=== PATIENT | female | born 1975 | race Two or more races ===

== ENCOUNTER 2022-01-22 14:53 | Outpatient (REF) | payer MEDICAID, OTHER, SELFPAY ==
--- NOTE | ~2022-01-22 | MM_ITS ---
EXAMINATION: MM SCREENING DIGITAL BREAST TOMOSYNTHESIS, BILATERAL CLINICAL INFORMATION: Screening. Asymptomatic. Surgical local outside mammograms unsuccessful. The lifetime risk of breast cancer based on the Tyrer-Cuzick Model is 6%. COMPARISON: None. TECHNIQUE: Digital breast tomosynthesis is performed in both the craniocaudal and mediolateral oblique views along with computer-aided detection (CAD). Synthesized 2D images are generated from the tomosynthesis. FINDINGS: The breasts are almost entirely fatty (ACR BI-RADS breast composition Category a). Right CC view has 0.5 mm nodular asymmetric density 11 cm from nipple medial to midline residing close to the skin on tomography with ill-defined margins. No MLO correlate. Finding could be related to the skin. In the absence of prior mammography, patient will be recalled for additional imaging. Left breast The remainder of the right breast and left breast shows normal stromal and fibroglandular densities. There are no abnormal calcifications. The axilla and skin contours are unremarkable. MM/MM tomosynthesis screening BI IMPRESSION: 1. Right: 5 mm asymmetric density close to skin posterior 5:00 position. 2. Left: No mammographic evidence of malignancy. ASSESSMENT: BI-RADS 0: Incomplete - Need Additional Imaging Evaluation RECOMMENDATION: 1. Assess right breast for dermal lesion and obtain repeat imaging with dermal marker if applicable. Otherwise, spot CC and rolled CC. 2. Targeted ultrasound if warranted after review of the additional views. 3. Radiology department staff will contact the patient for additional imaging. This patient's information was entered into a reminder system with a target due date for their next mammogram.
== END 2022-01-22 14:54 | disposition home or self-care (01) ==
LOC: HO.MAMMO 14:53
PROVIDERS: PCP Internal Medicine; Visit Provider Internal Medicine
DX: Z12.31 Encounter for screening mammogram for malignant neoplasm of breast (principal)
CPT/HCPCS: 77063; 77067

== ENCOUNTER 2022-02-04 14:26 | Outpatient (REF) | payer MEDICAID, OTHER, SELFPAY ==
--- NOTE | ~2022-02-04 | MM_ITS ---
EXAMINATION: MM DIAGNOSTIC DIGITAL BREAST TOMOSYNTHESIS, RIGHT CLINICAL INFORMATION: Right breast asymmetric density deep medial aspect. Question possible dermal lesion. COMPARISON: Mammography: 01/22/2022. TECHNIQUE: Digital breast tomosynthesis is performed. 2D images are generated from the tomosynthesis. The following views are obtained: Craniocaudal and mediolateral oblique projections. FINDINGS: The breasts are almost entirely fatty (ACR BI-RADS breast composition Category a). There is noted be a skin marker about the inferior medial aspect for which a skin marker was placed. Imaging demonstrated the questioned nodule to represent a skin lesion. No ultrasound was performed. Results are provided to the patient at time of visit by the technologist. MM/MM tomosynthesis added views R IMPRESSION: Mammographic abnormality corresponding to a dermal lesion. ASSESSMENT: BI-RADS 1: Negative. RECOMMENDATION: Routine annual mammography screening due in 12 months. This patient's information was entered into a reminder system with a target due date for their next mammogram.
== END 2022-02-04 14:27 | disposition home or self-care (01) ==
LOC: HO.MAMMO 14:26
PROVIDERS: Visit Provider Internal Medicine
DX: R92.2 Inconclusive mammogram (principal)
CPT/HCPCS: 77061; 77065

== ENCOUNTER → 2022-10-07 12:43 | Outpatient (REF) | payer MEDICAID, OTHER, SELFPAY ==
--- NOTE | 2022-10-07 12:48 | HM_ITS ---
Conclusion: 1. Patient was monitored for total period of 1 day and 22 hours 2. Baseline was normal sinus rhythm with average heart of 92 beats per minute 3. No significant pauses or bradycardia noted 4. Rare PACs noted 5. No patient reported symptoms MTDD
== END ==
LOC: HO.CARD 12:43
PROVIDERS: PCP Internal Medicine; Visit Provider Internal Medicine
DX: R00.2 Palpitations (principal)
CPT/HCPCS: 93226

== ENCOUNTER 2023-03-04 15:39 | Outpatient (REF) | payer MEDICAID, OTHER, SELFPAY ==
--- NOTE | ~2023-03-04 | MM_ITS ---
EXAMINATION: MM SCREENING DIGITAL BREAST TOMOSYNTHESIS, BILATERAL CLINICAL INFORMATION: Screening. Asymptomatic. COMPARISON: Mammography: February 04, 2022 and January 22, 2022 TECHNIQUE: Digital breast tomosynthesis is performed in both the craniocaudal and mediolateral oblique views along with computer-aided detection (CAD). Synthesized 2D images are generated from the tomosynthesis. FINDINGS: The breasts are almost entirely fatty (ACR BI-RADS breast composition Category a). There are no significant masses, abnormal calcifications, or other abnormalities. MM/MM tomosynthesis screening BI IMPRESSION: No significant changes from prior exam. ASSESSMENT: BI-RADS 1: Negative RECOMMENDATION: Routine annual mammography screening. This patient's information was entered into a reminder system with a target due date for their next mammogram.
== END 2023-03-04 15:40 | disposition home or self-care (01) ==
LOC: HO.MAMMO 15:39
PROVIDERS: PCP Internal Medicine; Visit Provider Internal Medicine
DX: Z12.31 Encounter for screening mammogram for malignant neoplasm of breast (principal)
CPT/HCPCS: 77063; 77067

== ENCOUNTER 2023-11-09 14:54 | Outpatient (REF) | payer MEDICAID, OTHER, SELFPAY ==
[2023-11-09 18:11] LABS: Anion Gap 15 (12-20); Blood Urea Nitrogen 8 mg/dL (9-16); Calcium 9.5 mg/dL (8.4-10.2); Carbon Dioxide 26 mmol/L (22-29); Chloride 103 mmol/L (96-108); Estimated Glomerular Filt Rate > 60; Glucose Random 79 mg/dL (60-115); Potassium 3.5 mmol/L (3.3-5.1); Sodium 140 mmol/L (135-145)
== END 2023-11-09 14:55 | disposition home or self-care (01) ==
LOC: HO.CHCLDS 14:54
PROVIDERS: Visit Provider Internal Medicine
DX: S63.502A Unspecified sprain of left wrist, initial encounter (principal)
CPT/HCPCS: 36415; 80048

== ENCOUNTER 2024-01-12 08:33 | Outpatient (REF) | payer MEDICAID, OTHER, SELFPAY ==
[2024-01-12 17:52] LABS: Alanine Aminotransferase 18 U/L (0-31); Alkaline Phosphatase 82 U/L (39-117); Anion Gap 13 (12-20); Aspartate Amino Transferase 14 U/L (5-31); Bilirubin Total 0.4 mg/dL (0.0-1.0); Blood Urea Nitrogen 13 mg/dL (9-16); Carbon Dioxide 25 mmol/L (22-29); Chloride 106 mmol/L (96-108); Cholesterol 183 mg/dL (<200); Estimated Glomerular Filt Rate > 60; Glucose Random 78 mg/dL (60-115); HDL Cholesterol 40 mg/dL (>40); LDL Cholesterol Calculated 125 mg/dL (<100); Potassium 3.9 mmol/L (3.3-5.1); Sodium 140 mmol/L (135-145); Total Protein 7.5 g/dL (6.5-8.0); Triglycerides 92 mg/dL (<150)
== END 2024-01-12 08:34 | disposition home or self-care (01) ==
LOC: HO.CHCLDS 08:33
PROVIDERS: Visit Provider Internal Medicine
DX: E78.2 Mixed hyperlipidemia (principal)
CPT/HCPCS: 36415; 80053; 80061

== ENCOUNTER 2024-01-28 14:54 | Outpatient (REF) | payer MEDICAID, OTHER, SELFPAY ==
--- NOTE | 2024-01-28 | EMG_ITS ---
Chief complaint: Hand numbness Reason for referral: Evaluate for Carpal Tunnel Syndrome Referred by: Dr. Hernandez Procedure done: Bilateral upper extremities NCS/EMG Precautions and/or limitations: None Patient is Icelandic speaking, seen with insurance consultant. The limb temperature was monitored continuously and remained between 32-36 degrees C during the performance of the NCS. Nerve Conduction Studies Anti Sensory Summary Table ?Stim Site NR Onset (ms) Norm Onset (ms) Peak (ms) Norm Peak (ms) O-P Amp (?V) Norm O-P Amp Site1 Site2 Delta-0 (ms) Dist (cm) Harley (m/s) Norm Harley (m/s) Left Median Anti Sensory (2nd Digit) Wrist ? 3.0 3.8 <3.6 33.3 >10 Wrist 2nd Digit 3.0 14.0 47 Right Median Anti Sensory (2nd Digit) Wrist ? 3.3 4.0 <3.6 15.3 >10 Wrist 2nd Digit 3.3 14.0 42 Right Radial Anti Sensory (Thumb) Forearm ? 1.4 1.9 <3.1 6.6 Forearm Thumb 1.4 0.0 Left Ulnar Anti Sensory (5th Digit) Wrist ? 2.5 3.1 <3.7 35.2 >15.0 Wrist 5th Digit 2.5 14.0 56 Right Ulnar Anti Sensory (5th Digit) Wrist ? 2.3 2.9 <3.7 16.4 >15.0 Wrist 5th Digit 2.3 14.0 61 Motor Summary Table ?Stim Site NR Onset (ms) Norm Onset (ms) O-P Amp (mV) Norm O-P Amp iAmp (mV) Amp (1st) (%) Site1 Site2 Delta-0 (ms) Dist (cm) Harley (m/s) Norm Harley (m/s) Left Median Motor (Abd Poll Brev) Wrist ? 4.4 <3.9 8.9 >4.5 10.1 100.0 Elbow Wrist 3.5 19.5 56 >45 Elbow ? 7.9 8.3 9.6 93.3 Right Median Motor (Abd Poll Brev) Wrist ? 4.6 <3.9 10.2 >4.5 11.8 100.0 Elbow Wrist 3.8 19.0 50 >45 Elbow ? 8.4 10.5 12.1 102.9 Left Ulnar Motor (Abd Dig Minimi) Wrist ? 2.7 <3.0 9.1 >5 11.4 100.0 B Elbow Wrist 3.0 17.0 57 >45 B Elbow ? 5.7 9.0 11.3 98.9 A Elbow B Elbow 1.0 10.0 100 >45 A Elbow ? 6.7 8.4 10.5 92.3 Right Ulnar Motor (Abd Dig Minimi) Wrist ? 2.5 <3.0 10.3 >5 12.7 100.0 B Elbow Wrist 3.0 18.0 60 >45 B Elbow ? 5.5 10.4 13.0 101.0 A Elbow B Elbow 1.3 10.0 77 >45 A Elbow ? 6.8 10.0 12.4 97.1 EMG ?Side Muscle Nerve Root Ins Act Fibs Psw Amp Dur Poly Recrt Int Pat Comment Right 1stDorInt Ulnar C8-T1 Nml Nml Nml Nml Nml 0 Nml Complete Right FlexCarRad Median C6-7 Nml Nml Nml Nml Nml 0 Nml Complete Right Biceps Musculocut C5-6 Nml Nml Nml Nml Nml 0 Nml Complete Right Triceps Radial C6-7-8 Nml Nml Nml Nml Nml 0 Nml Complete Right Deltoid Axillary C5-6 Nml Nml Nml Nml Nml 0 Nml Complete Left 1stDorInt Ulnar C8-T1 Nml Nml Nml Nml Nml 0 Nml Complete Left FlexCarRad Median C6-7 Nml Nml Nml Nml Nml 0 Nml Complete Left Biceps Musculocut C5-6 Nml Nml Nml Nml Nml 0 Nml Complete Left Triceps Radial C6-7-8 Nml Nml Nml Nml Nml 0 Nml Complete Left Deltoid Axillary C5-6 Nml Nml Nml Nml Nml 0 Nml Complete FINDINGS: Bilateral median motor nerves showed prolonged distal latency, normal amplitude and normal conduction velocity. Bilateral median sensory nerves showed prolonged peak latency. All other nerves tested were within normal. Concentric needle EMG was performed in selected muscles of the bilateral upper extremities. Study did not reveal signs of electric abnormalities as shown in the table below. IMPRESSION: 1. This is an abnormal study. 2. There is electrodiagnostic evidence for bilateral moderate-severe median neuropathy at the wrist, consistent with carpal tunnel syndrome. 3. There is no electrodiagnostic evidence for ulnar neuropathy, brachial plexopathy, or cervical radiculopathy. Thank you for your kind referral. Tereza Holland MD, KARLI Board Certified, [place] Board [employer] Medicine and Rehabilitation (ABPMR) Board Certified, [place] Board of Electrodiagnostic Medicine (ABEM) CODIN 95428 x 2 MTDD
== END 2024-01-28 14:55 | disposition home or self-care (01) ==
LOC: HO.NEURO 14:54
PROVIDERS: PCP Internal Medicine; Visit Provider Internal Medicine
DX: G56.01 Carpal tunnel syndrome, right upper limb (principal)
CPT/HCPCS: 95886; 95911

== ENCOUNTER → 2024-01-28 15:00 | Outpatient (BNV) | payer SELFPAY | PROVIDERS: PCP Internal Medicine; Visit Provider Physical Medicine & Rehabilitation | DX: G56.03 Carpal tunnel syndrome, bilateral upper limbs (principal); G56.13 Other lesions of median nerve, bilateral upper limbs | CPT/HCPCS: 95886; 95911 ==

== ENCOUNTER 2024-05-22 16:10 | Outpatient (REF) | payer SELFPAY ==
[2024-05-22 18:36] LABS: Anion Gap 14 (12-20); Blood Urea Nitrogen 20 mg/dL (9-16); Calcium 9.6 mg/dL (8.4-10.2); Carbon Dioxide 27 mmol/L (22-29); Chloride 106 mmol/L (96-108); Estimated Glomerular Filt Rate > 60; Glucose Random 142 mg/dL (60-115); Potassium 4.3 mmol/L (3.3-5.1); Sodium 143 mmol/L (135-145)
== END 2024-05-22 16:11 | disposition home or self-care (01) ==
LOC: HO.HHCL 16:10
PROVIDERS: Visit Provider Internal Medicine
DX: M25.511 Pain in right shoulder (principal)
CPT/HCPCS: 36415; 80048

== ENCOUNTER 2024-10-04 09:57 | Outpatient (REF) | payer SELFPAY ==
[2024-10-04 14:08] LABS: MANUAL DIFF FLAG NO
[2024-10-04 14:20] LABS: Basophils Percent Auto 0.4 % (0-2); Eosinophils Absolute Auto 0.1 X10*3/uL (0.0-0.4); Eosinophils Percent Auto 0.9 % (0-4); Hematocrit 39.9 % (37.0-47.0); Hemoglobin 12.6 g/dl (12.0-16.0); Imm Gran Abs Auto 0.02 X10*3/uL (0.00-0.03); Imm Gran Pct Auto 0.2 % (0.0-0.4); Lymphocytes Absolute Auto 2.9 X10*3/uL (1.2-4.9); Mean Corpuscular HGB Conc 31.6 g/dl (31.0-35.0); Mean Corpuscular Hemoglobin 25.9 pg (27.0-33.0); Mean Corpuscular Volume 81.9 fL (80.0-98.0); Mean Platelet Volume 11.3 fL (9.4-12.3); Monocytes Absolute Auto 0.6 X10*3/uL (0.1-1.2); Monocytes Percent Auto 5.6 % (2-11); Neutrophils Absolute Auto 6.3 x10*3/uL (2.0-8.3); Neutrophils Percent Auto 63.9 % (45-73); Platelet Count 275 X10*3/uL (160-400); Red Blood Count 4.87 X10*6/uL (4.20-5.50); Red Cell Distribution Width 15.5 % (11.0-16.0); White Blood Count 9.9 X10*3/uL (4.8-10.8)
[2024-10-04 14:28] LABS: Estimated Average Glucose 128 mg/dL; Hemoglobin A1C 144.3363 umol/L; Hemoglobin A1c % 6.1 % (<6.0); Total Hemoglobin (HGBA1C) 3351.0739 umol/L
[2024-10-04 14:47] LABS: Alanine Aminotransferase 25 U/L (0-31); Albumin Level 4.1 g/dL (3.5-5.0); Alkaline Phosphatase 90 U/L (39-117); Anion Gap 9 (12-20); Aspartate Amino Transferase 29 U/L (5-31); Bilirubin Total 0.4 mg/dL (0.0-1.0); Blood Urea Nitrogen 16 mg/dL (9-16); Calcium 9.4 mg/dL (8.4-10.2); Carbon Dioxide 30 mmol/L (22-29); Chloride 105 mmol/L (96-108); Cholesterol 141 mg/dL (<200); Estimated Glomerular Filt Rate > 60; Glucose Random 119 mg/dL (60-115); HDL Cholesterol 39 mg/dL (>40); LDL Cholesterol Calculated 83 mg/dL (<100); Potassium 3.9 mmol/L (3.3-5.1); Sodium 140 mmol/L (135-145); Total Protein 7.8 g/dL (6.5-8.0); Triglycerides 99 mg/dL (<150)
[2024-10-04 15:03] LABS: TSH reflex Free T4 1.32 uIU/mL (0.32-4.0)
== END 2024-10-04 09:58 | disposition home or self-care (01) ==
LOC: HO.CHCLDS 09:57
PROVIDERS: Visit Provider Internal Medicine
DX: E78.2 Mixed hyperlipidemia (principal); Z13.1 Encounter for screening for diabetes mellitus
CPT/HCPCS: 36415; 80053; 80061; 83036; 84443; 85025

== ENCOUNTER 2025-02-12 10:26 | Outpatient (REF) | payer OTHER, SELFPAY ==
--- NOTE | ~2025-02-12 | XR_ITS ---
CLINICAL HISTORY: right shoulder pain 4 view right shoulder Comparison: None Findings: Bones intact. No dislocations. No significant arthritic change. No erosions. No radiopaque foreign body. IMPRESSION: 1. No acute findings This document has been electronically signed by: Kerwin Conde MD on 02/17/2025 08:26:38
--- OUTSIDE RECORDS SUMMARY | 2025-02-12 11:43 | XMS_ITS | Encounter Summary ---
Author Organization [employer] Address [address] [facility] [address] [place] [address] Care Team Providers Care Plate Finisher Name Role Phone Timur Chance MD Primary Care Prov ider Reason for Visit * Reason Onset Date Comments ER Follow-up 11/09/2023 Nurse Triage 11/09/2023 Encounter Details Date Type Department Care Team ([facility] st Contact Info) Description 11/09/2023 Telephone [facility] [address] [place] [address] Timur Chance MD [address] [place] [address] ER Follow-up; Nurse Triage Social History Tobacco Use Types Packs/Day Years Used Date Smoking Tobacco: Never Passive Smoke Exposure: Never Smokeless Tobacco: Never Alcohol Use Standard Drinks/Week Comments Never 0 (1 standard drink = 0.6 oz pur e alcohol) Depression Answer Date Recorded Patient Health Questionnaire-9 Score 0 12/04/2022 Housing Stability Answer Date Recorded What is your housing situation today? I have juvenal healy 09/01/[address] you li ve. Do you have problems with any of the following? None of the above 09/01/2023 Food Insecurity Answer Date Recorded Within the past 12 months, y ou worried that your food would run out before you got money to buy more: Never True 09/01/2023 Within the past 12 months,th e food you bought just didn't last and you didn't have enough money to get more: Never True Transportation Answer Date Recorded In the past 12 months, has l ack of transportation kept you from medical appts, meetings, work or from getting things needed for daily living? No 09/01/2023 Utilities Answer Date Recorded In the past 12 months, has t he electric, gas, oil or water company threatened to shut off services in your home? No 09/01/2023 Depression Answer Date Recorded Patient Health Questionnaire-2 Score 0 12/04/2022 Comments Unknown Sex and Gender Information Value Date Recorded Sex Assigned at Female 09/14/2022 10:36 AM EDT Legal Sex Female 10:36 AM EDT Gender Identity Female 09/14/2022 10:36 AM EDT Sexual Orientation Straight 09/14/2022 10 :36 AM EDT documented as of this encounter Miscellaneous Notes * Telephone Encounter - Joanna Willis RN - 11/09/2023 10:56 AM EST Records request faxed to [facility] as requested. * Telephone Encounter - Viky Hooks RN - 11/09/2023 10:00 AM EST Called pt. Via [employer] email producer [phone] Aleksandar. Pt. States that she got injured her left hand at her job on 10/31/23 and has pain, swelling, Pt. Went to [facility] ED on 11/07/23. Pt. Had X rays done and pt. Was told that her tendon is injured in her hand. Pt. Has been using pain reliever with no relief. Will send request to have clinical coordinators call [facility] for ED notes and Xrays from 11/07/23 to befaxed to [facility] but, cannot guarantee that results will be sent with same day request. I will also send message to [facility] nurses to at least get Xray results from [facility] Protocol Used: Hand and Wrist Injury (Adult) Protocol-Based Disposition: See in Office or Video Visit Today- appt. Today at 2pm [facility]. Video visit not offered Positive Triage Questions: * Can't use injured hand normally (e.g., make a fist, open fully, hold a glass of water) * Patient wants to be seen * Moderate pain and high-risk adult (e.g., age > 60 years, osteoporosis, chronic steroid use) * Injury and pain has not improved after 3 days * All higher-acuity triage questions were negative Care Advice Discussed: * Reassurance and Education - Direct Blow (Contusion, Bruise) * Reassurance and Education - Bending or Twisting Injury (Strain, Sprain) * Use a Cold Pack for Pain, Swelling, or Bruising * Use Heat on Area After 48 Hours * Wrap With an Elastic Bandage * Elevate the Arm * Rest vs. Movement * Expected Course * Telephone Encounter - Yanet Bella - 11/09/2023 9:55 AM EST Symptoms: Fall, Hand or Wrist Injury Outcome: Schedule an urgent appointment (within 1 hour) or talk to a nurse or provider soon Reason: Getting worse Pt went to [facility] due to a fall. The caller accepted this outcome Bengali speaker * Telephone Encounter - Carlos Negrete - 11/09/2023 8:26 AM EST Patient calling to report ED visit on : 11/09 Date: 11/03 Hospital: [facility] Seen for: Hand Patient states is still in aments pain Patient advised will forward to team nurse for follow up documented in this encounter Plan of Treatment Not on file documented as of this encounter Visit Diagnoses Not on filedocumented in this encounter Additional Health Concerns Assessment Noted Time PHQ-9 Depression Total Score: 0 12/04/19 9:40 AM EST documented as of this encounter Care Teams Plate Finisher Relationship Specialty Start Date End Date Timur Chance MD [address] [place] [id number] PCP - General Internal Medicine 10/20/19 documented as of this encounter
--- OUTSIDE RECORDS SUMMARY | 2025-02-12 11:43 | XMS_ITS | Encounter Summary ---
Author Organization [employer] Address [address] [facility] [address] [place] [address] Care Team Providers Care Car Racer Name Role Phone Timur Chance MD Primary Care Prov ider Encounter Details Date Type Department Care Team ([facility] st Contact Info) Description 02/07/2025 11:30 AM EDT Telemedicine [facility] [address] [place], [place] [id number] Timur Chance MD [address] [place] [address] Primary hypertension (Primary Dx); Gastroesophageal reflux disease without esophagitis; Mixed hyperlipidemia; Chronic right shoulder pain Social History Tobacco Use Types Packs/Day Years Used Date Smoking Tobacco: Never Passive Smoke Exposure: Never Smokeless Tobacco: Never Alcohol Use Standard Drinks/Week Comments Never 0 (1 standard drink = 0.6 oz pur e alcohol) Depression Answer Date Recorded Patient Health Questionnaire-9 Score 16 09/27/2024 Patient Health Questionnaire-9 Score 16 09/27/2024 Last PHQ-9: Questionnaire Data Not on file 1 11/27/2023 Housing Stability Answer Date Recorded What is your housing situation today? I have juvenal sing 02/07/[address] you li ve. Do you have problems with any of the following? None of the above 02/07/2025 Food Insecurity Answer Date Recorded Within the past 12 months, y ou worried that your food would run out before you got money to buy more: Never True 02/07/2025 Within the past 12 months,th e food you bought just didn't last and you didn't have enough money to get more: Never True Transportation Answer Date Recorded In the past 12 months, has l ack of transportation kept you from medical appts, meetings, work or from getting things needed for daily living? No 02/07/2025 Utilities Answer Date Recorded In the past 12 months, has t he electric, gas, oil or water company threatened to shut off services in your home? No 02/07/2025 Depression Answer Date Recorded Patient Health Questionnaire-2 Score 5 09/27/2024 Internet Access Answer Date Recorded Internet Access Q1 Yes 02/07/2025 Internet Access Q2 Not on file 02/07/2025 Comments Unknown Sex and Gender Information Value Date Recorded Sex Assigned at Female 09/14/2022 10:36 AM EDT Legal Sex Female 10:36 AM EDT Gender Identity Female 09/14/2022 10:36 AM EDT Sexual Orientation Straight 09/14/2022 10 :36 AM EDT documented as of this encounter Last Filed Vital Signs Vital Sign Reading Time Taken Comments Blood Pressure 138/81 02/07/2025 11:46 AM EDT Pulse - - Temperature - - Respiratory Rate - - Oxygen Saturation - - Inhaled Oxygen Concentration - - Weight - - Height - - Body Mass Index - - documented in this encounter Progress Notes * Timur Hernandez MD - 02/07/2025 11:30 AM EDT Subjective Patient ID: Delmar Hudson is a 49 y.o. female who presents for No chief complaint on file.. Hypertension This is a chronic problem. Pertinent negatives include no chest pain, headaches, palpitations or shortness of breath. Review of Systems Respiratory: Negative for shortness of breath. Cardiovascular: Negative for chest pain and palpitations. Neurological: Negative for headaches. Objective Physical Exam Neurological: General: No focal deficit present. Mental Status: She is oriented to person, place, and time. Psychiatric: Mood and Affect: Mood normal. Behavior: Behavior normal. Assessment/Plan Problem List Items Addressed This Visit Gastroesophageal reflux disease without esophagitis Relevant Medications Omeprazole 20 MG tablet delayed-release Mixed hyperlipidemia Relevant Medications atorvastatin (Lipitor) 20 MG tablet Primary hypertension - Primary Controlled, keep low sodium diet and exercise as tolerated, follow up in 4 months Chronic right shoulder pain Will send new xray and will refer to [facility] for joint intection Relevant Orders XR Shoulder 2+ Views Right documented in this encounter Miscellaneous Notes * Assessment & Plan Note - Timur Hernandez MD - 02/07/2025 12:16 PM EDTAssociated Problem(s): Chronic right shoulder pain Will send new xray and will refer to [facility] for joint intection * Assessment & Plan Note - Timur Hernandez MD - 02/07/2025 11:49 AM EDTAssociated Problem(s): Primary hypertension Controlled, keep low sodium diet and exercise as tolerated, follow up in 4 months documented in this encounter Plan of Treatment Scheduled Orders Name Type Priority Associated Diagnoses Orde r Schedule XR Shoulder 2+ Views Right Imaging Routine Chronic right shoulder pain Expected: 02/07/2025, Expires: 02/07/2026 documented as of this encounter Visit Diagnoses Diagnosis Primary hypertension- Primary Unspecified essential hypertension Gastroesophageal reflux disease without esophagitis Esophageal reflux Mixed hyperlipidemia Chronic right shoulder pain Pain in joint, shoulder region documented in this encounter Additional Health Concerns Assessment Noted Time PHQ-9 Depression Total Score: 16 024 12:04 PM EST documented as of this encounter Care Teams Car Racer Relationship Specialty Start Date End Date Timur Chance MD [address] [place] [id number] PCP - General Internal Medicine 10/20/19 documented as of this encounter
--- OUTSIDE RECORDS SUMMARY | 2025-02-12 11:43 | XMS_ITS | Encounter Summary ---
Author Organization [employer] Address [address] [facility] [address] [place] [address] Care Team Providers Care Client Support Manager Name Role Phone Timur Chance MD Primary Care Prov ider Encounter Details Date Type Department Care Team (Latest Contact Info) Description 02/07/2025 Travel Social History Tobacco Use Types Packs/Day Years [...] housing situation today? I have juvenal healy 02/07/[address] you li [...] AM EDT documented as of this encounter Plan of Treatment Not on file documented as of this encounter Visit Diagnoses Not on filedocumented in this encounter Additional Health Concerns Assessment Noted Time PHQ-9 Depression Total Score: 16 024 12:04 PM EST documented as of this encounter Care Teams Client Support Manager Relationship Specialty Start Date End Date Timur Chance MD [address] [place] [address] PCP - General Internal Medicine 10/20/19 documented as of this encounter
--- OUTSIDE RECORDS SUMMARY | 2025-02-12 11:43 | XMS_ITS | Encounter Summary ---
Author Organization [employer] Address [address] [facility] [address] [place] [address] Care Team Providers Care Sugar Mixer Name Role Phone Timur Chance MD Primary Care Prov ider Reason for Visit * Reason Onset Date Comments Nurse Triage 10/18/2024 Encounter Details Date Type Department Care Team ([facility] st Contact Info) Description 10/18/[address] [facility] MEDICINE [address] [place] [address] Timur Chance MD [address] [place] [address] Nurse Triage Social History Tobacco Use Types [...] housing situation today? I have juvenal healy 01/10/[address] you li ve. Do you have problems with any of the following? None of the above 01/10/2024 Food Insecurity Answer Date Recorded Within the past 12 months, y ou worried that your food would run out before you got money to buy more: Never True 01/10/2024 Within the past 12 months,th e food you bought just didn't last and you didn't have enough money to get more: Never True Transportation Answer Date Recorded In the past 12 months, has l ack of transportation kept you from medical appts, meetings, work or from getting things needed for daily living? No 01/10/2024 Utilities Answer Date Recorded In the past 12 months, has t he electric, gas, oil or water company threatened to shut off services in your home? No 01/10/2024 Depression Answer Date Recorded Patient Health Questionnaire-2 Score 5 09/27/2024 Comments Unknown Sex and Gender Information Value Date Recorded Sex Assigned at Female 09/14/2022 10:36 AM EDT Legal Sex Female 10:36 AM EDT Gender Identity Female 09/14/2022 10:36 AM EDT Sexual Orientation Straight 09/14/2022 10 :36 AM EDT documented as of this encounter Miscellaneous Notes * Telephone Encounter - Joanna Willis RN - 10/18/2024 11:53 AM EST Noted, pt to f/u PRN if sooner appt is needed. Pt scheduled for 11/01/24 with PCP. * Telephone Encounter - Kyara Smith RN - 10/18/2024 9:58 AM EST Sent to team for ER status check PRN. * Telephone Encounter - Kyara Smith RN - 10/18/2024 9:55 AM EST Call returned to Delmar Hudson to triage below. Reports having right upper back and shoulder painx 1 week. Pt had a fall on . Pt did not seek ER or UC. No swelling, redness or rash. Has limited ROM due to pain. Pt using OTC ibuprofen with mild relief. Pt is having pain at collar bone. Ptadvised of disposition, agrees to seek [facility] ED for eval to rule out fracture. Protocol Used: Shoulder Injury (Adult) Protocol-Based Disposition: Go to ED/[facility] Now (or to Office with PCP Approval) Positive Triage Question: * Collarbone is painful or tender to touch * All higher-acuity triage questions were negative Care Advice Discussed: * Reassurance and Education - Direct Blow (Contusion, Bruise) * Use a Cold Pack for Pain, Swelling, or Bruising * Use Heat on Area After 48 Hours * Reasons To Call Back - Severe pain lasts over 2 hours after pain medicine and ice - You become worse * Telephone Encounter - James Sandra - 10/18/2024 9:25 AM EST Symptom: Shoulder Pain - Not From Injury Outcome: Schedule an urgent appointment (within 1 hour) or talk to a nurse or provider soon Reason: Can't use the shoulder normally Swazi Speaker (Accepted Back Closer) documented in this encounter Plan of Treatment Not on file documented as of this encounter Visit Diagnoses Not on filedocumented in this encounter Additional Health Concerns Assessment Noted Time PHQ-9 Depression Total Score: 16 024 12:04 PM EST documented as of this encounter Care Teams Sugar Mixer Relationship Specialty Start Date End Date Timur Chance MD [address] [place] [id number] PCP - General Internal Medicine 10/20/19 documented as of this encounter
--- OUTSIDE RECORDS SUMMARY | 2025-02-12 11:43 | XMS_ITS | Encounter Summary ---
Author Organization [employer] Address [address] [facility] 7[address] [place] [address] Care Team Providers Care Labeling Strategist Name Role Phone Timur Chance MD Primary Care Prov ider Reason for Visit * Reason Onset Date Comments Referral 10/16/2024 Encounter Details Date Type Department Care Team ([facility] st Contact Info) Description 10/16/2024 Telephone [facility] [address] [place] [address] Timur Chance MD [address] [place] [address] Referral Social History Tobacco Use Types Packs/Day Years [...] encounter Miscellaneous Notes * Telephone Encounter - Vivien Singh - 10/16/2024 9:48 AM EST Referral re faxed today. * Telephone Encounter - Donato Navarrete - 10/16/2024 8:44 AM EST TC from pt requesting a renewal for Refferal done for 07/26 for Physical therapy. If any question contact pt at [phone] documented in this encounter Plan of Treatment Not on file documented as of this encounter Visit Diagnoses Not on filedocumented in this encounter Additional Health Concerns Assessment Noted Time PHQ-9 Depression Total Score: 16 024 12:04 PM EST documented as of this encounter Care Teams Labeling Strategist Relationship Specialty Start Date End Date Timur Chance MD [address] [place] [phone] PCP - General Internal Medicine 10/20/19 documented as of this encounter
--- OUTSIDE RECORDS SUMMARY | 2025-02-12 11:43 | XMS_ITS | Clinical Summary ---
Author Organization [employer] Address [address] [facility] [address] [place] [address] Care Team Providers Care Biostatistician Name Role Phone Timur Chance MD Primary Care Prov ider Allergies No known active allergies Medications Diclofenac Sodium 1 % gelIndications:Ac yung pain of right knee,Sprain of left wrist, initial encounter To apply to the affected area 3 times a day 100 g 07/27/20 24 Active losartan (Cozaar) 25 MG tablet Take 1 tablet (25 mg) by mouth Once per day. 90 tablet 3 02/08/20 25 026 Active Omeprazole 20 MG tablet delayed-releaseIn dications:Gastroe sophageal reflux disease without esophagitis Take 1 tablet (20 mg) by mouth Once per day. 90 tablet 1 02/08/20 25 025 Active atorvastatin (Lipitor) 20 MG tabletIndications :Mixed hyperlipidemia Take 1 tablet (20 mg) by mouth Once per day. 90 tablet 1 02/08/20 25 025 Active Omeprazole 20 MG tablet delayed-releaseIn dications:Gastroe sophageal reflux disease without esophagitis Take 1 tablet (20 mg) by mouth Once per day. 90 tablet 1 09/27/20 24 025 Discontinued(R eorder (will not trigger notification to Pharmacy)) atorvastatin (Lipitor) 20 MG tabletIndications :Mixed hyperlipidemia Take 1 tablet (20 mg) by mouth Once per day. 90 tablet 1 09/27/20 24 025 Discontinued(R eorder (will not trigger notification to Pharmacy)) losartan (Cozaar) 25 MG tablet Take 1 tablet (25 mg) by mouth Once per day. 30 tablet 11 09/27/20 025 Discontinued(R eorder (will not trigger notification to Pharmacy)) Active Problems Problem Noted Date Diagnosed Date Pre-diabetes 10/30/2024 Assessment & Plan (10/30/2024 12:18 PM EST): A1c 6.1%, continue low carb, no sugar diet, encourage low carb/no sugar diet, Chronic right shoulder pain 10/30/2024 Assessment & Plan (02/07/2025 12:16 PM EDT): Will send new xray and will refer to [facility] for joint intection Assessment & Plan (10/30/2024 12:21 PM EST): Will refer to PT, avoid heavy lifting, Well woman exam 10/10/2024 Assessment & Plan (10/10/2024 9:19 PM EST): Pt had total hysterectomy for benign reasons, 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 Previous notes from CNM in 2019 reports seeing cervix and hence recommend to continue monitoring on examination I did not appreciate a cervix did see vaginal wall dog ears. no need to continue cervical cancer screening. Pt agreed to influenza vaccination today. Encounter for screening mamm ogram for malignant neoplasm of breast 09/27/2024 Assessment & Plan (09/27/2024 12:02 PM EST): Will send mammogram Primary hypertension 09/27/2024 Assessment & Plan (02/07/2025 11:49 AM EDT): Controlled, keep low sodium diet and exercise as tolerated, follow up in 4 months Assessment & Plan (10/30/2024 12:08 PM EST): Controlled, contineu losartan 25mg, continue low sodium diet and exercise as tolerated, keep bp log, target <140/90 Assessment & Plan (09/27/2024 12:58 PM EST): Uncontrolled, will start on losartan 25mg, keep bp log, keep low sodium diet Chronic pain of right knee 09/27/2024 Assessment & Plan (10/30/2024 12:21 PM EST): Will refer to pt, avoid prolongued walking, heavy lifting, Assessment & Plan (09/27/2024 1:00 PM EST): Improved, encouraged weight loss, call back if recurrence Class 3 severe obesity due t o excess calories with serious comorbidity and body mass index (BMI) of 45.0 to 49.9 in adult 09/27/2024 Assessment & Plan (09/27/2024 1:00 PM EST): Will refe to bariatric surgery Carpal tunnel syndrome of right wrist 01/10/2024 Assessment & Plan (01/10/2024 1:09 PM EST): Will place order for EMG, will follow results to decide next step Screening for colon cancer 03/09/2023 Assessment & Plan (09/27/2024 12:01 PM EST): Will send cologuard Assessment & Plan (03/09/2023 10:22 AM EDT): Will send cologuard, no warning signs Gastroesophageal reflux disease without esophagi tis 12/04/2022 Assessment & Plan (12/04/2022 10:13 AM EST): Will renew omeprazole, discussed lifestyle changes Mixed hyperlipidemia 12/04/2022 Assessment & Plan (10/30/2024 12:17 PM EST): Controlled, continue atorvastatin, continue low fat diet, follow up in 4-6 months Assessment & Plan (09/27/2024 12:56 PM EST): Will restart therapy, patient stopped taking it a couple of months ago Assessment & Plan (01/10/2024 1:10 PM EST): New labs will be orderedd for guidance of therapy, patient following diet inconsistently Assessment & Plan (03/09/2023 10:22 AM EDT): On atorvastatin, new labs will be ordered for guidance of therapy Assessment & Plan (12/04/2022 10:15 AM EST): Continue atorvastatin, no changes, encouraged increasing vegetable/fish and continue exercising Chronic left shoulder pain 12/04/2022 Assessment & Plan (12/04/2022 10:14 AM EST): Patient with OA changes and tendinitis, told to apply ice/rest joint, will order voltaren gel Encounters Date Type Department Care Team Description 02/07/2025 11:30 AM EDT Telemedicine [facility] [address] [place] [address] Timur Chance MD Primary hypertension (Primary Dx); Gastroesophageal reflux disease without esophagitis; Mixed hyperlipidemia; Chronic right shoulder pain 02/07/2025 Travel 02/05/2025 Travel 02/05/2025 Telephone [facility] [address] [place] [address] Timur Chance MD 01/08/2025 Travel from Last 3 Months Immunizations Name Administration Dates Next Due Influenza injectable quadriv alent IIV4 with preservative 10/20/2019 Influenza injectable quadrivalent preservative f ree 09/03/2022,11/29/2020 Influenza, seasonal, injectable, preservative fr ee 10/10/2024 Moderna Covid-19 Vaccine 12+ 06/18/2022 Tdap 10/20/2019 Social History Tobacco Use Types Packs/Day Years Used Date Smoking Tobacco: Never Passive Smoke Exposure: Never Smokeless Tobacco: Never Tobacco Cessation:Counseling Given: No Alcohol Use Standard Drinks/Week Comments Never 0 [...] Orientation Straight 09/14/2022 10 :36 AM EDT Last Filed Vital Signs Vital Sign Reading Time Taken Comments Blood Pressure 138/81 02/07/2025 11:46 AM EDT Pulse 78 10/10/2024 11:19 AM EST Temperature 36.8 ??C (98.2 ??F) 10/10/2024 11:[address] Respiratory Rate 20 10/10/2024 11:19 AM EST Oxygen Saturation 98% 10/10/2024 11:19 AM EST Inhaled Oxygen Concentration - - Weight 115 kg (254 lb 9.6 oz) 10/10/2024 11:19 A M EST Height 156 cm (5' 1.42 ) 10/10/2024 11:19 AM EST Body Mass Index 47.46 10/10/2024 11:19 AM EST Plan of Treatment Health Maintenance Due Date Last Done Comments CT Colonography 1975 Colonoscopy 1975 FIT 1975 FOBT 1975 Sigmoidoscopy 1975 Family Planning (PISQ) 02/25/1988 Hepatitis B Vaccines (1 of 3 - 19+ 3-dose series) 02/25/1992 Pneumococcal Vaccine: 50+ Years (1 of 1 - PCV) 2023 Zoster Vaccines (1 of 2) 2023 COVID-19 Vaccine (4 - season) 2024 06/18/2022, 05/14/2021, 04/16/2021 Mammogram 03/04/2025 03/04/2023, 01/14, 01/22/2022 Depression Monitoring (PHQ-9) 03/27/2025 09/27/2024, 09/27/2024 Depression Screening 09/27/2025 09/27/2024, 09/27/20 Diabetes: Hemoglobin A1C 10/04/2025 024, 03/25/2023, 09/08/2022, Additional history exists Tobacco Screening 10/10/2025 10/10/2024 Alcohol/Substance Use Screening 02/07/2026 02/07/2025 SDOH Screening 02/07/2026 02/07/2025 Colorectal Cancer Screening 10/18/2027 FIT DNA/Cologuard 10/18/2027 10/18/2024 Lipid Panel 10/04/2029 10/04/2024, 12/17, 03/25/2023, Additional history exists DTaP/Tdap/Td Vaccines (2 - Td or Tdap) 10/20/2029 10/20/2019 RSV Patients and Patients Aged 60 years or older (1 - 1-dose 75+ series) 02/25/2048 HIV Screening Completed 10/20/2019 HPV/Cotest Discontinued 12/05/2019 Hepatitis C Screening Completed 09/08/2022 Influenza Vaccine Completed 10/10/2024, , 11/29/2020, Additional history exists Cervical Cancer Screening Discontinued HIB Vaccines Aged Out No longer eligi ble based on patient's age to complete this topic HPV Vaccines Aged Out No longer eligi ble based on patient's age to complete this topic Hepatitis A Vaccines Aged Out No long er eligible based on patient's age to complete this topic IPV Vaccines Aged Out No longer eligi ble based on patient's age to complete this topic Meningococcal Vaccine Aged Out No anca perla eligible based on patient's age to complete this topic Pap Smear Discontinued RSV under 20 months Aged Out No longe r eligible based on patient's age to complete this topic Rotavirus Vaccines Aged Out No longer eligible based on patient's age to complete this topic Procedures Procedure Name Priority Date/Time Associated Diagnosis Comments LAB COLOGUARD?? COLON CANCER SCREEN Routine 10/18/2024 8:40 AM EST Screening for colon cancer HEMOGLOBIN A1C Routine 10/04/2024 9:58 AM EST Mixed hyperlipidemia LIPID PANEL, STANDARD Routine 10/04/2024 9:58 AM EST Mixed hyperlipidemia BI MAMMOGRAM SCREENING TOMOSYNTHESIS BILATERAL Routine 03/04/2023 4:00 PM EDT [facility] HISTORICAL HEPATITIS C AB W/REFL TO HCV RNA, QN, PCR Routine 09/08/2022 8:52 AM EDT [facility] HISTORICAL HPV MRNA E6/E7 Routine 12/05/2019 1:12 PM EST [facility] HISTORICAL HIV AB/AG Routine 10/20/2019 3:01 PM EST from Last 3 Months or Most Recently Relevant to Health Maintenance Results * Cologuard?? colon cancer screening (10/18/2024 8:40 AM EST) Cologuard Result Negative Negative 10/26/20 5:02 AM EST [facility] (CLIA #:[id number]) Comment: NEGATIVE TEST RESULT. A negative Cologuard result indicates a low likelihood that a colorectal cancer (CRC) or advanced adenoma (adenomatous polyps with more advanced pre-malignant features) ??is present. The chance that a person with a negative Cologuard test has a colorectal cancer is less than 1 in 1500 (negative predictive value >99.9%) or has an ??advanced adenoma is less than ??5.3% (negative predictive value 94.7%). These data are based on a prospective cross-sectional study of 10,000 individuals at average risk for colorectal cancer who were screened with both Cologuard and colonoscopy. (Juan Ochoa al, N Engl J Med 2014;370(14):1286- 1297) The normal value (reference range) for this assay is negative. COLOGUARD RE-SCREENING RECOMMENDATION: Periodic colorectal cancer screening is an important part of preventive healthcare for asymptomatic individuals at average risk for colorectal cancer. ??Following a negative Cologuard result, the [place] Cancer Society and U.S. Multi-Society Task Force screening guidelines recommend a Cologuard re-screening interval of 3 years. References: [place] [employer] Guideline for Colorectal Cancer Screening: https://www.cancer.org/cancer/hivoi-uextoh-bupxir/zsqbiwimm-ukebcnqsi-rfxlmrl/ac s-rec ommendations.html.; Aki HARGROVE, Fabio RODRIGUES, Oleg GarciaK, Colorectal Cancer Screening: Recommendations for Physicians and Patients from the U.S. Multi-Society Task Force on Colorectal Cancer Screening , Am J Gastroenterology 2017; 112:6293-7524. TEST DESCRIPTION: Composite algorithmic analysis of stool DNA-biomarkers with hemoglobin immunoassay. ?? Quantitative values of individual biomarkers are not reportable and are not associated with individual biomarker result reference ranges. Cologuard is intended for colorectal cancer screening of adults of either sex, 45 years or older, who are at average-risk for colorectal cancer (CRC). Cologuard has been approved for use by the U.S. FDA. The performance of Cologuard was established in a cross sectional study of average-risk adults aged 50-84. Cologuard performance in patients ages 45 to 49 years was estimated by sub-group analysis of near-age groups. Colonoscopies performed for a positive result may find as the most clinically significant lesion: colorectal cancer [4.0%], advanced adenoma (including sessile serrated polyps greater than or equal to 1cm diameter) [20%] or non- advanced adenoma [31%]; or no colorectal neoplasia [45%]. These estimates are derived from a prospective cross-sectional screening study of 10,000 individuals at average risk for colorectal cancer who were screened with both Cologuard and colonoscopy. (Juan Newman, N Engl J Med 2014;370(14):1069-2076.) Cologuard may produce a false negative or false positive result (no colorectal cancer or precancerous polyp present at colonoscopy follow up). A negative Cologuard test result does not guarantee the absence of CRC or advanced adenoma (pre-cancer). The current Cologuard screening interval is every 3 years. ([place] [employer] Society and U.S. Multi-Society Task Force). Cologuard performance data in a 10,000 patient pivotal study using colonoscopy as the reference method can be accessed at the following location: www.ensembli.newBrandAnalytics/results. Additional description of the Cologuard test process, warnings and precautions can be found at www.cologuard.com. Stool specimen (specimen) 10/18/2024 8:40 AM EST 10/19/2024 10:55 AM EST us Timur Hernandez MD LAB MOLECULAR DIAG NOSTICS ORDERABLES Final Result [facility] (CLIA #:[id number]) [address] [place] [address], * (ABNORMAL) Hemoglobin A1c (10/04/2024 9:58 AM EST) Hemoglobin A1c 6.1(H) <6.0 % [facility] Comment:Hemoglobin A1C Refer ence Range Adults: 4.8 - 6.0 % Non diabetic: < 6.0 % Goal: < 7.0 %Additional Action Suggested: > 8.0 %Note: Hemoglobin A1c results are invalid for patients with abnormal amounts of HbF. Blood transfusions may impact the HbA1c concentration in the patient sample. Estimated Average Glucose 128 mg/dL [facility] Comment:eAG = Estimated ave rage glucose which is %A1C expressed asaverage glucose, using the formula of the D6O-TntlpreAhaukmt Glucose study (ADAG), Diabetes Care, Vol.31,#8,Jun. 2007 Blood Venous blood specimen / Unknown 10/04/2024 9:58 AM EST 10/04/2024 2:02 PM EST us Timur Hernandez MD LAB BLOOD ORDERABL ES Final Result Performing Organization Address [facility] Co de Phone Number [facility] [address] [place] [address] [phone] * (ABNORMAL) Lipid Panel, Standard (10/04/2024 9:58 AM EST) Triglycerides 99 <150 mg/dL [facility] Comment:Slight Lipemia.Karyna able Triglyceride: less than 150 mg/dLBorderline High Triglyceride 150-199 mg/dLHigh Triglyceride: 200-499 mg/dLVery High Triglyceride: greater than or equal to 5OO mg/dL Cholesterol 141 <200 mg/dL [facility] Comment:Desirable Cholestero l: less than 200 mg/dLBorderline High Cholesterol: 200-239 mg/dLHigh Cholesterol: greater than 239 mg/dL LDL Cholesterol Calculated 83 <100 mg/dL [facility] Comment:Desirable LDL: less than 100 mg/dLNear Optimal/Above Optimal LDL: 110- 129 mg/dLBorderline High LDL: 130-159 mg/dLHigh LDL: 160-189 mg/dLVery High LDL: greater than or equal to 190 mg/dL HDL Cholesterol 39(L) >40 mg/dL [facility] Comment:Desirable HDL: great er than 40 mg/dL Note: This HDL assay may give artificially low results in patients with liver disease. Blood Venous blood specimen / Unknown 10/04/2024 9:58 AM EST 10/04/2024 2:02 PM EST Timur Hernandez MD LAB BLOOD ORDERABL ES Final Result Performing Organization Address City/[facility]/ZIP Co de Phone Number [facility] [address] [place] [address] [phone] * BI Mammogram Screening Tomosynthesis Bilateral (03/04/2023 4:00 PM EDT) Anatomical Region Laterality Modality Breast Bilateral Mammography 03/04/2023 4:00 PM EDT Narrative 03/05/2023 8:21 PM EDT ? [facility] ? [address] ?[place] [address] ? Mammography Report ? Signed ? Patient: Hudson,Elsida ?MR#: [id number] ?? [id number] ? : 1975 ?Acct:[id number] ? Age/Sex: 48 / F ?ADM Date: 03/04/23 ? Loc: HO.MAMMO ? Attending Dr: Timur Hernandez MD ? Ordering Physician: Timur Chance MD ?Res ?? ults: 1Negative ? Date of Service: 03/04/23 ?Follow Up: 1 Year From Orig ?? inal Mammogram ? Procedure(s): MM tomosynthesis screening BI ?? Accession Number(s): [id number] ? cc: Timur Chance MD ? EXAMINATION: ?? MM SCREENING DIGITAL BREAST TOMOSYNTHESIS, BILATERAL ? CLINICAL INFORMATION: ? Screening. Asymptomatic. ? COMPARISON: ?? Mammography: February 04, 2022 and January 22, 2022 ? TECHNIQUE: ?? Digital breast tomosynthesis is performed in both the craniocaudal and ?? mediolateral oblique views along with computer-aided detection (CAD). ?? Synthesized 2D images are generated from the tomosynthesis. ? FINDINGS: ?? The breasts are almost entirely fatty (ACR BI-RADS breast composition ?? Category a). ? There are no significant masses, abnormal calcifications, or other ?? abnormalities. ? MM/MM tomosynthesis screening BI ?? IMPRESSION: ?? No significant changes from prior exam. ? ASSESSMENT: ? BI-RADS 1: Negative ? RECOMMENDATION: ?? Routine annual mammography screening. ? This patient's information was entered into a reminder system with a ?? target due date for their next mammogram. ? Dictated By: ?Pino Oliveira MD ? Signed By: ?<Electronically signed by Pino Oliveira MD in OV> ?03/05/232018 ? DD/ 1600 ? TD/TT: ? Hearing Examiner: SK ? Procedure Note Donotuseinterpreter, Image - 05/13/2023 [facility] [address] [place] [address] Mammography Report Signed Patient: Delmar HudsonMR#: [id number] : 1975Acct:[id number] Age/Sex: 48 / FADM Date: 03/04/23 Loc: HO.MAMMO Attending Dr: Timur Hernandez MD Ordering Physician: Timur Chance ults: 1Negative Date of Service: 03/04/23Follow Up: 1 Year From Orig inal Mammogram Procedure(s): MM tomosynthesis screening BI Accession Number(s): [id number] cc: Timur Chance MD EXAMINATION: MM SCREENING DIGITAL BREAST TOMOSYNTHESIS, BILATERAL CLINICAL INFORMATION: Screening. Asymptomatic. COMPARISON: Mammography: February 04, 2022 and January 22, 2022 TECHNIQUE: Digital breast tomosynthesis is performed in both the craniocaudal and mediolateral oblique views along with computer-aided detection (CAD). Synthesized 2D images are generated from the tomosynthesis. FINDINGS: The breasts are almost entirely fatty (ACR BI-RADS breast composition Category a). There are no significant masses, abnormal calcifications, or other abnormalities. MM/MM tomosynthesis screening BI IMPRESSION: No significant changes from prior exam. ASSESSMENT: BI-RADS 1: Negative RECOMMENDATION: Routine annual mammography screening. This patient's information was entered into a reminder system with a target due date for their next mammogram. Dictated By: Pino Oliveira MD Signed By: <Electronically signed by Pino Oliveira MD in OV> 03/05/232018 DD/ 99 TD/TT: Hearing Examiner: FANNIE [facility] External Provider IMG BI PROCEDURES Edited Result - Final * HEPATITIS C AB W/REFL TO HCV RNA, QN, PCR (09/08/2022 8:52 AM EDT) Pathologist [facility] [place] HEPATITIS C ANTIBODY NON-REACTI VE NON-REACT [place] CONVERTED LEGACY LABS INDEX 0.09 <1.00 CONVERTED LEGACY LABS Comment: ?? HCV antibody was non-reactive. There is no laboratory ?? evidence of HCV infection. ?? In most cases, no further action is required. However, if recent HCV exposure is suspected, a test for HCV RNA (test code 20863) is suggested. ?? For additional information please refer to http://Sync.ME.Beijing NetentSec/faq/HCI56f1 (This link is being provided for informational/ educational purposes only.) ?? 09/08/2022 8:52 AM EDT Timur Hernandez MD HISTORICAL/NON ORD ERABLE LABS Final Result CONVERTED LEGACY LABS * HPV mRNA E6/E7 (12/05/2019 1:12 PM EST) HPV mRNA E6/E7 Not Detected NOT DETECTED [facility] Comment: This test was performed using the APTIMA(R) HPV Assay ([employer] This assay detects E6/E7 viral messenger RNA (mRNA) from 14 high-risk HPV types (16,18,31,33,35,39,45,51, 52,56,58,59,66,68). For additional information please refer to: http://Sync.ME.Be[employer] NetentSec/faq/MIF296e5 (This link is being provided for informational/ educational purposes only.) The analytical performance characteristics of this assay have been determined by [facility], [place]. The modifications have not been cleared or approved by the FDA. This assay has been validated pursuant to the CLIA regulations and is used for clinical purposes. Test Performed by [facility], [address] [place], [address] [place], [place] Nas Dugan M.D., Ph.D., Director of Laboratories , CLIA [id number] Please note: ??Effective 07/27/2016, HPV testing will be performed using [employer]'s APTIMA test which targets mRNA. Detecting mRNA instead of DNA, as in older methods, offers significant improvements in specificity. 12/05/2019 1:12 PM EST us Aretha Blanco CNM HISTORICAL/NON ORDERABLE LABS Final Result Performing Organization Address [facility] Phone Number [facility] [address] * HIV AB/AG (10/20/2019 3:01 PM EST) HIV AG/AB NONREACTIVE [facility] Comment: HIV-1 p24 Ag and/or HIV-1/HIV-2 Ab not detected. ?? A test result that is nonreactive does not exclude the possibility of exposure to or infection with HIV-1 and/or HIV-2. Nonreactive results in this assay for individuals with prior exposure to HIV-1 and/or HIV-2 may be due to antigen and antibody levels that are below the limit of detection of this assay. ?? The [employer] HIV Ag/Ab Combo assay result and supplemental assay results should be interpreted in conjunction with the patient's clinical presentation, history and other laboratory results. ??If the results are inconsistent with clinical evidence, additional testing is suggested to confirm the result. 10/20/2019 3:01 PM EST us Timur Hernandez MD HISTORICAL/NON ORD ERABLE LABS Final Result Performing Organization Address [facility] Phone Number [facility] [address] from Last 3 Months or Most Recently Relevant to Health Maintenance Insurance [facility] Care Teams Biostatistician Relationship Specialty Start Date End Date Timur Chance MD [address] [place] [phone] PCP - General Internal Medicine 10/20/19
--- OUTSIDE RECORDS SUMMARY | 2025-02-12 11:43 | XMS_ITS | Encounter Summary ---
Author Organization [employer] Address [address] [facility] 7t [place] [address] Care Team Providers Care Supervisor Treating And Pumping Name Role Phone Timur Chance MD Primary Care Prov ider Encounter Details Date Type Department Care Team ([facility] st Contact Info) Description 11/05/2023 Abstract [facility] [address] [place], [place] [id number] Timur Chance MD [address] [place] [address] Social History Tobacco Use Types Packs/Day Years Used Date Smoking Tobacco: Never Passive Smoke Exposure: Never Smokeless Tobacco: Never Depression Answer Date Recorded Patient Health Questionnaire-9 Score 0 12/04/2022 Housing Stability Answer Date Recorded What is your housing situation today? I have juvenaljuan pablo healy 09/01/[address] you [...] Time PHQ-9 Depression Total Score: 0 12/04/19 23 9:40 AM EST documented as of this encounter Care Teams Supervisor Treating And Pumping Relationship Specialty Start Date End Date Timur Chance MD [address] [place] [id number] PCP - General Internal Medicine 10/20/19 documented as of this encounter
--- OUTSIDE RECORDS SUMMARY | 2025-02-12 11:43 | XMS_ITS | Encounter Summary ---
Author Organization [employer] Address [address] [facility] 7t [place] [address] Care Team Providers Care Medical Reviewer Name Role Phone Timur Chance MD Primary Care Prov ider Encounter Details Date Type Department Care Team ([facility] st Contact Info) Description 11/09/2023 Telephone [facility] MED[facility] [address] [place] [address] Timur Chance MD [address] [place] [address] Social History Tobacco Use Types Packs/Day Years [...] t he electric, gas, oil or water [employer] threatened to shut off services in your [...] documented as of this encounter Care Teams Medical Reviewer Relationship Specialty Start Date End Date Timur Chance MD [address] [place] [address] PCP - General Internal Medicine 10/20/19 documented as of this encounter
--- OUTSIDE RECORDS SUMMARY | 2025-02-12 11:43 | XMS_ITS | Encounter Summary ---
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 Name Role Phone Timur Chance MD Primary Care Prov ider Reason for Visit * Reason Onset Date Comments Referral 08/02/2024 Encounter Details Date Type Department Care Team ([facility] st Contact Info) Description 08/02/2024 Telephone [facility] [address] [place] [address] Timur Chance MD [address] [place] [address] Referral Social History Tobacco Use Types Packs/Day Years Used Date Smoking Tobacco: Never Passive Smoke Exposure: Never Smokeless Tobacco: Never Alcohol Use Standard Drinks/Week Comments Never 0 (1 standard drink = 0.6 oz pur e alcohol) Depression Answer Date Recorded Patient Health Questionnaire-9 Score 0 01/10/2024 Patient Health Questionnaire-9 Score 0 01/10/2024 Last PHQ-9: Questionnaire Data Not on file 0 01/10/2024 Housing Stability Answer Date Recorded What is [...] Date Recorded Patient Health Questionnaire-2 Score 0 01/10/2024 Comments Unknown Sex and Gender Information Value Date Recorded Sex Assigned at Female 09/14/2022 10:36 AM EDT Legal Sex Female 10:36 AM EDT Gender Identity Female 09/14/2022 10:36 AM EDT Sexual Orientation Straight 09/14/2022 10 :36 AM EDT documented as of this encounter Miscellaneous Notes * Telephone Encounter - Vivien Singh - 08/21/2024 4:38 PM EDT Referral faxed to [facility]. Letter mail to patient with information. * Telephone Encounter - James Sandra - 08/02/2024 1:38 PM EDT Tc from pt stating she was advised to call with insurance information regarding PT referral. Please contact pt at [phone]. (Latvian Speaker) documented in this encounter Plan of Treatment Not on file documented as of this encounter Visit Diagnoses Not on filedocumented in this encounter Additional Health Concerns Assessment Noted Time PHQ-9 Depression Total Score: 0 01/10/20 24 11:02 AM EST documented as of this encounter Care Teams Orthodontist Small Business Owner Relationship Specialty Start Date End Date Timur Chance MD [address] [place] [id number] PCP - General Internal Medicine 10/20/19 documented as of this encounter
--- OUTSIDE RECORDS SUMMARY | 2025-02-12 11:43 | XMS_ITS | Clinical Summary ---
Author Organization [facility] Address [address] [place] [address] Care Team Providers Care Metal Storage Worker Name Role Phone Unavailable Primary Care Provider Unavailabl e Source Comments PLEASE NOTE, if this patient is a minor, it may be UNLAWFUL to discuss sensitive information that is contained in these records (such as FAMILY PLANNING, MENTAL HEALTH or SUBSTANCE ABUSE) with the minor patient's parent or other person without the patient's specific authorization.[facility] Allergies No known active allergies Medications No known medications Active Problems Problem Noted Date Diagnosed Date History of uterine fibroid Hx of hysterectomy Cardiomyopathy ([facility]) Immunizations Immunization Administration Dates Next Due Moderna COVID-19 Vaccine, re d cap blue label, 12+ Primary Series 05/14/2021,04/16/2021 Family History Medical History Relation Name Comments No Known Problems Brother 1 No Known Problems Daughter 1 No Known Problems Daughter 2 No Known Problems Daughter 3 No Known Problems Daughter 4 No Known Problems Daughter 5 No Known Problems Father Cancer Maternal Grandfather liver C A Other (See Comments) Maternal Grandmother thrombosis Other (See Comments) Mother osteopo rosis No Known Problems Sister 5 Relation Name Status Comments Brother 1 Alive Daughter 1 Alive Daughter 2 Alive Daughter 3 Alive Daughter 4 Alive Daughter 5 Alive Father Alive Maternal Grandfather Maternal Grandmother Mother Alive Paternal Grandfather Paternal Grandmother Sister 5 Alive Social History Tobacco Use Types Packs/Day Years Used Date Smoking Tobacco: Never Smokeless Tobacco: Never Alcohol Use Standard Drinks/Week Comments Yes 2 (1 standard drink = 0.6 oz pur e alcohol) somestimes Social Connections Answer Date Recorded Connectedness 0 07/31/2024 Financial Resource Strain Answer Date R ecorded Financial Resource Strain 0 2018 Stress Answer Date Recorded Stress 0 08/22/2019 Physical Activity Answer Date Recorded Physical Activity 0 08/22/2019 Food Insecurity Answer Date Recorded Food 0 08/10/2024 Transportation Needs Answer Date Record ed Transportation 0 08/22/2019 Housing Stability Answer Date Recorded Housing 0 08/22/2019 Safety and Environment Answer Date Mart rded Safety 0 08/22/2019 Utilities Answer Date Recorded Utilities 0 08/22/2019 Employment Answer Date Recorded Stress 0 07/31/2024 Comments No Sex and Gender Information Value Date Recorded Sex Assigned at Female 09/06/2019 11:02 AM PDT Legal Sex Female 9:49 AM PDT Gender Identity Female 09/06/2019 11:02 AM PDT Sexual Orientation Straight 09/06/2019 11 :02 AM PDT Occupation Industry Job Start Date Job End Date unemployed Not on file Not on file Not on file Last Filed Vital Signs Vital Sign Reading Time Taken Comments Blood Pressure 140/85 09/01/2024 8:59 AM EDT Pulse 95 09/01/2024 8:59 AM EDT Temperature 36.7 ??C (98.1 ??F) 09/06/2019 1:55 PM ED T Respiratory Rate 24 09/06/2019 1:55 PM EDT Oxygen Saturation 95% 09/06/2019 1:55 PM EDT Inhaled Oxygen Concentration - - Weight 125.2 kg (276 lb) 09/06/2019 1:55 PM EDT Height - - Body Mass Index - - Plan of Treatment Upcoming Encounters Date Type Department Care Team (Late st Contact Info) Description 02/19/2025 1:00 PM EDT Office Visit [facility] [address] [place] [phone] Paola Mcclure [address] [place] [address] Health Maintenance Due Date Last Done Comments Anxiety Screening 1973 HPV Screening 1973 Hepatitis C Screening 1973 Pap + HPV 1973 HIV Screening 02/25/1988 Imm-Hepatitis B (1 of 3 - 19 + 3-dose series) 02/25/1992 Imm-Pneumococcal (1 of 2 - PCV) 02/25/1992 Cervical Cancer Screening [address] Colonography 2018 Colonoscopy 2018 Colorectal Cancer Screening 2018 FIT/gFOBT 2018 Fecal DNA 2018 Flexible Sigmoidoscopy 2018 Imm-Zoster, Recombinant (1 of 2) 2023 [id number] ( season) 2024 021, 04/16/2021 Imm-Influenza (#1) 2024 10/20/2019 Dental Examination 07/30/2024 07/28/2023, 01/20/2023 Alcohol and Drug Screen 11/15/2024 Depression Annual Screen 11/15/2024 Breast Cancer Screening (Mammogram) 03/04/2025 03/04/2023 Dental BW 06/16/2025 06/14/2024, 07/16, 01/20/2023 Dental Perio Charting 06/16/2025 06/14/2024 , 07/28/2023, 01/20/2023 Dental Prophy 06/16/2025 06/14/2024, 07/16, 01/20/2023 Hypertension Screening (#1) 09/01/2025 Tobacco Screening 09/15/2025 09/15/2024 Diabetes Screening 05/22/2027 05/22/2024, 0 03/25/2023, 09/24/2021, Additional history exists Lipid Screening 01/12/2029 01/12/2024, 03/25/2023 Dental FMX/Pano 06/16/2029 06/14/2024, 01/20/2023 Imm-DTaP/Tdap/Td (2 - Td or Tdap) 10/20/2029 019 Cervical Ablation/Cold-Knife Conization Discontinued Cervical Cryotherapy Discontinued Colposcopy Discontinued Endometrial Biopsy Discontinued Excision/Leep Discontinued HPV Genotyping Discontinued Vaginal Pap Discontinued Vulvoscopy Discontinued Procedures Procedure Name Priority Date/Time Associated Diagnosis Comments COMP PERIODONTAL EVALUATION - NEW/EST PATIENT Routine 06/14/2024 2:20 PM EDT Encounter for dental examination Caries of enamel (incipient) PANORAMIC RADIOGRAPHIC IMAGE Routine 06/14/2024 2:20 PM EDT Encounter for dental examination Caries of enamel (incipient) BITEWINGS - FOUR RADIOGRAPHIC IMAGES Routine 06/14/2024 2:20 PM EDT Encounter for dental examination Caries of enamel (incipient) PROPHYLAXIS - ADULT Routine 06/14/2024 2 :20 PM EDT Encounter for dental examination Caries of enamel (incipient) PERIODIC ORAL EVALUATION ESTABLISHED PATIENT Routine 07/28/2023 10:20 AM EDT Encounter for dental examination from Last 3 Months or Most Recently Relevant to Health Maintenance Insurance [facility]
== END 2025-02-12 10:27 | disposition home or self-care (01) ==
LOC: HO.XRAY 10:26
PROVIDERS: PCP Internal Medicine; Visit Provider Internal Medicine
DX: M25.511 Pain in right shoulder (principal); G89.29 Other chronic pain
CPT/HCPCS: 73030

== ENCOUNTER → 2025-02-12 10:33 | Outpatient (BNV) | payer OTHER, SELFPAY | PROVIDERS: PCP Internal Medicine; Visit Provider Specialist | DX: M25.511 Pain in right shoulder (principal) | CPT/HCPCS: 73030 ==

== ENCOUNTER 2025-04-18 18:26 | Outpatient (REF) | payer OTHER, SELFPAY ==
[2025-04-18 21:33] LABS: CT PCR NOT DETECTED (Not Detect.); NG PCR NOT DETECTED (Not Detect.)
[2025-04-19 11:00] LABS: Bacterial Vaginosis PCR NEGATIVE (Negative); Candida Group PCR DETECTED (Not Detect); Candida glab krusei PCR NOT DETECTED (Not Detect); Trichomonas vaginalis PCR NOT DETECTED (Not Detect)
== END 2025-04-18 18:27 | disposition home or self-care (01) ==
LOC: HO.HHCLNP 18:26
PROVIDERS: Visit Provider Emergency Medicine
DX: R30.0 Dysuria (principal)
CPT/HCPCS: 81515; 87491; 87591

== ENCOUNTER 2025-05-25 11:16 | Outpatient (REF) | payer OTHER, SELFPAY ==
--- OUTSIDE RECORDS SUMMARY | 2025-03-19 09:00 | XMS_ITS | Continuity of Care Document ---
Author Organization [facility] Address [address] [place] [address] [address] [place] [address] Phone Care Team Providers Care Mixer Operator Tablets Name Role Phone Braulio CASTELLANOS, LAUREN, DELIA, Chaz Unavailable U navailable Procedures Procedure Date Office/Outpt E&M Established 10 Mins- CT & [place] Offic Cons New/estab Mod 40 Mi- CT & [place] Duplex Scan-extrem Veins; Comp- CT & [place] Advance Directives Directive Yes / No Effective Date File Name No Information Encounters Encounter Description Practice Location Reason(s) For Visit Diagnoses Date Provider Providers Copied on Encounter Office/Outpt E&M Established 10 Mins- [place] & [place] [facility], [address] [place] [address] Dr [address] [address], [id number], [place] tel:[phone] [facility] [place] [facility] [place] Chronic venous hypertension (idiopathic) without complications of bilateral lower extremity 5 Braulio CASTELLANOS, DELIA AGUILAR. [address] [facility], [address], [place], [place], [id number] , [place]. tel:[phone] Referring Provider: Timur Hernandez, [address] [place] [address], [address]. tel:[phone] Offic Cons New/estab Mod 40 Mi- CT & [place] [facility], [address] [place] [address] Dr [address], [id number], [place] tel:[phone] [facility] Varicose veins of bilateral lower extremities with other complicationsP ain in right legPain in left legType 2 diabetes mellitus without complicationsR estless legs syndromeEssent ial (primary) hypertensionVe nous insufficiency (chronic) (peripheral)Ly mphedema, not elsewhere classifiedHere ditary lymphedemaCram p and spasmLocalized edema Feb- 5 Braulio CASTELLANOS RVT, RPVI Robert. [address] [place] [address], [place], [place], [id number] , [place]. [phone] Referring Provider: Timur Hernandez, [address] [place] [address], [address]. tel:[phone] [facility], [address] [place] [address] [address], [place], [id number], tel:[phone] [facility] Chronic venous hypertension (idiopathic) with other complications of bilateral lower extremity Feb- 5 Braulio CASTELLANOS RVT, DELIA Ware. [facility] [address], [place], [place], [id number] , [place]. [phone] Referring Provider: Timur Hernandez, [address] [place] [address], [address]. tel:[phone] Family History Family Member Type Diagnosis Age At Onset No Information Payers Payer name Insurance type Covered democrat ID Authordorya mariannesadnhya(s) [id number] Social History Type Description Quantity Date Captured Comments Alcohol Use Details Unknown Caffeine Use Details Unknown Tobacco Use Status Current non-smoker Smoking Status Never Smoker Non-Smoking Tobacco Use Details : No Details Available : No Details Available Sex Female Vital Signs Date / Time: Height Weight BMI Pulse Rate Blood Pressure Temperature Respiratory Rate Body Surface Area Head Circumference Head Circ. Percentile Wt./Prakash. Percentile BMI percentile Pulse Ox Inhaled Ox 117.480 kg (259.00 lbs) 48.9 6 kg/m eter (2) 120/80 mm[Hg] Chief Complaint And Reason For Visit No Information Reason For Referral Reason For Referral No Information Plan Of Treatment Date Type Action Status Goal Diet education completed Goal Diet education completed Referral Ordered: Weight management: Referral to physician timeframe: 3 Months (related to Body mass index (BMI) 45.0-49.9, adult) ordered Referral Ordered: Weight management: Referral to physician timeframe: 3 Months (related to Body mass index (BMI) 45.0-49.9, adult) ordered Appointment Delmar Hudson BOOKED Appointment [facility] BOOKED Appointment [facility] BOOKED Appointment [facility] BOOKED Appointment [facility] BOOKED Appointment [facility] BOOKED Appointment [facility] BOOKED Appointment Hudson, Elsida BOOKED Appointment [facility] BOOKED Appointment [facility] BOOKED Appointment Hudson, Elsida BOOKED Appointment Delmar Hudson BOOKED History Of Present Illness Encounter Date Complaint History Of Prese nt Illness No Information Functional Status Date Functional Assessmen t No Information Instructions Date Instruction Additional Infor victor m Diet education Related to Body mass index (BMI) 45.0-49.9, adult Giving Encouragement to exercise Related to Body mass index (BMI) 45.0-49.9, adult Lifestyle education Related to B lita mass index (BMI) 45.0-49.9, adult Pre and post instruc tions reviewed and provided Related to Chronic venous hypertension (idiopathic) without complications of bilateral lower extremity Patient education booklet given Related to Chronic venous hypertension (idiopathic) without complications of bilateral lower extremity Diet education Related to Body mass index (BMI) 45.0-49.9, adult Giving Encouragement to exercise Related to Body mass index (BMI) 45.0-49.9, adult Lifestyle education Related to B lita mass index (BMI) 45.0-49.9, adult Patient education booklet given Related to Varicose veins of bilateral lower extremities with other complications Pre and post instruc tions reviewed and provided Related to Varicose veins of bilateral lower extremities with other complications Assessments Type Assessment Date No Information Patient Care Teams Name Effective Dates (start - stop) Status Members No Information
--- OUTSIDE RECORDS SUMMARY | 2025-05-25 11:50 | XMS_ITS | Clinical Summary ---
Author Organization [facility] Address [address] [place] [address] Care Team Providers Care Signal Worker Helper Name Role Phone Unavailable Primary Care Provider [...] of uterine fibroid Hx of hysterectomy Cardiomyopathy ([facility]) Immunizations Immunization Administration Dates Next Due Moderna [...] 95 09/01/2024 8:59 AM EDT Temperature 36.7 C (98.1 F) 09/06/2019 1:55 PM EDT Respiratory Rate 24 09/06/2019 1:55 PM EDT Oxygen Saturation 95% 09/06/2019 1:55 PM EDT Inhaled Oxygen Concentration - - Weight 125.2 kg (276 lb) 09/06/2019 1:55 PM EDT Height - - Body Mass Index - - Plan of Treatment Health Maintenance Due Date Last Done Comments Anxiety Screening 1973 HPV Screening 1973 Hepatitis C Screening 1973 Pap + HPV 1973 HIV Screening 02/25/1988 Imm-Hepatitis B (1 of 3 - 19 + 3-dose series) 02/25/1992 Imm-Pneumococcal 50+ (1 of 2 - PCV) 02/25/1992 Cervical Cancer Screening [address] Colonography 2018 Colonoscopy 2018 Colorectal Cancer Screening 2018 FIT/gFOBT 2018 Fecal DNA 2018 Flexible Sigmoidoscopy 2018 Imm-Zoster, Recombinant (1 of 2) 2023 [id number] ( season) 07/16/202405/14/ 021, 04/16/2021 Dental Examination 07/30/2024 07/28/2023, 01/20/2023 Alcohol and Drug Screen 11/15/2024 Depression Annual Screen 11/15/2024 Breast Cancer Screening (Mammogram) 03/04/2025 03/04/2023 Dental BW 06/16/2025 06/14/2024, 07/16, 01/20/2023 Dental Perio Charting 06/16/2025 06/14/2024 , 07/28/2023, 01/20/2023 Dental Prophy 06/16/2025 06/14/2024, 07/16, 01/20/2023 Imm-Influenza (#1) 2025 10/20/2019 Hypertension Screening (#1) 09/01/2025 Tobacco Screening 09/15/2025 [...] Most Recently Relevant to Health Maintenance Insurance [employer]
[2025-05-25 14:48] LABS: MANUAL DIFF FLAG NO
[2025-05-25 14:55] LABS: Hematocrit 37.0 % (37.0-47.0); Hemoglobin 11.9 g/dl (12.0-16.0); Imm Gran Abs Auto 0.04 X10*3/uL (0.00-0.03); Imm Gran Pct Auto 0.4 % (0.0-0.4); Lymphocytes Absolute Auto 2.8 X10*3/uL (1.2-4.9); Mean Corpuscular HGB Conc 32.2 g/dl (31.0-35.0); Mean Corpuscular Hemoglobin 26.0 pg (27.0-33.0); Mean Corpuscular Volume 80.8 fL (80.0-98.0); NRBC Abs Auto 0.000 X10*3/uL (0.0-0.012); NRBC Pct Auto 0.0 /100WBC (0.0-0.2); Platelet Count 293 X10*3/uL (160-400); Red Blood Count 4.58 X10*6/uL (4.20-5.50); White Blood Count 10.9 X10*3/uL (4.8-10.8)
[2025-05-25 15:20] LABS: Alanine Aminotransferase 37 U/L (0-31); Albumin Level 4.1 g/dL (3.5-5.0); Alkaline Phosphatase 89 U/L (39-117); Anion Gap 12 (12-20); Aspartate Amino Transferase 35 U/L (5-31); Blood Urea Nitrogen 14 mg/dL (9-16); Calcium 9.3 mg/dL (8.4-10.2); Carbon Dioxide 28 mmol/L (22-29); Chloride 104 mmol/L (96-108); Cholesterol 147 mg/dL (<200); Estimated Glomerular Filt Rate > 60; HDL Cholesterol 43 mg/dL (>40); Potassium 3.9 mmol/L (3.3-5.1); Sodium 140 mmol/L (135-145); Total Protein 7.5 g/dL (6.5-8.0); Triglycerides 96 mg/dL (<150)
[2025-05-25 16:00] LABS: Hemoglobin A1C 141.2754 umol/L; Total Hemoglobin (HGBA1C) 3152.2294 umol/L
== END 2025-05-25 11:17 | disposition home or self-care (01) ==
LOC: HO.CHCLDS 11:16
PROVIDERS: Visit Provider Internal Medicine
DX: I10 Essential (primary) hypertension (principal)
CPT/HCPCS: 36415; 80053; 80061; 83036; 85025

== ENCOUNTER → 2025-08-15 09:30 | Outpatient (BNV) | payer OTHER, SELFPAY | PROVIDERS: PCP Internal Medicine; Visit Provider Internal Medicine | DX: Z12.31 Encounter for screening mammogram for malignant neoplasm of breast (principal) | CPT/HCPCS: 77063; 77067 ==

== ENCOUNTER 2025-08-15 09:38 | Outpatient (REF) | payer OTHER, SELFPAY ==
--- OUTSIDE RECORDS SUMMARY | 2025-08-11 00:59 | XMS_ITS | Encounter Summary ---
Author Organization [facility] Address [address] [place] [address] Care Team Providers Care Legal Support Assistant Name Role Phone Timur Chance Primary Care Provide r Reason for Referral * Consultation (Routine) - Authorized Specialty Diagnoses / Procedures Referred By Contharvey t Referred To Contact Gastroenterology Diagnoses RUQ pain Monica Villavicencio NP [address] [place] [address] Phone: tel: fax: Gastroenterology [facility] [address] [address] Phone: tel: fax: Referral ID Status Reason Start Date Expiration Date Visits Requested Visits Authorized [id number] Authorized Specialty Services Required 08/11/2025 08/11/2026 1 1 Reason for Visit * Reason Comments Chest Pain Encounter Details Date Type Department Care Team (Late st Contact Info) Description 08/11/2025 12:59 AM EDT - 08/11/2025 6:50 AM EDT Emergency [facility] Emergency [address] [place] [address] RUQ pain (Primary Dx); Hepatomegaly Discharge Disposition: Home or Self Care Social History Tobacco Use Types Packs/Day Years Used Date Smoking Tobacco: Never Smokeless Tobacco: Never Tobacco Cessation:Counseling Given: Not Answered Comments Unknown Sex and Gender Information Value Date Recorded Sex Assigned at Not on file Legal Sex Female 4:56 PM EST Gender Identity Not on file Sexual Orientation Not on file documented as of this encounter Last Filed Vital Signs Vital Sign Reading Time Taken Comments Blood Pressure 146/76 08/11/2025 1:12 AM EDT Pulse 85 08/11/2025 1:12 AM EDT Temperature - - Respiratory Rate 18 08/11/2025 1:12 AM EDT Oxygen Saturation 97% 08/11/2025 1:12 AM EDT Inhaled Oxygen Concentration - - Weight 117 kg (257 lb) 08/11/2025 1:12 AM EDT Height 152.4 cm (5') 08/11/2025 1:12 AM EDT Body Mass Index 50.19 08/11/2025 1:12 AM EDT documented in this encounter Discharge Instructions * Discharge Instructions* Monica Villavicencio NP - 08/11/2025 4:47 AM EDT Avoid fried fatty foods, anything that causes a lot of gas. Or can cause you to have pain in your stomach. You need to follow-up with gastroenterology to find out why you have the liver enlargement and to make sure that this is not a problem with your gallbladder. You can take 1 Tramadol up to 3 times a day for severe pain. The para professional office should call you to schedule an appointment. If you do not hear from them in approximately 3 to 5 days you should call them. * Attachments The following attachments cannot be sent through Care Everywhere. * Abdominal Pain ([place]) documented in this encounter Medications at Time of Discharge atorvastatin (LIPITOR) 20 mg tablet Take 1 tablet (20 mg total) by mouth daily. 07/24/2021 blood sugar diagnostic (FreeStyle Lite Strips) test strip 1 Lancet by extracorporeal route 3 (three) times a day. 04/11/2021 celecoxib (CeleBREX) 200 mg capsule Take 1 capsule (200 mg total) by mouth 2 times daily. 07/31/2025 clotrimazole (LOTRIMIN) 1 % cream APPLY TO AFFECTED AREA(S) AND SURROUNDING AREA(S) TWICE DAILY IN THE MORNING AND EVENING 04/11/2021 diclofenac (VOLTAREN) 1 % topical gel To apply to the affected area 3 times a day 07/27/2024 fluconazole (DIFLUCAN) 150 mg tablet TAKE ONE TABLET ONCE, MAY REPEAT IN THREE DAYS NEEDED 04/20/2025 losartan (COZAAR) 50 mg tablet Take 1 tablet (50 mg total) by mouth daily. 05/21/2025 metFORMIN (GLUCOPHAGE) 500 mg tablet TAKE ONE TABLET BY MOUTH TWICE DAILY IN THE MORNING AND IN THE EVENING WITH MEALS. 07/24/2021 naproxen (NAPROSYN) 500 mg tablet Take 1 tablet (500 mg total) by mouth 2 (two) times a day. 05/21/2025 nitrofurantoin, macrocrystal-mo nohydrate, (MACROBID) 100 mg capsule take one capsule by mouth twice daily for five days 04/18/2025 omeprazole (PriLOSEC) [address] capsule Take 1 capsule (20 mg total) by mouth 1 (one) time each day. 05/14/2025 oxyBUTYnin XL (DITROPAN-XL) 5 mg 24 hr tablet Take 1 tablet (5 mg total) by mouth daily. 05/21/2025 phenazopyridine (PYRIDIUM) 200 mg tablet TAKE ONE TABLET BY MOUTH THREE TIMES DAILY WITH MEALS FOR TWO DAYS 04/18/2025 traMADoL (ULTRAM) 50 mg tablet Take 1 tablet (50 mg total) by mouth every 6 (six) hours if needed for severe pain for up to 3 days. Max Daily Amount: 200 mg 12 tablet 08/11/2025 documented as of this encounter Ordered Prescriptions Prescription Sig Dispense Quantity Refills Last Filled Start Date End Date traMADoL (ULTRAM) 50 mg tablet Take 1 tablet (50 mg total) by mouth every 6 (six) hours if needed for severe pain for up to 3 days. Max Daily Amount: 200 mg 12 tablet 08/11/2025 08/14/2025 documented in this encounter Discharge Disposition Disposition Code Departure Means Destination Comment s Home or Self Care documented in this encounter Progress Notes * Jaqueline Leal RN - 08/11/2025 1:05 AM EDT Presents via ems from home. Per ems pt is c/o right sided chest pain that radiates down her right arm. Pt describes the pain as sharp. Denies any cardiac hx. EMS gave pt 324mg of ASA documented in this encounter Plan of Treatment Upcoming Encounters Date Type Department Care Team (Late st Contact Info) Description 10/02/2025 3:00 PM EST Appointment [facility] Endoscopy [address] [place] [address] Shravan Andrade DO [address] [facility] [address] [place] [address] Scheduled Referrals Name Type Priority Associated Diagnoses Order Schedule Ambulatory referral to Gastroenterology Outpatient Referral Routine 1 Occurrences starting 08/11/2025 until 08/11/2026 documented as of this encounter Procedures Procedure Name Priority Date/Time Associated Diagnosis Comments ECG ANNOTATED 08/13/2025 ECG 12-LEAD STAT 08/11/2025 4:20 AM EDT TROPONIN I HIGH SENSITIVITY Timed 08/11/2025 3:53 AM EDT US ABDOMEN LIMITED STAT 08/11/2025 3: 46 AM EDT TROPONIN I HIGH SENSITIVITY Timed 08/11/2025 1:21 AM EDT CBC WITH AUTO DIFFERENTIAL STAT 08/11/2025 1:21 AM EDT CBC AND DIFFERENTIAL STAT 08/11/2025 1:21 AM EDT B-TYPE NATRIURETIC PEPTIDE STAT 08/11/2025 1:21 AM EDT MAGNESIUM STAT 08/11/2025 1:21 AM EDT LIPASE STAT 08/11/2025 1:21 AM EDT COMPREHENSIVE METABOLIC PANEL STAT 08/11/2025 1:21 AM EDT ECG 12-LEAD STAT 08/11/2025 1:03 AM EDT documented in this encounter Results * ECG-Annotated (08/13/2025) us Provider Onbase ECG ORDERABLES Final Result * ECG 12 lead (08/11/2025 4:20 AM EDT) [facility] Ventricular Rate ECG 93 BPM GEMUSE Atrial Rate 93 BPM GEMUSE P-R Interval 136 ms GEMUSE QRS Duration 84 ms GEMUSE Q-T Interval 362 ms GEMUSE QTc 450 ms GEMUSE P Wave [place] 69 degrees GEMUSE R [place] 16 degrees GEMUSE T [place] 40 degrees GEMUSE ECG Interpretation Normal sinus rhythm Normal ECG When compared with ECG of 11-AUG-2025 01:03, (unconfirmed) No significant change was found Confirmed by VENTURA SUN ([id number]) on 08/12/2025 1:16:05 PM GEMUSE 08/11/2025 4:20 AM EDT 08/12/2025 1:16 PM EDT Willie Smith MD ECG ORDERABLES Final Result GEMUSE * Troponin I high sensitivity (08/11/2025 3:53 AM EDT) [facility] High Sensitivity Troponin I 4 <=54 ng/L LAB CHEMISTRY METHOD 08/11/2025 5:01 AM EDT [facility] Blood Venous blood specimen / Unknown Venipuncture / Unknown 08/11/2025 3:53 AM EDT 08/11/2025 4:33 AM EDT Narrative [facility] - 08/11/2025 5:01 AM EDT High levels of biotin in samples may falsely decrease hsTroponin values. Use caution when interpreting hsTroponin results in patients taking biotin who exhibit renal impairment (eGFR <60) or in patients taking more than 20 mg/day of biotin. Willie Smith MD LAB BLOOD ORDERABLES Final Resu lt [facility] [address] [place] [address], * US Abdomen Limited (08/11/2025 3:46 AM EDT) Anatomical Region Laterality Modality Body Ultrasound 08/11/2025 4:26 AM EDT Impressions 08/11/2025 4:26 AM EDT 1. Hepatomegaly and hepatic steatosis. Otherwise no acute findings on right upper quadrant ultrasound. This document has been electronically signed by: Isaac Aguero MD on 08/11/2025 04:26:06 Narrative 08/11/2025 4:26 AM EDT INDICATION: pain US abdomen limited Comparison: None provided Findings: The visualized pancreas is normal. The aorta and inferior vena cava are normal caliber. Hepatomegaly and hepatic steatosis. There is no intrahepatic bile duct dilatation. The common duct is 4 mm in diameter. The gallbladder is normal. There is no sonographic Ziegler sign. The main portal vein is antegrade. The right kidney is 12.6 cm in length. No ascites. Procedure Note Isaac Aguero - 08/11/2025 INDICATION: pain US abdomen limited Comparison: None provided Findings: The visualized pancreas is normal. The aorta and inferior vena cava are normal caliber. Hepatomegaly and hepatic steatosis. There is no intrahepatic bile duct dilatation. The common duct is 4 mm in diameter. The gallbladder is normal. There is no sonographic Ziegler sign. The main portal vein is antegrade. The right kidney is 12.6 cm in length. No ascites. IMPRESSION: 1. Hepatomegaly and hepatic steatosis. Otherwise no acute findings on right upper quadrant ultrasound. This document has been electronically signed by: Isaac Aguero MD on 08/11/2025 04:26:06 us Monica Villavicencio NP IMG US PROCEDURES Final R esult * (ABNORMAL) CBC auto differential (08/11/2025 1:21 AM EDT) WBC 14.7(H) 4.8 - 10.8 K/mcL LAB HEMETOLOGY [facility] RBC 4.60 3.80 - 4.80 M/mcL LAB HEMETOLOGY METHOD 08/11/2025 2:04 AM EDT [facility] Hemoglobin 11.8 11.5 - 16.0 g/dL LAB HEMETOLOGY METHOD 08/11/2025 2:[address] [facility] Hematocrit 38.4 35.0 - 47.0 % LAB HEMETOLOGY METHOD 08/11/2025 2:[address] [facility] MCV 83.3 79.0 - 98.0 FL LAB HEMETOLOGY METHOD 08/11/2025 2:[address] [facility] MCH 25.6(L) 27.0 - 32.0 pcg LAB HEMETOLOGY METHOD 08/11/2025 2:[address] [facility] MCHC 30.7(L) 32.0 - 37.0 g/dL LAB HEMETOLOGY METHOD 08/11/2025 2:[address] [facility] RDW 14.7 11.0 - 15.0 % LAB HEMETOLOGY METHOD 08/11/2025 2:[address] [facility] Platelets 295 130 - 400 K/mcL LAB HEMETOLOGY METHOD 08/11/2025 2:[address] [facility] MPV 10.6 7.0 - 11.0 FL LAB HEMETOLOGY METHOD 08/11/2025 2:[address] [facility] NRBC 0.0 <1.0 % LAB HEMETOLOGY METHOD 08/11/2025 2:[address] [facility] NRBC Absolute 0.00 <0.10 K/mcL LAB HEMETOLOGY METHOD 08/11/2025 2:[address] [facility] Neutrophils Relative 66.0 % LAB HEMETOLOGY METHOD 08/11/2025 2:[address] [facility] Lymphocytes Relative 26.1 % LAB HEMETOLOGY METHOD 08/11/2025 2:[address] [facility] Monocytes Relative 6.0 % LAB HEMETOLOGY METHOD 08/11/2025 2:[address] [facility] Eosinophils Relative 1.0 % LAB HEMETOLOGY METHOD 08/11/2025 2:[address] [facility] Basophils Relative 0.4 % LAB HEMETOLOGY METHOD 08/11/2025 2:[address] [facility] Immature Granulocytes Relative 0.5 % LAB HEMETOLOGY METHOD 08/11/2025 2:[address] [facility] Neutrophils Absolute 9.73(H) 1.50 - 7.00 K/mcL LAB HEMETOLOGY METHOD 08/11/2025 2:[address] [facility] Lymphocytes Absolute 3.84 1.00 - 5.00 K/mcL LAB HEMETOLOGY METHOD 08/11/2025 2:[address] [facility] Monocytes Absolute 0.88 0.20 - 1.00 K/mcL LAB HEMETOLOGY METHOD 08/11/2025 2:[address] [facility] Eosinophils Absolute 0.15 0.00 - 0.50 K/mcL LAB HEMETOLOGY METHOD 08/11/2025 2:[address] [facility] Basophils Absolute 0.06 0.00 - 0.20 K/mcL LAB HEMETOLOGY METHOD 08/11/2025 2:[address] [facility] Immature Granulocytes Absolute 0.07(H) 0.00 - 0.03 K/mcL LAB HEMETOLOGY METHOD 08/11/2025 2:04 AM EDT [facility] Blood Venous blood specimen / Unknown Venipuncture / Unknown 08/11/2025 1:21 AM EDT 08/11/2025 1:58 AM EDT us Willie Smith MD LAB BLOOD ORDERABLES Final Resu lt Performing Organization Address [facility] de Phone Number [facility] [address] [place] [address], [place] [phone] * B-type natriuretic peptide (08/11/2025 1:21 AM EDT) BNP 12 <=100 pcg/mL LAB CHEMISTRY METHOD 08/11/2025 2:38 AM EDT [facility] Blood Venous blood specimen / Unknown Venipuncture / Unknown 08/11/2025 1:21 AM EDT 08/11/2025 1:58 AM EDT us Willie Smith MD LAB BLOOD ORDERABLES Final Resu lt Performing Organization Address [facility] de Phone Number [facility] [address] [place] [address], [place] [phone] * (ABNORMAL) Magnesium (08/11/2025 1:21 AM EDT) Magnesium 1.8(L) 1.9 - 2.6 mg/dL LAB CHEMISTRY METHOD 08/11/2025 2:31 AM EDT [facility] Blood Venous blood specimen / Unknown Venipuncture / Unknown 08/11/2025 1:21 AM EDT 08/11/2025 1:58 AM EDT us Willie Smith MD LAB BLOOD ORDERABLES Final Resu lt Performing Organization Address City/[facility]/ZIP Co de Phone Number [facility] [address] [place] [address], [place] [phone] * Lipase (08/11/2025 1:21 AM EDT) [facility] Lipase 43 13 - 75 unit/L LAB CHEMISTRY METHOD 08/11/2025 2:31 AM EDT [facility] Blood Venous blood specimen / Unknown Venipuncture / Unknown 08/11/2025 1:21 AM EDT 08/11/2025 1:58 AM EDT Willie Smith MD LAB BLOOD ORDERABLES Final Resu lt [facility] [address] [place] [address], [place] [phone] * (ABNORMAL) Comprehensive metabolic panel (08/11/2025 1:21 AM EDT) [facility] Sodium 142 133 - 145 mmol/L LAB CHEMISTRY METHOD 08/11/2025 2:[address] [facility] Potassium 4.0 3.5 - 5.5 mmol/L LAB CHEMISTRY METHOD 08/11/2025 2:[address] [facility] Chloride 105 96 - 110 mmol/L LAB CHEMISTRY METHOD 08/11/2025 2:[address] [facility] CO2 30 21 - 32 mmol/L LAB CHEMISTRY METHOD 08/11/2025 2:[address] [facility] Anion Gap 7 3 - 11 LAB CHEMISTRY METHOD 08/11/2025 2:[address] [facility] Glucose 126(H) 70 - 100 mg/dL LAB CHEMISTRY METHOD 08/11/2025 2:[address] [facility] BUN 13 5 - 25 mg/dL LAB CHEMISTRY METHOD 08/11/2025 2:[address] [facility] Creatinine 0.91 0.50 - 1.10 mg/dL LAB CHEMISTRY METHOD 08/11/2025 2:[address] [facility] eGFR 76 >=60 mL/min/1. 73m2 LAB CHEMISTRY METHOD 08/11/2025 2:[address] [facility] Comment:Calculation based on the Chronic Kidney Disease Epidemiology Collaboration (CKD-EPI) equation refit without adjustment for race. BUN/Creatinine Ratio 14.3 LAB CHEMISTRY METHOD 08/11/2025 2:[address] [facility] Calcium 9.2 8.5 - 10.5 mg/dL LAB CHEMISTRY METHOD 08/11/2025 2:[address] [facility] AST (SGOT) 18 10 - 42 unit/L LAB CHEMISTRY METHOD 08/11/2025 2:[address] [facility] ALT (SGPT) 37 10 - 60 unit/L LAB CHEMISTRY METHOD 08/11/2025 2:[address] [facility] Alkaline Phosphatase 113 42 - 121 unit/L LAB CHEMISTRY METHOD 08/11/2025 2:[address] [facility] Total Protein 7.5 6.0 - 8.0 g/dL LAB CHEMISTRY METHOD 08/11/2025 2:[address] [facility] Albumin 3.6 3.2 - 5.0 g/dL LAB CHEMISTRY METHOD 08/11/2025 2:[address] [facility] Total Bilirubin 0.3 0.0 - 1.4 mg/dL LAB CHEMISTRY METHOD 08/11/2025 2:[address] [facility] Blood Venous blood specimen / Unknown Venipuncture / Unknown 08/11/2025 1:21 AM EDT 08/11/2025 1:58 AM EDT us Willie Smith MD LAB BLOOD ORDERABLES Final Resu lt [facility] [address] [place] [address], [place] [phone] * Troponin I high sensitivity (08/11/2025 1:21 AM EDT) [facility] High Sensitivity Troponin I 4 <=54 ng/L LAB CHEMISTRY METHOD 08/11/2025 2:33 AM EDT [facility] Blood Venous blood specimen / Unknown Venipuncture / Unknown 08/11/2025 1:21 AM EDT 08/11/2025 1:58 AM EDT Narrative [facility] - 08/11/2025 2:33 AM EDT High levels of biotin in samples may falsely decrease hsTroponin values. Use caution when interpreting hsTroponin results in patients taking biotin who exhibit renal impairment (eGFR <60) or in patients taking more than 20 mg/day of biotin. us Willie Smith MD LAB BLOOD ORDERABLES Final Resu lt Performing Organization Address City/[facility]/ZIP Co de Phone Number [facility] [address] [place] [address], [place] [phone] * ECG 12 lead (08/11/2025 1:03 AM EDT) [facility] Ventricular Rate ECG 87 BPM GEMUSE Atrial Rate 87 BPM GEMUSE P-R Interval 144 ms GEMUSE QRS Duration 76 ms GEMUSE Q-T Interval 358 ms GEMUSE QTc 430 ms GEMUSE P Wave [place] 71 degrees GEMUSE R [place] 14 degrees GEMUSE T [place] 31 degrees GEMUSE ECG Interpretation Normal sinus rhythm Normal ECG No previous ECGs available Confirmed by VENTURA SUN ([id number]) on 08/12/2025 1:14:57 PM GEMUSE 08/11/2025 1:03 AM EDT 08/12/2025 1:14 PM EDT us Willie Smith MD ECG ORDERABLES Final Result Performing Organization Address City/[facility]/ZIP Co de Phone Number GEMUSE documented in this encounter Visit Diagnoses Diagnosis RUQ pain- Primary Abdominal pain, right upper quadrant Hepatomegaly documented in this encounter Administered Medications Inactive Administered Medications - up to 3 most recent administrations Medication Order MAR Action Action Date Dose Rate Site famotidine (PF) (PEPCID) injection 20 mg 20 mg, intravenous, Administer over 2 Minutes, Once, On 08/11/25 at 0148, For 1 dose Given 08/11/2025 2:02 AM EDT 20 mg magnesium sulfate 2 gram/50 mL (4 %) IVPB 2 g 2 g, intravenous, at 25 mL/hr, Administer over 2 Hours, Once, On 08/11/25 at 0255, For 1 dose New Bag 08/11/2025 3:56 AM EDT 2 g 25 mL/hr morphine injection 4 mg 4 mg, intravenous, Once, On 08/11/25 at 0146, For 1 dose Given 08/11/2025 2:01 AM EDT 4 mg ondansetron (PF) (ZOFRAN) injection 4 mg 4 mg, intravenous, Once, On 08/11/25 at 0146, For 1 dose Given 08/11/2025 2:02 AM EDT 4 mg sodium chloride 0.9 % bolus 1,000 mL 1,000 mL, intravenous, at 1,000 mL/hr, Administer over 1 Hours, Once, On 08/11/25 at 0146, For 1 dose New Bag 08/11/2025 2:02 AM EDT 1,000 mL 100 0 mL/hr documented in this encounter Active and Recently Administered Medications Times are shown in EDT. Scheduled Medication Order 08/09/2025 08/10/2025 08/11/2025 famotidine (PF) (PEPCID) injection 20 mg (COMPLETED) 20 mg, intravenous, Administer over 2 Minutes, Once, On 08/11/25 at 0148, For 1 dose 0202 (Given - Provid er: Jaqueline Leal RN) magnesium sulfate 2 gram/50 mL (4 %) IVPB 2 g (COMPLETED) 2 g, intravenous, at 25 mL/hr, Administer over 2 Hours, Once, On 08/11/25 at 0255, For 1 dose 0356 (New Bag - Prov ider: Ehsan Hobbs - Comment: pt at ultrasound)[id number] (Stopped - Provider: Narcisa Villalpando RN) morphine injection 4 mg (COMPLETED) 4 mg, intravenous, Once, On 08/11/25 at 0146, For 1 dose 0201 (Given - Provid er: Jaqueline Leal RN) ondansetron (PF) (ZOFRAN) injection 4 mg (COMPLETED) 4 mg, intravenous, Once, On 08/11/25 at 0146, For 1 dose 0202 (Given - Provid er: Jaqueline Leal RN) sodium chloride 0.9 % bolus 1,000 mL (COMPLETED) 1,000 mL, intravenous, at 1,000 mL/hr, Administer over 1 Hours, Once, On 08/11/25 at 0146, For 1 dose 0202 (New Bag - Prov ider: Jaqueline Leal RN)[id number] (Stopped - Provider: Ehsan Hobbs) documented in this encounter Orders IV Count Last Ordered Date First Orde red Date INSERT PERIPHERAL IV 1 08/11/2025 documented in this encounter Care Teams Legal Support Assistant Relationship Specialty Start Date End Date Timur Chance [address] [place] [id number] PCP - General Internal Medicine 08/11/25 documented as of this encounter
--- OUTSIDE RECORDS SUMMARY | 2025-08-14 15:00 | XMS_ITS | Encounter Summary ---
Author Organization [facility] Address [address] [place] [address] Care Team Providers Care Sports Teacher Name Role Phone Timur Chance Primary Care Provide r Reason for Visit * Reason Comments Abdominal Pain * Consultation (Routine) - Authorized Specialty Diagnoses / Procedures Referred By Rajani krishnan Referred To Contact Gastroenterology Diagnoses RUQ pain Monica Villavicencio NP [address] [place] [address] Phone: tel: fax: Gastroenterology - [place] [address] [address] Phone: tel: fax: Referral ID Status Reason Start Date Expiration Date Visits Requested Visits Authorized [id number] Authorized Specialty Services Required 08/11/2025 08/11/2026 1 1 Encounter Details Date Type Department Care Team (Late st Contact Info) Description 08/14/2025 3:00 PM EDT Consult Gastroenterology [facility] 175 [facility] [address] [address] Shayla Jones NP [address] [phone] Epigastric abdominal pain (Primary Dx); Gastroesophageal reflux disease, unspecified whether esophagitis present; Screening for colorectal cancer; Morbid obesity with BMI of 45.0-49.9, adult (CMS/HCC V24, CMS/HCC V28) Social History Tobacco Use Types Packs/Day Years Used Date Smoking Tobacco: Never Smokeless Tobacco: Never Comments Unknown Sex and Gender Information Value Date Recorded Sex Assigned at Not on file Legal Sex Female 4:56 PM EST Gender Identity Not on file Sexual Orientation Not on file documented as of this encounter Last Filed Vital Signs Vital Sign Reading Time Taken Comments Blood Pressure 120/80 08/14/2025 3:07 PM EDT Pulse 102 08/14/2025 3:07 PM EDT Temperature - - Respiratory Rate - - Oxygen Saturation 96% 08/14/2025 3:07 PM EDT Inhaled Oxygen Concentration - - Weight 119 kg (263 lb) 08/14/2025 3:07 PM EDT Height 154.9 cm (5' 1 ) 08/14/2025 3:07 PM EDT Body Mass Index 49.69 08/14/2025 3:07 PM EDT documented in this encounter Progress Notes * Shayla Jones NP - 08/14/2025 3:00 PM EDT CONSULT REQUEST CHIEF COMPLAINT: Abdominal Pain HPI: Delmar Hudson is a Citizen Of [place]-speaking 50 y.o. old female whose PMH includes mixed hyperlipidemia, chronic left shoulder pain, carpal tunnel syndrome of right wrist, hypertension, chronic pain of right knee, class III severe obesity, chronic right shoulder pain, urinary frequency and mixed stress and urinary incontinence was referred by Monica Villavicencio NP to the gastroenterology department today for evaluation of abdominal pain. Patient is Citizen Of [place]-speaking. 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 Patient reports she has been experiencing epigastric abdominal pain that radiates to the right upper quadrant and upper back for a year but appears to be worsening requiring her to present to the emergency room 08/11/2025. Abdominal ultrasound was completed and there was no evidence of gallstones. She describes pain as a dull gnawing ache to a sharp stabbing pain that is present with or without food but worsens with food. She rates pain as 4/10-8/10 on a pain number scale. She is taking uaglocit191 mg twice daily and Celebrex 200 mg twice daily. She is able to identify relieving factors. There is associated nausea without vomiting. She has acid reflux that is well-managed with daily use of omeprazole. She has eliminated common food triggers from her diet. She denies fever, nausea, vomiting, dysphagia, odynophagia, hematemesis, loss of appetite, unintentional weight loss, constipation, diarrhea, melena or hematochezia. She denies tobacco or marijuana use. Occasional social alcohol use. No known family history of gastrointestinal cancer. No history of colonoscopy. Per patient, historical EGD in the [place] 8 years ago. No records on file to verify. Abdominal ultrasound 08/11/2025: Hepatomegaly and hepatic steatosis. Otherwise no acute findings on right upper quadrant ultrasound. ROS: GENERAL: No malaise, significant weight loss or fever HEENT: No changes in hearing or vision, nose bleeds or swallowing problems NECK: No lumps, goiter, pain or significant neck swelling RESPIRATORY: No cough, wheezing or shortness of breath CARDIOVASCULAR: No chest pain GI: See HPI MUSCULOSKELETAL: Chronic back pain SKIN: No lesions, rash or itching PAST MEDICAL HISTORY: Problem List[1] PAST SURGICAL HISTORY: Surgical History[2] SOCIAL HISTORY: Social History[3] FAMILY HISTORY: Family History[4] MEDICATIONS: Medications Taking[5] ALLERGIES: Current Allergies[6] PHYSICAL EXAM: Visit Vitals BP 120/80 Pulse 102 Ht 1.549 m (61 ) Wt 119 kg (263 lb) SpO2 96% BMI 49.69 kg/m?? Smoking Status Never BSA 2.12 m?? APPEARANCE: Alert and in no acute distress EYES: Conjunctiva and sclera normal. MOUTH/THROAT: No erythema, exudates or lesions noted NECK: Neck supple, no adenopathy HEART: RRR with normal S1 and S2 LUNG: Clear to auscultation ABDOMEN: Epigastric tenderness, no ascites, guarding, or rebound. Exam limited due to body habitus. RECTAL: Exam deferred NEURO: Awake, alert and oriented x 3 SKIN: Skin color, texture, turgor normal. LABS: Lab Results Component Value Date ALT 37 08/11/2025 AST 18 08/11/2025 ALKPHOS 113 08/11/2025 BILITOT 0.3 08/11/2025 IMAGING: Abdominal ultrasound 08/11/2025: Hepatomegaly and hepatic steatosis. Otherwise no acute findings on right upper quadrant ultrasound. IMPRESSION: 1. Epigastric abdominal pain 2. Gastroesophageal reflux disease, unspecified whether esophagitis present 3. Screening for colorectal cancer 4. Morbid obesity with BMI of 45.0-49.9, adult (CMS/HCC V24, CMS/HCC V28) 5. Fatty liver PLAN: Delmar Hudson is a Citizen Of [place]-speaking 50 y.o. old female whose PMH includes mixed hyperlipidemia, chronic left shoulder pain, carpal tunnel syndrome of right wrist, hypertension, chronic pain of right knee, class III severe obesity, chronic right shoulder pain, urinary frequency and mixed stress and urinary incontinence who presents for evaluation of abdominal pain. 1. Epigastric abdominal pain: Diffuse epigastric tenderness on examination. No abdominal ultrasound evidence of gallstones. Thereare concerns for gastric ulcers given chronic NSAID use. She is currently taking naproxen 5 mg twice daily and Celebrex 200 mg twice daily. I counseled her on stopping NSAID use. She stated I will consider . I have recommended H. pylori testing but she cannot tolerate stopping PPI use for 2 weeks. I will schedule diagnostic EGD. 2. GERD: This is currently well-managed with omeprazole use. I recommend lifestyle modifications including weight loss, avoid alcohol, elevate head while in bed, sitting upright during and after meals, avoidance of food intake atleast less than 3 hours before bedtime and cessation of foods that potentially aggravate reflux symptoms such as coffee, chocolate,carbonated beverages, spicy foods, acidic foods and foods with high fat content. Take omeprazole asdirected. 3. Screening for colorectal cancer: No history of a colonoscopy. I reviewed colorectal cancer screening guidelines, risk and benefits. She agrees to proceed with a screening colonoscopy. Patient understands the risks of EGD/colonoscopy include infection, bleeding and/or bowel perforation with its own emergent surgery and complication. Polypectomy and/or tissue biopsy may be performedduring the procedure. 4. Morbid obesity with BMI 49+; 5. Fatty liver: Fatty liver as seen on abdominal ultrasound completed on 08/11/2025. She will greatly benefit from weight management. Hepatic function within normal limits. I recommended referral to the weight management clinic. She declines referral today. She will discuss with her PCP. Follow-up after EGD/colonoscopy for further care and management. Patient agrees with the above plan and understands the need to follow up as indicated. Please note, this note may have been created in part by using [email or web address] dictation software, and therefore, it may contain typographical and/or grammatical errors inherent in a voice recognition software program I would like to thank Monica Villavicencio NP for the opportunity to partake in the patient's care. Total time of today's encounter is 45 minutes in preparing to see the patient, documenting and charting, creating an HPI, performing a medically appropriate exam. None of which time was spent performing separately billable procedures or ancillary services. No orders of the defined types were placed in this encounter. AMB REFERRAL TO GASTROENTEROLOGY [1] Patient Active Problem List Diagnosis Cardiomyopathy ([facility] V24, CMS/[facility] V28) Carpal tunnel syndrome of right wrist Chronic pain of right knee Chronic left shoulder pain Diabetes (CMS/[facility] V24, CMS/[facility] V28) Gastroesophageal reflux disease without esophagitis Hx of hysterectomy Mixed hyperlipidemia Mixed stress and urge urinary incontinence Pre-diabetes Urinary frequency Primary hypertension [2] History reviewed. No pertinent surgical history. [3] Social History Tobacco Use Smoking status: Never Smokeless tobacco: Never [4] No family history on file. [5] Outpatient Medications Marked as Taking for the 08/14/25 encounter (Consult) with Shayla Jones NP Medication Sig Dispense Refill acetaminophen (TYLENOL) 500 mg tablet Take 1 tablet (500 mg total) by mouth every 6 hours as needed. atorvastatin (LIPITOR) 20 mg tablet Take 1 tablet (20 mg total) by mouth daily. blood sugar diagnostic (FreeStyle Lite Strips) test strip 1 Lancet by extracorporeal route 3 (three) times a day. celecoxib (CeleBREX) 200 mg capsule Take 1 capsule (200 mg total) by mouth 2 times daily. clotrimazole (LOTRIMIN) 1 % cream APPLY TO AFFECTED AREA(S) AND SURROUNDING AREA(S) TWICE DAILY IN THE MORNING AND EVENING cyclobenzaprine (FLEXERIL) 10 mg tablet TAKE ONE TABLET THREE TIMES DAILY FOR 10 DAYS diclofenac (VOLTAREN) 1 % topical gel To apply to the affected area 3 times a day fluconazole (DIFLUCAN) 150 mg tablet TAKE ONE TABLET ONCE, MAY REPEAT IN THREE DAYS NEEDED losartan (COZAAR) 50 mg tablet Take 1 tablet (50 mg total) by mouth daily. metFORMIN (GLUCOPHAGE) 500 mg tablet TAKE ONE TABLET BY MOUTH TWICE DAILY IN THE MORNING AND IN THEEVENING WITH MEALS. naproxen (NAPROSYN) 500 mg tablet Take 1 tablet (500 mg total) by mouth 2 (two) times a day. nitrofurantoin, macrocrystal-monohydrate, (MACROBID) 100 mg capsule take one capsule by mouth twicedaily for five days omeprazole (PriLOSEC) [address] capsule Take 1 capsule (20 mg total) by mouth 1 (one) time each day. oxyBUTYnin XL (DITROPAN-XL) 5 mg 24 hr tablet Take 1 tablet (5 mg total) by mouth daily. phenazopyridine (PYRIDIUM) 200 mg tablet TAKE ONE TABLET BY MOUTH THREE TIMES DAILY WITH MEALS FOR TWO DAYS traMADoL (ULTRAM) 50 mg tablet Take 1 tablet (50 mg total) by mouth every 6 (six) hours if needed for severe pain for up to 3 days. Max Daily Amount: 200 mg 12 tablet 0 [6] No Known Allergies documented in this encounter Plan of Treatment Upcoming Encounters Date Type Department Care Team (Late st Contact Info) Description 10/02/2025 3:[address] [facility] Endoscopy [address] [place] [phone] Shravan Andrade, 175 [facility] José [address] [place] [address] documented as of this encounter Visit Diagnoses Diagnosis Epigastric abdominal pain- Primary Abdominal pain, epigastric Gastroesophageal reflux disease, unspecified whether esophagitis present Screening for colorectal cancer Morbid obesity with BMI of 45.0-49.9, adult ([facility] V24, [facility] V28) documented in this encounter Historical Medications * This list may reflect changes made after this encounter. acetaminophen (TYLENOL) 500 mg tablet Take 1 tablet (500 mg total) by mouth every 6 hours as needed. atorvastatin (LIPITOR) 20 mg tablet Take 1 [...] DAILY IN THE MORNING AND EVENING 04/11/2021 cyclobenzaprine (FLEXERIL) 10 mg tablet TAKE ONE TABLET THREE TIMES DAILY FOR 10 DAYS diclofenac (VOLTAREN) 1 % topical gel To [...] DAILY WITH MEALS FOR TWO DAYS 04/18/2025 added in this encounter Orders Outpatient Referral Count Last Ordered Date Fir st Ordered Date AMB REFERRAL TO GASTROENTEROLOGY 1 08/14/20 documented in this encounter Care Teams Sports Teacher Relationship Specialty Start Date End Date Timur Chance: [phone] [address] [place] [id number] PCP - General Internal Medicine 08/11/25 documented as of this encounter
--- OUTSIDE RECORDS SUMMARY | 2025-08-15 10:33 | XMS_ITS | Encounter Summary ---
Author Organization [employer] Address 75 [facility] 7t [place] [address] Care Team Providers Care Fur Repair Inspector Name Role Phone Timur Chance MD Primary Care Prov ider Encounter Details Date Type Department Care Team (Late st Contact Info) Description 11/09/2023 Telephone [facility] MEDICINE [address] [place] [address] Timur Chance MD [address] [place] [address] Social History Tobacco Use Types Packs/Day Years [...] the past 12 months, has t he Sports[employer], gas, oil or water company threatened to [...] documented as of this encounter Care Teams Fur Repair Inspector Relationship Specialty Start Date End Date Timur Chance MD [address] [place] [address] PCP - General Internal Medicine 10/20/19 documented as of this encounter
--- OUTSIDE RECORDS SUMMARY | 2025-08-15 10:33 | XMS_ITS | Encounter Summary ---
Author Organization [employer] Address 75 [facility] 7 [place] [address] Care Team Providers Care Quality Assurance Group Leader Name Role Phone Timur Chance MD Primary Care Prov ider Reason for Visit * Reason Onset Date Comments ER Follow-up 08/13/2025 Encounter Details Date Type Department Care Team ([facility] st Contact Info) Description 08/13/2025 Telephone [facility] PEDS [address] [place], [place] [phone] Timur Chance MD [address] [place] [address] ER Follow-up Social History Tobacco Use Types Packs/Day Years Used Date Smoking Tobacco: Never Passive Smoke Exposure: Never Smokeless Tobacco: Never Alcohol Use Standard Drinks/Week Comments Never 0 (1 standard drink = 0.6 oz pur e alcohol) Depression Answer Date Recorded Patient Health Questionnaire-9 Score 2 07/02/2025 Patient Health Questionnaire-9 Score 2 07/02/2025 Last PHQ-9: Questionnaire Data Not on file 0 07/02/2025 Housing Stability Answer Date Recorded What is [...] Answer Date Recorded Patient Health Questionnaire-2 Score 2 07/02/2025 Internet Access Answer Date Recorded Internet Access [...] encounter Miscellaneous Notes * Telephone Encounter - Michelle Valentin RN - 08/15/2025 9:55 AM EDT Call could not go through x3 attempts. * Telephone Encounter - Glo Polo - 08/13/2025 9:51 AM EDT Pt walked in requesting an ER f/u was seen at [facility] for high b/p. documented in this encounter Plan of Treatment Not on file documented as of this encounter Visit Diagnoses Not on filedocumented in this encounter Additional Health Concerns Assessment Noted Time PHQ-9 Depression Total Score: 2 07/02/20 25 11:03 AM EDT documented as of this encounter Care Teams Quality Assurance Group Leader Relationship Specialty Start Date End Date Timur Chance MD [address] [place] [phone] PCP - General Internal Medicine 10/20/19 documented as of this encounter
--- OUTSIDE RECORDS SUMMARY | 2025-08-15 10:33 | XMS_ITS | Encounter Summary ---
Author Organization [employer] Address 75 [facility] 7t [place] [address] Care Team Providers Care Research Program Coordinator Name Role Phone Timur Chance MD Primary Care Prov ider Reason for Visit * Reason Onset Date Comments Referral 10/16/2024 Encounter Details Date Type Department Care Team (Late st Contact Info) Description 10/16/2024 Telephone [facility] MEDICINE [address] [place] [address] Timur Chance MD [address] [place] [phone] Referral Social History Tobacco Use Types Packs/Day [...] therapy. If any question contact pt at [phone] documented in this encounter Plan of Treatment Not on file documented as of this encounter Visit Diagnoses Not on filedocumented in this encounter Additional Health Concerns Assessment Noted Time PHQ-9 Depression Total Score: 16 024 12:04 PM EST documented as of this encounter Care Teams Research Program Coordinator Relationship Specialty Start Date End Date Timur Chance MD [address] [place] [address] PCP - General Internal Medicine 10/20/19 documented as of this encounter
--- OUTSIDE RECORDS SUMMARY | 2025-08-15 10:33 | XMS_ITS | Encounter Summary ---
Author Organization [employer] Address [address] [facility] 7[address] [place] [address] Care Team Providers Care Toll Line Repairer Name Role Phone Timur Chance MD Primary Care Prov ider Reason for Visit * Reason Onset Date Comments Referral 08/02/2024 Encounter Details Date Type Department Care Team (Late st Contact Info) Description 08/02/2024 Telephone [facility] MEDICINE [address] [place] [address] Timur Chance MD [address] [place] [phone] Referral Social History Tobacco Use Types Packs/Day [...] regarding PT referral. Please contact pt at [phone]. (Eth[place]ian Speaker) documented in this encounter Plan of Treatment Not on file documented as of this encounter Visit Diagnoses Not on filedocumented in this encounter Additional Health Concerns Assessment Noted Time PHQ-9 Depression Total Score: 0 01/10/20 24 11:02 AM EST documented as of this encounter Care Teams Toll Line Repairer Relationship Specialty Start Date End Date Timur Chance MD [address] [place] [id number] PCP - General Internal Medicine 10/20/19 documented as of this encounter
--- OUTSIDE RECORDS SUMMARY | 2025-08-15 10:33 | XMS_ITS | Encounter Summary ---
Author Organization [facility] Address [address] [place] [address] Care Team Providers Care Setter Cold Rolling Machine Name Role Phone Timur Chance Primary Care Provide r Encounter Details Date Type Department Care Team (Late Contact Info) Description 08/14/2025 Telephone Gastroenterology - [place] [address] [place] [phone] Shayla Jones NP 175 [facility] 200 [place] [address] Social History Tobacco Use Types Packs/Day Years Used Date Smoking Tobacco: Never Smokeless Tobacco: Never Comments Unknown Sex and Gender Information Value Date Recorded Sex Assigned at Not on file Legal Sex Female 4:56 PM EST Gender Identity Not on file Sexual Orientation Not on file documented as of this encounter Progress Notes * Marc Ramsey - 08/15/2025 10:22 AM EDT SCHEDULED * Shayla Jones NP - 08/14/2025 4:36 PM EDT Please schedule diagnostic EGD for epigastric abdominal pain and screening colonoscopy next available. Thank you. documented in this encounter Plan of Treatment Upcoming Encounters Date Type Department Care Team (Late Contact Info) Description 10/02/2025 3:00 PM EST Appointment [facility] Endoscopy [address] [place] [phone] Shravan Andrade DO 175 [facility] [address] [place] [address] documented as of this encounter Visit Diagnoses Not on filedocumented in this encounter Care Teams Setter Cold Rolling Machine Relationship Specialty Start Date End Date Timur Chance [address] [place] [id number] PCP - General Internal Medicine 08/11/25 documented as of this encounter
--- OUTSIDE RECORDS SUMMARY | 2025-08-15 10:33 | XMS_ITS | Clinical Summary ---
Author Organization [facility] Address [address] [place] [address] Care Team Providers Care Petrol Tanker Driver Name Role Phone Unavailable Primary Care Provider [...] of uterine fibroid Hx of hysterectomy Cardiomyopathy Immunizations Immunization Administration Dates Next Due Moderna [...] 2018 Imm-Zoster, Recombinant (1 of 2) 2023 Dental Examination 07/30/2024 07/28/2023, 01/20/2023 Alcohol and Drug Screen 11/15/2024 Depression Annual Screen 11/15/2024 Breast Cancer Screening (Mammogram) 03/04/2025 03/04/2023 Dental BW 06/16/2025 06/14/2024, 07/16, 01/20/2023 Dental Perio Charting 06/16/2025 06/14/2024 , 07/28/2023, 01/20/2023 Dental Prophy 06/16/2025 06/14/2024, 07/16, 01/20/2023 [id number] ( season) 2025 021, 04/16/2021 Imm-Influenza (#1) 2025 10/20/2019 Hypertension Screening (#1) [...]
--- OUTSIDE RECORDS SUMMARY | 2025-08-15 10:33 | XMS_ITS | Clinical Summary ---
Author Organization [employer] Address [address] [facility] [address] [place] [address] Care Team Providers Care Shift Nurse Manager Name Role Phone Timur Chance MD Primary Care Prov ider Allergies No known active allergies Medications Diclofenac Sodium 1 % gelIndications:Acu te pain of right knee,Sprain of left wrist, initial encounter To apply to the affected area 3 times a day 100 g 07/27/20 24 Active losartan (Cozaar) 50 MG tablet Take 1 tablet (50 mg) by mouth Once per day. 90 tablet 3 05/21/20 25 026 Active atorvastatin (Lipitor) 20 MG tabletIndications: Mixed hyperlipidemia Take 1 tablet (20 mg) by mouth Once per day. 90 tablet 1 05/21/20 25 026 Active oxybutynin XL (Ditropan XL) 5 MG 24 hr tablet Take 1 tablet (5 mg) by mouth Once per day. Do not crush, chew, or split. 30 tablet 2 05/21/20 25 025 Active celecoxib (CeleBREX) 200 MG capsuleIndications :Chronic pain of left ankle Take 1 capsule (200 mg) by mouth 2 times daily. 60 capsule 07/31/20 25 025 Active omeprazole (PriLOSEC) [address] capsuleIndications :Gastroesophageal reflux disease without esophagitis TAKE ONE CAPSULE EVERY DAY 90 capsule 1 08/09/20 25 Active Omeprazole 20 MG tablet delayed-releaseInd ications:Gastroeso phageal reflux disease without esophagitis Take 1 tablet (20 mg) by mouth Once per day. 90 tablet 1 02/08/20 25 025 Discontinued Active Problems Problem Noted Date Diagnosed Date Urinary frequency 05/21/2025 Assessment & Plan (05/21/2025 10:25 AM EDT): Urine test was negative, no sign of urinary infection, patient main complain is urinary incontinence Mixed stress and urge urinary incontinence 05/21 Assessment & Plan (05/21/2025 10:23 AM EDT): Recommended kegel exercises, will start on oxyutinin, follow up in 1 month Pre-diabetes 10/30/2024 Assessment & Plan (10/30/2024 12:18 PM EST): A1c 6.1%, continue low carb, no sugar diet, encourage low carb/no sugar diet, Chronic right shoulder pain 10/30/2024 Assessment & Plan (02/07/2025 12:16 PM EDT): Will send new xray and will refer to [facility] [place] intection Assessment & Plan (10/30/2024 12:21 PM EST): Will refer to PT, avoid heavy lifting, Well woman exam 10/10/2024 Assessment & Plan (10/10/2024 9:19 PM EST): Pt had total hysterectomy for benign reasons, 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 Previous notes from CN in 2019 reports seeing cervix and hence [...] mammogram Primary hypertension 09/27/2024 Assessment & Plan (05/21/2025 10:21 AM EDT): Not at target, will increase losartan to 50mg, continue low sodium diet and exercise as tolerated, follow up in 1 month Assessment & Plan (02/07/2025 11:49 AM EDT): [...] changes Mixed hyperlipidemia 12/04/2022 Assessment & Plan (05/21/2025 10:22 AM EDT): Will order new labs for guidance of therapy, continue current treatment, follow up in 3 months Assessment & Plan (10/30/2024 12:17 PM EST): [...] Encounters Date Type Department Care Team Description 08/13/2025 Telephone [facility] [address] [place] [address] Timur Chance MD ER Follow-up 08/13/2025 Orders Only [facility] [address] [place] [address] Adilson Branch MD 08/07/2025 Refill [facility] [address] [place] [address] Timur Chance MD Gastroesophageal reflux disease without esophagitis 07/31/2025 2:15 PM EDT Office Visit [facility] [address] [place] [address] Belgica Munoz MD Chronic pain of left ankle (Primary Dx); Dietary counseling; Exercise counseling; Class 3 severe obesity due to excess calories with serious comorbidity and body mass index (BMI) of 45.0 to 49.9 in adult 07/31/2025 Travel 07/30/2025 Telephone [facility] [address] [place] [phone] Timur Chance MD Nurse Triage 07/30/2025 Telephone [facility] [address] [place] [phone] Timru Chance MD 07/02/2025 11:15 AM EDT Telemedicine [facility] [address] [place] [address] Timur Chance MD Encounter for screening mammogram for malignant neoplasm of breast (Primary Dx) 07/02/2025 Travel 06/29/2025 Telephone [facility] [address] [place] [address] Timur Chance MD chart prep 05/28/2025 Results Follow-Up [facility] [address] [place] [address] Timur Chance MD POCT Urinalysis, CBC auto differential, Comprehensive Metabolic Panel, Additional followed-up results: 2 05/21/2025 9:45 AM EDT Office Visit [facility] [address] [place] [address] Timur Chance MD Urinary frequency (Primary Dx); Mixed hyperlipidemia; Primary hypertension; Mixed stress and urge urinary incontinence 05/21/2025 Travel from Last 3 Months Immunizations Immunization Administration Dates Next Due Influenza injectable quadriv alent IIV4 with preservative 10/20/2019 Influenza injectable quadrivalent preservative f ree 09/03/2022,11/29/2020 Influenza, seasonal, injectable, preservative fr ee 10/10/2024 Moderna Covid-19 Vaccine 12+ 06/18/2022 Tdap 10/20/2019 Social History Tobacco Use Types Packs/Day Years Used Date Smoking Tobacco: Never Passive Smoke Exposure: Never Smokeless Tobacco: Never Tobacco Cessation:Counseling Given: Not Answered Alcohol Use Standard Drinks/Week Comments Never 0 [...] Sign Reading Time Taken Comments Blood Pressure 130/69 07/31/2025 2:52 PM EDT Pulse 90 07/31/2025 2:52 PM EDT Temperature 36.5 C (97.7 F) 07/31/2025 2:52 PM EDT Respiratory Rate 20 07/31/2025 2:52 PM EDT Oxygen Saturation 93% 07/31/2025 2:52 PM EDT Inhaled Oxygen Concentration - - Weight 119 kg (263 lb) 07/31/2025 2:52 PM EDT Height 155.6 cm (5' 1.25 ) 07/31/2025 2:52 PM ED T Body Mass Index 49.29 07/31/2025 2:52 PM EDT Plan of Treatment Health Maintenance Due Date Last Done Comments CT Colonography 1975 Colonoscopy 1975 FIT 1975 Sigmoidoscopy 1975 Family Planning (PISQ) 02/25/1988 Hepatitis A Vaccines (1 of 2 - Risk 2-dose series) 02/25/1992 Hepatitis B Vaccines (1 of 3 - 19+ 3-dose series) 02/25/1992 Pneumococcal Vaccine: 50+ Years (1 of 1 - PCV) 2023 Zoster Vaccines (1 of 2) 2023 Mammogram 03/04/2025 03/04/2023, 01/14, 01/22/2022 COVID-19 Vaccine ( season) 2025 06/18/2022, 05/14/2021, 04/16/2021 Influenza Vaccine (#1) 2025 , 09/03/2022, 11/29/2020, Additional history exists FOBT 10/18/2025 10/18/2024 Alcohol/Substance Use Screening 02/07/2026 02/07/2025 SDOH Screening 02/07/2026 02/07/2025 Tobacco Screening 05/21/2026 05/21/2025 Diabetes: Hemoglobin A1C 05/25/2026 025, 10/04/2024, 03/25/2023, Additional history exists Depression Screening 07/02/2026 07/02/2025, 07/02/20 25 Disability Screening 07/02/2026 07/02/2025 Colorectal Cancer Screening 10/18/2027 FIT DNA/Cologuard 10/18/2027 10/18/2024 DTaP/Tdap/Td Vaccines (2 - Td or Tdap) 10/20/2029 10/20/2019 Lipid Panel 05/25/2030 05/25/2025, 09/16, 01/12/2024, Additional history exists RSV Patients and Patients Aged 60 years or older (1 - 1-dose 75+ series) 02/25/2048 HIV Screening Completed 10/20/2019 HPV/Cotest Discontinued 12/05/2019 Hepatitis C Screening Completed 09/08/2022 Cervical Cancer Screening Discontinued HIB Vaccines Aged Out No longer eligi ble based on patient's age to complete this topic HPV Vaccines Aged Out No longer eligi ble based on patient's age to complete this topic IPV Vaccines Aged Out No longer eligi ble based on patient's age to complete this topic Meningococcal B Vaccine Aged Out No l onger eligible based on patient's age to complete [...] Name Priority Date/Time Associated Diagnosis Comments ECG 12-LEAD Routine 08/11/2025 8:57 AM EDT ECG 12-LEAD Routine 08/11/2025 8:56 AM EDT HEMOGLOBIN A1C Routine 05/25/2025 11:17 AM EDT Primary hypertension LIPID PANEL, STANDARD Routine 05/25/2025 11:17 AM EDT Primary hypertension COMPREHENSIVE METABOLIC PANEL Routine 05/25/2025 11:17 AM EDT Primary hypertension CBC WITH AUTO DIFFERENTIAL Routine 05/25/2025 11:17 AM EDT Primary hypertension POCT URINALYSIS DIPSTICK Routine 05/21/2025 10:46 AM EDT Urinary frequency LAB COLOGUARD COLON CANCER SCREEN Routine 10/18/2024 8:40 AM EST Screening for colon cancer BI MAMMOGRAM SCREENING TOMOSYNTHESIS BILATERAL Routine 03/04/2023 4:00 PM EDT [facility] HISTORICAL HEPATITIS C AB W/REFL TO HCV RNA, QN, PCR Routine 09/08/2022 8:52 AM EDT [facility] HISTORICAL HPV MRNA E6/E7 Routine 12/05/2019 1:12 PM EST [facility] HISTORICAL HIV AB/AG Routine 10/20/2019 3:01 PM EST from Last 3 Months or Most Recently Relevant to Health Maintenance Results * ECG 12 lead (08/11/2025 8:57 AM EDT) Only the most recent of2 resultswithin the time period is included. us Historical Provider ECG ORDERABLES Final Res ult * (ABNORMAL) CBC auto differential (05/25/2025 11:17 AM EDT) White Blood Count 10.9(H) 4.8 - 10.8 X10*3/uL [facility] Red Blood Count 4.58 4.20 - 5.50 X10*6/uL [facility] Hemoglobin 11.9(L) 12.0 - 16.0 g/dl [facility] Hematocrit 37.0 37.0 - 47.0 % [facility] Mean Corpuscular Volume 80.8 80.0 - 98.0 fL [facility] Mean Corpuscular Hemoglobin 26.0(L) 27.0 - 33.0 pg [facility] Mean Corpuscular HGB Conc 32.2 31.0 - 35.0 g/dl [facility] Red Cell Distribution Width 16.4(H) 11.0 - 16.0 % [facility] Platelet Count 293 160 - 400 X10*3/uL [facility] Mean Platelet Volume 10.3 9.4 - 12.3 fL [facility] Neutrophils Percent Auto 67.2 45 - 73 % [facility] Imm Gran Pct Auto 0.4 0.0 - 0.4 % [facility] Lymphocytes Percent Auto 25.9 20 - 40 % [facility] Monocytes Percent Auto 5.4 2 - 11 % [facility] Eosinophils Percent Auto 0.8 0 - 4 % [facility] Basophils Percent Auto 0.3 0 - 2 % [facility] NRBC Pct Auto 0.0 0.0 - 0.2 /100WBC [facility] Neutrophils Absolute Auto 7.3 2.0 - 8.3 x10*3/uL [facility] Imm Gran Abs Auto 0.04(H) 0.00 - 0.03 X10*3/uL [facility] Lymphocytes Absolute Auto 2.8 1.2 - 4.9 X10*3/uL [facility] Monocytes Absolute Auto 0.6 0.1 - 1.2 X10*3/uL [facility] Eosinophils Absolute Auto 0.1 0.0 - 0.4 X10*3/uL [facility] Basophils Absolute Auto 0.0 0.0 - 0.2 X10*3/uL [facility] NRBC Abs Auto 0.000 0.0 - 0.012 X10*3/uL [facility] Blood Venous blood specimen / Unknown 05/25/2025 11:17 AM EDT 05/25/2025 2:41 PM EDT us Timur Hernandez MD LAB BLOOD ORDERABL ES Final Result [facility] [address] [place] [phone] * (ABNORMAL) Hemoglobin A1c (05/25/2025 11:17 AM EDT) Hemoglobin A1c 6.3(H) <6.0 % [facility] Comment:Hemoglobin A1C Refer ence Range Adults: 4.8 - 6.0 % Non diabetic: < 6.0 % Goal: < 7.0 %Additional Action Suggested: > 8.0 %Note: Hemoglobin A1c results are invalid for patients with abnormal amounts of HbF. Blood transfusions may impact the HbA1c concentration in the patient sample. Estimated Average Glucose 134 mg/dL [facility] Comment:eAG = Estimated ave rage glucose which is %A1C expressed asaverage glucose, using the formula of the G7L-NvzycalTusnvpq Glucose study (ADAG), Diabetes Care, Vol.31,#8,2007 Blood Venous blood specimen / Unknown 05/25/2025 11:17 AM EDT 05/25/2025 2:41 PM EDT Timur Hernandez MD LAB BLOOD ORDERABL ES Final Result Performing Organization Address [facility] Co de Phone Number [facility] [address] [place] [phone] * Lipid Panel, Standard (05/25/2025 11:17 AM EDT) Triglycerides 96 <150 mg/dL [facility] Comment:Desirable Triglyceri de: less than 150 mg/dLBorderline High Triglyceride 150-199 mg/dLHigh Triglyceride: 200-499 mg/dLVery High Triglyceride: greater than or equal to 5OO mg/dL Cholesterol 147 <200 mg/dL [facility] Comment:Desirable Cholestero l: less than 200 mg/dLBorderline High Cholesterol: 200-239 mg/dLHigh Cholesterol: greater than 239 mg/dL LDL Cholesterol Calculated 85 <100 mg/dL [facility] Comment:Desirable LDL: less than 100 mg/dLNear Optimal/Above Optimal LDL: 110- 129 mg/dLBorderline High LDL: 130-159 mg/dLHigh LDL: 160-189 mg/dLVery High LDL: greater than or equal to 190 mg/dL HDL Cholesterol 43 >40 mg/dL [facility] Comment:Desirable HDL: great er than 40 mg/dL Note: This HDL assay may give artificially low results in patients with liver disease. Blood Venous blood specimen / Unknown 05/25/2025 11:17 AM EDT 05/25/2025 2:41 PM EDT us Timur Hernandez MD LAB BLOOD ORDERABL ES Final Result Performing Organization Address [facility]/ZIP Co de Phone Number [facility] [address] [place] [phone] * (ABNORMAL) Comprehensive Metabolic Panel (05/25/2025 11:17 AM EDT) Sodium 140 135 - 145 mmol/L [facility] Potassium 3.9 3.3 - 5.1 mmol/L [facility] Chloride 104 96 - 108 mmol/L [facility] Carbon Dioxide 28 22 - 29 mmol/L [facility] Anion Gap 12 12 - 20 [facility] Urea Nitrogen (BUN) 14 9 - 16 mg/dL [facility] Creatinine, Serum 0.53 0.5 - 1.4 mg/dL [facility] Estimated Glomerular Filt Rate >60 [facility] Comment:Chronic Kidney Disea se: Estimated GFR < 60 mL/min/1.39p2Xwcwmg Kidney Disease: Estimated GFR < 15 mL/min/1.73m2 Glucose 111 60 - 115 mg/dL [facility] Calcium 9.3 8.4 - 10.2 mg/dL [facility] Bilirubin, Total 0.4 0.0 - 1.0 mg/dL [facility] Aspartate Amino Transferase 35(H) 5 - 31 U/L [facility] Alanine Aminotransferase 37(H) 0 - 31 U/L [facility] Total Protein 7.5 6.5 - 8.0 g/dL [facility] Albumin Level 4.1 3.5 - 5.0 g/dL [facility] Alkaline Phosphatase 89 39 - 117 U/L [facility] Blood Venous blood specimen / Unknown 05/25/2025 11:17 AM EDT 05/25/2025 2:41 PM EDT us Timur Hernandez MD LAB BLOOD ORDERABL ES Final Result [facility] [address], [place] [phone] * POCT Urinalysis (05/21/2025 10:46 AM EDT) Color, UA Yellow Clarity, UA Clear Glucose, UA Negative Bilirubin, UA Negative Ketones, UA Negative Spec Grav, UA 1.015 Blood, UA Negative Negative, None Detected pH, UA 5.5 Protein, UA Negative Urobilinogen, UA 0.2 Leukocytes, UA Negative Negative, Rare, Trace Nitrite, UA Negative Negative, None Detected Appearance, UA clear QC Media Lot # [id number] Lot# Expiration Date Urine 05/21/2025 10:4 6 AM EDT Timur Hernandez MD POINT OF CARE TEST ENTER/EDIT ORDERABLES Final Result * Cologuard?? colon cancer screening (10/18/2024 8:40 AM EST) Cologuard Result Negative Negative 10/26/20 5:02 AM EST [facility] (CLIA #:[id number]) Comment: NEGATIVE TEST RESULT. A negative Cologuard result indicates a low likelihood that a colorectal cancer (CRC) or advanced adenoma (adenomatous polyps with more advanced pre-malignant features) is present. The chance that a person with a negative Cologuard test has a colorectal cancer is less than 1 in 1500 (negative predictive value >99.9%) or has an advanced adenoma is less than 5.3% (negative predictive value 94.7%). These data are based on a prospective cross-sectional study of 10,000 individuals at average risk for colorectal cancer who were screened with both Cologuard and colonoscopy. (Juan He et al, N Engl J Med 2014;370(14):8061-0618) The normal value (reference range) for this assay is negative. COLOGUARD RE-SCREENING RECOMMENDATION: Periodic colorectal cancer screening is an important part of preventive healthcare for asymptomatic individuals at average risk for colorectal cancer. Following a negative Cologuard result, the [place] [employer] and U.S. Multi-Society Task Force screening guidelines recommend a Cologuard re-screening interval of 3 years. References: [place] [employer] Guideline for Colorectal Cancer Screening: https://www.cancer.org/cancer/cymfg-dpzjfr-btkeus/xkpusuaku-ylqbqxmwa-bxkwioc/ac s-rec ommendations.html.; Aki HARGROVE, Fabio CR, Oleg BARILLAS, Colorectal Cancer Screening: Recommendations for Physicians and Patients from the U.S. Multi-Society Task Force on Colorectal Cancer Screening , Am J Gastroenterology 2017; 112:3368-4168. TEST DESCRIPTION: Composite algorithmic analysis of stool DNA-biomarkers with hemoglobin immunoassay. Quantitative values of individual biomarkers are not [...] (Juan Ochoa al, N Engl J Med 2014;370(14):0415-3618.) Cologuard may produce a false negative or false positive result (no colorectal cancer or precancerous polyp present at colonoscopy follow up). A negative Cologuard test result does not guarantee the absence of CRC or advanced adenoma (pre-cancer). The current Cologuard screening interval is every 3 years. ([place] [employer] and U.S. Multi-Society Task Force). Cologuard performance data in a 10,000 patient pivotal study using colonoscopy as the reference method can be accessed at the following location: www.Cenify.com/results. Additional description of the Cologuard test process, warnings and precautions can be found at www.Triberd.com. Stool specimen (specimen) 10/18/2024 8:40 AM EST 10/19/2024 10:55 AM EST Timur Hernandez MD LAB MOLECULAR DIAG NOSTICS ORDERABLES Final Result [facility] (CLIA #:[id number]) [place] [place] [address], * BI Mammogram Screening Tomosynthesis Bilateral (03/04/2023 4:00 PM EDT) Anatomical Region Laterality Modality Breast Bilateral Mammography 03/04/2023 4:00 PM EDT Narrative 03/05/2023 8:21 PM EDT [facility] [address] [place] [address] Mammography Report Signed Patient: Delmar Hudson MR#: [id number] : 1975 Acct:[id number] Age/Sex: 48 / F ADM Date: 03/04/23 Loc: HO.MAMMO Attending Dr: Timur Hernandez MD Ordering Physician: Timur Chance MD Res ults: 1Negative Date of Service: 03/04/23 Follow Up: 1 Year From Orig ina Mammogram Procedure(s): MM tomosynthesis screening BI Accession Number(s): [id number] cc: Timur Chance MD EXAMINATION: MM SCREENING [...] MD in OV> 03/05/232018 DD/ 99 TD/TT: Direct Response Consultant: SK Procedure Note Donotuseinterpreter, Image - 05/13/[address] [place] [address] Mammography Report Signed Patient: Delmar HudsonMR#: [id number] : 1975Acct:[id number] Age/Sex: 48 / FADM Date: 03/04/23 Loc: HO.MAMMO Attending Dr: Timur Hernandez MD Ordering Physician: Timur Chance ults: 1Negative Date of Service: 03/04/23Follow Up: 1 Year From Orig inal Mammogram Procedure(s): MM tomosynthesis screening BI Accession Number(s): [id number] cc: Timur Chance MD EXAMINATION: MM SCREENING [...] Pino Oliveira MD in OV> 03/05/232018 DD/ 1600 TD/TT: Direct Response Consultant: [facility] External Provider IMG BI PROCEDURES Edited Result - Final * HEPATITIS C AB W/REFL TO HCV RNA, QN, PCR (09/08/2022 8:52 AM EDT) HEPATITIS C ANTIBODY NON-REACTI VE NON-REACT [place] [facility] INDEX 0.09 <1.00 [facility] Comment: HCV antibody was non-reactive. There is no laboratory evidence of HCV infection. In most cases, no further action is required. However, if recent HCV exposure is suspected, a test for HCV RNA (test code 10826) is suggested. For additional information please refer to http://education.Flixster/faq/IZB29m7 (This link is being provided for informational/ educational purposes only.) 09/08/2022 8:52 AM EDT Timur Hernandez MD HISTORICAL/NON ORD ERABLE LABS Final Result CONVERT[facility]GACY LABS * HPV mRNA E6/E7 (12/05/2019 1:12 PM EST) HPV mRNA E6/E7 Not Detected NOT DETECTED [facility] Comment: This test was performed using the APTIMA(R) HPV Assay ([employer] This assay detects E6/E7 viral messenger RNA (mRNA) from 14 high-risk HPV types (16,18,31,33,35,39,45,51, 52,56,58,59,66,68). For additional information please refer to: http://education.Flixster/faq/UOB260a1 (This link is being provided for informational/ educational purposes only.) The analytical performance characteristics of this assay have been determined by [facility] [place], [place]. The modifications have not been cleared or approved by the FDA. This assay has been validated pursuant to the CLIA regulations and is used for clinical purposes. Test Performed by [facility], [facility] [place], [address] [place] [address] Nas Dugan M.D., Ph.D., Director of Laboratories , CLIA [id number] Please note: Effective 07/27/2016, HPV testing will be performed using [employer]'s APTIMA test which targets mRNA. Detecting mRNA instead of DNA, as in older methods, offers significant improvements in specificity. 12/05/2019 1:12 PM EST us Aretha Blanco CNM HISTORICAL/NON ORDERABLE LABS Final Result Performing Organization Address [facility] Co de Phone Number [facility] [address] * HIV AB/AG (10/20/2019 3:01 PM EST) HIV AG/AB NONREACTIVE [facility] Comment: HIV-1 p24 Ag and/or HIV-1/HIV-2 Ab not detected. A test result that is nonreactive does not exclude the possibility of exposure to or infection with HIV-1 and/or HIV-2. Nonreactive results in this assay for individuals with prior exposure to HIV-1 and/or HIV-2 may be due to antigen and antibody levels that are below the limit of detection of this assay. The [facility] HIV Ag/Ab Combo assay result and supplemental assay results should be interpreted in conjunction with the patient's clinical presentation, history and other laboratory results. If the results are inconsistent with clinical evidence, additional testing is suggested to confirm the result. 10/20/2019 3:01 PM EST us Timur Hernandez MD HISTORICAL/NON ORD ERABLE LABS Final Result Performing Organization Address [facility] Phone Number [facility] [address] from Last 3 Months or Most Recently Relevant to Health Maintenance [place] [address] [employer] [employer] 3 Care Teams Shift Nurse Manager Relationship Specialty Start Date End Date Timur Chance MD [address] [place] [phone] PCP - General Internal Medicine 10/20/19
--- OUTSIDE RECORDS SUMMARY | 2025-08-15 10:33 | XMS_ITS | Encounter Summary ---
Author Organization [employer] Address 75 [facility] 7t [place] [address] Care Team Providers Care Plate Roller Name Role Phone Timur Chance MD Primary Care Prov ider Encounter Details Date Type Department Care Team (Late st Contact Info) Description 08/13/2025 Orders Only [facility] CHC MED & PEDS [address] [place] [address] ProviderAdilson MD Social History Tobacco Use Types Packs/Day Years [...] on file documented as of this encounter Procedures Procedure Name Priority Date/Time Associated Diagnosis Comments ECG 12-LEAD Routine 08/11/2025 8:57 AM EDT ECG 12-LEAD Routine 08/11/2025 8:56 AM EDT documented in this encounter Results * ECG 12 lead (08/11/2025 8:57 AM EDT) us Historical Provider ECG ORDERABLES Final Res ult * ECG 12 lead (08/11/2025 8:56 AM EDT) us Historical Provider ECG ORDERABLES Final Res ult documented in this encounter Visit Diagnoses Not on filedocumented in this encounter Additional Health Concerns Assessment Noted Time PHQ-9 Depression Total Score: 2 07/02/20 25 11:03 AM EDT documented as of this encounter Care Teams Plate Roller Relationship Specialty Start Date End Date Timur Chance MD [address] [place] [phone] PCP - General Internal Medicine 10/20/19 documented as of this encounter
--- OUTSIDE RECORDS SUMMARY | 2025-08-15 10:33 | XMS_ITS | Encounter Summary ---
Author Organization [employer] Address 75 [facility] 7 [place] [address] Care Team Providers Care Gyroscopic Instrument Tester Name Role Phone Timur Chance MD Primary Care Prov ider Reason for Visit * Reason Onset Date Comments Nurse Triage 10/18/2024 Encounter Details Date Type Department Care Team (Late st Contact Info) Description 10/18/2024 Telephone [facility] MEDICINE [address] [place] [address] Timur Chance MD [address] [place] [phone] Nurse Triage Social History Tobacco Use Types [...] bone. Ptadvised of disposition, agrees to seek [facility] ED for eval to rule out [...] soon Reason: Can't use the shoulder normally Occitan Speaker (Accepted [employer]) documented in this encounter Plan of Treatment Not on file documented as of this encounter Visit Diagnoses Not on filedocumented in this encounter Additional Health Concerns Assessment Noted Time PHQ-9 Depression Total Score: 16 024 12:04 PM EST documented as of this encounter Care Teams Gyroscopic Instrument Tester Relationship Specialty Start Date End Date Timur Chance MD [address] [place] [phone] PCP - General Internal Medicine 10/20/19 documented as of this encounter
--- OUTSIDE RECORDS SUMMARY | 2025-08-15 10:33 | XMS_ITS | Encounter Summary ---
Author Organization [employer] Address 75 [facility] 7t [place] [address] Care Team Providers Care Security Vehicle Patrol Officer Name Role Phone Timur Chance MD Primary Care Prov ider Reason for Visit * Reason Onset Date Comments ER Follow-up 11/09/2023 Nurse Triage 11/09/2023 Encounter Details Date Type Department Care Team (Late st Contact Info) Description 11/09/2023 Telephone [facility] MEDICINE [address] [place] [address] Timur Chance MD [address] [place] [phone] ER Follow-up; Nurse Triage Social History Tobacco [...] 10:56 AM EST Records request faxed to [facility] as requested. * Telephone Encounter - Viky Hooks RN - 11/09/2023 10:00 AM EST Called pt. Via [employer] press tender incendiary grenade [phone] Aleksandar. Pt. States that she got injured her left hand at her job on 10/31/23 and has pain, swelling, Pt. Went to [facility] ED on 11/07/23. Pt. Had X rays done and pt. Was told that her tendon is injured in her hand. Pt. Has been using pain reliever with no relief. Will send request to have clinical coordinators call [facility] for ED notes and Xrays from 11/07/23 to befaxed to [facility] but, cannot guarantee that results will be sent with same day request. I will also send message to [facility] nurses to at least get Xray results from [facility] Protocol Used: Hand and Wrist Injury (Adult) Protocol-Based Disposition: See in Office or Video Visit Today- appt. Today at 2pm [facility]. Video visit not offered Positive Triage Questions: [...] soon Reason: Getting worse Pt went to [facility] due to a fall. The caller accepted this outcome Albanian speaker * Telephone Encounter - Carlos Negrete - 11/09/2023 8:26 AM EST Patient calling to report ED visit on : 11/09 Date: 11/03 Hospital: [facility] Seen for: Hand Patient states is still [...] documented as of this encounter Care Teams Security Vehicle Patrol Officer Relationship Specialty Start Date End Date Timur Chance MD [address] [place] [phone] PCP - General Internal Medicine 10/20/19 documented as of this encounter
--- OUTSIDE RECORDS SUMMARY | 2025-08-15 10:33 | XMS_ITS | Encounter Summary ---
Author Organization [employer] Address 75 [facility] 7t [place] [address] Care Team Providers Care Spout Tender Name Role Phone Timur Chance MD Primary Care Prov ider Encounter Details Date Type Department Care Team ([facility] st Contact Info) Description 11/05/2023 Abstract [facility] CHC MED & PEDS [address] [place], [place] [phone] Timur Chance MD [address] [place] [address] Social History Tobacco Use Types Packs/Day Years [...] documented as of this encounter Care Teams Spout Tender Relationship Specialty Start Date End Date Timur Chance MD [address] [place] [phone] PCP - General Internal Medicine 10/20/19 documented as of this encounter
--- OUTSIDE RECORDS SUMMARY | 2025-08-15 10:33 | XMS_ITS | Encounter Summary ---
Author Organization [employer] Address 75 [facility] 7t [place] [address] Care Team Providers Care Cured Meat Packing Supervisor Name Role Phone Timur Chance MD Primary Care Prov ider Encounter Details Date Type Department Care Team (Late st Contact Info) Description 07/30/2025 Telephone [facility] MEDICINE [address] [place] [address] Timur Chance MD [address] [place] [address] Social History Tobacco Use Types Packs/Day Years [...] documented as of this encounter Care Teams Cured Meat Packing Supervisor Relationship Specialty Start Date End Date Timur Chance MD [address] [place] [phone] PCP - General Internal Medicine 10/20/19 documented as of this encounter
--- OUTSIDE RECORDS SUMMARY | 2025-08-15 10:33 | XMS_ITS | Clinical Summary ---
Author Organization [facility] Address [address] [place] [address] Phone Care Team Providers Care Floor Press Operator Name Role Phone Timur Chance Primary Care Provide r Allergies No known active allergies Medications phenazopyridin e (PYRIDIUM) 200 mg tablet TAKE ONE TABLET BY MOUTH THREE TIMES DAILY WITH MEALS FOR TWO DAYS 04/18/20 25 Active oxyBUTYnin XL (DITROPAN-XL) 5 mg 24 hr tablet Take 1 tablet (5 mg total) by mouth daily. 05/21/20 25 025 Active omeprazole (PriLOSEC) [address] capsule Take 1 capsule (20 mg total) by mouth 1 (one) time each day. 05/14/20 25 Active nitrofurantoin , macrocrystal-m onohydrate, (MACROBID) 100 mg capsule take one capsule by mouth twice daily for five days 04/18/20 25 Active naproxen (NAPROSYN) 500 mg tablet Take 1 tablet (500 mg total) by mouth 2 (two) times a day. 05/21/20 25 Active metFORMIN (GLUCOPHAGE) 500 mg tablet TAKE ONE TABLET BY MOUTH TWICE DAILY IN THE MORNING AND IN THE EVENING WITH MEALS. 07/24/20 21 Active losartan (COZAAR) 50 mg tablet Take 1 tablet (50 mg total) by mouth daily. 05/21/20 25 026 Active fluconazole (DIFLUCAN) 150 mg tablet TAKE ONE TABLET ONCE, MAY REPEAT IN THREE DAYS NEEDED 04/20/20 25 Active diclofenac (VOLTAREN) 1 % topical gel To apply to the affected area 3 times a day 07/27/20 24 Active cyclobenzaprin e (FLEXERIL) 10 mg tablet TAKE ONE TABLET THREE TIMES DAILY FOR 10 DAYS Active clotrimazole (LOTRIMIN) 1 % cream APPLY TO AFFECTED AREA(S) AND SURROUNDING AREA(S) TWICE DAILY IN THE MORNING AND EVENING 04/11/20 Active celecoxib (CeleBREX) 200 mg capsule Take 1 capsule (200 mg total) by mouth 2 times daily. 07/31/20 25 025 Active blood sugar diagnostic (FreeStyle Lite Strips) test strip 1 Lancet by extracorporeal route 3 (three) times a day. 04/11/20 21 Active atorvastatin (LIPITOR) 20 mg tablet Take 1 tablet (20 mg total) by mouth daily. 07/24/20 026 Active acetaminophen (TYLENOL) 500 mg tablet Take 1 tablet (500 mg total) by mouth every 6 hours as needed. Active traMADoL (ULTRAM) 50 mg tablet Take 1 tablet (50 mg total) by mouth every 6 (six) hours if needed for severe pain for up to 3 days. Max Daily Amount: 200 mg 12 tablet 08/11/20 025 Active Problems Problem Noted Date Diagnosed Date Mixed stress and urge urinary incontinence 05/21 Urinary frequency 05/21/2025 Pre-diabetes 10/30/2024 Chronic pain of right knee 09/27/2024 Primary hypertension 09/27/2024 Carpal tunnel syndrome of right wrist 01/10/2024 Chronic left shoulder pain 12/04/2022 Gastroesophageal reflux disease without esophagi tis 12/04/2022 Mixed hyperlipidemia 12/04/2022 Cardiomyopathy (CMS/HCC V24, CMS/HCC V28) 2020 Diabetes (CMS/HCC V24, CMS/HCC V28) 10/21/2021 Hx of hysterectomy 10/21/2021 Encounters Date Type Department Care Team Description 08/14/2025 3:00 PM EDT Consult Gastroenterology - [place] [facility] [address] [facility] [address] [place] [address] Shayla Jones NP Epigastric abdominal pain (Primary Dx); Gastroesophageal reflux disease, unspecified whether esophagitis present; Screening for colorectal cancer; Morbid obesity with BMI of 45.0-49.9, adult ([facility] V24, [facility] V28) 08/14/2025 Telephone Gastroenterology - [place] [address] [facility] [address] [place] [address] Shayla Jones NP 08/11/2025 12:59 AM EDT - 08/11/2025 6:50 AM EDT Emergency [facility] Emergency [address] [place] [address] RUQ pain (Primary Dx); Hepatomegaly Discharge Disposition: Home or Self Care from Last 3 Months Medical History Medical History Date Comments Diabetes mellitus ([facility] V24, [facility] V28) Social History Tobacco Use Types Packs/Day Years Used Date Smoking Tobacco: Never Smokeless Tobacco: Never Tobacco Cessation:Counseling Given: Not Answered Comments Unknown Sex and Gender Information Value Date Recorded Sex Assigned at Not on file Legal Sex Female 4:56 PM EST Gender Identity Not on file Sexual Orientation Not on file Obstetrics History Last Filed Vital Signs Vital Sign Reading Time Taken Comments Blood Pressure 120/80 08/14/2025 3:07 PM EDT Pulse 102 08/14/2025 3:07 PM EDT Temperature - - Respiratory Rate 18 08/11/2025 1:12 AM EDT Oxygen Saturation 96% 08/14/2025 3:07 PM EDT Inhaled Oxygen Concentration - - Weight 119 kg (263 lb) 08/14/2025 3:07 PM EDT Height 154.9 cm (5' 1 ) 08/14/2025 3:07 PM EDT Body Mass Index 49.69 08/14/2025 3:07 PM EDT Plan of Treatment Upcoming Encounters Date Type Department Care Team (Late st Contact Info) Description 10/02/2025 3:00 PM EST Appointment [facility] Endoscopy [address] [place] [address] Shravan Andrade DO [address] [facility] [address] [place] [address] Health Maintenance Due Date Last Done Comments Colorectal Cancer Screening: Colonoscopy 1973 Diabetes: Annual Foot Exam 1983 Diabetes: Annual Retina Eye Exam 1983 Hepatitis B Vaccines (1 of 3 - 19+ 3-dose series) 02/25/1992 Pneumococcal Vaccine: 50+ Years (1 of 2 - PCV) 02/25/1992 Cervical Cancer Screening: Pap Smear 1994 HIV Screening 10/14/2022 Hepatitis C Screening 10/14/2022 Social Influencers of Health Screening 10/14/2022 Zoster Vaccines (1 of 2) 2023 Depression Screening 11/15/2024 Breast Cancer Screening 03/04/2025 03/04/2023 COVID-19 Vaccine ( - season) 2025 06/18/2022, 05/14/2021, 04/16/2021 Influenza Vaccine (#1) 2025 , 09/03/2022, 11/29/2020, Additional history exists Diabetes: Annual Urine Albumin-Creatinine Ratio (uACR) 08/11/2025 Diabetes: Blood Sugar Control Test (HGBA1C) 11/25/2025 05/25/2025, 10/04/2024, 09/24/2021 Diabetes: Annual GFR (Glomerular Filtration Rate) 08/11/2026 08/11/2025, 05/25/2025, 10/04/2024 Hypertension/CHF/CAD Annual BMP Blood Test 08/11/2026 08/11/2025, 05/25/2025, 10/04/2024 DTaP,Tdap,and Td Vaccines (2 - Td or Tdap) 10/20/2029 10/20/2019 Cholesterol Screening (Lipid Panel) 05/25/2030 05/25/2025, 10/04/2024 RSV Immunization Adult Patients (1 - 1-dose 75+ series) 02/25/2048 HIB Vaccines Aged Out No longer eligi [...] on patient's age to complete this topic MMR Vaccines Aged Out No longer eligi ble based on patient's age to complete this topic Meningococcal ACWY Vaccine Aged Out N o longer eligible based on patient's age to complete this topic Meningococcal B Vaccine Aged Out No l onger eligible based on patient's age to complete this topic RSV Immunization Patients Under 20 months Aged Out No longer eligible based on patient's age to complete this topic Varicella Vaccines Aged Out No longer eligible based on patient's age to complete this topic Goals Goal Patient Goal Type Associated Problems Recent Progress Patient-Stated? Author [employer] shahzad Goal Care Plan Autogenerated Problem No Dede Rivera Procedures Procedure Name Priority Date/Time Associated Diagnosis Comments ECG ANNOTATED 08/13/2025 ECG 12-LEAD STAT 08/11/2025 4:20 AM EDT TROPONIN I HIGH SENSITIVITY Timed 08/11/2025 3:53 AM EDT US ABDOMEN LIMITED STAT 08/11/2025 3: 46 AM EDT CBC WITH AUTO DIFFERENTIAL STAT 08/11/2025 1:21 AM EDT B-TYPE NATRIURETIC PEPTIDE STAT 08/11/2025 1:21 AM EDT MAGNESIUM STAT 08/11/2025 1:21 AM EDT LIPASE STAT 08/11/2025 1:21 AM EDT COMPREHENSIVE METABOLIC PANEL STAT 08/11/2025 1:21 AM EDT CBC AND DIFFERENTIAL STAT 08/11/2025 1:21 AM EDT TROPONIN I HIGH SENSITIVITY Timed 08/11/2025 1:21 AM EDT ECG 12-LEAD STAT 08/11/2025 1:03 AM EDT from Last 3 Months Results * ECG-Annotated (08/13/2025) us Provider Onbase MD ECG ORDERABLES Final Result * ECG 12 lead (08/11/2025 4:20 AM EDT) Only the most recent of2 resultswithin the time period is included. Ventricular Rate ECG 93 BPM GEMUSE Atrial Rate 93 BPM GEMUSE P-R Interval 136 ms GEMUSE QRS Duration 84 ms GEMUSE Q-T Interval 362 ms GEMUSE QTc 450 ms GEMUSE P Wave [place] 69 degrees GEMUSE R [place] 16 degrees GEMUSE T [place] 40 degrees GEMUSE ECG Interpretation Normal sinus rhythm Normal ECG When compared with ECG of 11-AUG-2025 01:03, (unconfirmed) No significant change was found Confirmed by VENTURA SUN ([id number]) on 08/12/2025 1:16:05 PM GEMUSE 08/11/2025 4:20 AM EDT 08/12/2025 1:16 PM EDT Willie Smith MD ECG ORDERABLES Final Result Performing Organization Address [facility] de Phone Number GEMUSE * Troponin I high sensitivity (08/11/2025 3:53 AM EDT) Only the most recent of2 resultswithin the time period is included. [facility] High Sensitivity Troponin I 4 <=54 ng/L LAB CHEMISTRY METHOD 08/11/2025 5:01 AM EDT [facility] Blood Venous blood specimen / Unknown Venipuncture / Unknown 08/11/2025 3:53 AM EDT 08/11/2025 4:33 AM EDT Narrative [facility] - 08/11/2025 5:01 AM EDT High levels of biotin in samples may falsely decrease hsTroponin values. Use caution when interpreting hsTroponin results in patients taking biotin who exhibit renal impairment (eGFR <60) or in patients taking more than 20 mg/day of biotin. Willie Smith MD LAB BLOOD ORDERABLES Final Resu lt Performing Organization Address City/[facility]/ZIP Co de Phone Number [facility] [address] [place] [address], [place] [phone] * US Abdomen Limited (08/11/2025 3:46 AM [...] LAB HEMETOLOGY METHOD 08/11/2025 2:04 AM EDT [facility] RBC 4.60 3.80 - 4.80 M/[facility] LAB HEMETOLOGY METHOD 08/11/2025 2:04 AM [facility] Hemoglobin 11.8 11.5 - 16.0 g/dL LAB HEMETOLOGY METHOD 08/11/2025 2:04 AM [facility] Hematocrit 38.4 35.0 - 47.0 % LAB HEMETOLOGY METHOD 08/11/2025 2:04 AM [facility] MCV 83.3 79.0 - 98.0 FL LAB HEMETOLOGY METHOD 08/11/2025 2:04 AM [facility] MCH 25.6(L) 27.0 - 32.0 pcg LAB HEMETOLOGY METHOD 08/11/2025 2:04 AM [facility] MCHC 30.7(L) 32.0 - 37.0 g/dL LAB HEMETOLOGY METHOD 08/11/2025 2:04 AM [facility] RDW 14.7 11.0 - 15.0 % LAB HEMETOLOGY METHOD 08/11/2025 2:04 AM [facility] Platelets 295 130 - 400 K/mcL LAB HEMETOLOGY METHOD 08/11/2025 2:04 AM [facility] MPV 10.6 7.0 - 11.0 FL LAB HEMETOLOGY METHOD 08/11/2025 2:04 AM [facility] NRBC 0.0 <1.0 % LAB HEMETOLOGY METHOD 08/11/2025 2:04 AM [facility] NRBC Absolute 0.00 <0.10 K/mcL LAB HEMETOLOGY METHOD 08/11/2025 2:04 AM [facility] Neutrophils Relative 66.0 % LAB HEMETOLOGY METHOD 08/11/2025 2:04 AM [facility] Lymphocytes Relative 26.1 % LAB HEMETOLOGY METHOD 08/11/2025 2:04 AM [facility] Monocytes Relative 6.0 % LAB HEMETOLOGY METHOD 08/11/2025 2:04 AM EDT [facility] Eosinophils Relative 1.0 % LAB HEMETOLOGY METHOD 08/11/2025 2:04 AM T [facility] Basophils Relative 0.4 % LAB HEMETOLOGY METHOD 08/11/2025 2:04 AM EDT [facility] Immature Granulocytes Relative 0.5 % LAB HEMETOLOGY METHOD 08/11/2025 2:04 AM EDT [facility] Neutrophils Absolute 9.73(H) 1.50 - 7.00 K/mcL LAB HEMETOLOGY METHOD 08/11/2025 2:04 AM EDT [facility] Lymphocytes Absolute 3.84 1.00 - 5.00 K/mcL LAB HEMETOLOGY METHOD 08/11/2025 2:04 AM EDT [facility] Monocytes Absolute 0.88 0.20 - 1.00 K/mcL LAB HEMETOLOGY METHOD 08/11/2025 2:04 AM T [facility] Eosinophils Absolute 0.15 0.00 - 0.50 K/mcL LAB HEMETOLOGY METHOD 08/11/2025 2:04 AM EDT [facility] Basophils Absolute 0.06 0.00 - 0.20 K/mcL LAB HEMETOLOGY METHOD 08/11/2025 2:04 AM EDT [facility] Immature Granulocytes Absolute 0.07(H) 0.00 - 0.03 K/mcL LAB HEMETOLOGY METHOD 08/11/2025 2:04 AM [facility] Blood Venous blood specimen / Unknown Venipuncture / Unknown 08/11/2025 1:21 AM EDT 08/11/2025 1:58 AM EDT us Willie Smith MD LAB BLOOD ORDERABLES Final Resu lt [facility] [address] [place] [address], [place] [phone] * B-type natriuretic peptide (08/11/2025 1:21 AM EDT) [facility] BNP 12 <=100 pcg/mL LAB CHEMISTRY METHOD 08/11/2025 2:38 AM EDT [facility] Blood Venous blood specimen / Unknown Venipuncture / Unknown 08/11/2025 1:21 AM EDT 08/11/2025 1:58 AM EDT us Willie Smith MD LAB BLOOD ORDERABLES Final Resu lt Performing Organization Address City/[facility]/ZIP Co de Phone Number [facility] [address] [place] [address], [place] [phone] * (ABNORMAL) Magnesium (08/11/2025 1:21 AM EDT) [facility] Magnesium 1.8(L) 1.9 - 2.6 mg/dL LAB CHEMISTRY METHOD 08/11/2025 2:31 AM EDT [facility] Blood Venous blood specimen / Unknown Venipuncture / Unknown 08/11/2025 1:21 AM EDT 08/11/2025 1:58 AM EDT us Willie Smith MD LAB BLOOD ORDERABLES Final Resu lt Performing Organization Address City/[facility]/ZIP Co de Phone Number [facility] [address] [place] [address], [place] [phone] * Lipase (08/11/2025 1:21 AM EDT) [facility] Lipase 43 13 - 75 unit/L LAB CHEMISTRY METHOD 08/11/2025 2:31 AM EDT [facility] Blood Venous blood specimen / Unknown Venipuncture / Unknown 08/11/2025 1:21 AM EDT 08/11/2025 1:58 AM EDT us Willie Smith MD LAB BLOOD ORDERABLES Final Resu lt [facility] [address] [place] [address], [place] [phone] * (ABNORMAL) Comprehensive metabolic panel (08/11/2025 1:21 AM EDT) Pathologist [facility] Sodium 142 133 - 145 mmol/L LAB CHEMISTRY METHOD 08/11/2025 2:31 AM [facility] Potassium 4.0 3.5 - 5.5 mmol/L LAB CHEMISTRY METHOD 08/11/2025 2:31 AM [facility] Chloride 105 96 - 110 mmol/L LAB CHEMISTRY METHOD 08/11/2025 2:31 AM [facility] CO2 30 21 - 32 mmol/L LAB CHEMISTRY METHOD 08/11/2025 2:31 AM [facility] Anion Gap 7 3 - 11 LAB CHEMISTRY METHOD 08/11/2025 2:31 AM [facility] Glucose 126(H) 70 - 100 mg/dL LAB CHEMISTRY METHOD 08/11/2025 2:31 AM [facility] BUN 13 5 - 25 mg/dL LAB CHEMISTRY METHOD 08/11/2025 2:31 AM [facility] Creatinine 0.91 0.50 - 1.10 mg/dL LAB CHEMISTRY METHOD 08/11/2025 2:31 AM [facility] eGFR 76 >=60 mL/min/1. 73m2 LAB CHEMISTRY METHOD 08/11/2025 2:31 AM [facility] Comment:Calculation based on the Chronic Kidney Disease Epidemiology Collaboration (CKD-EPI) equation refit without adjustment for race. BUN/Creatinine Ratio 14.3 LAB CHEMISTRY METHOD 08/11/2025 2:31 AM [facility] Calcium 9.2 8.5 - 10.5 mg/dL LAB CHEMISTRY METHOD 08/11/2025 2:31 AM T [facility] AST (SGOT) 18 10 - 42 unit/L LAB CHEMISTRY METHOD 08/11/2025 2:31 AM [facility] ALT (SGPT) 37 10 - 60 unit/L LAB CHEMISTRY METHOD 08/11/2025 2:31 AM T [facility] Alkaline Phosphatase 113 42 - 121 unit/L LAB CHEMISTRY METHOD 08/11/2025 2:31 AM T [facility] Total Protein 7.5 6.0 - 8.0 g/dL LAB CHEMISTRY METHOD 08/11/2025 2:31 AM [facility] Albumin 3.6 3.2 - 5.0 g/dL LAB CHEMISTRY METHOD 08/11/2025 2:31 AM [facility] Total Bilirubin 0.3 0.0 - 1.4 mg/dL LAB CHEMISTRY METHOD 08/11/2025 2:31 AM T [facility] Blood Venous blood specimen / Unknown Venipuncture / Unknown 08/11/2025 1:21 AM EDT 08/11/2025 1:58 AM EDT Willie Smith MD LAB BLOOD ORDERABLES Final Resu lt [facility] [address] [place] [address], from Last 3 Months Additional Health Concerns Active Problems Noted Date Diagnosed Date Autogenerated Problem 08/15/2025 Insurance [facility] Care Teams Floor Press Operator Relationship Specialty Start Date End Date Timur Chance [address] [place] [id number] PCP - General Internal Medicine 08/11/25
== END 2025-08-15 09:39 | disposition home or self-care (01) ==
LOC: HO.MAMMO 09:38
PROVIDERS: PCP Internal Medicine; Visit Provider Internal Medicine
DX: Z12.31 Encounter for screening mammogram for malignant neoplasm of breast (principal)
CPT/HCPCS: 77063; 77067

== ENCOUNTER 2025-08-29 09:57 | Outpatient (AMB) | payer OTHER, SELFPAY ==
[2025-08-29 10:11] VITALS: BMI 48.6
--- NOTE | 2025-08-29 10:11 | A.OFFVIS_ITS ---
Vital Signs 08/29/25 10:11 Height 5 ft 1 in Weight 257 lb BMI 48.6 Intake Visit Reasons: chronic pain of left ankle Intake Note: Delmar is a 50 year old female who presents to the office today as a new patient referred by her PCP at [facility] for chronic pain of her left ankle. Pt states she injured her foot years ago but states the pain has gotten worse. Pt states she is on her feet all day at work. Pt has tried OTC medications with no relief. pain is located on the back of her ankle and runs down to her heel Chief Passenger Ship Steward/Stewardess Required: Yes Chief Passenger Ship Steward/Stewardess Services: Chief Passenger Ship Steward/Stewardess Present Chief Passenger Ship Steward/Stewardess Name: [id number] Allergies No Known Allergies Allergy (Verified 08/29/25 10:18) Medication List - Last Reconciled 08/29/25 by Rylie Bustos DPM atorvastatin 20 mg PO DAILY losartan 50 mg PO DAILY meloxicam 15 mg PO DAILY phenazopyridine 200 mg PO TID HPI Comments Details: The patient is a 50-year-old female with a PMH as seen below presenting with left ankle pain and numbness. The issue began approximately three months ago with an injury to the back of the leg resulting in severe pain, intermittent numbness and tingling. The patient reports pain upon palpation of the tendon and heel, and difficulty walking due to the pain. The patient states she works 12-13 hour days exacerbating the pain. She states she has difficulty ambulating. Patient states she has tried Tylenol and Ibuprofen with no relief. Patient states the pain is severe and keeps her up at night. She characterizes the pain as severe with throbbing noted. She denies any recent imaging of the left ankle or foot. She denies any other pedal concerns. [facility] Medical History (Updated 08/29/25 @ 11:07 by Rylie Butsos DPM) Rupture of left Achilles tendon Chelsea's deformity of left heel Left ankle injury Other enthesopathy of left foot and ankle Left ankle pain Review of Systems Const Details: - Musculoskeletal: Reports left heel and ankle pain for the past 3 months. Physical Exam Vital Signs: BMI result Body Mass Index 48.6 Extrem Other: LLE Focused Physical Exam: Derm: No ecchymosis or discoloration noted. Mild edema noted to the area of the ankle. Skin supple and turgor WNL. No clinical signs of infection noted. Vasc: DP/PT pulses palpable. CFT < 3 secs. Temp gradient warm to warm. Pedal hair present. Telangectasias noted. Neuro: Protective sensations grossly intact. MSK: Severe pain on palpation to the posterior aspect of the heel with a palpable bone spur noted. Pain on palpation along the course of the Achilles tendon with a palpable dell noted. Pain on palpation in area of the Gastrocsoleus muscle/calf. Positive Coulter test. Ankle ROM diminished due to guarding from pain. Patient unable to do heel rise test. Antalgic gait unassisted noted. Office Procedures [facility] Podiatry Dressing Details of Procedure: Applied cast padding, an DANIEL bandage, and a CAMboot with heel lifts to the LLE. 32407 - Short leg splint Procedure code (CPT) selection complete Results Reviewed Results Reviewed: Ordered Left ankle and tibfib xrays weightbearing and Left ankle MRI to be performed prior to next visit. Assessment & Plan Assessment & Plan (1) Other enthesopathy of left foot and ankle: Code(s): M77.52 - Other enthesopathy of left foot and ankle Category: Medical (2) Left ankle pain: Code(s): M25.572 - Pain in left ankle and joints of left foot Category: Medical Qualifiers: Chronicity: chronic Qualified Code(s): M25.572 - Pain in left ankle and joints of left foot; G89.29 - Other chronic pain (3) Left ankle injury: Code(s): S99.912A - Unspecified injury of left ankle, initial encounter Category: Medical Qualifiers: Encounter type: initial encounter Qualified Code(s): S99.912A - Unspecified injury of left ankle, initial encounter (4) Rupture of left Achilles tendon: Code(s): S86.012A - Strain of left Achilles tendon, initial encounter Category: Medical Qualifiers: Encounter type: initial encounter Qualified Code(s): S86.012A - Strain of left Achilles tendon, initial encounter (5) Chelsea's deformity of left heel: Code(s): 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 I discussed with the patient the likelihood of an Achilles tendon rupture and Haglunds deformity and the need for imaging studies to confirm the diagnosis. We talked about the potential need for surgery if the rupture is confirmed, and I explained the procedure to repair the tendon and remove the spur on the back of the heel. I advised the patient to use a walker or knee scooter and avoid putting weight on the left lower extremity, and I prescribed Meloxicam for pain relief. - Ordered left ankle, tib/fib x-rays and left ankle MRI to be obtained prior to next visit. - Prescribed Meloxicam for pain management. - Patient is to be NWB to the LLE with the use of an assistive device. Patient may balance on toes if needed. No full weighbearing. - Applied heel lifts to the CAMboot and applied cast padding and an DANIEL to the LLE. - Provided patient with a walker. - Provided patient with a prescription for a knee scooter. - Patient may remove the boot when resting, but is to keep the dressing clean, dry, and intact. RTC in 1 week for re-evaluation. 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, left ankle, S86.012A - Strain of left Achilles tendon, initial encounter, S99.912A - Unspecified injury of left ankle, initial encounter MR ankle LT wo/w con Today M25.572 - Pain in left ankle and joints of left foot, M77.52 - Other enthesopathy of left foot and ankle, 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, left ankle, S86.012A - Strain of left Achilles tendon, initial encounter, S99.912A - Unspecified injury of left ankle, initial encounter Medications: New [knee scoorter] As directed 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, left ankle, S86.012A - Strain of left Achilles tendon, initial encounter, S99.912A - Unspecified injury of left ankle, initial encounter meloxicam 15 mg PO DAILY 30 tabs 0RF Left Achilles tendon rupture M25.572 - Pain in left ankle and joints of left foot, M77.52 - Other enthesopathy of left foot and ankle, 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, left ankle, S86.012A - Strain of left Achilles tendon, initial encounter, S99.912A - Unspecified injury of left ankle, initial encounter Coding Level of Care Code New Pt Level 4 (71362) Diagnoses Other enthesopathy of left foot and ankle M77.52 Chronic pain of left ankle M25.572; G89.29 Chronicity: chronic Injury of left ankle, initial encounter S99.912A Encounter type: initial encounter Rupture of left Achilles tendon, initial encounter S86.012A Encounter type: initial encounter Chelsea's deformity of left heel M92.62 CPT Codes Podiatry Dressing - CPT: 02680 - Short leg splint ([id number]) Time Spent (min) 60
--- OUTSIDE RECORDS SUMMARY | 2025-08-29 11:44 | XMS_ITS | Encounter Summary ---
Author Organization [employer] Address [address] [place] [address] Care Team Providers Care Platinum Smith Name Role Phone Timur Chance MD Primary Care Prov ider Reason for Visit * Reason Onset Date Comments Referral 08/02/2024 Encounter Details Date Type Department Care Team (Late st Contact Info) Description 08/02/2024 Telephone [facility] [address] [place] [address] Timur Chance MD [address] [place] [id number] Referral Social History Tobacco Use Types Packs/Day [...] regarding PT referral. Please contact pt at [phone]. (Japanese Speaker) documented in this encounter Plan of Treatment Not on file documented as of this encounter Visit Diagnoses Not on filedocumented in this encounter Additional Health Concerns Assessment Noted Time PHQ-9 Depression Total Score: 0 01/10/20 24 11:02 AM EST documented as of this encounter Care Teams Platinum Smith Relationship Specialty Start Date End Date Timur Chance MD [address] [place] [id number] PCP - General Internal Medicine 10/20/19 documented as of this encounter
--- OUTSIDE RECORDS SUMMARY | 2025-08-29 11:44 | XMS_ITS | Clinical Summary ---
Author Organization [employer] Address [address] [facility] 7[address] [place] [address] Care Team Providers Care Oracle Programmer Analyst Name Role Phone Timur Chance MD Primary [...] 90 tablet 1 05/21/20 25 026 Active celecoxib (CeleBREX) 200 MG capsuleIndications :Chronic [...] 90 tablet 1 02/08/20 25 025 Discontinued oxybutynin XL (Ditropan XL) 5 MG 24 hr tablet Take 1 tablet (5 mg) by mouth Once per day. Do not crush, chew, or split. 30 tablet 2 05/21/20 25 025 Active Problems Problem Noted Date Diagnosed Date Chronic foot pain, left 08/27/2025 Assessment & Plan (08/27/2025 1:53 PM EDT): Told to rest, apply ice, use confortable shoes, avoid prolongued standing, call back if not improving Urinary frequency 05/21/2025 Assessment & Plan (05/21/2025 [...] send new xray and will refer to [facility] for joint intection Assessment & Plan (10/30/2024 [...] mammogram Primary hypertension 09/27/2024 Assessment & Plan (08/27/2025 1:41 PM EDT): On losartan, keep low sodium diet and exercise as tolerated, keep blood pressure log, target <140/90, follow up in 3 months Assessment & Plan (05/21/2025 10:21 AM EDT): [...] changes Mixed hyperlipidemia 12/04/2022 Assessment & Plan (08/27/2025 1:42 PM EDT): On statin therapy, keep low cholesterol diet, target LDL < 100 Assessment & Plan (05/21/2025 10:22 AM EDT): [...] Type Department Care Team Description 08/13/2025 Telephone [facility] [address] [place] [address] Timur Chance MD ER Follow-up 08/13/2025 Orders Only [facility] [address] [place] [address] Adilson Branch MD 08/07/2025 Refill [facility] [address] [place] [address] Timur Chance MD Gastroesophageal reflux disease without esophagitis 07/31/2025 2:15 PM EDT Office Visit [facility] [address] [place] [address] Belgica Munoz MD Chronic pain of left ankle (Primary Dx); Dietary counseling; Exercise counseling; Class 3 severe obesity due to excess calories with serious comorbidity and body mass index (BMI) of 45.0 to 49.9 in adult 07/31/2025 Travel 07/30/[address] [phone] Timur Chance MD Nurse Triage 07/30/[address] [address] Timur Chance MD 07/02/2025 11:15 AM EDT Telemedicine [facility] [address] [place] [address] Timur Chance MD Encounter for screening mammogram for malignant neoplasm of breast (Primary Dx); Cardiomyopathy, unspecified type (CMS/HCC); Type 2 diabetes mellitus without complication in remission; Primary hypertension; Mixed hyperlipidemia; Chronic foot pain, left 07/02/2025 Travel 06/29/2025 Telephone [facility] [address] [place] [address] Timur Chance MD chart prep from Last 3 Months Immunizations Immunization Administration [...] 1973 Colonoscopy 1973 FIT 1973 Sigmoidoscopy 1973 Diabetes: Foot Exam 1983 Eye Exam 1983 Family Planning (PISQ) 02/25/1988 Hepatitis A Vaccines (1 of 2 - Risk 2-dose series) 02/25/1992 Hepatitis B Vaccines (1 of 3 - 19+ 3-dose series) 02/25/1992 Pneumococcal Vaccine: 50+ Years (1 of 2 - PCV) 02/25/1992 Zoster Vaccines (1 of 2) 2023 Diabetes: Urine Protein Screening 09/08/2023 09/08/2022, 12/20/2020 COVID-19 Vaccine ( season) 2025 06/18/2022, 05/14/2021, 04/16/2021 Influenza Vaccine (#1) 2025 , 09/03/2022, 11/29/2020, Additional history exists FOBT 10/18/2025 10/18/2024 Diabetes: Hemoglobin A1C 11/25/2025 025, 10/04/2024, 03/25/2023, Additional history exists Alcohol/Substance Use Screening 02/07/2026 02/07/2025 SDOH Screening 02/07/2026 02/07/2025 Tobacco Screening 05/21/2026 05/21/2025 Lipid Panel 05/25/2026 05/25/2025, 09/16, 01/12/2024, Additional history exists Depression Screening 07/02/2026 07/02/2025, 07/02/20 25 Disability Screening 07/02/2026 07/02/2025 Mammogram 08/15/2027 08/15/2025, 04/2 , 02/04/2022, Additional history exists Colorectal Cancer Screening 10/18/2027 FIT DNA/Cologuard 10/18/2027 [...] Procedure Name Priority Date/Time Associated Diagnosis Comments BI MAMMOGRAM SCREENING TOMOSYNTHESIS BILATERAL Routine 08/15/2025 9:59 AM EDT Encounter for screening mammogram for malignant neoplasm of breast ECG 12-LEAD Routine 08/11/2025 8:57 AM EDT ECG 12-LEAD Routine 08/11/2025 8:56 AM EDT HEMOGLOBIN A1C Routine 05/25/2025 11:17 AM EDT Primary hypertension LIPID PANEL, STANDARD Routine 05/25/2025 11:17 AM EDT Primary hypertension LAB COLOGUARD COLON CANCER SCREEN Routine 10/18/2024 8:40 AM EST Screening for colon cancer ZZZ HISTORICAL HEPATITIS C AB W/REFL TO HCV RNA, QN, PCR Routine 09/08/2022 8:52 AM EDT ALBUMIN, RANDOM URINE W/CREATININE Routine 09/08/2022 8:52 AM EDT INOCENCIA HISTORICAL HPV MRNA E6/E7 Routine 12/05/2019 1:12 PM EST INOCENCIA HISTORICAL HIV AB/AG Routine 10/20/2019 3:01 PM EST from Last 3 Months or Most Recently Relevant to Health Maintenance Results * BI Mammogram Screening Tomosynthesis Bilateral (08/15/2025 9:59 AM EDT) Anatomical Region Laterality Modality Breast Bilateral Mammography 08/15/2025 9:59 AM EDT Narrative 08/21/2025 3:02 PM EDT [facility] [address] [place] [address] Mammography Report Signed Patient: Delmar Hudson MR#: [id number] : 1975 Acct:[id number] Age/Sex: 50 / F ADM Date: 08/15/25 Loc: HO.MAMMO Attending Dr: Timur Hernandez MD Ordering Physician: Timur Chance MD Res ults: 1Negative Date of Service: 08/15/25 Follow Up: 1 Year From Orig ina Mammogram Procedure(s): MM tomosynthesis screening BI Accession Number(s): [id number] cc: Timur Chance MD Reason For Exam: screening breast cancer EXAMINATION: MM SCREENING DIGITAL BREAST TOMOSYNTHESIS, BILATERAL CLINICAL INFORMATION: Screening. Asymptomatic. COMPARISON: Mammography: Comparison is made with available priors TECHNIQUE: Digital breast mammography with tomosynthesis is performed in both the craniocaudal and mediolateral oblique views along with computer-aided detection (CAD). FINDINGS: There are scattered areas of fibroglandular density. There are no significant masses, abnormal calcifications, or other abnormalities. MM/MM tomosynthesis screening BI IMPRESSION: No mammographic evidence of malignancy. ASSESSMENT: BI-RADS Category 1: Negative RECOMMENDATION: Routine annual mammography screening. 1 year F/U This examination should not preclude the clinical evaluation of a suspicious palpable abnormality. This patient's information was entered into a reminder system with a target due date for their next mammogram. Electronically signed by: Iliana Issa DO 08/21/2025 02:59 PM EDT RP Dictated By: Iliana Issa DO Signed By: <Electronically signed by Iliana Issa DO in OV> 08/21/25 1459 DD/ 0959 TD/TT: 08/15/25 1002 Bull Riveter: Procedure Note Donotuseinterpreter, Image - 08/21/2025 [facility] [address] [place], [place] [address] Mammography Report Signed Patient: Delmar HudsonMR#: [id number] : 1975Acct:[id number] Age/Sex: 50 / FADM Date: 08/15/25 Loc: HO.MAMMO Attending Dr: Timur Hernandez MD Ordering Physician: Timur Chance ults: 1Negative Date of Service: 08/15/25Follow Up: 1 Year From Orig inal Mammogram Procedure(s): MM tomosynthesis screening BI Accession Number(s): [id number] cc: Timur Chance MD Reason For Exam: screening breast cancer EXAMINATION: MM SCREENING DIGITAL BREAST TOMOSYNTHESIS, BILATERAL CLINICAL INFORMATION: Screening. Asymptomatic. COMPARISON: Mammography: Comparison is made with available priors TECHNIQUE: Digital breast mammography with tomosynthesis is performed in both the craniocaudal and mediolateral oblique views along with computer-aided detection (CAD). FINDINGS: There are scattered areas of fibroglandular density. There are no significant masses, abnormal calcifications, or other abnormalities. MM/MM tomosynthesis screening BI IMPRESSION: No mammographic evidence of malignancy. ASSESSMENT: BI-RADS Category 1: Negative RECOMMENDATION: Routine annual mammography screening. 1 year F/U This examination should not preclude the clinical evaluation of a suspicious palpable abnormality. This patient's information was entered into a reminder system with a target due date for their next mammogram. Electronically signed by: Iliana Issa DO 08/21/2025 02:59 PM EDT RP Dictated By: Iliana Issa DO Signed By: <Electronically signed by Iliana Issa DO in OV> 08/21/25 1459 DD/ 0959 TD/TT: 08/15/25 1002 Bull Riveter: us Timur Hernandez MD IMG BI PROCEDURES Final Result * ECG 12 lead (08/11/2025 8:57 AM EDT) Only the most recent of2 resultswithin the time period is included. Historical Provider ECG ORDERABLES Final Res ult * (ABNORMAL) Hemoglobin A1c (05/25/2025 11:17 AM EDT) Hemoglobin A1c 6.3(H) <6.0 % [facility] Comment:Hemoglobin A1C Refer ence Range Adults: 4.8 - 6.0 % Non diabetic: < 6.0 % Goal: < 7.0 %Additional Action Suggested: > 8.0 %Note: Hemoglobin A1c results are invalid for patients with abnormal amounts of HbF. Blood transfusions may impact the HbA1c concentration in the patient sample. Estimated Average Glucose 134 mg/dL [facility] Comment:eAG = Estimated ave rage glucose which is %A1C expressed asaverage glucose, using the formula of the V7U-QiaqjxrFeipmlx Glucose study (ADAG), Diabetes Care, Vol.31,#8,Jun. 2007 Blood Venous blood specimen / Unknown 05/25/2025 11:17 AM EDT 05/25/2025 2:41 PM EDT Timur Hernandez MD LAB BLOOD ORDERABL ES Final Result [facility] [address] [place] [phone] * Lipid Panel, Standard (05/25/2025 11:17 AM EDT) Triglycerides 96 <150 mg/dL [facility] Comment:Desirable Triglyceri de: less than 150 mg/dLBorderline High Triglyceride 150-199 mg/dLHigh Triglyceride: 200-499 mg/dLVery High Triglyceride: greater than or equal to 5OO mg/dL Cholesterol 147 <200 mg/dL [facility] Comment:Desirable Cholestero l: less than 200 mg/dLBorderline High Cholesterol: 200-239 mg/dLHigh Cholesterol: greater than 239 mg/dL LDL Cholesterol Calculated 85 <100 mg/dL [facility] Comment:Desirable LDL: less than 100 mg/dLNear Optimal/Above Optimal LDL: 110- 129 mg/dLBorderline High LDL: 130-159 mg/dLHigh LDL: 160-189 mg/dLVery High LDL: greater than or equal to 190 mg/dL HDL Cholesterol 43 >40 mg/dL [facility] Comment:Desirable HDL: great er than 40 mg/dL Note: This HDL assay may give artificially low results in patients with liver disease. Blood Venous blood specimen / Unknown 05/25/2025 11:17 AM EDT 05/25/2025 2:41 PM EDT Timur Hernandez MD LAB BLOOD ORDERABL ES Final Result [facility] [address] [place] [phone] * Cologuard?? colon cancer screening (10/18/2024 8:40 AM EST) Cologuard Result Negative Negative 10/26/20 5:02 AM EST [facility] (CLIA #:[id number]) Comment: NEGATIVE TEST RESULT. A negative Cologuard [...] (Juan Ochoa al, N Engl J Med 2014;370(14):3461-6905) The normal value (reference range) for this assay is negative. COLOGUARD RE-SCREENING RECOMMENDATION: Periodic colorectal cancer screening is an important part of preventive healthcare for asymptomatic individuals at average risk for colorectal cancer. Following a negative Cologuard result, the [place] Cancer Society and U.S. Multi-Society Task Force screening guidelines recommend a Cologuard re-screening interval of 3 years. References: [place] Cancer Society Guideline for Colorectal Cancer Screening: https://www.cancer.org/cancer/psisx-saiklg-nvirau/zcnsggeyx-tcysbcira-fyqwblw/ac s-rec ommendations.html.; Aki DK, Fabio RODRIGUES, Oleg GarciaK, Colorectal Cancer Screening: Recommendations for Physicians and Patients from the U.S. Multi-Society Task Force on Colorectal Cancer Screening , Am J Gastroenterology 2017; 112:4923-9612. TEST DESCRIPTION: Composite algorithmic analysis of stool [...] colonoscopy. (Juan Newman, N Engl J Med 2014;370(14):6443-1663.) Cologuard may produce a false negative or [...] can be accessed at the following location: www.[employer].BaseKit/results. Additional description of the Cologuard test process, warnings and precautions can be found at www.cologuard.com. Stool specimen (specimen) 10/18/2024 8:40 AM EST 10/19/2024 10:55 AM EST Timur Hernandez MD LAB MOLECULAR DIAG NOSTICS ORDERABLES Final Result Performing Organization Address [facility] de Phone Number [facility] (CLIA #:[id number]) [place] [address], * HEPATITIS C AB W/REFL TO HCV [...] a test for HCV RNA (test code 80395) is suggested. For additional information please refer to http://education.[employer].BaseKit/faq/BQQ34d9 (This link is being provided for informational/ educational purposes only.) 09/08/2022 8:52 AM EDT Timur Hernandez MD HISTORICAL/NON ORD ERABLE LABS Final Result Performing Organization Address [facility] de Phone Number [facility] * ALBUMIN, RANDOM URINE W/CREATININE (09/08/2022 8:52 AM EDT) Microalbumin Urine <0.2 See Note: mg/dL [facility] Comment: Reference Range: Reference Range Not established Microalb/Creat Ratio NOTE <30 mcg/mg creat [facility] Comment: NOTE: The urine albumin value is less than 0.2 mg/dL therefore we are unable to calculate excretion and/or creatinine ratio. The ADA defines abnormalities in albumin excretion as follows: Albuminuria Category Result (mcg/mg creatinine) Normal to Mildly increased <30 Moderately increased 30-299 Severely increased > OR = 300 The ADA recommends that at least two of three specimens collected within a 3-6 month period be abnormal before considering a patient to be within a diagnostic category. Creatinine, Urine 31 20 - 275 mg/dL [facility] 09/08/2022 8:52 AM EDT Timur Hernandez MD LAB URINE ORDERABL ES Final Result [facility] * HPV mRNA E6/E7 (12/05/2019 1:12 PM EST) HPV mRNA E6/E7 Not Detected NOT DETECTED [facility] Comment: This test was performed using the APTIMA(R) HPV Assay ([employer] This assay detects E6/E7 viral messenger RNA (mRNA) from 14 high-risk HPV types (16,18,31,33,35,39,45,51, 52,56,58,59,66,68). For additional information please refer to: http://education.[employer].BaseKit/faq/QJW029u3 (This link is being provided for informational/ educational purposes only.) The analytical performance characteristics of this assay have been determined by [employer] [place], [place]. The modifications have not been cleared or approved by the FDA. This assay has been validated pursuant to the CLIA regulations and is used for clinical purposes. Test Performed by [facility], [facility], [address] [place] [address] Nas Dugan M.D., Ph.D., Director of Laboratories , [facility] [id number] Please note: Effective 07/27/2016, HPV testing will be performed using [employer]'s APTIMA test which targets mRNA. Detecting mRNA instead of DNA, as in older methods, offers significant improvements in specificity. 12/05/2019 1:12 PM EST us Aretha Blanco CNM HISTORICAL/NON ORDERABLE LABS Final Result Performing Organization Address [facility] Co de Phone Number [facility] [address] * HIV AB/AG (10/20/2019 3:01 PM [...] of detection of this assay. The [employer] HIV Ag/Ab Combo assay result and supplemental assay results should be interpreted in conjunction with the patient's clinical presentation, history and other laboratory results. If the results are inconsistent with clinical evidence, additional testing is suggested to confirm the result. 10/20/2019 3:01 PM EST us Timur Hernandez MD HISTORICAL/NON ORD ERABLE LABS Final Result Performing Organization Address [facility] Co de Phone Number [facility] [address] from Last 3 Months or Most Recently Relevant to Health Maintenance Insurance 3 * Guarantor: Delmar Hudson Account Type Relation to Patient Date of Phone Billing Address Personal/Family Self [address] [place] [phone] Care Teams Oracle Programmer Analyst Relationship Specialty Start Date End Date Timur Chance MD [address] [place] [phone] PCP - General Internal Medicine 10/20/19
--- OUTSIDE RECORDS SUMMARY | 2025-08-29 11:44 | XMS_ITS | Encounter Summary ---
Author Organization [employer] Address [address] [facility] [address] [place] [address] Care Team Providers Care Electrical Engineering Manager Name Role Phone Timur Chance MD Primary Care Prov ider Encounter Details Date Type Department Care Team (Late st Contact Info) Description 08/13/2025 Orders Only [facility] [address] [place] [address] ProviderAdilson MD Social History Tobacco Use Types [...] documented as of this encounter Care Teams Electrical Engineering Manager Relationship Specialty Start Date End Date Timur Chance MD [address] [place] [phone] PCP - General Internal Medicine 10/20/19 documented as of this encounter
--- OUTSIDE RECORDS SUMMARY | 2025-08-29 11:44 | XMS_ITS | Clinical Summary ---
Author Organization [facility] Address [address] [place] [address] Phone Care Team Providers Care Emt Intermediate Name Role Phone Timur Chance Primary Care Provide r Allergies No known active allergies Medications phenazopyridin e (PYRIDIUM) 200 mg tablet TAKE ONE TABLET BY MOUTH THREE TIMES DAILY WITH MEALS FOR TWO DAYS 04/18/20 25 Active omeprazole (PriLOSEC) [address] capsule [...] Daily Amount: 200 mg 12 tablet 08/11/20 25 025 oxyBUTYnin XL (DITROPAN-XL) 5 mg 24 hr tablet Take 1 tablet (5 mg total) by mouth daily. 05/21/20 025 Active Problems Problem Noted Date Diagnosed [...] 08/14/2025 3:00 PM EDT Consult Gastroenterology - [place] 175 [facility] [address] [facility] [address] [place] [address] Shayla Jones NP Epigastric abdominal pain (Primary Dx); Gastroesophageal reflux disease, unspecified whether esophagitis present; Screening for colorectal cancer; Morbid obesity with BMI of 45.0-49.9, adult ([facility]/HCC V24, [facility]/HCC V28) 08/14/2025 Telephone Gastroenterology - [place] [address] [place] [address] [facility] [address] [place] [address] Shayla Jones NP 08/11/2025 12:59 AM EDT - 08/11/2025 6:50 AM EDT Emergency [facility] Emergency [address] [place] [address] RUQ pain (Primary Dx); Hepatomegaly Discharge Disposition: Home or Self Care from Last 3 Months Medical History Medical History Date Comments Diabetes mellitus ([facility] V24, [facility] V28) Social History Tobacco Use Types Packs/Day [...] Info) Description 10/02/2025 3:00 PM EST Appointment [facility] Endoscopy [address] [place] [address] Shravan Andrade DO [address] [facility] [address] [place] [address] Health Maintenance Due Date Last Done Comments Colorectal Cancer Screening: Colonoscopy 1973 Diabetes: Annual Foot Exam 1983 Diabetes: Annual Retina Eye Exam 1983 Hepatitis B Vaccines (1 of 3 - 19+ 3-dose series) 02/25/1992 Pneumococcal Vaccine: 50+ Years (1 of 2 - PCV) 02/25/1992 Cervical Cancer Screening: Pap Smear 1994 HIV Screening 10/14/2022 Hepatitis C Screening 10/14/2022 Social Influencers of Health Screening 10/14/2022 RSV Immunization Adult Patients (1 - Risk 50-74 years 1-dose series) 2023 Zoster Vaccines (1 of 2) 2023 Depression Screening 11/15/2024 Breast Cancer Screening 03/04/2025 03/04/2023 COVID-19 Vaccine ( season) 2025 06/18/2022, 05/14/2021, [...] Cholesterol Screening (Lipid Panel) 05/25/2030 05/25/2025, 10/04/2024 HIB Vaccines Aged Out No longer eligi [...] GEMUSE QTc 450 ms GEMUSE P Wave Bolt 69 degrees GEMUSE R Bolt 16 degrees GEMUSE T Bolt 40 degrees GEMUSE ECG Interpretation Normal sinus rhythm Normal ECG When compared with ECG of 11-AUG-2025 01:03, (unconfirmed) No significant change was found Confirmed by VENTURA SUN ([id number]) on 08/12/2025 1:16:05 PM GEMUSE 08/11/2025 4:20 AM EDT 08/12/2025 1:16 PM EDT Willie Smith MD ECG ORDERABLES Final Result Performing Organization Address [facility] de Phone Number GEMUSE * Troponin I high sensitivity (08/11/2025 3:53 AM EDT) Only the most recent of2 resultswithin the time period is included. [facility] High Sensitivity Troponin I 4 <=54 ng/L [...] Final Resu lt Performing Organization Address [facility]/ZIP Co de Phone Number [facility] [address] [place] [address], [place] [phone] * US Abdomen Limited (08/11/2025 3:46 AM [...] MD on 08/11/2025 04:26:06 us Monica Villavicencio MECHANICAL FITTER IMG US PROCEDURES Final R esult * (ABNORMAL) CBC auto differential (08/11/2025 1:21 AM EDT) WBC 14.7(H) 4.8 - 10.8 K/mcL LAB HEMETOLOGY METHOD 08/11/2025 2:04 AM EDT [facility] RBC 4.60 3.80 - 4.80 M/mcL LAB HEMETOLOGY METHOD 08/11/2025 2:[address] [facility] Hemoglobin 11.8 11.5 - 16.0 g/dL LAB HEMETOLOGY METHOD 08/11/2025 2:[address] [facility] Hematocrit 38.4 35.0 - 47.0 % LAB HEMETOLOGY METHOD 08/11/2025 2:[address] [facility] MCV 83.3 79.0 - 98.0 FL LAB HEMETOLOGY METHOD 08/11/2025 2:[address] [facility] MCH 25.6(L) 27.0 - 32.0 pcg LAB HEMETOLOGY METHOD 08/11/2025 2:[address] [facility] MCHC 30.7(L) 32.0 - 37.0 g/dL LAB HEMETOLOGY METHOD 08/11/2025 2:[address] [facility] RDW 14.7 11.0 - 15.0 % LAB HEMETOLOGY METHOD 08/11/2025 2:[address] [facility] Platelets 295 130 - 400 K/mcL LAB HEMETOLOGY METHOD 08/11/2025 2:[address] [facility] MPV 10.6 7.0 - 11.0 FL LAB HEMETOLOGY METHOD 08/11/2025 2:[address] [facility] NRBC 0.0 <1.0 % LAB HEMETOLOGY METHOD 08/11/2025 2:[address] [facility] NRBC Absolute 0.00 <0.10 K/mcL LAB HEMETOLOGY METHOD 08/11/2025 2:[address] [facility] Neutrophils Relative 66.0 % LAB HEMETOLOGY METHOD 08/11/2025 2:[address] [facility] Lymphocytes Relative 26.1 % LAB HEMETOLOGY METHOD 08/11/2025 2:[address] [facility] Monocytes Relative 6.0 % LAB HEMETOLOGY METHOD 08/11/2025 2:04 AM EDT [facility] Eosinophils Relative 1.0 % LAB HEMETOLOGY METHOD 08/11/2025 2:04 AM EDT [facility] Basophils Relative 0.4 % LAB HEMETOLOGY METHOD 08/11/2025 2:04 AM EDT [facility] Immature Granulocytes Relative 0.5 % LAB HEMETOLOGY METHOD 08/11/2025 2:04 AM EDT [facility] Neutrophils Absolute 9.73(H) 1.50 - 7.00 K/mcL LAB HEMETOLOGY METHOD 08/11/2025 2:04 AM EDT [facility] Lymphocytes Absolute 3.84 1.00 - 5.00 K/mcL LAB HEMETOLOGY METHOD 08/11/2025 2:04 AM EDT [facility] Monocytes Absolute 0.88 0.20 - 1.00 K/mcL LAB HEMETOLOGY METHOD 08/11/2025 2:04 AM EDT [facility] Eosinophils Absolute 0.15 0.00 - 0.50 K/mcL LAB HEMETOLOGY METHOD 08/11/2025 2:04 AM EDT [facility] Basophils Absolute 0.06 0.00 - 0.20 K/mcL LAB HEMETOLOGY METHOD 08/11/2025 2:04 AM EDT [facility] Immature Granulocytes Absolute 0.07(H) 0.00 - 0.03 K/mcL LAB HEMETOLOGY METHOD 08/11/2025 2:04 AM EDT [facility] Blood Venous blood specimen / Unknown Venipuncture / Unknown 08/11/2025 1:21 AM EDT 08/11/2025 1:58 AM EDT us Willie Smith MD LAB BLOOD ORDERABLES Final Resu lt [facility] [address] [place] [address], [place] [phone] * B-type natriuretic peptide (08/11/2025 1:21 AM EDT) [facility] BNP 12 <=100 pcg/mL LAB CHEMISTRY METHOD 08/11/2025 2:38 AM EDT [facility] Blood Venous blood specimen / Unknown Venipuncture / Unknown 08/11/2025 1:21 AM EDT 08/11/2025 1:58 AM EDT us Willie Smith MD LAB BLOOD ORDERABLES Final Resu lt Performing Organization Address [facility] Co de Phone Number [facility] [address] [place] [address], [place] [phone] * (ABNORMAL) Magnesium (08/11/2025 1:21 AM EDT) [facility] Magnesium 1.8(L) 1.9 - 2.6 mg/dL LAB CHEMISTRY METHOD 08/11/2025 2:31 AM EDT [facility] Blood Venous blood specimen / Unknown Venipuncture / Unknown 08/11/2025 1:21 AM EDT 08/11/2025 1:58 AM EDT us Willie Smith MD LAB BLOOD ORDERABLES Final Resu lt Performing Organization Address City/[facility]/ZIP Co de Phone Number [facility] [address] [place] [address], [place] [phone] * Lipase (08/11/2025 1:21 AM EDT) [facility] Lipase 43 13 - 75 unit/L LAB CHEMISTRY METHOD 08/11/2025 2:31 AM EDT [facility] Blood Venous blood specimen / Unknown Venipuncture / Unknown 08/11/2025 1:21 AM EDT 08/11/2025 1:58 AM EDT us Willie Smith MD LAB BLOOD ORDERABLES Final Resu lt [facility] [address] [place] [address], [place] [phone] * (ABNORMAL) Comprehensive metabolic panel (08/11/2025 1:21 AM EDT) Pathologist [facility] Sodium 142 133 - 145 mmol/L LAB CHEMISTRY METHOD 08/11/2025 2:[address] [facility] Potassium 4.0 3.5 - 5.5 mmol/L LAB CHEMISTRY METHOD 08/11/2025 2:[address] [facility] Chloride 105 96 - 110 mmol/L LAB CHEMISTRY METHOD 08/11/2025 2:[address] [facility] CO2 30 21 - 32 mmol/L LAB CHEMISTRY METHOD 08/11/2025 2:[address] [facility] Anion Gap 7 3 - 11 LAB CHEMISTRY METHOD 08/11/2025 2:[address] [facility] Glucose 126(H) 70 - 100 mg/dL LAB CHEMISTRY METHOD 08/11/2025 2:[address] [facility] BUN 13 5 - 25 mg/dL LAB CHEMISTRY METHOD 08/11/2025 2:[address] [facility] Creatinine 0.91 0.50 - 1.10 mg/dL LAB CHEMISTRY METHOD 08/11/2025 2:[address] [facility] eGFR 76 >=60 mL/min/1. 73m2 LAB CHEMISTRY METHOD 08/11/2025 2:[address] [facility] Comment:Calculation based on the Chronic Kidney Disease Epidemiology Collaboration (CKD-EPI) equation refit without adjustment for race. BUN/Creatinine Ratio 14.3 LAB CHEMISTRY METHOD 08/11/2025 2:[address] [facility] Calcium 9.2 8.5 - 10.5 mg/dL LAB CHEMISTRY METHOD 08/11/2025 2:31 AM EDT [facility] AST (SGOT) 18 10 - 42 unit/L LAB CHEMISTRY METHOD 08/11/2025 2:[address] [facility] ALT (SGPT) 37 10 - 60 unit/L LAB CHEMISTRY METHOD 08/11/2025 2:31 AM T [facility] Alkaline Phosphatase 113 42 - 121 unit/L LAB CHEMISTRY METHOD 08/11/2025 2:31 AM T [facility] Total Protein 7.5 6.0 - 8.0 g/dL LAB CHEMISTRY METHOD 08/11/2025 2:[address] [facility] Albumin 3.6 3.2 - 5.0 g/dL LAB CHEMISTRY METHOD 08/11/2025 2:[address] [facility] Total Bilirubin 0.3 0.0 - 1.4 mg/dL LAB CHEMISTRY METHOD 08/11/2025 2:31 AM T [facility] Blood Venous blood specimen / Unknown Venipuncture / Unknown 08/11/2025 1:21 AM EDT 08/11/2025 1:58 AM EDT us Willie Smith MD LAB BLOOD ORDERABLES Final Resu lt [facility] [address] [place] [address], from Last 3 Months Additional Health Concerns Active Problems Noted Date Diagnosed Date Autogenerated Problem 08/15/2025 Insurance [facility] [address] Care Teams Emt Intermediate Relationship Specialty Start Date End Date Timur Chance [address] [place] [id number] PCP - General Internal Medicine 08/11/25
--- OUTSIDE RECORDS SUMMARY | 2025-08-29 11:44 | XMS_ITS | Encounter Summary ---
Author Organization [facility] Address [address] [place] [address] Care Team Providers Care Ornamental Metal Erector Name Role Phone Timur Chance MD Primary Care Prov ider Reason for Visit * Reason Onset Date Comments Colonoscopy 12/26/2021 Encounter Details Date Type Department Care Team (Late st Contact Info) Description 12/26/2021 Telephone [facility] Central Scheduling Department [address] [place] [address] Telephone Intake, Staff Colonoscopy Social History Tobacco Use Types Packs/Day Years Used Date Smoking Tobacco: Never Smokeless Tobacco: Never Comments Unknown Sex and Gender Information Value Date Recorded Sex Assigned at Not on file Legal Sex Female 9:37 AM EDT Gender Identity Not on file Sexual Orientation Not on file Occupation Industry Job Start Date Job End Date works in a [employer] Not on file Not on file Not on f ile documented as of this encounter Miscellaneous Notes * Telephone Encounter - Clover Ar - 12/26/2021 11:25 AM EST Shira from [facility] scheduling pt for colonoscopy Per DT, transferred to endoscopy clinic ext [phone] opt 2 documented in this encounter Plan of Treatment Not on file documented as of this encounter Visit Diagnoses Not on filedocumented in this encounter Care Teams Ornamental Metal Erector Relationship Specialty Start Date End Date Timur Chance MD [address] [place] [address] PCP - General 07/16/21 documented as of this encounter
--- OUTSIDE RECORDS SUMMARY | 2025-08-29 11:44 | XMS_ITS | Encounter Summary ---
Author Organization [employer] Address [address] [facility] 7t [place] [address] Care Team Providers Care Formstone Fitter Name Role Phone Timur Chance MD Primary Care Prov ider Encounter Details Date Type Department Care Team (Late st Contact Info) Description 07/30/2025 Telephone [facility] MEDICINE [address] [place] [address] Timur Chance MD [address] [place] [address] Social History Tobacco Use Types Packs/Day Years [...] documented as of this encounter Care Teams Formstone Fitter Relationship Specialty Start Date End Date Timur Chance MD [address] [place] [id number] PCP - General Internal Medicine 10/20/19 documented as of this encounter
--- OUTSIDE RECORDS SUMMARY | 2025-08-29 11:44 | XMS_ITS | Encounter Summary ---
Author Organization [employer] Address [address] [facility] 7t [place] [address] Care Team Providers Care Supervisor Wheel Shop Name Role Phone Timur Chance MD Primary Care Prov ider Encounter Details Date Type Department Care Team (Late st Contact Info) Description 11/09/2023 Telephone [facility] MEDICINE [address] [place] [address] Timur Chance MD [address] [place] [address] Social History Tobacco Use Types Packs/Day Years [...] the past 12 months, has t he [employer] MD, gas, oil or water company threatened to [...] as of this encounter Care Teams Supervisor Wheel Shop Relationship Specialty Start Date End Date Timur Chance MD [address] [place] [address] PCP - General Internal Medicine 10/20/19 documented as of this encounter
--- OUTSIDE RECORDS SUMMARY | 2025-08-29 11:44 | XMS_ITS | Encounter Summary ---
Author Organization [employer] Address [address] [facility] 7 [place] [address] Care Team Providers Care Mobile Sales Assistant Name Role Phone Timur Chance MD Primary Care Prov ider Reason for Visit * Reason Onset Date Comments Nurse Triage 10/18/2024 Encounter Details Date Type Department Care Team (Late st Contact Info) Description 10/18/2024 Telephone [facility] MEDICINE [address] [place] [address] Timur Chance MD [address] [place] [address] Nurse Triage Social History Tobacco Use Types [...] bone. Ptadvised of disposition, agrees to seek [facility] ED for eval to rule out fracture. [...] soon Reason: Can't use the shoulder normally Sudanese Speaker (Accepted Apron Trimmer) documented in this encounter Plan of Treatment Not on file documented as of this encounter Visit Diagnoses Not on filedocumented in this encounter Additional Health Concerns Assessment Noted Time PHQ-9 Depression Total Score: 16 024 12:04 PM EST documented as of this encounter Care Teams Mobile Sales Assistant Relationship Specialty Start Date End Date Timur Chance MD [address] [place] [address] PCP - General Internal Medicine 10/20/19 documented as of this encounter
--- OUTSIDE RECORDS SUMMARY | 2025-08-29 11:44 | XMS_ITS | Encounter Summary ---
Author Organization [employer] Address [address] [facility] 7t [place] [address] Care Team Providers Care Cashier Host/Hostess Name Role Phone Tmiur Chance MD Primary Care Prov ider Reason for Visit * Reason Onset Date Comments ER Follow-up 11/09/2023 Nurse Triage 11/09/2023 Encounter Details Date Type Department Care Team (Late st Contact Info) Description 11/09/2023 Telephone [facility] MEDICINE [address] [place] [address] Timur Chance MD [address] [place] [id number] ER Follow-up; Nurse Triage Social History Tobacco [...] 10:56 AM EST Records request faxed to [facility] as requested. * Telephone Encounter - Viky Hooks RN - 11/09/2023 10:00 AM EST Called pt. Via [employer] specifications writer [phone] Aleksandar. Pt. States that she got injured her left hand at her job on 10/31/23 and has pain, swelling, Pt. Went to [facility] ED on 11/07/23. Pt. Had X rays done and pt. Was told that her tendon is injured in her hand. Pt. Has been using pain reliever with no relief. Will send request to have clinical coordinators call [facility] for ED notes and Xrays from 11/07/23 to befaxed to [facility] but, cannot guarantee that results will be sent with same day request. I will also send message to [facility] nurses to at least get Xray results from [facility] Protocol Used: Hand and Wrist Injury (Adult) Protocol-Based Disposition: See in Office or Video Visit Today- appt. Today at 2pm [facility] EMERGENCY DEPARTMENT. Video visit not offered Positive Triage Questions: [...] soon Reason: Getting worse Pt went to [facility] due to a fall. The caller accepted this outcome Malagasy speaker * Telephone Encounter - Carlos Negrete - 11/09/2023 8:26 AM EST Patient calling to report ED visit on : 11/09 Date: 11/03 Hospital: [facility] Seen for: Hand Patient states is [...] documented as of this encounter Care Teams Cashier Host/Hostess Relationship Specialty Start Date End Date Timur Chance MD [address] [place] [id number] PCP - General Internal Medicine 10/20/19 documented as of this encounter
--- OUTSIDE RECORDS SUMMARY | 2025-08-29 11:44 | XMS_ITS | Encounter Summary ---
Author Organization [employer] Address [address] [facility] 7t [place] [address] Care Team Providers Care Exchange Operator Name Role Phone Timur Chance MD Primary Care Prov ider Encounter Details Date Type Department Care Team ([facility] st Contact Info) Description 11/05/2023 Abstract [facility] MED & PEDS [address] [place], [place] [phone] Timur Chance MD [address] [place] [address] Social History Tobacco Use Types Packs/Day Years [...] documented as of this encounter Care Teams Exchange Operator Relationship Specialty Start Date End Date Timur Chance MD [address] [place] [phone] PCP - General Internal Medicine 10/20/19 documented as of this encounter
--- OUTSIDE RECORDS SUMMARY | 2025-08-29 11:44 | XMS_ITS | Clinical Summary ---
Author Organization [facility] Address [address] [place] [address] Care Team Providers Care Yeast Culture Developer Name Role Phone Timur Chance MD Primary Care Prov ider Allergies No known active allergies Medications atorvastatin (LIPITOR) 20 mg tablet Take 20 mg by mouth once a day. 1 Active Freestyle Lite test strips TEST BLOOD SUGAR THREE TIMES DAILY 1 Active clotrimazole (LOTRIMIN) 1% cream APPLY TO AFFECTED AREA(S) AND SURROUNDING AREA(S) TWICE DAILY IN THE MORNING AND EVENING 1 Active cyclobenzaprine (FLEXERIL) 5 mg tablet TAKE ONE TABLET THREE TIMES DAILY NEEDED FOR MUSCLE SPASMS 1 Active metFORMIN (GLUCOPHAGE) 500 mg tablet TAKE ONE TABLET BY MOUTH TWICE DAILY IN THE MORNING AND IN THE EVENING WITH MEALS. 1 Active acetaminophen (TYLENOL) 500 mg tablet Take 500 mg by mouth every 6 hours as needed for pain. Active Active Problems Problem Noted Date Diagnosed Date Cardiomyopathy 10/21/2021 Hx of hysterectomy 10/21/2021 Diabetes 10/21/2021 Social History Tobacco Use Types Packs/Day Years Used Date Smoking Tobacco: Never Smokeless Tobacco: Never Comments Unknown Sex and Gender Information Value Date Recorded Sex Assigned at Not on file Legal Sex Female 9:37 AM EDT Gender Identity Not on file Sexual Orientation Not on file Occupation Industry Job Start Date Job End Date works in a [employer] Not on file Not on file Not on f ile Plan of Treatment Health Maintenance Due Date Last Done Comments Basic Metabolic Panel 1973 Cervical Cancer Screening 1973 Cologuard 1973 Colon Cancer Screening 1973 Colonoscopy 1973 FOBT / Fit Test 1973 HIV Screening 1973 HPV and Pap Smear 1973 Hepatitis C Screening 1973 Pap Smear 1973 Sigmoidoscopy 1973 Ophthalmology Exam 1983 Urine Microalbumin 1983 Hepatitis B Vaccines (1 of 3 - 19+ 3-dose series) 02/25/1992 Pneumococcal Vaccine: 50+ Ye ars (1 of 2 - PCV) 02/25/1992 Mammogram 2013 Hemoglobin A1C 03/24/2022 09/24/2021 Zoster Vaccines (1 of 2) 2023 Alcohol/Substance Use Screening 11/15/2024 Depression Screening and Follow-Up 11/15/2024 Social Drivers of Health Annual Screening 11/15/2024 COVID-19 Vaccine (3 - season) 2025, 04/16/2021 Influenza Vaccine (#1) 2025 10/20/2019 DTaP,Tdap,and Td Vaccines (2 - Td or Tdap) 10/20/2029 10/20/2019 RSV Vaccine (60+ years old a nd patients) (1 - 1-dose 75+ series) 02/25/2048 Procedures * Due to [place] [employer] law, this organization might not be sharing negative HIV tests. Procedure Name Priority Date/Time Associated Diagnosis Comments HEMOGLOBIN A1C Routine 09/24/2021 1:47 PM EST Pre-diabetes from Last 3 Months or Most Recently Relevant to Health Maintenance Results * Due to [place] [employer] law, this organization might not be sharing negative HIV tests. * Hemoglobin A1c (09/24/2021 1:47 PM EST) Hemoglobin A1C 5.6 <5.7 % of total Hgb 09/25/2021 8:15 AM EST [employer] Comment: For the purpose of screening for the presence of diabetes: <5.7% Consistent with the absence of diabetes 5.7-6.4% Consistent with increased risk for diabetes (prediabetes) > or =6.5% Consistent with diabetes This assay result is consistent with a decreased risk of diabetes. Currently, no consensus exists regarding use of hemoglobin A1c for diagnosis of diabetes in children. According to Canadian Diabetes Association (ADA) guidelines, hemoglobin A1c <7.0% represents optimal control in non- diabetic patients. Different metrics may apply to specific patient populations. Standards of Medical Care in Diabetes(ADA). eAG (MG/DL) 114 (calc) 09/25/2021 8:15 AM EST [employer] eAG (MMOL/L) 6.3 (calc) 09/25/2021 8:15 AM EST [employer] Blood Structure of peripheral vein / Unknown Venipuncture / Unknown 09/24/2021 1:47 PM EST 09/24/2021 2:07 PM EST Narrative [employer] [facility] - 09/25/2021 8:15 AM EST [facility] Received Date: Sathish Lopez MD LAB BLOOD ORDERABLES Final Res ult [facility] [address] [facility] 3rd [address], [place] [address], [employer] [facility] [address] [facility] 3rd Floor, [place] [address], from Last 3 Months or Most Recently Relevant to Health Maintenance Insurance [facility] CARE Care Teams Yeast Culture Developer Relationship Specialty Start Date End Date Timur Chance MD [address] [place] [id number] PCP - General 07/16/21
--- OUTSIDE RECORDS SUMMARY | 2025-08-29 11:44 | XMS_ITS | Clinical Summary ---
Author Organization [facility] Address [address] [place] [address] Care Team Providers Care Disability Insurance Claim Examiner Name Role Phone Unavailable Primary Care Provider [...] 01/20/2023 Dental Prophy 06/16/2025 06/14/2024, 07/16, 01/20/2023 [id number] ( season) 2025 021, 04/16/2021 Imm-Influenza (#1) [...]
--- OUTSIDE RECORDS SUMMARY | 2025-08-29 11:44 | XMS_ITS | Encounter Summary ---
Author Organization [employer] Address [address] [facility] 7t [place] [address] Care Team Providers Care Technical Program Manager Name Role Phone Timur Chance MD Primary Care Prov ider Reason for Visit * Reason Onset Date Comments Referral 10/16/2024 Encounter Details Date Type Department Care Team (Late st Contact Info) Description 10/16/2024 Telephone [facility] MEDICINE [address] [place] [address] Timur Chance MD [address] [place] [address] Referral Social History Tobacco Use Types Packs/Day [...] therapy. If any question contact pt at [phone] documented in this encounter Plan of Treatment Not on file documented as of this encounter Visit Diagnoses Not on filedocumented in this encounter Additional Health Concerns Assessment Noted Time PHQ-9 Depression Total Score: 16 024 12:04 PM EST documented as of this encounter Care Teams Technical Program Manager Relationship Specialty Start Date End Date Timur Chance MD [address] [place] [address] PCP - General Internal Medicine 10/20/19 documented as of this encounter
== END 2025-08-29 11:13 | disposition home or self-care (01) ==
LOC: HO.HPODS 09:58
PROVIDERS: PCP Internal Medicine; Visit Provider Student in an Organized Health Care Education/Training Program
DX: M77.52 Other enthesopathy of left foot and ankle (principal); M25.572 Pain in left ankle and joints of left foot; G89.29 Other chronic pain; S99.912A Unspecified injury of left ankle, initial encounter; S86.012A Strain of left Achilles tendon, initial encounter; M92.62 Juvenile osteochondrosis of tarsus, left ankle
CPT/HCPCS: 29515; 99204

== ENCOUNTER → 2025-08-29 09:57 | Outpatient (BNVA) | payer OTHER, SELFPAY | PROVIDERS: PCP Internal Medicine; Visit Provider Student in an Organized Health Care Education/Training Program | DX: M77.52 Other enthesopathy of left foot and ankle (principal); M25.572 Pain in left ankle and joints of left foot; G89.29 Other chronic pain; S99.912A Unspecified injury of left ankle, initial encounter; S86.012A Strain of left Achilles tendon, initial encounter; M92.62 Juvenile osteochondrosis of tarsus, left ankle; X58.XXXA Exposure to other specified factors, initial encounter; Y93.9 Activity, unspecified; Y92.9 Unspecified place or not applicable; Y99.9 Unspecified external cause status | CPT/HCPCS: 29515; 99202 ==

== ENCOUNTER 2025-08-30 10:19 | Outpatient (REF) | payer OTHER, SELFPAY ==
--- NOTE | ~2025-08-30 | XR_ITS ---
EXAMINATION: XR ANKLE, LEFT X-ray tibia fibula, left CLINICAL INFORMATION: S99.912A - Unspecified injury of left ankle, initial encounter COMPARISON: None available. TECHNIQUE: AP, lateral, and mortise views of the left ankle. Tibia and fibula 2 views. FINDINGS: Tibia and fibula: No visible acute fracture, malalignment or suspicious bony lesion. Apparent medial and lateral compartment arthritis of the knee. Superior patellar insertional enthesopathy. No significant knee joint effusion is identified. Soft tissue swelling. No abnormal soft tissue calcification. Ankle: No visible acute fracture, dislocation or suspicious bony lesion. Mild tibiotalar arthritis. Ankle mortise appears maintained. No talar dome OCD. Dorsal degenerative spurring in the midfoot. Prominent posterior calcaneal insertional enthesopathy. Plantar calcaneal spur. No suspicious soft tissue calcifications. Soft tissue swelling. XR/XR ankle LT min 3V IMPRESSION: Tibia and fibula: No acute osseous findings Ankle: No radiographic evidence of acute osseous findings. Arthritis as above. Electronically signed by: Merlin Zeng MD 08/30/2025 11:01 AM EDT
--- NOTE | ~2025-08-30 | XR_ITS ---
EXAMINATION: XR ANKLE, LEFT X-ray tibia fibula, left CLINICAL INFORMATION: S99.912A - Unspecified injury of left ankle, initial encounter COMPARISON: None available. TECHNIQUE: AP, lateral, and mortise views of the left ankle. Tibia and fibula 2 views. FINDINGS: Tibia and fibula: No visible acute fracture, malalignment or suspicious bony lesion. Apparent medial and lateral compartment arthritis of the knee. Superior patellar insertional enthesopathy. No significant knee joint effusion is identified. Soft tissue swelling. No abnormal soft tissue calcification. Ankle: No visible acute fracture, dislocation or suspicious bony lesion. Mild tibiotalar arthritis. Ankle mortise appears maintained. No talar dome OCD. Dorsal degenerative spurring in the midfoot. Prominent posterior calcaneal insertional enthesopathy. Plantar calcaneal spur. No suspicious soft tissue calcifications. Soft tissue swelling. XR/XR tibia fibula LT 2V IMPRESSION: Tibia and fibula: No acute osseous findings Ankle: No radiographic evidence of acute osseous findings. Arthritis as above. Electronically signed by: Merlin Zeng MD 08/30/2025 11:01 AM EDT
== END 2025-08-30 10:20 | disposition home or self-care (01) ==
LOC: HO.XRAY 10:19
PROVIDERS: PCP Internal Medicine; Visit Provider Student in an Organized Health Care Education/Training Program
DX: M25.572 Pain in left ankle and joints of left foot (principal); M77.52 Other enthesopathy of left foot and ankle; S99.912A Unspecified injury of left ankle, initial encounter; M92.62 Juvenile osteochondrosis of tarsus, left ankle; S86.012A Strain of left Achilles tendon, initial encounter
CPT/HCPCS: 73590; 73610

== ENCOUNTER → 2025-08-30 10:25 | Outpatient (BNV) | payer OTHER, SELFPAY | PROVIDERS: PCP Internal Medicine; Visit Provider Radiology Diagnostic Ultrasound | DX: M19.072 Primary osteoarthritis, left ankle and foot (principal); M79.662 Pain in left lower leg | CPT/HCPCS: 73590; 73610 ==

== ENCOUNTER 2025-09-03 15:15 | Outpatient (REF) | payer OTHER, SELFPAY ==
--- NOTE | ~2025-09-03 | MR_ITS ---
EXAMINATION: MR ANKLE WITHOUT CONTRAST, LEFT CLINICAL INFORMATION: Juvenile osteochondrosis. Patient reports 3 years of symptoms, pain. COMPARISON: X-ray 09/03/2025 TECHNIQUE: MRI of the ankle was performed using routine sequences on a high-field scanner. Large uqzaa-qa-hjaw study, using the Achilles protocol. TECHNIQUE: MRI of the ankle without contrast is performed in a 1.5 Renay high-field scanner. FINDINGS: BONE/JOINTS: There is edema in the superior aspect of the posterior calcaneus, could reflect reactive edema or osseous contusion/stress injury. Osseous prominence of the posterior superior calcaneus, suggestive of Chlesea's deformity. No fracture plane is identified. No acute fractures otherwise seen. No talar dome OCD. Degenerative-appearing T2 signal in the navicular. No aggressive marrow replacing lesion.. MUSCLES/TENDONS: Medial flexor, peroneal, extensor tendons are intact. LIGAMENTS: Mild heterogeneous signal in the ATFL may reflect a chronic sprain. Posterior talofibular, tibiofibular, calcaneofibular ligaments are intact. Intact deltoid ligament. ACHILLES TENDON: Heterogeneous increased T2 signal in the Achilles tendon, with the tendon thickening measuring up to approximately 1.1 cm. Findings are consistent with mild-moderate tendinosis. Irregularity of the deep surface of the tendon at the level of the superior calcaneus, suggestive of deep surface fraying/low-grade tear in this region. Longitudinal oriented linear T2 signal distal tendon, could reflects striations oriented longitudinally oriented intrasubstance tearing. No transverse tendon tear or retraction is seen. Mild Achilles peritendinitis. There is small calcaneal bursitis, with soft tissue edema in this region.. Moderate posterior calcaneal insertional enthesopathy. PLANTAR FASCIA: Intact SINUS TARSI: Normal signal. TARSAL TUNNEL : No mass lesion SUBCUTANEOUS SOFT TISSUES: Subcutaneous edema present. MR/MR ankle LT wo con IMPRESSION: * Mild-moderate Achilles tendinosis. Associated peritendinitis. Deep surface fraying/low-grade partial tear of the tendon the level of the superior calcaneus. Possible longitudinally oriented linear intrasubstance partial tearing versus striations in the tendon. No transverse tendon tear or retraction. Retrocalcaneal bursitis. 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 Edema in the posterior calcaneus, could reflect reactive edema, contusion/stress injury. * Mild chronic ATFL sprain * Additional findings and details as above. Electronically signed by: Merlin Zeng MD 09/04/2025 09:36 AM EDT
--- OUTSIDE RECORDS SUMMARY | 2025-09-03 19:29 | XMS_ITS | Encounter Summary ---
Author Organization [employer] Address [address] [facility] 7t [place] [address] Care Team Providers Care Rn Labor And Delivery Name Role Phone Timur Chance MD Primary Care Prov ider Encounter Details Date Type Department Care Team (Late st Contact Info) Description 07/30/2025 Telephone [facility] MEDICINE [address] [place] [address] Timur Chance MD [address] [place] [address] Social History Tobacco Use Types Packs/Day Years [...] documented as of this encounter Care Teams Rn Labor And Delivery Relationship Specialty Start Date End Date Timur Chance MD [address] [place] [address] PCP - General Internal Medicine 10/20/19 documented as of this encounter
--- OUTSIDE RECORDS SUMMARY | 2025-09-03 19:29 | XMS_ITS | Encounter Summary ---
Author Organization [employer] Address [address] [facility] 7t [place] [address] Care Team Providers Care Transmission Mechanic Name Role Phone Timur Chance MD Primary Care Prov ider Reason for Visit * Reason Onset Date Comments Referral 08/02/2024 Encounter Details Date Type Department Care Team (Late st Contact Info) Description 08/02/2024 Telephone [facility] MEDICINE [address] [place] [address] Timur Chance MD [address] [place] [address] Referral Social History Tobacco Use Types Packs/Day [...] regarding PT referral. Please contact pt at [phone]. (Thai Speaker) documented in this encounter Plan of Treatment Not on file documented as of this encounter Visit Diagnoses Not on filedocumented in this encounter Additional Health Concerns Assessment Noted Time PHQ-9 Depression Total Score: 0 01/10/20 24 11:02 AM EST documented as of this encounter Care Teams Transmission Mechanic Relationship Specialty Start Date End Date Timur Chance MD [address] [place] [address] PCP - General Internal Medicine 10/20/19 documented as of this encounter
--- OUTSIDE RECORDS SUMMARY | 2025-09-03 19:29 | XMS_ITS | Encounter Summary ---
Author Organization [employer] Address [address] [facility] 7 [place] [address] Care Team Providers Care Keyseating Machine Set Up Operator Name Role Phone Timur Chance MD Primary Care Prov ider Reason for Visit * Reason Onset Date Comments Nurse Triage 10/18/2024 Encounter Details Date Type Department Care Team (Late st Contact Info) Description 10/18/2024 Telephone [facility] MEDICINE [address] [place] [address] Timur Chance MD [address] [place] [address] Nurse Triage Social History Tobacco Use Types [...] bone. Ptadvised of disposition, agrees to seek [facility] ED for eval to rule out [...] soon Reason: Can't use the shoulder normally Belarusian Speaker (Accepted Corporate Travel Agent) documented in this encounter Plan of Treatment Not on file documented as of this encounter Visit Diagnoses Not on filedocumented in this encounter Additional Health Concerns Assessment Noted Time PHQ-9 Depression Total Score: 16 024 12:04 PM EST documented as of this encounter Care Teams Keyseating Machine Set Up Operator Relationship Specialty Start Date End Date Timur Chance MD [address] [place] [address] PCP - General Internal Medicine 10/20/19 documented as of this encounter
--- OUTSIDE RECORDS SUMMARY | 2025-09-03 19:29 | XMS_ITS | Encounter Summary ---
Author Organization [facility] [employer] Address [address] [facility] 7t [place] [address] Care Team Providers Care Foundation Maker Name Role Phone Timur Chance MD Primary Care Prov ider Reason for Visit * Reason Onset Date Comments Referral 10/16/2024 Encounter Details Date Type Department Care Team (Late st Contact Info) Description 10/16/2024 Telephone [facility] MEDICINE [address] [place] [address] Timur Chance MD [address] [place] [address] Referral Social History Tobacco Use Types Packs/Day [...] therapy. If any question contact pt at [phone] documented in this encounter Plan of Treatment Not on file documented as of this encounter Visit Diagnoses Not on filedocumented in this encounter Additional Health Concerns Assessment Noted Time PHQ-9 Depression Total Score: 16 024 12:04 PM EST documented as of this encounter Care Teams Foundation Maker Relationship Specialty Start Date End Date Timur Chance MD [address] [place] [address] PCP - General Internal Medicine 10/20/19 documented as of this encounter
--- OUTSIDE RECORDS SUMMARY | 2025-09-03 19:29 | XMS_ITS | Encounter Summary ---
Author Organization [employer] Address [address] [facility] 7t [place] [address] Care Team Providers Care Physicist Astrophysics Name Role Phone Timur Chance MD Primary Care Prov ider Encounter Details Date Type Department Care Team ([facility] st Contact Info) Description 11/05/2023 Abstract [facility] MED [facility] PEDS [address] [place], [place] [phone] Timur Chance MD [address] [place] [address] Social History Tobacco Use Types Packs/Day Years [...] documented as of this encounter Care Teams Physicist Astrophysics Relationship Specialty Start Date End Date Timur Chance MD [address] [place] [address] PCP - General Internal Medicine 10/20/19 documented as of this encounter
--- OUTSIDE RECORDS SUMMARY | 2025-09-03 19:29 | XMS_ITS | Encounter Summary ---
Author Organization [employer] Address [address] [facility] 7t [place] [address] Care Team Providers Care Import Export Clerk Name Role Phone Timur Chance MD Primary Care Prov ider Encounter Details Date Type Department Care Team (Late st Contact Info) Description 11/09/2023 Telephone [facility] MEDICINE [address] [place] [address] Timur Chance MD [address] [place] [address] Social History Tobacco Use Types Packs/Day Years [...] the past 12 months, has t he [employer], gas, oil or water company threatened to [...] documented as of this encounter Care Teams Import Export Clerk Relationship Specialty Start Date End Date Timur Chance MD [address] [place] [address] PCP - General Internal Medicine 10/20/19 documented as of this encounter
--- OUTSIDE RECORDS SUMMARY | 2025-09-03 19:29 | XMS_ITS | Encounter Summary ---
Author Organization [employer] Address [address] [facility] 7t [place] [address] Care Team Providers Care Tree Climber Name Role Phone Timur Chance MD Primary Care Prov ider Reason for Visit * Reason Onset Date Comments ER Follow-up 11/09/2023 Nurse Triage 11/09/2023 Encounter Details Date Type Department Care Team (Late st Contact Info) Description 11/09/2023 Telephone [facility] MEDICINE [address] [place] [address] Timur Chance MD [address] [place] [address] ER Follow-up; Nurse Triage Social History Tobacco [...] 10:56 AM EST Records request faxed to [facility] as requested. * Telephone Encounter - Viky Hooks RN - 11/09/2023 10:00 AM EST Called pt. Via [employer] deaf interpreter [phone] Aleksandar. Pt. States that she got injured her left hand at her job on 10/31/23 and has pain, swelling, Pt. Went to [facility] ED on 11/07/23. Pt. Had X rays done and pt. Was told that her tendon is injured in her hand. Pt. Has been using pain reliever with no relief. Will send request to have clinical coordinators call [facility] for ED notes and Xrays from 11/07/23 to befaxed to [facility] but, cannot guarantee that results will be sent with same day request. I will also send message to [facility] nurses to at least get Xray results from [facility] Protocol Used: Hand and Wrist Injury (Adult) Protocol-Based Disposition: See in Office or Video Visit Today- appt. Today at 2pm [facility]. Video visit not offered Positive Triage Questions: [...] soon Reason: Getting worse Pt went to [facility] due to a fall. The caller accepted this outcome Belgian speaker * Telephone Encounter - Carlos Negrete - 11/09/2023 8:26 AM EST Patient calling to report ED visit on : 11/09 Date: 11/03 Hospital: [facility] Seen for: Hand Patient states is [...] documented as of this encounter Care Teams Tree Climber Relationship Specialty Start Date End Date Timur Chance MD [address] [place] [address] PCP - General Internal Medicine 10/20/19 documented as of this encounter
--- OUTSIDE RECORDS SUMMARY | 2025-09-03 19:29 | XMS_ITS | Encounter Summary ---
Author Organization [employer] Address [address] [facility] [address] [place] [address] Care Team Providers Care Cone Machine Feeder Name Role Phone Timur Chance MD Primary Care Prov ider Encounter Details Date Type Department Care Team (Late st Contact Info) Description 08/13/2025 Orders Only [facility] MED & PEDS [address] [place] [address] ProviderAdilson MD Social History Tobacco Use Types [...] Procedure Name Priority Date/Time Associated Diagnosis Comments XR ANKLE 3+ VIEWS LEFT Routine 08/30/2025 10:41 AM EDT XR TIBIA FIBULA 2 VIEWS LEFT Routine 08/30/2025 10:31 AM EDT ECG 12-LEAD Routine 08/11/2025 8:57 AM EDT ECG 12-LEAD Routine 08/11/2025 8:56 AM EDT documented in this encounter Results * XR Ankle 3+ Views Left (08/30/2025 10:41 AM EDT) Anatomical Region Laterality Modality Lower Extremities, Ankle Left Radiogr aphic Imaging 08/30/2025 10:4 1 AM EDT Narrative 08/30/2025 11:04 AM EDT [place] [address] XRay Report Signed Patient: Delmar Hudson MR#: [id number] : 1975 Acct:[id number] Age/Sex: 50 / F ADM Date: 08/30/25 Loc: [facility] Attending Dr: Rylie Bustos DPM Ordering Physician: Rylie Bustos DPM Date of Service: 08/30/25 Procedure(s): XR ankle LT min 3V Accession Number(s): [id number] cc: Timur Chance MD; Rylie Bustos DPM Reason for Exam: M25.572 - Pain in left ankle and joints of left foot EXAMINATION: XR ANKLE, LEFT X-ray tibia fibula, left CLINICAL INFORMATION: S99.912A - Unspecified injury of left ankle, initial encounter COMPARISON: None available. TECHNIQUE: AP, lateral, and mortise views of the left ankle. Tibia and fibula 2 views. FINDINGS: Tibia and fibula: No visible acute fracture, malalignment or suspicious bony lesion. Apparent medial and lateral compartment arthritis of the knee. Superior patellar insertional enthesopathy. No significant knee joint effusion is identified. Soft tissue swelling. No abnormal soft tissue calcification. Ankle: No visible acute fracture, dislocation or suspicious bony lesion. Mild tibiotalar arthritis. Ankle mortise appears maintained. No talar dome OCD. Dorsal degenerative spurring in the midfoot. Prominent posterior calcaneal insertional enthesopathy. Plantar calcaneal spur. No suspicious soft tissue calcifications. Soft tissue swelling. XR/XR ankle LT min 3V IMPRESSION: Tibia and fibula: No acute osseous findings Ankle: No radiographic evidence of acute osseous findings. Arthritis as above. Electronically signed by: Merlin Zeng MD 08/30/2025 11:01 AM EDT Dictated By: Merlin Zeng MD Signed By: <Electronically signed by Merlin Zeng MD in OV> 08/30/25 1101 DD/ 1041 TD/TT: 08/30/25 1045 Underground Roof Bolter: TAVARES Procedure Note Donotuseinterpreter, Image - 08/30/2025 [place] [address] XRay Report Signed Patient: Delmar HudsonMR#: [id number] : 1975Acct:[id number] Age/Sex: 50 / FADM Date: 08/30/25 Loc: [facility] Attending Dr: Rylie Bustos DPM Ordering Physician: Rylie Bustos DPM Date of Service: 08/30/25 Procedure(s): XR ankle LT min 3V Accession Number(s): [id number] cc: Timur Chance MD; Rylie Bustos DPM Reason for Exam: M25.572 - Pain in left ankle and joints of left foot EXAMINATION: XR ANKLE, LEFT X-ray tibia fibula, left CLINICAL INFORMATION: S99.912A - Unspecified injury of left ankle, initial encounter COMPARISON: None available. TECHNIQUE: AP, lateral, and mortise views of the left ankle. Tibia and fibula 2 views. FINDINGS: Tibia and fibula: No visible acute fracture, malalignment or suspicious bony lesion. Apparent medial and lateral compartment arthritis of the knee. Superior patellar insertional enthesopathy. No significant knee joint effusion is identified. Soft tissue swelling. No abnormal soft tissue calcification. Ankle: No visible acute fracture, dislocation or suspicious bony lesion. Mild tibiotalar arthritis. Ankle mortise appears maintained. No talar dome OCD. Dorsal degenerative spurring in the midfoot. Prominent posterior calcaneal insertional enthesopathy. Plantar calcaneal spur. No suspicious soft tissue calcifications. Soft tissue swelling. XR/XR ankle LT min 3V IMPRESSION: Tibia and fibula: No acute osseous findings Ankle: No radiographic evidence of acute osseous findings. Arthritis as above. Electronically signed by: Merlin Zeng MD 08/30/2025 11:01 AM EDT Dictated By: Merlin Zeng MD Signed By: <Electronically signed by Merlin Zeng MD in OV> 08/30/25 1101 DD/ 1041 TD/TT: 08/30/25 1045 Underground Roof Bolter: TAVARES [facility] External Provider IMG XR PROCEDURES Edited Result - Final * XR Tibia Fibula 2 Views Left (08/30/2025 10:31 AM EDT) Anatomical Region Laterality Modality Lower Extremities, Lower Leg Left Rad iographic Imaging 08/30/2025 10:3 1 AM EDT Narrative 08/30/2025 11:04 AM EDT [address] [address] XRay Report Signed Patient: Delmar Hudson MR#: [id number] : 1975 Acct:[id number] Age/Sex: 50 / F ADM Date: 08/30/25 Loc: [facility] Attending Dr: Rylie Bustos DPM Ordering Physician: Rylie Bustos DPM Date of Service: 08/30/25 Procedure(s): XR tibia fibula LT 2V Accession Number(s): [id number] cc: Timur Chance MD; Rylie Bustos DPM Reason for Exam: S99.912A - Unspecified injury of left ankle, initial encounter EXAMINATION: XR ANKLE, LEFT X-ray tibia fibula, left CLINICAL INFORMATION: S99.912A - Unspecified injury of left ankle, initial encounter COMPARISON: None available. TECHNIQUE: AP, lateral, and mortise views of the left ankle. Tibia and fibula 2 views. FINDINGS: Tibia and fibula: No visible acute fracture, malalignment or suspicious bony lesion. Apparent medial and lateral compartment arthritis of the knee. Superior patellar insertional enthesopathy. No significant knee joint effusion is identified. Soft tissue swelling. No abnormal soft tissue calcification. Ankle: No visible acute fracture, dislocation or suspicious bony lesion. Mild tibiotalar arthritis. Ankle mortise appears maintained. No talar dome OCD. Dorsal degenerative spurring in the midfoot. Prominent posterior calcaneal insertional enthesopathy. Plantar calcaneal spur. No suspicious soft tissue calcifications. Soft tissue swelling. XR/XR tibia fibula LT 2V IMPRESSION: Tibia and fibula: No acute osseous findings Ankle: No radiographic evidence of acute osseous findings. Arthritis as above. Electronically signed by: Merlin Zeng MD 08/30/2025 11:01 AM EDT Dictated By: Merlin Zeng MD Signed By: <Electronically signed by Merlin Zeng MD in OV> 08/30/25 1101 DD/ 1031 TD/TT: 08/30/25 1045 Underground Roof Bolter: TAVARES Procedure Note Donotuseinterpreter, Image - 08/30/[address] [address] XRay Report Signed Patient: Delmar HudsonMR#: [id number] : 1975Acct:[id number] Age/Sex: 50 / FADM Date: 08/30/25 Loc: HO.XRAY Attending Dr: Rylie Bustos DPM Ordering Physician: Rylie Bustos DPM Date of Service: 08/30/25 Procedure(s): XR tibia fibula LT 2V Accession Number(s): [id number] cc: Timur Chance MD; Rylie Bustos DPM Reason for Exam: S99.912A - Unspecified injury of left ankle, initialencounter EXAMINATION: XR ANKLE, LEFT X-ray tibia fibula, left CLINICAL INFORMATION: S99.912A - Unspecified injury of left ankle, initial encounter COMPARISON: None available. TECHNIQUE: AP, lateral, and mortise views of the left ankle. Tibia and fibula 2 views. FINDINGS: Tibia and fibula: No visible acute fracture, malalignment or suspicious bony lesion. Apparent medial and lateral compartment arthritis of the knee. Superior patellar insertional enthesopathy. No significant knee joint effusion is identified. Soft tissue swelling. No abnormal soft tissue calcification. Ankle: No visible acute fracture, dislocation or suspicious bony lesion. Mild tibiotalar arthritis. Ankle mortise appears maintained. No talar dome OCD. Dorsal degenerative spurring in the midfoot. Prominent posterior calcaneal insertional enthesopathy. Plantar calcaneal spur. No suspicious soft tissue calcifications. Soft tissue swelling. XR/XR tibia fibula LT 2V IMPRESSION: Tibia and fibula: No acute osseous findings Ankle: No radiographic evidence of acute osseous findings. Arthritis as above. Electronically signed by: Merlin Zeng MD 08/30/2025 11:01 AM EDT Dictated By: Merlin Zeng MD Signed By: <Electronically signed by Merlin Zeng MD in OV> 08/30/25 1101 DD/ 1031 TD/TT: 08/30/25 1045 Underground Roof Bolter: TAVARES [facility] External Provider IMG XR PROCEDURES Edited Result - Final * ECG 12 lead (08/11/2025 8:57 AM EDT) Historical Provider ECG ORDERABLES Final Res ult * ECG 12 lead (08/11/2025 8:56 AM EDT) Historical Provider ECG ORDERABLES Final Res ult documented in this encounter Visit Diagnoses Not on filedocumented in this encounter Additional Health Concerns Assessment Noted Time PHQ-9 Depression Total Score: 2 07/02/20 25 11:03 AM EDT documented as of this encounter Care Teams Cone Machine Feeder Relationship Specialty Start Date End Date Timur Chance MD [address] [place] [address] PCP - General Internal Medicine 10/20/19 documented as of this encounter
--- OUTSIDE RECORDS SUMMARY | 2025-09-03 19:29 | XMS_ITS | Clinical Summary ---
Author Organization [employer] Address [address] [facility] [address] [place] [address] Care Team Providers Care Gericare Aide Name Role Phone Timur Chance MD Primary [...] 90 tablet 1 05/21/20 25 026 Active omeprazole (PriLOSEC) [address] capsuleIndications [...] split. 30 tablet 2 05/21/20 25 025 celecoxib (CeleBREX) 200 MG capsuleIndications :Chronic pain of left ankle Take 1 capsule (200 mg) by mouth 2 times daily. 60 capsule 07/31/20 25 025 Active Problems Problem Noted Date [...] send new xray and will refer to [facility] for [place] intection Assessment & Plan (10/30/2024 [...] Plan (03/09/2023 10:22 AM EDT): Will send ruddyuard, no warning signs Gastroesophageal reflux disease without [...] Type Department Care Team Description 08/13/2025 Telephone [facility] [address] [place] [address] Timur Chance MD ER Follow-up 08/13/2025 Orders Only [facility] [address] [place] [address] Adilson Branch MD 08/07/2025 Refill [facility] [address] [place] [address] Timur Chance MD Gastroesophageal reflux disease without esophagitis 07/31/2025 2:15 PM EDT Office Visit [facility] [address] [place] [address] Belgica Munoz MD Chronic pain of left ankle (Primary Dx); Dietary counseling; Exercise counseling; Class 3 severe obesity due to excess calories with serious comorbidity and body mass index (BMI) of 45.0 to 49.9 in adult 07/31/2025 Travel 07/30/[address] [address] Timur Chance MD Nurse Triage 07/30/[address] [address] Timur Chance MD 07/02/2025 11:15 AM EDT Telemedicine [facility] [address] [place] [address] Timur Chance MD Encounter for screening mammogram for malignant neoplasm of breast (Primary Dx); Cardiomyopathy, unspecified type (CMS/HCC); Type 2 diabetes mellitus without complication in remission; Primary hypertension; Mixed hyperlipidemia; Chronic foot pain, left 07/02/2025 Travel 06/29/2025 Telephone [facility] [address] [place] [address] Timur Chance MD chart prep from Last [...] situation today? I have juvenaljuan pablo healy 02/07/[address] you [...] VIEWS LEFT Routine 08/30/2025 10:31 AM EDT BI MAMMOGRAM SCREENING TOMOSYNTHESIS BILATERAL Routine 08/15/2025 [...] 8:40 AM EST Screening for colon cancer Z HISTORICAL HEPATITIS C AB W/REFL TO HCV RNA, QN, PCR Routine 09/08/2022 8:52 AM EDT ALBUMIN, RANDOM URINE W/CREATININE Routine 09/08/2022 8:52 AM EDT [facility] HISTORICAL HPV MRNA E6/E7 Routine 12/05/2019 1:12 PM EST [facility] HISTORICAL HIV AB/AG Routine 10/20/2019 3:01 PM EST from Last 3 Months or Most Recently Relevant to Health Maintenance Results * XR Ankle 3+ Views Left (08/30/2025 10:41 AM EDT) Anatomical Region Laterality Modality Lower Extremities, Ankle Left Radiogr aphic Imaging 08/30/2025 10:4 1 AM EDT Narrative 08/30/2025 11:04 AM EDT [place] [address] XRay Report Signed Patient: Delmar Hudson MR#: [id number] 253 : 1975 Acct:[id number] Age/Sex: 50 / F ADM Date: 08/30/25 Loc: [facility] Attending Dr: Rylie Bustos DPM Ordering Physician: Rylie Bustos DPM Date of Service: 08/30/25 Procedure(s): XR ankle LT min 3V Accession Number(s): [id number] cc: Timur Chance MD; Rylie Bustos DPM Reason for Exam: M25.572 - Pain in left ankle and joints of left foot EXAMINATION: XR ANKLE, LEFT X-ray tibia fibula, left CLINICAL INFORMATION: S99.913L - Unspecified injury of left ankle, initial [...] 08/30/25 1101 DD/ 1041 TD/TT: 08/30/25 1045 Cattle Dipper: Procedure Note Donotuseinterpreter, Image - 08/30/[address] [address] XRay Report Signed Patient: Delmar HudsonMR#: [id number] 253 : 1975Acct:[id number] Age/Sex: 50 / FADM Date: 08/30/25 Loc: [facility] Attending Dr: Rylie Bustos DPM Ordering Physician: Rylie Bustos DPM Date of Service: 08/30/25 Procedure(s): XR ankle LT min 3V Accession Number(s): [id number] cc: Timur Chance MD; Rylie Bustos DPM [...] 08/30/25 1101 DD/ 1041 TD/TT: 08/30/25 1045 Cattle Dipper: TAVARES [facility] External Provider IMG XR PROCEDURES Edited Result - Final * XR Tibia Fibula 2 Views Left (08/30/2025 10:31 AM EDT) Anatomical Region Laterality Modality Lower Extremities, Lower Leg Left Rad iographic Imaging 08/30/2025 10:3 1 AM EDT Narrative 08/30/2025 11:04 AM EDT [address] [address] XRay Report Signed Patient: Delmar Hudson MR#: [id number] 253 : 1975 Acct:[id number] Age/Sex: 50 / F ADM Date: 08/30/25 Loc: [facility] Attending Dr: Rylie Bustos DPM Ordering Physician: Rylie Bustos DPM Date of Service: 08/30/25 Procedure(s): XR tibia fibula LT 2V Accession Number(s): [id number] cc: Timur Chance MD; Rylie Bustos M Reason for Exam: S99.912A - Unspecified injury [...] 08/30/25 1101 DD/ 1031 TD/TT: 08/30/25 1045 Cattle Dipper: TAVARES Procedure Note Donotuseinterpreter, Image - 08/30/[address] [address] XRay Report Signed Patient: Delmar HudsonMR#: [id number] : 1975Acct:[id number] Age/Sex: 50 / FADM Date: 08/30/25 Loc: HO.XRAY Attending Dr: Rylie Bustos DPM Ordering Physician: Rylie Bustos DPM Date of Service: 08/30/25 Procedure(s): XR tibia fibula LT 2V Accession Number(s): [id number] cc: Timur Chance MD; Rylie Bustos DPM [...] 08/30/25 1101 DD/ 1031 TD/TT: 08/30/25 1045 Cattle Dipper: TAVARES [facility] External Provider IMG XR PROCEDURES Edited Result - Final * BI Mammogram Screening Tomosynthesis Bilateral (08/15/2025 9:59 AM EDT) Anatomical Region Laterality Modality Breast Bilateral Mammography 08/15/2025 9:59 AM EDT Narrative 08/21/2025 3:02 PM EDT [address] [place], [place] [address] Mammography Report Signed Patient: Delmar Hudson MR#: [id number] 253 : 1975 Acct:[id number] Age/Sex: 50 / F ADM Date: 08/15/25 Loc: HO.MAMMO Attending Dr: Timur Hernandez MD Ordering Physician: Timur Chance MD Res ults: 1Negative Date of Service: 08/15/25 Follow Up: 1 Year From Orig inal Mammogram Procedure(s): MM tomosynthesis screening BI Accession Number(s): [id number] cc: Timur Chance MD Reason For Exam: [...] Iliana Issa DO 08/21/2025 02:59 PM EDT Dictated By: Iliana Issa DO Signed By: <Electronically signed by Iliana Issa DO in OV> 08/21/25 1459 DD/ 0959 TD/TT: 08/15/25 1002 Cattle Dipper: Procedure Note Donotuseinterpreter, Image - 08/21/[address] [place] [address] Mammography Report Signed Patient: Delmar HudsonMR#: [id number] 253 : 1975Acct:[id number] Age/Sex: 50 / FADM Date: 08/15/25 Loc: HO.MAMMO Attending Dr: Timur Hernandez MD Ordering Physician: Timur Chance ults: 1Negative Date of Service: 08/15/25Follow Up: 1 Year From Orig ina Mammogram Procedure(s): MM tomosynthesis screening BI Accession Number(s): [id number] cc: Timur Chance MD Reason For Exam: [...] Iliana Issa DO 08/21/2025 02:59 PM EDT Dictated By: Iliana Issa DO Signed By: <Electronically signed by Iliana Issa DO in OV> 08/21/25 1459 DD/ 0959 TD/TT: 08/15/25 1002 Cattle Dipper: us Timur Hernandez MD IMG BI PROCEDURES Final Result * ECG 12 lead (08/11/2025 8:57 AM EDT) Only the most recent of2 resultswithin the time period is included. Historical Provider ECG ORDERABLES Final Res ult * (ABNORMAL) Hemoglobin A1c (05/25/2025 11:17 AM EDT) Hemoglobin A1c 6.3(H) <6.0 % [facility] Comment:Hemoglobin A1C Refer ence Range Adults: 4.8 - 6.0 % Non diabetic: < 6.0 % Goal: < 7.0 %Additional Action Suggested: > 8.0 %Note: Hemoglobin A1c results are invalid for patients with abnormal amounts of HbF. Blood transfusions may impact the HbA1c concentration in the patient sample. Estimated Average Glucose 134 mg/dL [facility] Comment:eAG = Estimated ave rage glucose which is %A1C expressed asaverage glucose, using the formula of the P2A-TwumaxoUounmdn Glucose study (ADAG), Diabetes Care, Vol.31,#8,Jun. 2007 Blood Venous blood specimen / Unknown 05/25/2025 11:17 AM EDT 05/25/2025 2:41 PM EDT Timur Hernandez MD LAB BLOOD ORDERABL ES Final Result [facility] [address] [place] [phone] * Lipid Panel, Standard (05/25/2025 11:17 AM EDT) Triglycerides 96 <150 mg/dL [facility] Comment:Desirable Triglyceri de: less than 150 mg/dLBorderline High Triglyceride 150-199 mg/dLHigh Triglyceride: 200-499 mg/dLVery High Triglyceride: greater than or equal to 5OO mg/dL Cholesterol 147 <200 mg/dL [facility] Comment:Desirable Cholestero l: less than 200 mg/dLBorderline High Cholesterol: 200-239 mg/dLHigh Cholesterol: greater than 239 mg/dL LDL Cholesterol Calculated 85 <100 mg/dL [facility] Comment:Desirable LDL: less than 100 mg/dLNear Optimal/Above Optimal LDL: 110- 129 mg/dLBorderline High LDL: 130-159 mg/dLHigh LDL: 160-189 mg/dLVery High LDL: greater than or equal to 190 mg/dL HDL Cholesterol 43 >40 mg/dL [facility] Comment:Desirable HDL: great er than 40 mg/dL Note: This HDL assay may give artificially low results in patients with liver disease. Blood Venous blood specimen / Unknown 05/25/2025 11:17 AM EDT 05/25/2025 2:41 PM EDT Timur Hernandez MD LAB BLOOD ORDERABL ES Final Result [facility] [address] [place] [address] [phone] * Cologuard?? colon cancer screening (10/18/2024 8:40 AM EST) Cologuard Result Negative Negative 10/26/20 5:02 AM EST [facility] (CLIA #:[id number]) Comment: NEGATIVE TEST RESULT. A negative Cologuard [...] (Juan Ochoa al, N Engl J Med 2014;370(14):6738-4060) The normal value (reference range) for this assay is negative. COLOGUARD RE-SCREENING RECOMMENDATION: Periodic colorectal cancer screening is an important part of preventive healthcare for asymptomatic individuals at average risk for colorectal cancer. Following a negative Cologuard result, the [place] Cancer Society and U.S. Multi-Society Task Force screening guidelines recommend a Cologuard re-screening interval of 3 years. References: [place] [employer] Guideline for Colorectal Cancer Screening: https://www.cancer.org/cancer/zldif-nuctyl-imnoet/cmtecatpk-rxjuyckbo-qbyuhke/ac s-rec ommendations.html.; Aki DK, Fabio CR, Oleg GarciaK, Colorectal Cancer Screening: Recommendations for Physicians and Patients from the U.S. Multi-Society Task Force on Colorectal Cancer Screening , Am J Gastroenterology 2017; 112:7309-0043. TEST DESCRIPTION: Composite algorithmic analysis of stool [...] (Juan Ochoa al, N Engl J Med 2014;370(14):5421-1234.) Cologuard may produce a false negative or false positive result (no colorectal cancer or precancerous polyp present at colonoscopy follow up). A negative Cologuard test result does not guarantee the absence of CRC or advanced adenoma (pre-cancer). The current Cologuard screening interval is every 3 years. ([place] Cancer Society and U.S. Multi-Society Task Force). Cologuard performance data in a 10,000 patient pivotal study using colonoscopy as the reference method can be accessed at the following location: www.[employer].com.Secure64/results. Additional description of the Cologuard test process, warnings and precautions can be found at www.[employer].com. Stool specimen (specimen) 10/18/2024 8:40 AM EST 10/19/2024 10:55 AM EST Timur Hernandez MD LAB MOLECULAR DIAG NOSTICS ORDERABLES Final Result [facility] (CLIA #:[id number]) [address] [place] [address], * HEPATITIS C AB W/REFL TO HCV [...] a test for HCV RNA (test code 36090) is suggested. For additional information please refer to http://education.[employer]/faq/KRB18n2 (This link is being provided for informational/ educational purposes only.) 09/08/2022 8:52 AM EDT Timur Hernandez MD HISTORICAL/NON ORD ERABLE LABS Final Result Performing Organization Address City/[facility] Co de Phone Number [facility] * [...] Urine 31 20 - 275 mg/dL [facility] 09/08/2022 8:5 2 AM EDT us Timur Hernandez MD LAB URINE ORDERABL ES Final Result [facility] * HPV mRNA E6/E7 (12/05/2019 1:12 PM EST) HPV mRNA E6/E7 Not Detected NOT DETECTED [facility] Comment: This test was performed using the APTIMA(R) HPV Assay ([employer] This assay detects E6/E7 viral messenger RNA (mRNA) from 14 high-risk HPV types (16,18,31,33,35,39,45,51, 52,56,58,59,66,68). For additional information please refer to: http://education.[employer]/faq/TPU892m2 (This link is being provided for informational/ educational purposes only.) The analytical performance characteristics of this assay have been determined by [employer] [place], [place]. The modifications have not been cleared or approved by the FDA. This assay has been validated pursuant to the CLIA regulations and is used for clinical purposes. Test Performed by [facility], [email or web address], [address] [place] [address] Nas Dugan M.D., Ph.D., Director of Laboratories , CLIA [id number] Please note: Effective 07/27/2016, HPV testing will be performed using [employer]'s APTIMA test which targets mRNA. Detecting mRNA instead of DNA, as in older methods, offers significant improvements in specificity. 12/05/2019 1:12 PM EST us Aretha MORINM HISTORICAL/NON ORDERABLE LABS Final Result Performing Organization Address City/[facility]/ZIP Co de Phone Number [facility] [address] * HIV AB/AG (10/20/2019 3:01 PM [...] of detection of this assay. The [employer] HIV Ag/Ab Combo assay result and supplemental assay results should be interpreted in conjunction with the patient's clinical presentation, history and other laboratory results. If the results are inconsistent with clinical evidence, additional testing is suggested to confirm the result. 10/20/2019 3:01 PM EST us Timur Hernandez MD HISTORICAL/NON ORD ERABLE LABS Final Result [facility] [address] from Last 3 Months or Most Recently Relevant to Health Maintenance [place] [address] [place] [address] 3 Care Teams Gericare Aide Relationship Specialty Start Date End Date Timur Chance MD [address] [place] [phone] PCP - General Internal Medicine 10/20/19
== END 2025-09-03 15:16 | disposition home or self-care (01) ==
LOC: HO.MRI 15:15
PROVIDERS: PCP Internal Medicine; Visit Provider Physician Assistant
DX: M92.62 Juvenile osteochondrosis of tarsus, left ankle (principal); S86.012A Strain of left Achilles tendon, initial encounter; S99.912A Unspecified injury of left ankle, initial encounter
CPT/HCPCS: 73721

== ENCOUNTER 2025-09-07 10:09 | Outpatient (AMB) | payer OTHER, SELFPAY ==
--- NOTE | 2025-09-07 10:32 | MHC.OFFVIS ---
Vital Signs 09/07/25 10:50 Height 5 ft 1 in Weight 257 lb BMI 48.6 Intake Visit Reasons: Possible left achilles tendon rupture Intake Note: Delmar is a 50 year old female who presents today for a follow up on her chelsea deformity of left heel. During her last visit she was provided with a walking boot and a walker and X-ray and MRI were ordered and results are in chart. Patient reports she has not seen much improvement since the last time she was seen however she notices a slight improvement with her pain. X-ray IMPRESSION: Tibia and fibula: No acute osseous findings Ankle: No radiographic evidence of acute osseous findings. Arthritis as above. Inspector Machine Cut Glass Required: Yes Inspector Machine Cut Glass Services: Inspector Machine Cut Glass Present Inspector Machine Cut Glass Name: [id number] Allergies No Known Allergies Allergy (Verified 09/07/25 10:50) Medication List - Last Reconciled 09/10/25 by Rylie Bustos DPM atorvastatin 20 mg PO DAILY [knee scoorter As directed] losartan 50 mg PO DAILY meloxicam 15 mg PO DAILY phenazopyridine 200 mg PO TID HPI Comments Details: The patient is a 50-year-old female presenting for follow-up of a Chelsea's deformity and partial Achilles tendon rupture ankle to the left lower extremity. The patient has been experiencing left ankle pain, which was evaluated through x-rays and MRI. She states she continues to have pain to the left lower extremity worsened with activity and ambulation. Patient states she has been taking the meloxicam with mild relief. Patient has not been nonweightbearing to the left lower extremity, but has been weight-bearing as tolerated to the left lower extremity with the use of a walker. Patient states she still experiences pain to the posterior aspect of the heel radiating into the Achilles tendon. Patient still continues to work 12-13 hour days exacerbating the pain. She denies any new injuries. She denies any other pedal concerns. [facility] Medical History (Updated 08/29/25 @ 11:07 by Rylie Bustos DPM) Rupture of left Achilles tendon Chelsea's deformity of left heel Left ankle injury Other enthesopathy of left foot and ankle Left ankle pain Review of Systems Const Details: - Musculoskeletal: Reports left heel and ankle pain for the past 3 months. Physical Exam Vital Signs: BMI result Body Mass Index 48.6 Extrem Other: LLE Focused Physical Exam: Derm: No ecchymosis or discoloration noted. Mild edema noted to the area of the ankle. Skin supple and turgor WNL. No clinical signs of infection noted. No maceration noted. Vasc: DP/PT pulses palpable. CFT < 3 secs. Temp gradient warm to warm. Pedal hair present. Telangectasias noted. Neuro: Protective sensations grossly intact. MSK: Continued severe pain on palpation to the posterior aspect of the heel with a palpable bone spur noted. Pain on palpation along the course of the Achilles tendon with a palpable dell noted. Pain on palpation in area of the Gastrocsoleus muscle/calf. Positive Coulter test. Ankle ROM diminished due to guarding from pain. Patient unable to do heel rise test. Antalgic gait with the use of a walker noted. Office Procedures AMB Podiatry Dressing Details of Procedure: Applied a stockinette, cast padding and an Jose Alberto bandage to the left lower extremity with the use of a camboot. 44645 - Short leg splint Procedure code (CPT) selection complete Results Reviewed Results Reviewed: Podiatry read of left ankle MRI (09/03/2025): Partial rupture of Achilles tendon noted with Chelsea's deformity noted. ATFL sprain noted. OCD lesion noted of talus. Left ankle MRI (09/03/2025): FINDINGS: BONE/JOINTS: There is edema in the superior aspect of the posterior calcaneus, could reflect reactive edema or osseous contusion/stress injury. Osseous prominence of the posterior superior calcaneus, suggestive of Chelsea's deformity. No fracture plane is identified. No acute fractures otherwise seen. No talar dome OCD. Degenerative-appearing T2 signal in the navicular. No aggressive marrow replacing lesion.. MUSCLES/TENDONS: Medial flexor, peroneal, extensor tendons are intact. LIGAMENTS: Mild heterogeneous signal in the ATFL may reflect a chronic sprain. Posterior talofibular, tibiofibular, calcaneofibular ligaments are intact. Intact deltoid ligament. ACHILLES TENDON: Heterogeneous increased T2 signal in the Achilles tendon, with the tendon thickening measuring up to approximately 1.1 cm. Findings are consistent with mild-moderate tendinosis. Irregularity of the deep surface of the tendon at the level of the superior calcaneus, suggestive of deep surface fraying/low-grade tear in this region. Longitudinal oriented linear T2 signal distal tendon, could reflects striations oriented longitudinally oriented intrasubstance tearing. No transverse tendon tear or retraction is seen. Mild Achilles peritendinitis. There is small calcaneal bursitis, with soft tissue edema in this region.. Moderate posterior calcaneal insertional enthesopathy. PLANTAR FASCIA: Intact SINUS TARSI: Normal signal. TARSAL TUNNEL : No mass lesion SUBCUTANEOUS SOFT TISSUES: Subcutaneous edema present. IMPRESSION: * Mild-moderate Achilles tendinosis. Associated peritendinitis. Deep surface fraying/low-grade partial tear of the tendon the level of the superior calcaneus. Possible longitudinally oriented linear intrasubstance partial tearing versus striations in the tendon. No transverse tendon tear or retraction. Retrocalcaneal bursitis. 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 Edema in the posterior calcaneus, could reflect reactive edema, contusion/stress injury. * Mild chronic ATFL sprain * Additional findings and details as above. Podiatry Read of Left ankle xray (08/30/25): Joint space narrowing noted to the ankle joint with mild osteophytic changes noted. Osteophytic changes noted to the dorsal midfoot. Bone spur noted to the posterior aspect of the calcaneus and mildly to the plantar aspect of the calcaneus. Left ankle xray (08/30/25): FINDINGS: Ankle: No visible acute fracture, dislocation or suspicious bony lesion. Mild tibiotalar arthritis. Ankle mortise appears maintained. No talar dome OCD. Dorsal degenerative spurring in the midfoot. Prominent posterior calcaneal insertional enthesopathy. Plantar calcaneal spur. No suspicious soft tissue calcifications. Soft tissue swelling. IMPRESSION: Tibia and fibula: No acute osseous findings Podiatry read of left tib-fib x-ray (08/30/2025): No acute fractures or dislocations noted. Osteophytic changes noted to the knee. Left tib-fib x-ray (08/30/2025): FINDINGS: Tibia and fibula: No visible acute fracture, malalignment or suspicious bony lesion. Apparent medial and lateral compartment arthritis of the knee. Superior patellar insertional enthesopathy. No significant knee joint effusion is identified. Soft tissue swelling. No abnormal soft tissue calcification. IMPRESSION: Tibia and fibula: No acute osseous findings Ordered Left ankle and tibfib xrays weightbearing and Left ankle MRI to be performed prior to next visit. Assessment & Plan Assessment & Plan (1) Other enthesopathy of left foot and ankle: Code(s): M77.52 - Other enthesopathy of left foot and ankle Category: Medical (2) Left ankle pain: Code(s): M25.572 - Pain in left ankle and joints of left foot Category: Medical Qualifiers: Chronicity: chronic Qualified Code(s): M25.572 - Pain in left ankle and joints of left foot; G89.29 - Other chronic pain (3) Left ankle injury: Code(s): S99.912A - Unspecified injury of left ankle, initial encounter Category: Medical Qualifiers: Encounter type: initial encounter Qualified Code(s): S99.912A - Unspecified injury of left ankle, initial encounter (4) Rupture of left Achilles tendon: Code(s): S86.012A - Strain of left Achilles tendon, initial encounter Category: Medical Qualifiers: Encounter type: initial encounter Qualified Code(s): S86.012A - Strain of left Achilles tendon, initial encounter (5) Chelsea's deformity of left heel: Code(s): 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 I discussed with the patient the presence of a Chelsea's deformity to the left heel causing a partial tear in the Achilles tendon, leading to persistent pain. Surgical removal of the Chelsea's deformity and repair of the tendon was recommended to prevent further damage. I explained the surgical procedure, including lifting the Achilles tendon, shaving the bone spur, and reattaching the tendon. The patient was informed about the recovery process, including non-weight bearing for two to three weeks with gradual return to weight-bearing as tolerated and the need for physical therapy. We discussed the importance of arranging disability leave and the potential timeline for returning to work. - Recommend surgical intervention at this time including resection of left Chelsea's deformity and secondary repair of Achilles tendon. - Post-surgery, the patient should avoid weight-bearing activities for two to three weeks and will require physical therapy. - The patient is advised to arrange for disability leave from work during the recovery period, which may last up to three months. - Schedule a pre-operative appointment with the primary care physician for medical clearance. - Continue Meloxicam for pain management. - Patient is to be NWB to the LLE with the use of the walker. Patient may balance on toes if needed. No full weighbearing. - Continue with heel lifts in the CAMboot and applied cast padding and an JOSE ALBERTO to the LLE. - Patient may remove the boot when resting, but is to keep the dressing clean, dry, and intact. RTC on 09/21/25 for pre-operative appointment. 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, left ankle, S86.012A - Strain of left Achilles tendon, initial encounter, S99.912A - Unspecified injury of left ankle, initial encounter Coding Level of Care Code New Pt Level 4 (23989) Diagnoses Other enthesopathy of left foot and ankle M77.52 Chronic pain of left ankle M25.572; G89.29 Chronicity: chronic Injury of left ankle, initial encounter S99.912A Encounter type: initial encounter Rupture of left Achilles tendon, initial encounter S86.012A Encounter type: initial encounter Chelsea's deformity of left heel M92.62 CPT Codes Podiatry Dressing - CPT: 22266 - Short leg splint ([id number]) Time Spent (min) 65
[2025-09-07 10:50] VITALS: BMI 48.6
--- OUTSIDE RECORDS SUMMARY | 2025-09-07 11:30 | XMS_ITS | Clinical Summary ---
Author Organization [facility] Address [address] [place] [address] Care Team Providers Care Boilerhouse Mechanic Name Role Phone Unavailable Primary Care Provider [...] Done Comments Anxiety Screening 1973 HPV Screening (self-collect) 1973 HPV Screening 1973 Hepatitis C Screening [...] 01/20/2023 Dental Prophy 06/16/2025 06/14/2024, 07/16, 01/20/2023 Dit-SYGTD-25 ( season) 2025 021, 04/16/2021 Imm-Influenza (#1) 2025 10/20/2019 Hypertension Screening (#1) 09/01/2025 Tobacco Screening 09/15/2025 09/15/2024 Diabetes Screening 05/22/2027 05/22/2024, 0 03/25/2023, 09/24/2021, Additional history exists Lipid Screening 01/12/2029 01/12/2024, 03/25/2023 Dental FMX/Pano 06/16/2029 06/14/2024, 01/20/2023 Imm-DTaP/Tdap/Td (2 - Td or Tdap) 10/20/2029 019 Cervical Ablation/Cold-Knife Conization Discontinued Cervical Cryotherapy Discontinued Colposcopy Discontinued Excision/Leep Discontinued HPV Genotyping Discontinued Vaginal [...]
--- OUTSIDE RECORDS SUMMARY | 2025-09-07 11:30 | XMS_ITS | Encounter Summary ---
Author Organization [employer] Address [address] [facility] 7 [place] [address] Care Team Providers Care Facialist Name Role Phone Timur Chance MD Primary Care Prov ider Reason for Visit * Reason Onset Date Comments Nurse Triage 10/18/2024 Encounter Details Date Type Department Care Team (Late st Contact Info) Description 10/18/2024 Telephone [facility] MEDICINE [address] [place] [address] Timur Chance MD [address] [place] [phone] Nurse Triage Social History Tobacco Use Types [...] bone. Ptadvised of disposition, agrees to seek [facility] ED for eval to rule out [...] soon Reason: Can't use the shoulder normally Scottish Speaker (Accepted Chief Risk Officer) documented in this encounter Plan of Treatment Not on file documented as of this encounter Visit Diagnoses Not on filedocumented in this encounter Additional Health Concerns Assessment Noted Time PHQ-9 Depression Total Score: 16 024 12:04 PM EST documented as of this encounter Care Teams Facialist Relationship Specialty Start Date End Date Timur Chance MD [address] [place] [address] PCP - General Internal Medicine 10/20/19 documented as of this encounter
--- OUTSIDE RECORDS SUMMARY | 2025-09-07 11:30 | XMS_ITS | Encounter Summary ---
Author Organization [employer] Address [address] [facility] [address] [place] [address] Care Team Providers Care Filter Cleaner Name Role Phone Timur Chance MD Primary Care Prov ider Reason for Visit * Reason Onset Date Comments Referral 10/16/2024 Encounter Details Date Type Department Care Team (Late st Contact Info) Description 10/16/2024 Telephone [facility] MEDICINE [address] [place] [address] Timur Chance MD [address] [place] [address] Referral Social History Tobacco Use Types Packs/Day [...] therapy. If any question contact pt at [phone] documented in this encounter Plan of Treatment Not on file documented as of this encounter Visit Diagnoses Not on filedocumented in this encounter Additional Health Concerns Assessment Noted Time PHQ-9 Depression Total Score: 16 024 12:04 PM EST documented as of this encounter Care Teams Filter Cleaner Relationship Specialty Start Date End Date Timur Chance MD [address] [place] [address] PCP - General Internal Medicine 10/20/19 documented as of this encounter
--- OUTSIDE RECORDS SUMMARY | 2025-09-07 11:30 | XMS_ITS | Clinical Summary ---
Author Organization [facility] Address [address] [place] [address] Care Team Providers Care Instrument Lens Generator Name Role Phone Timur Chance MD Primary [...] Date Job End Date works in a [employer] Not on file Not on file Not [...] 75+ series) 02/25/2048 Procedures * Due to [place] [employer] law, this organization might not be sharing negative HIV tests. Procedure Name Priority Date/Time Associated Diagnosis Comments HEMOGLOBIN A1C Routine 09/24/2021 1:47 PM EST Pre-diabetes from Last 3 Months or Most Recently Relevant to Health Maintenance Results * Due to [place] [employer] law, this organization might not be sharing negative HIV tests. * Hemoglobin A1c (09/24/2021 1:47 PM EST) Hemoglobin A1C 5.6 <5.7 % of total Hgb 09/25/2021 8:15 AM EST [employer] Comment: For the purpose of screening for the presence of diabetes: <5.7% Consistent with the absence of diabetes 5.7-6.4% Consistent with increased risk for diabetes (prediabetes) > or =6.5% Consistent with diabetes This assay result is consistent with a decreased risk of diabetes. Currently, no consensus exists regarding use of hemoglobin A1c for diagnosis of diabetes in children. According to [place] Diabetes Association (ADA) guidelines, hemoglobin A1c <7.0% represents optimal control in non- diabetic patients. Different metrics may apply to specific patient populations. Standards of Medical Care in Diabetes(ADA). eAG (MG/DL) 114 (calc) 09/25/2021 8:15 AM EST [employer] eAG (MMOL/L) 6.3 (calc) 09/25/2021 8:15 AM EST [employer] Blood Structure of peripheral vein / Unknown Venipuncture / Unknown 09/24/2021 1:47 PM EST 09/24/2021 2:07 PM EST Narrative [facility] 09/25/2021 8:15 AM EST [facility] Received Date: Sathish Lopez MD LAB BLOOD ORDERABLES Final Res ult [facility] [address] [facility] 3[address], [place] [address], [employer] [facility] [address] [facility] 3rd Floor, [place] [address], from Last 3 Months or Most Recently Relevant to Health Maintenance Insurance [facility] HS/FREE CARE Care Teams Instrument Lens Generator Relationship Specialty Start Date End Date Timur Chance MD [address] [place] [id number] PCP - General 07/16/21
--- OUTSIDE RECORDS SUMMARY | 2025-09-07 11:30 | XMS_ITS | Encounter Summary ---
Author Organization [facility] Address [address] [place] [address] Care Team Providers Care Chief I Dispatcher Name Role Phone Timur Chance MD Primary Care Prov ider Reason for Visit * Reason Onset Date Comments Colonoscopy 12/26/2021 Encounter Details Date Type Department Care Team (Late st Contact Info) Description 12/26/2021 Telephone [facility] Central Scheduling Department [address] [place] [phone] Telephone Intake, Staff Colonoscopy Social History Tobacco Use Types Packs/Day Years Used Date Smoking Tobacco: Never Smokeless Tobacco: Never Comments Unknown Sex and Gender Information Value Date Recorded Sex Assigned at Not on file Legal Sex Female 9:37 AM EDT Gender Identity Not on file Sexual Orientation Not on file Occupation Industry Job Start Date Job End Date works in a [employer] Not on file Not on file Not on f ile documented as of this encounter Miscellaneous Notes * Telephone Encounter - [place] - 12/26/2021 11:25 AM EST Shira from [facility] scheduling pt for colonoscopy Per DT, transferred to endoscopy clinic ext [phone] opt 2 documented in this encounter Plan of Treatment Not on file documented as of this encounter Visit Diagnoses Not on filedocumented in this encounter Care Teams Chief I Dispatcher Relationship Specialty Start Date End Date Timur Chance MD [address] [place] [address] PCP - General 07/16/21 documented as of this encounter
--- OUTSIDE RECORDS SUMMARY | 2025-09-07 11:30 | XMS_ITS | Encounter Summary ---
Author Organization [employer] Address [address] [facility] 7t [place] [address] Care Team Providers Care Filbert Grower Name Role Phone Timur Chance MD Primary Care Prov ider Encounter Details Date Type Department Care Team (Late st Contact Info) Description 07/30/2025 Telephone [facility] MEDICINE [address] [place] [address] Timur Chance MD [address] [place] [address] Social History Tobacco Use Types Packs/Day Years [...] documented as of this encounter Care Teams Filbert Grower Relationship Specialty Start Date End Date Timur Chance MD [address] [place] [id number] PCP - General Internal Medicine 10/20/19 documented as of this encounter
--- OUTSIDE RECORDS SUMMARY | 2025-09-07 11:31 | XMS_ITS | Encounter Summary ---
Author Organization [employer] Address [address] [facility] 7t [place] [address] Care Team Providers Care Bloom Conveyor Operator Name Role Phone Timur Chance MD Primary Care Prov ider Encounter Details Date Type Department Care Team (Late st Contact Info) Description 11/09/2023 Telephone [facility] MEDICINE [address] [place] [address] Timur Chance MD [address] [place] [address] Social History Tobacco Use Types Packs/Day Years [...] the past 12 months, has t he [employer], gas, oil or water company threatened to [...] documented as of this encounter Care Teams Bloom Conveyor Operator Relationship Specialty Start Date End Date Timur Chance MD [address] [place] [address] PCP - General Internal Medicine 10/20/19 documented as of this encounter
--- OUTSIDE RECORDS SUMMARY | 2025-09-07 11:31 | XMS_ITS | Encounter Summary ---
Author Organization [employer] Address [address] [facility] [address] [place] [address] Care Team Providers Care Machine Maintenance Name Role Phone Timur Chance MD Primary Care Prov ider Reason for Visit * Reason Onset Date Comments ER Follow-up 11/09/2023 Nurse Triage 11/09/2023 Encounter Details Date Type Department Care Team (Late st Contact Info) Description 11/09/2023 Telephone [facility] MEDICINE [address] [place] [address] Timur Chance MD [address] [place] [phone] ER Follow-up; Nurse Triage Social History Tobacco [...] 10:56 AM EST Records request faxed to [facility] as requested. * Telephone Encounter - Viky Hooks RN - 11/09/2023 10:00 AM EST Called pt. Via [employer] planer chain offbearer [phone] Aleksandar. Pt. States that she got injured her left hand at her job on 10/31/23 and has pain, swelling, Pt. Went to [facility] ED on 11/07/23. Pt. Had X rays done and pt. Was told that her tendon is injured in her hand. Pt. Has been using pain reliever with no relief. Will send request to have clinical coordinators call [facility] for ED notes and Xrays from 11/07/23 to befaxed to [facility] but, cannot guarantee that results will be sent with same day request. I will also send message to [facility] nurses to at least get Xray results from [facility] Protocol Used: Hand and Wrist Injury (Adult) [...] soon Reason: Getting worse Pt went to [facility] due to a fall. The caller accepted this outcome Montenegrin speaker * Telephone Encounter - Carlos Negrete - 11/09/2023 8:26 AM EST Patient calling to report ED visit on : 11/09 Date: 11/03 Hospital: [facility] Seen for: Hand Patient states is still [...] documented as of this encounter Care Teams Machine Maintenance Relationship Specialty Start Date End Date Timur Chance MD [address] [place] [id number] PCP - General Internal Medicine 10/20/19 documented as of this encounter
--- OUTSIDE RECORDS SUMMARY | 2025-09-07 11:31 | XMS_ITS | Encounter Summary ---
Author Organization [employer] Address [address] [facility] 7[address] [place] [address] Care Team Providers Care Oyster Culturist Name Role Phone Timur Chance MD Primary Care Prov ider Encounter Details Date Type Department Care Team (Late st Contact Info) Description 08/13/2025 Orders Only [facility] CHC MED & PEDS [address] [place] [address] ProviderAdilson MD Social History Tobacco Use Types [...] Procedure Name Priority Date/Time Associated Diagnosis Comments MR ANKLE WO CONTRAST LEFT Routine 09/03/2025 3:15 PM EDT XR ANKLE 3+ VIEWS LEFT Routine 08/30/2025 10:41 AM EDT XR TIBIA FIBULA 2 VIEWS LEFT Routine 08/30/2025 10:31 AM EDT ECG 12-LEAD Routine 08/11/2025 8:57 AM EDT ECG 12-LEAD Routine 08/11/2025 8:56 AM EDT documented in this encounter Results * MR Ankle w/o Contrast Left (09/03/2025 3:15 PM EDT) Anatomical Region Laterality Modality Lower Extremities, Ankle Left Magneti c Resonance 09/03/2025 3:15 PM EDT Narrative 09/04/2025 9:39 AM EDT [place] [address] Magnetic Resonance Report Signed Patient: Delmar Hudson MR#: [id number] 253 : 1975 Acct:[id number] Age/Sex: 50 / F ADM Date: 09/03/25 Loc: HO.MRI Attending Dr: Kelly Dalton PA-C Ordering Physician: Kelly Dalton PA-C Date of Service: 09/03/25 Procedure(s): MR ankle LT wo con Accession Number(s): [id number] cc: Timur Chance MD; Kelly Dalton PA-C Reason for Exam: 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 Patient reports 3 years of symptoms, pain. COMPARISON: X-ray 09/03/2025 TECHNIQUE: MRI of the ankle was performed using routine sequences on a high-field scanner. Large [id number]-[id number] study, using the Achilles protocol. TECHNIQUE: MRI of the ankle without contrast is performed in a 1.5 Renay high-field scanner. FINDINGS: BONE/JOINTS: There is edema in the superior aspect of the posterior calcaneus, could reflect reactive edema or osseous contusion/stress injury. Osseous prominence of the posterior superior calcaneus, suggestive of Chelsea's deformity. No fracture plane is identified. No acute fractures otherwise seen. No talar dome OCD. Degenerative-appearing T2 signal in the navicular. No aggressive marrow replacing lesion.. MUSCLES/TENDONS: Medial flexor, peroneal, extensor tendons are intact. LIGAMENTS: Mild heterogeneous signal in the ATFL may reflect a chronic sprain. Posterior talofibular, tibiofibular, calcaneofibular ligaments are intact. Intact deltoid ligament. ACHILLES TENDON: Heterogeneous increased T2 signal in the Achilles tendon, with the tendon thickening measuring up to approximately 1.1 cm. Findings are consistent with mild-moderate tendinosis. Irregularity of the deep surface of the tendon at the level of the superior calcaneus, suggestive of deep surface fraying/low-grade tear in this region. Longitudinal oriented linear T2 signal distal tendon, could reflects striations oriented longitudinally oriented intrasubstance tearing. No transverse tendon tear or retraction is seen. Mild Achilles peritendinitis. There is small calcaneal bursitis, with soft tissue edema in this region.. Moderate posterior calcaneal insertional enthesopathy. PLANTAR FASCIA: Intact SINUS TARSI: Normal signal. TARSAL TUNNEL : No mass lesion SUBCUTANEOUS SOFT TISSUES: Subcutaneous edema present. MR/MR ankle LT wo con IMPRESSION: * Mild-moderate Achilles tendinosis. Associated peritendinitis. Deep surface fraying/low-grade partial tear of the tendon the level of the superior calcaneus. Possible longitudinally oriented linear intrasubstance partial tearing versus striations in the tendon. No transverse tendon tear or retraction. Retrocalcaneal bursitis. 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 Edema in the posterior calcaneus, could reflect reactive edema, contusion/stress injury. * Mild chronic ATFL sprain * Additional findings and details as above. Electronically signed by: Merlin Zeng MD 09/04/2025 09:36 AM EDT Dictated By: Merlin Zeng MD Signed By: <Electronically signed by Merlin Zeng MD in [place]> 09/04/25 0936 DD/ 1515 TD/TT: 09/03/25 1545 Insurance Sales Professional: TAVARES Procedure Note Donotuseinterpreter, Image - 09/04/2025 [place] [address] Magnetic Resonance Report Signed Patient: Delmar Hudson#: [id number] 253 : 1975Acct:[id number] Age/Sex: 50 / FADM Date: 09/03/25 Loc: HO.MRI Attending Dr: Kelly Dalton PA-C Ordering Physician: Kelly Dalton PA-C Date of Service: 09/03/25 Procedure(s): MR ankle LT wo con Accession Number(s): [id number] cc: Timur Chance MD; Kelly Dalton PA-C Reason for Exam: 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 Patient reports 3 years of symptoms, pain. COMPARISON: X-ray 09/03/2025 TECHNIQUE: MRI of the ankle was performed using routine sequences on a high-field scanner. Large qvqsz-lk-qoiy study, using the Achilles protocol. TECHNIQUE: MRI of the ankle without contrast is performed in a 1.5 Renay high-field scanner. FINDINGS: BONE/JOINTS: There is edema in the superior aspect of the posterior calcaneus, could reflect reactive edema or osseous contusion/stress injury. Osseous prominence of the posterior superior calcaneus, suggestive of Chelsea's deformity. No fracture plane is identified. No acute fractures otherwise seen. No talar dome OCD. Degenerative-appearing T2 signal in the navicular. No aggressive marrow replacing lesion.. MUSCLES/TENDONS: Medial flexor, peroneal, extensor tendons are intact. LIGAMENTS: Mild heterogeneous signal in the ATFL may reflect a chronic sprain. Posterior talofibular, tibiofibular, calcaneofibular ligaments are intact. Intact deltoid ligament. ACHILLES TENDON: Heterogeneous increased T2 signal in the Achilles tendon, with the tendon thickening measuring up to approximately 1.1 cm. Findings are consistent with mild-moderate tendinosis. Irregularity of the deep surface of the tendon at the level of the superior calcaneus, suggestive of deep surface fraying/low-grade tear in this region. Longitudinal oriented linear T2 signal distal tendon, could reflects striations oriented longitudinally oriented intrasubstance tearing. No transverse tendon tear or retraction is seen. Mild Achilles peritendinitis. There is small calcaneal bursitis, with soft tissue edema in this region.. Moderate posterior calcaneal insertional enthesopathy. PLANTAR FASCIA: Intact SINUS TARSI: Normal signal. TARSAL TUNNEL : No mass lesion SUBCUTANEOUS SOFT TISSUES: Subcutaneous edema present. MR/MR ankle LT wo con IMPRESSION: * Mild-moderate Achilles tendinosis. Associated peritendinitis. Deep surface fraying/low-grade partial tear of the tendon the level of the superior calcaneus. Possible longitudinally oriented linear intrasubstance partial tearing versus striations in the tendon. No transverse tendon tear or retraction. Retrocalcaneal bursitis. 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 Edema in the posterior calcaneus, could reflect reactive edema, contusion/stress injury. * Mild chronic ATFL sprain * Additional findings and details as above. Electronically signed by: Merlin Zeng MD 09/04/2025 09:36 AM EDT Dictated By: Merlin Zeng MD Signed By: <Electronically signed by Merlin Zeng MD in [place]> 09/04/25 0936 DD/ 1515 TD/TT: 09/03/25 1545 Insurance Sales Professional: TAVARES [facility] External Provider IMG MRI PROCEDURES Edited Result - Final * XR Ankle 3+ Views Left (08/30/2025 10:41 AM EDT) Anatomical Region Laterality Modality Lower Extremities, Ankle Left Radiogr aphic Imaging 08/30/2025 10:4 1 AM EDT Narrative 08/30/2025 11:04 AM EDT [address] [address] XRay Report Signed Patient: Delmar Hudson MR#: [id number] 253 : 1975 Acct:[id number] Age/Sex: 50 / F ADM Date: 08/30/25 Loc: PAOLA Attending Dr: Rylie Bustos DPM Ordering Physician: Rylie Bustos DPM Date of Service: 08/30/25 Procedure(s): XR ankle LT min 3V Accession Number(s): [id number] cc: Timur Chance MD; Rylie Bustos DPM [...] Zeng MD Signed By: <Electronically signed by Meriln Zeng MD in [place]> 08/30/25 1101 DD/ 1041 TD/TT: 08/30/25 1045 Insurance Sales Professional: TAVARES Procedure Note Donotuseinterpreter, Image - 08/30/2025 [place] [address] XRay Report Signed Patient: Delmar HudsonMR#: [id number] 253 : 1975Acct:[id number] Age/Sex: 50 / FADM Date: 08/30/25 Loc: PA[facility] Attending Dr: Rylie Bustos DPM Ordering Physician: Rylie Bustos DPM Date of Service: 08/30/25 Procedure(s): XR ankle LT min 3V Accession Number(s): [id number] cc: Timur Chance MD; Rylie Bustos DPM Reason for Exam: M25.572 - Pain in left ankle and joints of left foot EXAMINATION: XR ANKLE, LEFT X-ray tibia fibula, left CLINICAL INFORMATION: S90.997V - Unspecified injury of left ankle, initial [...] 08/30/25 1101 DD/ 1041 TD/TT: 08/30/25 1045 Insurance Sales Professional: TAVARES [facility] External Provider IMG XR PROCEDURES Edited Result - Final * XR Tibia Fibula 2 Views Left (08/30/2025 10:31 AM EDT) Anatomical Region Laterality Modality Lower Extremities, Lower Leg Left Rad iographic Imaging 08/30/2025 10:3 1 AM EDT Narrative 08/30/2025 11:04 AM EDT [place] [address] XRay Report Signed Patient: Delmar Hudson MR#: [id number] 253 : 1975 Acct:[id number] Age/Sex: 50 / F ADM Date: 08/30/25 Loc: HO.SRINIAY Attending Dr: Rylie Bustos DPM Ordering Physician: Rylie Bustos DPM Date of Service: 08/30/25 Procedure(s): XR tibia fibula LT 2V Accession Number(s): [id number] cc: Timur Chance MD; Rylie Bustos DPM [...] 08/30/25 1101 DD/ 1031 TD/TT: 08/30/25 1045 Insurance Sales Professional: TAVARES Procedure Note Donotuseinterpreter, Image - 08/30/2025 [place] [address] XRay Report Signed Patient: Delmar HudsonMR#: [id number] 253 : 1975Acct:[id number] Age/Sex: 50 / FADM Date: 08/30/25 Loc: PAOLA Attending Dr: Rylie Bustos DPM Ordering Physician: Rylie Bustos DPM Date of Service: 08/30/25 Procedure(s): XR tibia fibula LT 2V Accession Number(s): [id number] cc: Timur Chance MD; Rylie Bustos DPM [...] Merlin Zeng MD 08/30/2025 11:01 AM EDT RP Dictated By: Merlin Zeng MD Signed By: <Electronically signed by Merlin Zeng MD in [place]> 08/30/25 1101 DD/ 1031 TD/TT: 08/30/25 1045 Insurance Sales Professional: TAVARES [facility] External Provider IMG XR PROCEDURES Edited [...] Time PHQ-9 Depression Total Score: 2 07/02/20 11:03 AM EDT documented as of this encounter Care Teams Oyster Culturist Relationship Specialty Start Date End Date Timur Chance MD [address] [place] [phone] PCP - General Internal Medicine 10/20/19 documented as of this encounter
--- OUTSIDE RECORDS SUMMARY | 2025-09-07 11:31 | XMS_ITS | Encounter Summary ---
Author Organization [employer] Address [address] [facility] 7t [place] [address] Care Team Providers Care Parking Control Officer Name Role Phone Timur Chance MD Primary Care Prov ider Reason for Visit * Reason Onset Date Comments Referral 08/02/2024 Encounter Details Date Type Department Care Team (Late st Contact Info) Description 08/02/2024 Telephone [facility] MEDICINE [address] [place] [address] Timur Chance MD [address] [place] [phone] Referral Social History Tobacco Use Types Packs/Day [...] regarding PT referral. Please contact pt at [phone]. (Serbian Speaker) documented in this encounter Plan of Treatment Not on file documented as of this encounter Visit Diagnoses Not on filedocumented in this encounter Additional Health Concerns Assessment Noted Time PHQ-9 Depression Total Score: 0 01/10/20 24 11:02 AM EST documented as of this encounter Care Teams Parking Control Officer Relationship Specialty Start Date End Date Timur Chance MD [address] [place] [phone] PCP - General Internal Medicine 10/20/19 documented as of this encounter
--- OUTSIDE RECORDS SUMMARY | 2025-09-07 11:31 | XMS_ITS | Encounter Summary ---
Author Organization [employer] Address [address] [facility] 7t [place] [address] Care Team Providers Care Analysis Mgr Name Role Phone Timur Chance MD Primary Care Prov ider Encounter Details Date Type Department Care Team ([facility] st Contact Info) Description 11/05/2023 Abstract [facility] CHC MED & PEDS [address] [place], [place] [phone] Timur Chance MD [address] [place] [address] Social History Tobacco Use Types Packs/Day Years [...] documented as of this encounter Care Teams Analysis Mgr Relationship Specialty Start Date End Date Timur Chance MD [address] [place] [address] PCP - General Internal Medicine 10/20/19 documented as of this encounter
--- OUTSIDE RECORDS SUMMARY | 2025-09-07 11:33 | XMS_ITS | Clinical Summary ---
Author Organization [facility] Address [address] [place] [address] Phone Care Team Providers Care Auto Wheel Alignment Specialist Name Role Phone Timur Chance Primary Care [...] IN THE MORNING AND EVENING 04/11/20 Active blood sugar diagnostic (FreeStyle Lite Strips) test strip 1 Lancet by extracorporeal route 3 (three) times a day. 04/11/20 21 Active atorvastatin (LIPITOR) 20 mg tablet Take 1 tablet (20 mg total) by mouth daily. 07/24/20 21 026 Active acetaminophen (TYLENOL) 500 mg tablet [...] mg total) by mouth daily. 05/21/20 025 celecoxib (CeleBREX) 200 mg capsule Take 1 capsule (200 mg total) by mouth 2 times daily. 07/31/20 025 Active Problems Problem Noted Date Diagnosed [...] 08/14/2025 3:00 PM EDT Consult Gastroenterology - [place] [address] [facility] [address] [facility] [address] [place] [address] Shayla Jones NP Epigastric abdominal pain (Primary Dx); Gastroesophageal reflux disease, unspecified whether esophagitis present; Screening for colorectal cancer; Morbid obesity with BMI of 45.0-49.9, adult ([facility]/HCC V24, [facility] V28) 08/14/2025 Telephone Gastroenterology - [place] [address] [address] [facility] [address] [place] [address] Shayla Jones NP 08/11/2025 12:59 AM EDT - 08/11/2025 6:50 AM EDT Emergency [facility] Emergency [address] [place] [address] RUQ pain (Primary Dx); Hepatomegaly Discharge Disposition: Home or Self Care from Last 3 Months Medical History Medical History Date Comments Diabetes mellitus ([facility] V24, [facility] V28) Social History Tobacco Use Types Packs/Day [...] Info) Description 10/02/2025 3:00 PM EST Appointment [facility] Endoscopy [address] [place] [address] Shravan Andrade DO [address] [facility] [address] [place] [address] Health Maintenance Due Date Last Done Comments [...] GEMUSE QTc 450 ms GEMUSE P Wave [place] 69 degrees GEMUSE R [place] 16 degrees GEMUSE T [place] 40 degrees GEMUSE ECG Interpretation Normal sinus rhythm Normal ECG When compared with ECG of 11-AUG-2025 01:03, (unconfirmed) No significant change was found Confirmed by VENTURA SUN ([id number]) on 08/12/2025 1:16:05 PM GEMUSE 08/11/2025 4:20 AM EDT 08/12/2025 1:16 PM EDT Willie Smith MD ECG ORDERABLES Final Result Performing Organization Address [facility] [[email or web address]] de Phone Number GEMUSE * Troponin I high sensitivity (08/11/2025 3:53 AM EDT) Only the most recent of2 resultswithin the time period is included. [facility] High Sensitivity Troponin I 4 <=54 ng/L LAB CHEMISTRY METHOD 08/11/2025 5:01 AM EDT [facility] Blood Venous blood specimen / Unknown Venipuncture / Unknown 08/11/2025 3:53 AM EDT 08/11/2025 4:33 AM EDT Narrative [facility] - 08/11/2025 5:01 AM EDT High levels of biotin in samples may falsely decrease hsTroponin values. Use caution when interpreting hsTroponin results in patients taking biotin who exhibit renal impairment (eGFR <60) or in patients taking more than 20 mg/day of biotin. us Willie Smith MD LAB BLOOD ORDERABLES Final Resu lt Performing Organization Address [facility]/ZIP Co de Phone Number [facility] [address] [place] [address], [place] [phone] * US Abdomen Limited (08/11/2025 3:46 AM [...] MD on 08/11/2025 04:26:06 us Monica Villavicencio CHILDREN COUNSELOR IMG US PROCEDURES Final R esult * (ABNORMAL) CBC auto differential (08/11/2025 1:21 AM EDT) WBC 14.7(H) 4.8 - 10.8 K/mcL LAB HEMETOLOGY METHOD 08/11/2025 2:04 AM EDT [facility] RBC 4.60 3.80 - 4.80 M/mcL LAB HEMETOLOGY METHOD 08/11/2025 2:04 AM [facility] Hemoglobin 11.8 11.5 - 16.0 g/dL LAB HEMETOLOGY METHOD 08/11/2025 2:04 AM [facility] Hematocrit 38.4 35.0 - 47.0 % LAB HEMETOLOGY METHOD 08/11/2025 2:04 AM [facility] MCV 83.3 79.0 - 98.0 FL LAB HEMETOLOGY METHOD 08/11/2025 2:04 AM [facility] MCH 25.6(L) 27.0 - 32.0 pcg LAB HEMETOLOGY METHOD 08/11/2025 2:04 AM [facility] MCHC 30.7(L) 32.0 - 37.0 g/dL LAB HEMETOLOGY METHOD 08/11/2025 2:04 AM [facility] RDW 14.7 11.0 - 15.0 % LAB HEMETOLOGY METHOD 08/11/2025 2:04 AM [facility] Platelets 295 130 - 400 K/mcL LAB HEMETOLOGY METHOD 08/11/2025 2:04 AM [facility] MPV 10.6 7.0 - 11.0 FL LAB HEMETOLOGY METHOD 08/11/2025 2:04 AM [facility] NRBC 0.0 <1.0 % LAB HEMETOLOGY METHOD 08/11/2025 2:04 AM [facility] NRBC Absolute 0.00 <0.10 K/mcL LAB HEMETOLOGY METHOD 08/11/2025 2:04 AM [facility] Neutrophils Relative 66.0 % LAB HEMETOLOGY METHOD 08/11/2025 2:04 AM [facility] Lymphocytes Relative 26.1 % LAB HEMETOLOGY METHOD 08/11/2025 2:[facility] Monocytes Relative 6.0 % LAB HEMETOLOGY METHOD 08/11/2025 2:04 AM [facility] Eosinophils Relative 1.0 % LAB HEMETOLOGY METHOD 08/11/2025 2:04 AM [facility] Basophils Relative 0.4 % LAB HEMETOLOGY METHOD 08/11/2025 2:04 AM [facility] Immature Granulocytes Relative 0.5 % LAB HEMETOLOGY METHOD 08/11/2025 2:04 AM [facility] Neutrophils Absolute 9.73(H) 1.50 - 7.00 K/mcL LAB HEMETOLOGY METHOD 08/11/2025 2:04 AM [facility] Lymphocytes Absolute 3.84 1.00 - 5.00 K/mcL LAB HEMETOLOGY METHOD 08/11/2025 2:04 AM [facility] Monocytes Absolute 0.88 0.20 - 1.00 K/mcL LAB HEMETOLOGY METHOD 08/11/2025 2:04 AM [facility] Eosinophils Absolute 0.15 0.00 - 0.50 K/mcL LAB HEMETOLOGY METHOD 08/11/2025 2:04 AM [facility] Basophils Absolute 0.06 0.00 - 0.20 K/mcL LAB HEMETOLOGY METHOD 08/11/2025 2:04 AM [facility] Immature Granulocytes Absolute 0.07(H) 0.00 - 0.03 K/mcL LAB HEMETOLOGY METHOD 08/11/2025 2:04 AM [facility] Blood Venous blood specimen / Unknown Venipuncture / Unknown 08/11/2025 1:21 AM EDT 08/11/2025 1:58 AM EDT us Willie Smith MD LAB BLOOD ORDERABLES Final Resu lt [facility] [address] [place] [address], [place] [phone] * B-type natriuretic peptide (08/11/2025 1:21 AM EDT) Pathologist [facility] BNP 12 <=100 pcg/mL LAB CHEMISTRY METHOD 08/11/2025 2:38 AM EDT [facility] Blood Venous blood specimen / Unknown Venipuncture / Unknown 08/11/2025 1:21 AM EDT 08/11/2025 1:58 AM EDT us Willie Smith MD LAB BLOOD ORDERABLES Final Resu lt Performing Organization Address [facility] Co de Phone Number [facility] [address] [place] [address], [place] [phone] * (ABNORMAL) Magnesium (08/11/2025 1:21 AM EDT) [facility] Magnesium 1.8(L) 1.9 - 2.6 mg/dL LAB CHEMISTRY METHOD 08/11/2025 2:31 AM EDT [facility] Blood Venous blood specimen / Unknown Venipuncture / Unknown 08/11/2025 1:21 AM EDT 08/11/2025 1:58 AM EDT us Willie Smith MD LAB BLOOD ORDERABLES Final Resu lt Performing Organization Address City/[facility]/ZIP Co de Phone Number [facility] [address] [place] [address], [place] [phone] * Lipase (08/11/2025 1:21 AM EDT) [facility] Lipase 43 13 - 75 unit/L LAB CHEMISTRY METHOD 08/11/2025 2:31 AM EDT [facility] Blood Venous blood specimen / Unknown Venipuncture / Unknown 08/11/2025 1:21 AM EDT 08/11/2025 1:58 AM EDT us Willie Smith MD LAB BLOOD ORDERABLES Final Resu lt [facility] [address] [place] [address], [place] [phone] * (ABNORMAL) Comprehensive metabolic panel (08/11/2025 1:21 AM EDT) Sodium 142 133 - 145 mmol/L LAB CHEMISTRY METHOD 08/11/2025 2:31 AM [facility] Potassium 4.0 3.5 - 5.5 mmol/L LAB CHEMISTRY METHOD 08/11/2025 2:31 AM [facility] Chloride 105 96 - 110 mmol/L LAB CHEMISTRY METHOD 08/11/2025 2:31 AM [facility] CO2 30 21 - 32 mmol/L LAB CHEMISTRY METHOD 08/11/2025 2:31 AM [facility] Anion Gap 7 3 - 11 LAB CHEMISTRY METHOD 08/11/2025 2:31 AM [facility] Glucose 126(H) 70 - 100 mg/dL LAB CHEMISTRY METHOD 08/11/2025 2:31 AM [facility] BUN 13 5 - 25 mg/dL LAB CHEMISTRY METHOD 08/11/2025 2:31 AM [facility] Creatinine 0.91 0.50 - 1.10 mg/dL LAB CHEMISTRY METHOD 08/11/2025 2:31 AM [facility] eGFR 76 >=60 mL/min/1. 73m2 LAB CHEMISTRY METHOD 08/11/2025 2:31 AM [facility] Comment:Calculation based on the Chronic Kidney Disease Epidemiology Collaboration (CKD-EPI) equation refit without adjustment for race. BUN/Creatinine Ratio 14.3 LAB CHEMISTRY METHOD 08/11/2025 2:31 AM [facility] Calcium 9.2 8.5 - 10.5 mg/dL LAB CHEMISTRY METHOD 08/11/2025 2:31 AM T [facility] AST (SGOT) 18 10 - 42 unit/L LAB CHEMISTRY METHOD 08/11/2025 2:31 AM [facility] ALT (SGPT) 37 10 - 60 unit/L LAB CHEMISTRY METHOD 08/11/2025 2:31 AM T [facility] Alkaline Phosphatase 113 42 - 121 unit/L LAB CHEMISTRY METHOD 08/11/2025 2:31 AM T [facility] Total Protein 7.5 6.0 - 8.0 g/dL LAB CHEMISTRY METHOD 08/11/2025 2:31 AM [facility] Albumin 3.6 3.2 - 5.0 g/dL LAB CHEMISTRY METHOD 08/11/2025 2:31 AM [facility] Total Bilirubin 0.3 0.0 - 1.4 mg/dL LAB CHEMISTRY METHOD 08/11/2025 2:31 AM T [facility] Blood Venous blood specimen / Unknown Venipuncture / Unknown 08/11/2025 1:21 AM EDT 08/11/2025 1:58 AM EDT us Willie Smith MD LAB BLOOD ORDERABLES Final Resu lt [facility] [address] [place] [address], from Last 3 Months Additional Health Concerns Active Problems Noted Date Diagnosed Date Autogenerated Problem 08/15/2025 Insurance [facility] [address] Care Teams Auto Wheel Alignment Specialist Relationship Specialty Start Date End Date Timur Chance [address] [place] [address] PCP - General Internal Medicine 08/11/25
== END 2025-09-07 11:48 | disposition home or self-care (01) ==
LOC: HO.HPODS 10:10
PROVIDERS: PCP Internal Medicine; Visit Provider Student in an Organized Health Care Education/Training Program
DX: M77.52 Other enthesopathy of left foot and ankle (principal); M25.572 Pain in left ankle and joints of left foot; G89.29 Other chronic pain; S99.912A Unspecified injury of left ankle, initial encounter; S86.012A Strain of left Achilles tendon, initial encounter; M92.62 Juvenile osteochondrosis of tarsus, left ankle
CPT/HCPCS: 29515; 99214

== ENCOUNTER → 2025-09-07 10:09 | Outpatient (BNVA) | payer OTHER, SELFPAY | PROVIDERS: PCP Internal Medicine; Visit Provider Student in an Organized Health Care Education/Training Program | DX: S86.012A Strain of left Achilles tendon, initial encounter (principal); M77.52 Other enthesopathy of left foot and ankle; M25.572 Pain in left ankle and joints of left foot; G89.29 Other chronic pain; M92.62 Juvenile osteochondrosis of tarsus, left ankle | CPT/HCPCS: 29515; 99212 ==

== ENCOUNTER 2025-09-24 14:04 | Outpatient (AMB) | payer OTHER, SELFPAY ==
--- OUTSIDE RECORDS SUMMARY | 2025-09-12 05:30 | XMS_ITS | Continuity of Care Document ---
Author Organization [facility] Address [address] [place] [address] Phone Care Team Providers Care Facilities Engineering Manager Name Role Phone Braulio CASTELLANOS, RVPatience, DELIA, Chaz Unavailable U navailable Allergies, Adverse Reactions, Alerts Substance Reaction Status Criticality No Known Allergies Active No Inform ation Procedures Procedure Date Office/Outpt E&M Established 15 Mins- CT & [place] Duplex Scan-extrem Veins; Comp- CT & [place] Duplex Scan-extrem Veins; Uni/ CT & [place] O ct Duplex Scan-extrem Veins; Uni/ CT & [place] S Inj Scleros Solut; Mx Veins 1- CT & [place] S Ultrason Guidan Needle Bx-rad- CT & [place] S Endovenous Laser, 1st Vein- CT & [place] PT Did Not Receive Services Duplex Scan-extrem Veins; Uni/ CT & [place] S ep Duplex Scan-extrem Veins; Uni/ CT & [place] S ep Inj Scleros Solut; Mx Veins 1- CT & [place] S Ultrason Guidan Needle Bx-rad- CT & [place] S Endovenous Laser, 1st Vein- CT & [place] Endovenous laser vein addon- CT & [place] Jul Ultrason Guidan Needle Bx-rad- CT & [place] S ep-03-2025 Inj Sclerosing Solution; Sngl- CT & [place] S Offic/outpt E&m Estab 5 Min Trial- Telem edicine CT & [place] Office/Outpt E&M Established 10 Mins- CT & [place] Offic Cons New/estab Mod 40 Mi- CT & [place] Duplex Scan-extrem Veins; Comp- CT & [place] Advance Directives Directive Yes / No Effective Date File Name No Information Encounters Encounter Description Practice Location Reason(s) For Visit Diagnoses Date Provider Providers Copied on Encounter Office/Outpt E&M Established 15 Mins- CT & [place] [facility], [address] [place] [address] Dr Cotton [address] [place], [id number], tel:[phone] [facility] Type 2 diabetes mellitus without complications Obesity, class 3Obesity, Class 3Essential (primary) hypertensionV enous insufficiency (chronic) (peripheral)L ymphedema, not elsewhere classifiedHer editary lymphedemaChr onic venous hypertension (idiopathic) with other complications of bilateral lower extremityPain in left lower leg Oct-2 5 Braulio CASTELLANOS RVT, RPVI Robert. [address] [place] [address], [place], [place], [id number] , [place]. tel:[phone] Referring Provider: Timur Hernandez[address], [address]. tel:[phone] [facility], [address] [place] [address] Dr Cotton [address] ta [place], [id number], [place] tel:[phone] [facility] Chronic venous hypertension (idiopathic) with other complications of bilateral lower extremity Oct-2 5 Braulio CASTELLANOS RVT, RPVI Robert. [address] [place] [address], [place], [place], [id number] , [place]. tel:[phone] Referring Provider: Timur Hernandez[address], [address]. tel:[phone] [facility] MD [facility], [address] [place] [address] Dr Cotton [address]SuLatonya ta [place], [id number], [place] tel:[phone] [facility] - [place] Encounter for follow-up examination after completed treatment for conditions other than malignant neoplasmChron ic venous hypertension (idiopathic) with other complications of left lower extremity Oct-0 5 Braulio CASTELLANOS RVT, RPVI Robert. [address] [place] [address], [place], [place], [id number] , [place]. tel: [phone] Referring Provider: Timur Hernandez, [address] [place] [address], [address]. tel:[phone] [facility], [address] [place] [address] Dr Cotton [address] [place], [id number], [place] tel:[phone] [facility] [place] Encounter for follow-up examination after completed treatment for conditions other than malignant neVaricose veins of left lower extremity with pain Sep-2 5 Braulio CASTELLANOS RVT, RPVI Robert. [address] [place] [address], [place], [place], [id number] , [place]. tel: [phone] Referring Provider: Timur Hernandez, [address] [place] [address], [address]. tel:[phone] [facility], [address] [place] [address] Dr Cotton [address]SuLatonya ta MD, [id number], [place] tel:[phone] [facility] - [place] Varicose veins of left lower extremity with other complications Sep-2 5 Braulio CASTELLANOS RVT, RPVI Robert. [address] [place] [address], [place], [place], [id number] , [place]. tel: [phone] Referring Provider: Timur Hernandez, [address] [place] [address], [address]. tel:[phone] [facility], [address] [place] [address] Dr Cotton [address]SuLatonya ta MD, [id number], [place] tel:[phone] [facility] Varicose veins of left lower extremity with other complications Sep- 5 Braulio CASTELLANOS RVT, RPVI Robert. [address] [place] [address], [place], [place], [id number] , [place]. tel: [phone] Referring Provider: Timur Hernandez, [address] [place] [address], [address]. tel:[phone] [facility], [address] [place] [address] Dr Cotton [address] [address], [id number], tel:[phone] CV[place] - [place] No Information Sep-1 5 Braulio CASTELLANOS RVT, RPVI Robert. [address] [place] [address], [place], [place], [id number] , [place]. tel: [phone] Referring Provider: Timur Hernandez, [address] [place] [address], [address]. tel:[phone] [facility], [address] [place] [address] Dr Cotton [address] [address], [id number], [place] tel:[phone] [place] Encounter for follow-up examination after completed treatment for conditions other than malignant neoplasmPain in right lower leg Sep- 5 Braulio CASTELLANOS RVT, RPVI Robert. [address] [place] [address], [facility], [place], [id number] , [place]. tel: [phone] Referring Provider: Timur Hernandez, [address] [place] [address], [address]. tel:[phone] [facility], [address] [place] [address] [facility] [address] [address]a [place], [id number], [place] tel:[phone] [facility] Encounter for follow-up examination after completed treatment for conditions other than malignant neoplasmChron ic venous hypertension (idiopathic) with other complications of right lower extremity Sep-1 5 Braulio CASTELLANOS RVT, RPVI Robert. [address] [place] [address], [place], [place], [id number] , [place]. tel: [phone] Referring Provider: Timur Hernandez, [address] [place] [address], [address]. tel:[phone] [facility] MD [facility], [address] [place] [address] Dr Cotton 1000SuLatonya ta [place], [id number], [place] tel:[phone] CV[place] Varicose veins of right lower extremity with other complications Sep-1 5 Braulio CASTELLANOS RVT, RPVI Robert. [address] [place] [address], [place], [place], [id number] , [place]. tel:[phone] Referring Provider: Timur Hernandez[address], [address]. tel:[phone] [facility] MD [facility], [address] [place] [address] Dr Cotton 1000SuLatonya ta [place], [id number], [place] [phone] CV[place] - [place] Varicose veins of right lower extremity with other complications Sep-0 5 Braulio CASTELLANOS RVT, DELIA Ware. [address] [place] [address], [id number] , [place]. tel:[phone] Referring Provider: Timur Hernandez[address], [address]. tel:[phone] [facility], [address] [place] [address] Dr Cotton 1000SuLatonya ta [place], [id number], [place] tel:[phone] [place] - [place] No Information 5 Braulio CASTELLANOS RVT, RPVI Robert. [address] [place] [address], [place], [place], [id number] , [place]. tel:[phone] Offic/outpt E&m Estab 5 Min Trial- Telemedicine CT & [place] [facility] MD [facility], [address] [place] [address] Dr Cotton 1000SuLatonya ta [place], [id number], [place] tel:[phone] [place] - [place] Localized edemaCramp and spasmRestless legs syndromeVenou s insufficiency (chronic) (peripheral)T ype 2 diabetes mellitus without complications Essential (primary) hypertensionL ymphedema, not elsewhere classifiedHer editary lymphedema Jun-0 5 Braulio CASTELLANOS RVT, RPVI Robert. [address] [place] [address], [place], [place], [id number] , [place]. [phone] Referring Provider: Timur Hernandez, [address] [place] [address], [address]. tel:[phone] Office/Outpt E&M Established 10 Mins- CT & [place] [facility], [address] [place] [address] Dr Cotton [address] [address]a [place], [id number], [place] tel:[phone] CV - [facility] Chronic venous hypertension (idiopathic) without complications of bilateral lower extremity Braulio CASTELLANOS RVT, DELIA Ware. [address] [place] [address], [place], [place], [id number] , [place]. [phone] Referring Provider: Timur Hernandez, [address] [place] [address], [address]. tel:[phone] Offic Cons New/estab Mod 40 Mi- CT & [place] [facility], [address] [place] [address] Dr Cotton [address]a [place], [id number], [place] tel:[phone] CVR - [facility] Varicose veins of bilateral lower extremities with other complications Pain in right legPain in left legType 2 diabetes mellitus without complications Restless legs syndromeEssen tial (primary) hypertensionV enous insufficiency (chronic) (peripheral)L ymphedema, not elsewhere classifiedHer editary lymphedemaCra mp and spasmLocalize d edema Feb- 5 Braulio CASTELLANOS RVT, DELIA Ware. [address] [place] [address], [place], [place], [id number] , [place]. [phone] Referring Provider: Timur Hernandez, [address] [place] [address], [address]. tel:[phone] [facility], [address] [place] [address] Dr Cotton [address]a [place], [id number], [place] tel:[phone] CVR [facility] Chronic venous hypertension (idiopathic) with other complications of bilateral lower extremity Apr-3 202 5 Braulio CASTELLANOS, RVT, DELIA Ware. [address] [facility], [address], [place], [place], [id number] , [place]. tel:[phone] Referring Provider: Timur Hernandez, [address] , [place], [address]. tel:[phone] Family History Family Member Type Diagnosis Age At Onset No Information Payers Payer name Insurance type Covered libertarian ID Dolores sun[facility] [id number] Social History Type Description Quantity Date Captured [...] Diet education completed Goal Diet education completed Goal Diet education [...] adult) ordered Appointment Delmar Hudson BOOKED Appointment Delmar Hudson BOOKED History Of Present Illness Encounter Date Complaint History Of Prese nt Illness No Information Functional Status Date Functional Assessmen t No Information Instructions Date Instruction Additional Infor mation Lifestyle education Related to B lita mass index (BMI) 45.0-49.9, adult Giving Encouragement to exercise Related to Body mass index (BMI) 45.0-49.9, adult Diet education Related to Body mass index (BMI) 45.0-49.9, adult Patient education booklet given Related to Chronic venous hypertension (idiopathic) with other complications of bilateral lower extremity Compression stocking usage as conservative measure Related to Chronic venous hypertension (idiopathic) with other complications of bilateral lower extremity Pre and post instruc tions reviewed and provided Related to Localized edema Patient education booklet given Related to Localized edema Lifestyle education Related to B lita mass index (BMI) 45.0-49.9, adult Pre and post instruc tions reviewed and provided Related to Chronic venous hypertension (idiopathic) without complications of bilateral lower extremity Patient education booklet given Related to Chronic venous hypertension (idiopathic) without complications of bilateral lower extremity Giving Encouragement to exercise Related to Body mass index (BMI) 45.0-49.9, adult Diet education Related to Body mass index [...] of bilateral lower extremities with other complications Diet education Related to Body mass index (BMI) 45.0-49.9, adult Assessments Type Assessment Date No Information Patient Care Teams Name Effective Dates (start - stop) Status Members No Information
--- OUTSIDE RECORDS SUMMARY | 2025-09-21 09:15 | XMS_ITS | Encounter Summary ---
Author Organization [employer] Address [address] [place] [address] Care Team Providers Care Location Worker Name Role Phone Timur Chance MD Primary Care Prov ider Encounter Details Date Type Department Care Team ([facility] st Contact Info) Description 09/21/2025 9:15 AM EST Office Visit [facility] [address] [place], [place] [id number] Ines Ramirez MD [address] [place] [address] Primary hypertension (Primary Dx); Gastroesophageal reflux disease without esophagitis; Hx of hysterectomy; Encounter for immunization; Preop examination Social History Tobacco Use Types Packs/Day Years [...] Sign Reading Time Taken Comments Blood Pressure 128/82 09/21/2025 9:37 AM EST Pulse 84 09/21/2025 9:37 AM EST Temperature 36.8 C (98.2 F) 09/21/2025 9:37 AM EST Respiratory Rate 20 09/21/2025 9:37 AM EST Oxygen Saturation - - Inhaled Oxygen Concentration - - Weight 119 kg (263 lb) 09/21/2025 9:37 AM EST Height - - Body Mass Index 49.29 07/31/2025 2:52 PM EDT documented in this encounter Plan of Treatment Upcoming Encounters Date Type Department Care Team (Late st Contact Info) Description 11/26/2025 10:30 AM EST Office Visit [facility] [address] [place] [address] BassTimur Rosenberg MD [address] [place] [address] documented as of this encounter Procedures Procedure Name Priority Date/Time Associated Diagnosis Comments ECG 12-LEAD Routine 09/21/2025 12:47 PM EST Preop examination documented in this encounter Results * ECG 12 lead (09/21/2025 12:47 PM EST) Narrative Ines Ramirez MD - 09/21/2025 12:47 PM EST HR 72 bpm, sinus rhythm, QT 394 ms us Ines Ramirez MD ECG ORDERABLES Final Result documented in this encounter Visit Diagnoses Diagnosis Primary hypertension- Primary Unspecified essential hypertension Gastroesophageal reflux disease without esophagitis Esophageal reflux Hx of hysterectomy Encounter for immunization Preop examination Unspecified pre-operative examination documented in this encounter Additional Health Concerns Assessment Noted Time PHQ-9 Depression Total Score: 2 07/02/20 25 11:03 AM EDT documented as of this encounter Care Teams Location Worker Relationship Specialty Start Date End Date Timur Chance MD [address] [place] [address] PCP - General Internal Medicine 10/20/19 documented as of this encounter
--- NOTE | 2025-09-24 14:09 | A.OFFVIS_ITS ---
Vital Signs 09/24/25 14:10 Height 5 ft 1 in Weight 257 lb BMI 48.6 Intake Visit Reasons: Pre Op Intake Note: Delmar is a 50 year old female who presents today for a Pre-op evaluation. Patient reports she is having some pain with no further concerns. 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 Patient is here today for her pre-operative appointment. The Chelsea's deformity involves a bony enlargement on the back of the heel, which has been causing discomfort and is visible on the x-ray. The partial rupture of the Achilles tendon is associated with the deformity, likely due to mechanical stress from the bony prominence. The patient is scheduled for surgery on 09/28/25 for excision of the Chelsea's deformity, debridement of the Achilles tendon, and secondary repair of the Achilles Tendon with PRP. [facility] Medical History (Updated 09/10/25 @ 19:44 by Rylie Bustos DPM) Preoperative examination Rupture of left Achilles tendon Chelsea's deformity of left heel Left ankle injury Other enthesopathy of left foot and ankle Left ankle pain Review of Systems Const Details: - Musculoskeletal: Reports left heel and ankle pain. All systems reviewed & are unremarkable except as noted in HPI and below Physical Exam Vital Signs: BMI result Body Mass Index 48.6 Extrem Other: LLE Focused Physical Exam: Derm: No ecchymosis or discoloration noted. Mild edema noted to the area of the ankle. Skin supple and turgor WNL. No clinical signs of infection noted. No maceration noted. Vasc: DP/PT pulses palpable. CFT < 3 secs. Temp gradient warm to warm. Pedal hair present. Telangectasias noted. Neuro: Protective sensations grossly intact. MSK: Continued severe pain on palpation to the posterior aspect of the heel with a palpable bone spur noted. Pain on palpation along the course of the Achilles tendon with a palpable dell noted. Pain on palpation in area of the Gastrocsoleus muscle/calf. Positive Coulter test. Ankle ROM diminished due to guarding from pain. Patient unable to do heel rise test. Antalgic gait with the use of a knee scooter and CAMboot noted. Results Reviewed Results Reviewed: Podiatry read of left ankle MRI (09/03/2025): Partial rupture of Achilles tendon noted with Chelsea's deformity noted. ATFL sprain noted. OCD lesion noted of talus. Left ankle MRI (09/03/2025): FINDINGS: BONE/JOINTS: There is edema in the superior aspect of the posterior calcaneus, could reflect reactive edema or osseous contusion/stress injury. Osseous prominence of the posterior superior calcaneus, suggestive of Chelsea's deformity. No fracture plane is identified. No acute fractures otherwise seen. No talar dome OCD. Degenerative-appearing T2 signal in the navicular. No aggressive marrow replacing lesion.. MUSCLES/TENDONS: Medial flexor, peroneal, extensor tendons are intact. LIGAMENTS: Mild heterogeneous signal in the ATFL may reflect a chronic sprain. Posterior talofibular, tibiofibular, calcaneofibular ligaments are intact. Intact deltoid ligament. ACHILLES TENDON: Heterogeneous increased T2 signal in the Achilles tendon, with the tendon thickening measuring up to approximately 1.1 cm. Findings are consistent with mild-moderate tendinosis. Irregularity of the deep surface of the tendon at the level of the superior calcaneus, suggestive of deep surface fraying/low-grade tear in this region. Longitudinal oriented linear T2 signal distal tendon, could reflects striations oriented longitudinally oriented intrasubstance tearing. No transverse tendon tear or retraction is seen. Mild Achilles peritendinitis. There is small calcaneal bursitis, with soft tissue edema in this region.. Moderate posterior calcaneal insertional enthesopathy. PLANTAR FASCIA: Intact SINUS TARSI: Normal signal. TARSAL TUNNEL : No mass lesion SUBCUTANEOUS SOFT TISSUES: Subcutaneous edema present. IMPRESSION: * Mild-moderate Achilles tendinosis. Associated peritendinitis. Deep surface fraying/low-grade partial tear of the tendon the level of the superior calcaneus. Possible longitudinally oriented linear intrasubstance partial tearing versus striations in the tendon. No transverse tendon tear or retraction. Retrocalcaneal bursitis. 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 Edema in the posterior calcaneus, could reflect reactive edema, contusion/stress injury. * Mild chronic ATFL sprain * Additional findings and details as above. Podiatry Read of Left ankle xray (08/30/25): Joint space narrowing noted to the ankle joint with mild osteophytic changes noted. Osteophytic changes noted to the dorsal midfoot. Bone spur noted to the posterior aspect of the calcaneus and mildly to the plantar aspect of the calcaneus. Left ankle xray (08/30/25): FINDINGS: Ankle: No visible acute fracture, dislocation or suspicious bony lesion. Mild tibiotalar arthritis. Ankle mortise appears maintained. No talar dome OCD. Dorsal degenerative spurring in the midfoot. Prominent posterior calcaneal insertional enthesopathy. Plantar calcaneal spur. No suspicious soft tissue calcifications. Soft tissue swelling. IMPRESSION: Tibia and fibula: No acute osseous findings Podiatry read of left tib-fib x-ray (08/30/2025): No acute fractures or dislocations noted. Osteophytic changes noted to the knee. Left tib-fib x-ray (08/30/2025): FINDINGS: Tibia and fibula: No visible acute fracture, malalignment or suspicious bony lesion. Apparent medial and lateral compartment arthritis of the knee. Superior patellar insertional enthesopathy. No significant knee joint effusion is identified. Soft tissue swelling. No abnormal soft tissue calcification. IMPRESSION: Tibia and fibula: No acute osseous findings Ordered Left ankle and tibfib xrays weightbearing and Left ankle MRI to be performed prior to next visit. Assessment & Plan Assessment & Plan (1) Other enthesopathy of left foot and ankle: Code(s): M77.52 - Other enthesopathy of left foot and ankle Category: Medical (2) Left ankle pain: Code(s): M25.572 - Pain in left ankle and joints of left foot Category: Medical Qualifiers: Chronicity: chronic Qualified Code(s): M25.572 - Pain in left ankle and joints of left foot; G89.29 - Other chronic pain (3) Left ankle injury: Code(s): S99.912A - Unspecified injury of left ankle, initial encounter Category: Medical Qualifiers: Encounter type: initial encounter Qualified Code(s): S99.912A - Unspecified injury of left ankle, initial encounter (4) Rupture of left Achilles tendon: Code(s): S86.012A - Strain of left Achilles tendon, initial encounter Category: Medical Qualifiers: Encounter type: initial encounter Qualified Code(s): S86.012A - Strain of left Achilles tendon, initial encounter (5) Chelsea's deformity of left heel: Code(s): 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 Planned Procedures 1. Excision of Chelsea?s deformity (calcaneal ostectomy) 2. Debridement of diseased Achilles tendon tissue 3. Secondary repair/reinforcement of Achilles tendon 4. Application of autologous Platelet-Rich Plasma (PRP) to repair site Indications for Surgery The patient presents with chronic insertional Achilles tendinopathy, partial Achilles tendon rupture, and posterior heel pain secondary to Chelsea?s deformity. Symptoms have been persistent and have failed extensive conservative management, including immobilization, physical therapy, CAMboot, NSAIDs, and footwear modification. Persistent pain, swelling, and tendon thickening limit ambulation and daily activities. Imaging demonstrates degenerative changes and partial tearing at the Achilles insertion consistent with the clinical picture. Rationale for PRP Adjunct PRP will be prepared intraoperatively from the patient?s autologous blood sample and applied to the Achilles tendon repair site to promote biologic healing, reduce inflammation, and minimize postoperative complications. This use is clinically indicated as PRP has demonstrated benefits in improving tendon healing and reducing recovery time in reconstructive procedures. Risks and Benefits Discussed Risks include: infection, nerve injury, delayed healing, re-rupture, scar formation, chronic pain, and anesthetic complications. Benefits: pain relief, deformity correction, and tenriism of tendon integrity. Patient voiced understanding of all risks and benefits and consents to proceed with surgery and use of PRP adjunct. Preoperative Instructions ? NPO after midnight ? Hold anticoagulants and NSAIDs 7 days prior ? Arrange for postoperative transportation Postoperative Plan ? Non-weightbearing with posterior splint or CAM boot ? Ice and elevation ? Pain management per protocol ? Follow-up in 1 week for dressing change and surgical site assessment ? Leave dressing clean, dry, and intact. Provided patient with an updated Rx for knee scooter, needed through 01/13/26. Refilled Meloxicam to be taken after surgery. RTC 1 week after surgery. 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
[2025-09-24 14:10] VITALS: BMI 48.6
--- OUTSIDE RECORDS SUMMARY | 2025-09-24 16:26 | XMS_ITS | Encounter Summary ---
Author Organization [employer] Address [address] [facility] 7 [place] [address] Care Team Providers Care Automatic Fancy Machine Operator Name Role Phone Timur Chance MD Primary Care Prov ider Reason for Visit * Reason Onset Date Comments pre op appt 09/10/2025 Encounter Details Date Type Department Care Team ([facility] st Contact Info) Description 09/10/2025 Telephone [facility] MEDICINE [address] [place] [address] Timur Chance MD [address] [place] [id number] pre op appt Social History Tobacco Use [...] encounter Miscellaneous Notes * Telephone Encounter - Marcell Noel - 09/11/2025 10:14 AM EDT Facility agreed to pre-op for 09/18. unable to reach pt left message with sister. documented in this encounter Plan of Treatment Upcoming Encounters Date Type Department Care Team (Late st Contact Info) Description 11/26/2025 10:30 AM EST Office Visit [facility] CHC MED & PEDS [address] [place] [address] Timur Chance MD [address] [place] [address] documented as of this encounter Visit Diagnoses Not on filedocumented in this encounter Additional Health Concerns Assessment Noted Time PHQ-9 Depression Total Score: 2 07/02/20 25 11:03 AM EDT documented as of this encounter Care Teams Automatic Fancy Machine Operator Relationship Specialty Start Date End Date Timur Chance MD [address] [place] [address] PCP - General Internal Medicine 10/20/19 documented as of this encounter
--- OUTSIDE RECORDS SUMMARY | 2025-09-24 16:26 | XMS_ITS | Encounter Summary ---
Author Organization [employer] Address [address] [facility] 7t [place] [address] Care Team Providers Care Medicare Biller Name Role Phone Timur Chance MD Primary Care Prov ider Reason for Visit * Reason Onset Date Comments Nurse Triage 10/18/2024 Encounter Details Date Type Department Care Team (Late st Contact Info) Description 10/18/2024 Telephone [facility] MEDICINE [address] [place] [address] Timur Chance MD [address] [place] [phone] Nurse Triage Social History Tobacco Use Types [...] bone. Ptadvised of disposition, agrees to seek [facility] ED for eval to rule [...] soon Reason: Can't use the shoulder normally Greek Speaker (Accepted Fur Storage Clerk) documented in this encounter Plan of Treatment Upcoming Encounters Date Type Department Care Team (Late st Contact Info) Description 11/26/2025 10:30 AM EST Office Visit [facility] MED & PEDS [address] [place] [address] Timur Chance MD [address] [place] [address] documented as of this encounter Visit Diagnoses Not on filedocumented in this encounter Additional Health Concerns Assessment Noted Time PHQ-9 Depression Total Score: 16 024 12:04 PM EST documented as of this encounter Care Teams Medicare Biller Relationship Specialty Start Date End Date Timur Chance MD [address] [place] [address] PCP - General Internal Medicine 10/20/19 documented as of this encounter
--- OUTSIDE RECORDS SUMMARY | 2025-09-24 16:26 | XMS_ITS | Encounter Summary ---
Author Organization [employer] Address [address] [facility] 7t [place] [address] Care Team Providers Care Proced Tech Name Role Phone Timur Chance MD Primary Care Prov ider Encounter Details Date Type Department Care Team (Latest Contact Info) Description 09/21/2025 Travel Social History Tobacco Use Types Packs/Day [...] as of this encounter Plan of Treatment Upcoming Encounters Date Type Department Care Team (Late st Contact Info) Description 11/26/2025 10:30 AM EST Office Visit [facility] MED & PEDS [address] [place] [address] Timur Chance MD [address] [place] [address] documented as of this encounter Visit Diagnoses Not on filedocumented in this encounter Additional Health Concerns Assessment Noted Time PHQ-9 Depression Total Score: 2 07/02/20 25 11:03 AM EDT documented as of this encounter Care Teams Proced Tech Relationship Specialty Start Date End Date Timur Chance MD [address] [place] [address] PCP - General Internal Medicine 10/20/19 documented as of this encounter
--- OUTSIDE RECORDS SUMMARY | 2025-09-24 16:26 | XMS_ITS | Encounter Summary ---
Author Organization [employer] Address [address] [facility] 7t [place] [address] Care Team Providers Care Slasher Hand Name Role Phone Timur Chance MD Primary Care Prov ider Encounter Details Date Type Department Care Team (Late st Contact Info) Description 11/09/2023 Telephone [facility] MEDICINE [address] [place] [address] Timur Chance MD [address] [place] [address] Social History Tobacco Use Types Packs/Day Years [...] the past 12 months, has t he [employer], gas, oil or water [employer] threatened to shut off services in your [...] Description 11/26/2025 10:30 AM EST Office Visit [facility] MED & PEDS [address] [place] [address] Timur Chance MD [address] [place] [address] documented as of this encounter Visit Diagnoses Not on filedocumented in this encounter Additional Health Concerns Assessment Noted Time PHQ-9 Depression Total Score: 0 12/04/19 23 9:40 AM EST documented as of this encounter Care Teams Slasher Hand Relationship Specialty Start Date End Date Timur Chance MD [address] [place] [address] PCP - General Internal Medicine 10/20/19 documented as of this encounter
--- OUTSIDE RECORDS SUMMARY | 2025-09-24 16:26 | XMS_ITS | Clinical Summary ---
Author Organization [facility] Address [address] [place] [address] Care Team Providers Care Furniture Reproducer Name Role Phone Timur Chance MD Primary [...] Date Job End Date works in a [employer] Not on file Not on file Not [...] 75+ series) 02/25/2048 Procedures * Due to [place] [employer] law, this organization might not be sharing negative HIV tests. Procedure Name Priority Date/Time Associated Diagnosis Comments HEMOGLOBIN A1C Routine 09/24/2021 1:47 PM EST Pre-diabetes from Last 3 Months or Most Recently Relevant to Health Maintenance Results * Due to [place] [employer] law, this organization might not be sharing negative HIV tests. * Hemoglobin A1c (09/24/2021 1:47 PM EST) Hemoglobin A1C 5.6 <5.7 % of total Hgb 09/25/2021 8:15 AM EST DataEmail Group Comment: For the purpose of screening for the presence of diabetes: <5.7% Consistent with the absence of diabetes 5.7-6.4% Consistent with increased risk for diabetes (prediabetes) > or =6.5% Consistent with diabetes This assay result is consistent with a decreased risk of diabetes. Currently, no consensus exists regarding use of hemoglobin A1c for diagnosis of diabetes in children. According to [place] Diabetes Association (ADA) guidelines, hemoglobin A1c <7.0% represents optimal control in non- diabetic patients. Different metrics may apply to specific patient populations. Standards of Medical Care in Diabetes(ADA). eAG (MG/DL) 114 (calc) 09/25/2021 8:15 AM EST [employer] Group eAG (MMOL/L) 6.3 (calc) 09/25/2021 8:15 AM EST [employer] Group Blood Structure of peripheral vein / Unknown Venipuncture / Unknown 09/24/2021 1:47 PM EST 09/24/2021 2:07 PM EST Narrative [employer] [facility] - 09/25/2021 8:15 AM EST [facility] Received Date: Sathish Lopez MD LAB BLOOD ORDERABLES Final Res ult [facility] [address] [facility] 3rd [address], [place] [address], [employer] [facility] [address] [facility] 3rd [address], [place] [address], from Last 3 Months or Most Recently Relevant to Health Maintenance Insurance [facility] HS/FREE CARE Care Teams Furniture Reproducer Relationship Specialty Start Date End Date Timur Chance MD [address] [place] [address] PCP - General 07/16/21
--- OUTSIDE RECORDS SUMMARY | 2025-09-24 16:26 | XMS_ITS | Encounter Summary ---
Author Organization [employer] Address [address] [facility] 7t [place] [address] Care Team Providers Care Chemical Sprayer Name Role Phone Timur Chance MD Primary Care Prov ider Reason for Visit * Reason Onset Date Comments ER Follow-up 11/09/2023 Nurse Triage 11/09/2023 Encounter Details Date Type Department Care Team (Late st Contact Info) Description 11/09/2023 Telephone [facility] MEDICINE [address] [place] [address] Timur Chance MD [address] [place] [phone] ER Follow-up; Nurse Triage Social History Tobacco [...] 10:56 AM EST Records request faxed to [facility] as requested. * Telephone Encounter - Viky Hooks RN - 11/09/2023 10:00 AM EST Called pt. Via [employer] form tamper operator [phone] Aleksandar. Pt. States that she got injured her left hand at her job on 10/31/23 and has pain, swelling, Pt. Went to [facility] ED on 11/07/23. Pt. Had X rays done and pt. Was told that her tendon is injured in her hand. Pt. Has been using pain reliever with no relief. Will send request to have clinical coordinators call [facility] for ED notes and Xrays from 11/07/23 to befaxed to [facility] but, cannot guarantee that results will be sent with same day request. I will also send message to [facility] nurses to at least get Xray results from [facility] Protocol Used: Hand and Wrist Injury (Adult) Protocol-Based Disposition: See in Office or Video Visit Today- appt. Today at 2pm [facility]. Video visit not offered Positive Triage Questions: [...] soon Reason: Getting worse Pt went to [facility] due to a fall. The caller accepted this outcome Omani speaker * Telephone Encounter - Carlos Negrete - 11/09/2023 8:26 AM EST Patient calling to report ED visit on : 11/09 Date: 11/03 Hospital: [facility] Seen for: Hand Patient states is still in aments pain Patient advised will forward to team nurse for follow up documented in this encounter Plan of Treatment Upcoming Encounters Date Type Department Care Team (Late st Contact Info) Description 11/26/2025 10:30 AM EST Office Visit [facility] CHC MED & PEDS [address] [place] [address] Timur Chance MD [address] [place] [address] documented as of this encounter Visit Diagnoses Not on filedocumented in this encounter Additional Health Concerns Assessment Noted Time PHQ-9 Depression Total Score: 0 12/04/19 23 9:40 AM EST documented as of this encounter Care Teams Chemical Sprayer Relationship Specialty Start Date End Date Timur Chance MD [address] [place] [address] PCP - General Internal Medicine 10/20/19 documented as of this encounter
--- OUTSIDE RECORDS SUMMARY | 2025-09-24 16:26 | XMS_ITS | Encounter Summary ---
Author Organization [employer] Address [address] [facility] 7t [place] [address] Care Team Providers Care Special Collections Librarian Name Role Phone Timur Chance MD Primary Care Prov ider Encounter Details Date Type Department Care Team ([facility] st Contact Info) Description 11/05/2023 Abstract [facility] CHC MED & PEDS [address] [place], [place] [phone] Timur Chance MD [address] [place] [address] Social History Tobacco Use Types Packs/Day Years Used Date Smoking Tobacco: Never Passive Smoke Exposure: Never Smokeless Tobacco: Never Depression Answer Date Recorded Patient Health Questionnaire-9 Score 0 12/04/2022 Housing Stability Answer Date Recorded What is your housing situation today? I have juvenaljuan pablo heayl 09/01/[address] you li [...] Description 11/26/2025 10:30 AM EST Office Visit [facility] MED & PEDS [address] [place] [address] Timur Chance MD [address] [place] [address] documented as of this encounter Visit Diagnoses Not on filedocumented in this encounter Additional Health Concerns Assessment Noted Time PHQ-9 Depression Total Score: 0 12/04/19 23 9:40 AM EST documented as of this encounter Care Teams Special Collections Librarian Relationship Specialty Start Date End Date Timur Chance MD [address] [place] [address] PCP - General Internal Medicine 10/20/19 documented as of this encounter
--- OUTSIDE RECORDS SUMMARY | 2025-09-24 16:26 | XMS_ITS | Encounter Summary ---
Author Organization [facility] Address [address] [place] [address] Care Team Providers Care Database Marketing Specialist Name Role Phone Timur Chance MD Primary Care Prov ider Reason for Visit * Reason Onset Date Comments Colonoscopy 12/26/2021 Encounter Details Date Type Department Care Team (Late st Contact Info) Description 12/26/2021 Telephone [facility] Central Scheduling Department [address] [place] [address] Telephone Intake, Staff Colonoscopy Social History Tobacco Use Types Packs/Day Years Used Date Smoking Tobacco: Never Smokeless Tobacco: Never Comments Unknown Sex and Gender Information Value Date Recorded Sex Assigned at Not on file Legal Sex Female 9:37 AM EDT Gender Identity Not on file Sexual Orientation Not on file Occupation Industry Job Start Date Job End Date works in a [employer] Not on file Not on file Not on f ile documented as of this encounter Miscellaneous Notes * Telephone Encounter - [place] - 12/26/2021 11:25 AM EST Shira from [facility] scheduling pt for colonoscopy Per DT, transferred [place] end[place] [phone] opt 2 documented in this encounter Plan of Treatment Not on file documented as of this encounter Visit Diagnoses Not on filedocumented in this encounter Care Teams Database Marketing Specialist Relationship Specialty Start Date End Date Timur Chance MD [address] [place] [address] PCP - General 07/16/21 documented as of this encounter
--- OUTSIDE RECORDS SUMMARY | 2025-09-24 16:26 | XMS_ITS | Encounter Summary ---
Author Organization [employer] Address [address] [facility] 7t [place] [address] Care Team Providers Care Cheese Cooker Name Role Phone Timur Chance MD Primary Care Prov ider Encounter Details Date Type Department Care Team (Late st Contact Info) Description 08/13/2025 Orders Only [facility] [address] [place] [address] ProviderAdilson MD Social History Tobacco Use Types [...] Description 11/26/2025 10:30 AM EST Office Visit [facility] [address] [place], [place] [phone] BassTimur Rosenberg MD [address], [place] [phone] documented as of this encounter Procedures Procedure [...] PM EDT Narrative 09/04/2025 9:39 AM EDT [address] [address] Magnetic Resonance Report Signed Patient: Delmar Hudson MR#: [id number] 253 : 1975 Acct:[id number] Age/Sex: 50 / F ADM Date: 09/03/25 Loc: HO.MRI Attending Dr: Kelly Dalton PA-C Ordering Physician: Kelly Dalton PA-C Date of Service: 09/03/25 Procedure(s): MR ankle LT wo con Accession Number(s): [id number] cc: Timur Chance MD; Kelly Dalton PA-C Reason for Exam: 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 Patient reports 3 years of symptoms, pain. COMPARISON: X-ray 09/03/2025 TECHNIQUE: MRI of the ankle was performed using routine sequences on a high-field scanner. Large [id number]-[id number] study, using the Achilles protocol. TECHNIQUE: MRI [...] Merlin Zeng MD 09/04/2025 09:36 AM EDT RP Dictated By: Merlin Zeng MD Signed By: <Electronically signed by Merlin Zeng MD in OV> 09/04/25 0936 DD/ 1515 TD/TT: 09/03/25 1545 Print Finishing Worker: TAVARES Procedure Note Donotuseinterpreter, Image - 09/04/2025 [place] [address] Magnetic Resonance Report Signed Patient: Delmar HudsonMR#: [id number] 253 : 1975Acct:[id number] Age/Sex: 50 / FADM Date: 09/03/25 Loc: HO.MRI Attending Dr: Kelly Dalton PA-C Ordering Physician: Kelly Dalton PA-C Date of Service: 09/03/25 Procedure(s): MR ankle LT wo con Accession Number(s): [id number] cc: Timur Chance MD; Kelly Dalton PA-C Reason for Exam: 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 Patient reports 3 years of symptoms, pain. COMPARISON: X-ray 09/03/2025 TECHNIQUE: MRI of the ankle was performed using routine sequences on a high-field scanner. Large xrwar-wc-jilb study, using the Achilles protocol. TECHNIQUE: MRI [...] Merlin Zeng MD 09/04/2025 09:36 AM EDT RP Dictated By: Merlin Zeng MD Signed By: <Electronically signed by Merlin Zeng MD in OV> 09/04/25 0936 DD/ 1515 TD/TT: 09/03/25 1545 Print Finishing Worker: TAVARES [facility] External Provider IMG MRI PROCEDURES Edited Result - Final * XR Ankle 3+ Views Left (08/30/2025 10:41 AM EDT) Anatomical Region Laterality Modality Lower Extremities, Ankle Left Radiogr aphic Imaging 08/30/2025 10:4 1 AM EDT Narrative 08/30/2025 11:04 AM EDT [place] [address] XRay Report Signed Patient: Delmar Hudson MR#: [id number] 253 : 1975 Acct:[id number] Age/Sex: 50 / F ADM Date: 08/30/25 Loc: [facility] Attending Dr: Rylie Bustos DPM Ordering Physician: Rylie Bustos DPM Date of Service: 08/30/25 Procedure(s): XR ankle LT min 3V Accession Number(s): [id number] cc: Timur Chance MD; Rylie Bustos DPM Reason for Exam: M25.572 - Pain in left ankle and joints of left foot EXAMINATION: XR ANKLE, LEFT X-ray tibia fibula, left CLINICAL INFORMATION: S99.331Q - Unspecified injury of left ankle, initial [...] 08/30/25 1101 DD/ 1041 TD/TT: 08/30/25 1045 Print Finishing Worker: TAVARES Procedure Note Donotuseinterpreter, Image - 08/30/2025 [place] [address] XRay Report Signed Patient: Delmar HudsonMR#: [id number] : 1975Acct:[id number] Age/Sex: 50 / FADM Date: 08/30/25 Loc: [facility] Attending Dr: Rylie Bustos DPM Ordering Physician: Rylie Bustos DPM Date of Service: 08/30/25 Procedure(s): XR ankle LT min 3V Accession Number(s): [id number] cc: Timur Chance MD; Rylie Bustos DPM Reason for Exam: M25.572 - Pain in left ankle and joints of left foot EXAMINATION: XR ANKLE, LEFT X-ray tibia fibula, left CLINICAL INFORMATION: S99.972A - Unspecified injury of left ankle, initial [...] 08/30/25 1101 DD/ 1041 TD/TT: 08/30/25 1045 Print Finishing Worker: TAVARES [facility] External Provider IMG XR PROCEDURES Edited Result - Final * XR Tibia Fibula 2 Views Left (08/30/2025 10:31 AM EDT) Anatomical Region Laterality Modality Lower Extremities, Lower Leg Left Rad iographic Imaging 08/30/2025 10:3 1 AM EDT Narrative 08/30/2025 11:04 AM EDT [place] [address] XRay Report Signed Patient: Delmar Hudson MR#: [id number] 253 : 1975 Acct:[id number] Age/Sex: 50 / F ADM Date: 08/30/25 Loc: [facility] Attending Dr: Rylie Bustos DPM Ordering Physician: Rylie Bustos DPM Date of Service: 08/30/25 Procedure(s): XR tibia fibula LT 2V Accession Number(s): [id number] cc: Timur Chance MD; Rylie Bustos DPM [...] 08/30/25 1101 DD/ 1031 TD/TT: 08/30/25 1045 Print Finishing Worker: TAVARES Procedure Note Donotuseinterpreter, Image - 08/30/[address] [address] XRay Report Signed Patient: Delmar HudsonMR#: [id number] 253 : 1975Acct:[id number] Age/Sex: 50 / FADM Date: 08/30/25 Loc: [facility] Attending Dr: Rylie Bustos DPM Ordering Physician: Rylie Bustos DPM Date of Service: 08/30/25 Procedure(s): XR tibia fibula LT 2V Accession Number(s): [id number] cc: Timur Chance MD; Rylie Bustos DPM [...] 08/30/25 1101 DD/ 1031 TD/TT: 08/30/25 1045 Print Finishing Worker: TAVARES [facility] External Provider IMG XR PROCEDURES Edited [...] documented as of this encounter Care Teams Cheese Cooker Relationship Specialty Start Date End Date Timur Chance MD [address] [place] [address] PCP - General Internal Medicine 10/20/19 documented as of this encounter
--- OUTSIDE RECORDS SUMMARY | 2025-09-24 16:26 | XMS_ITS | Encounter Summary ---
Author Organization [employer] Address [address] [facility] 7[address] [place] [address] Care Team Providers Care Double Corner Cutter Name Role Phone Tmiur Chance MD Primary Care Prov ider Encounter Details Date Type Department Care Team (Late st Contact Info) Description 07/30/2025 Telephone [facility] MEDICINE [address] [place] [address] Timur Chance MD [address] [place] [address] Social History Tobacco Use Types Packs/Day Years [...] Upcoming Encounters Date Type Department Care Team ([facility] st Contact Info) Description 11/26/2025 10:30 AM EST Office Visit [facility] MED & PEDS [address] [place] [address] Timur Chance MD [address] [place] [address] documented as of this encounter Visit Diagnoses Not on filedocumented in this encounter Additional Health Concerns Assessment Noted Time PHQ-9 Depression Total Score: 2 07/02/20 25 11:03 AM EDT documented as of this encounter Care Teams Double Corner Cutter Relationship Specialty Start Date End Date Timur Chance MD [address] [place] [address] PCP - General Internal Medicine 10/20/19 documented as of this encounter
--- OUTSIDE RECORDS SUMMARY | 2025-09-24 16:26 | XMS_ITS | Clinical Summary ---
Author Organization [facility] Address [address] [place] [address] Phone Care Team Providers Care Real Estate Attorney Name Role Phone Timur Chance Primary Care [...] mouth every 6 hours as needed. Active bisacodyL (DULCOLAX) 5 mg EC tablet Take 2 tablets by mouth right before beginning bowel prep. See instructions provided by the office 2 tablet 09/18/20 25 Active polyethylene glycol (Golytely) 236-22.74-6.74 -5.86 gram solution Take 4L by mouth once for one dose. May substitue any PEG. Starting at 2PM the day before your procedure drink 1 8oz glasses at your own pace until you complete half of the gallon. Finish 2nd half of the gallon at 8PM. 4000 mL 09/18/20 25 Active celecoxib (CeleBREX) 200 mg capsule Take 1 capsule (200 mg total) by mouth 2 times daily. 07/31/20 25 025 Active Problems Problem Noted [...] 08/14/2025 3:00 PM EDT Consult Gastroenterology - [place] [address] [facility] [address] [place] [address] Shayla Jones NP Epigastric abdominal pain (Primary Dx); Gastroesophageal reflux disease, unspecified whether esophagitis present; Screening for colorectal cancer; Morbid obesity with BMI of 45.0-49.9, adult ([facility] V24, [facility] V28) 08/14/2025 Telephone Gastroenterology - [place] [address] [facility] [address] [place] [address] Shayla Jones NP 08/11/2025 12:59 AM EDT - 08/11/2025 6:50 AM EDT Emergency [facility] Emergency [address] [place] [address] RUQ pain (Primary Dx); Hepatomegaly Discharge Disposition: Home or Self Care from Last 3 Months Medical History Medical History Date Comments Diabetes mellitus ([facility] V24, [facility] V28) Social History Tobacco Use Types Packs/Day [...] Info) Description 10/02/2025 3:00 PM EST Appointment [facility] Endoscopy [address] [place] [address] Shravan Andrade DO [address] [facility] [facility] [address] [place] [address] Health Maintenance Due Date Last Done Comments [...] of2 resultswithin the time period is included. Pathologist [facility] Ventricular Rate ECG 93 BPM GEMUSE Atrial Rate 93 BPM GEMUSE P-R Interval 136 ms GEMUSE QRS Duration 84 ms GEMUSE Q-T Interval 362 ms GEMUSE QTc 450 ms GEMUSE P Wave Porter 69 degrees GEMUSE R Porter 16 degrees GEMUSE T Porter 40 degrees GEMUSE ECG Interpretation Normal sinus rhythm Normal ECG When compared with ECG of 11-AUG-2025 01:03, (unconfirmed) No significant change was found Confirmed by VENTURA SUN ([id number]) on 08/12/2025 1:16:05 PM GEMUSE 08/11/2025 4:20 AM EDT 08/12/2025 1:16 PM EDT Willie Smith MD ECG ORDERABLES Final Result Performing Organization Address [facility] de Phone Number GEMUSE * Troponin I high sensitivity (08/11/2025 3:53 AM EDT) Only the most recent of2 resultswithin the time period is included. [facility] High Sensitivity Troponin I 4 <=54 ng/L LAB CHEMISTRY METHOD 08/11/2025 5:[address] [facility] Blood Venous blood specimen / Unknown Venipuncture / Unknown 08/11/2025 3:53 AM EDT 08/11/2025 4:[address] [facility] - 08/11/2025 5:01 AM EDT High levels of biotin in samples may falsely decrease hsTroponin values. Use caution when interpreting hsTroponin results in patients taking biotin who exhibit renal impairment (eGFR <60) or in patients taking more than 20 mg/day of biotin. Willie Smith MD LAB BLOOD ORDERABLES Final Resu lt Performing Organization Address [facility] de Phone Number [facility] [address] [place] [address], [place] [phone] * US Abdomen Limited (08/11/2025 3:46 AM [...] MD on 08/11/2025 04:26:06 us Monica Villavicencio MIXING TUMBLER OPERATOR IMG US PROCEDURES Final R esult * (ABNORMAL) CBC auto differential (08/11/2025 1:21 AM EDT) WBC 14.7(H) 4.8 - 10.8 K/mcL LAB HEMETOLOGY METHOD 08/11/2025 2:04 AM EDT [facility] RBC 4.60 3.80 - 4.80 M/mcL LAB HEMETOLOGY METHOD 08/11/2025 2:04 AM [facility] Hemoglobin 11.8 11.5 - 16.0 g/dL LAB HEMETOLOGY METHOD 08/11/2025 2:04 AM [facility] Hematocrit 38.4 35.0 - 47.0 % LAB HEMETOLOGY METHOD 08/11/2025 2:04 AM [facility] MCV 83.3 79.0 - 98.0 FL LAB HEMETOLOGY METHOD 08/11/2025 2:04 AM [facility] MCH 25.6(L) 27.0 - 32.0 pcg LAB HEMETOLOGY METHOD 08/11/2025 2:04 AM [facility] MCHC 30.7(L) 32.0 - 37.0 g/dL LAB HEMETOLOGY METHOD 08/11/2025 2:04 AM [facility] RDW 14.7 11.0 - 15.0 % LAB HEMETOLOGY METHOD 08/11/2025 2:04 AM [facility] Platelets 295 130 - 400 K/mcL LAB HEMETOLOGY METHOD 08/11/2025 2:04 AM [facility] MPV 10.6 7.0 - 11.0 FL LAB HEMETOLOGY METHOD 08/11/2025 2:04 AM [facility] NRBC 0.0 <1.0 % LAB HEMETOLOGY METHOD 08/11/2025 2:04 AM [facility] NRBC Absolute 0.00 <0.10 K/mcL LAB HEMETOLOGY METHOD 08/11/2025 2:04 AM [facility] Neutrophils Relative 66.0 % LAB HEMETOLOGY METHOD 08/11/2025 2:04 AM [facility] Lymphocytes Relative 26.1 % LAB HEMETOLOGY METHOD 08/11/2025 2:04 AM [facility] Monocytes Relative 6.0 % LAB HEMETOLOGY METHOD 08/11/2025 2:04 AM [facility] Eosinophils Relative 1.0 % LAB HEMETOLOGY METHOD 08/11/2025 2:04 AM [facility] Basophils Relative 0.4 % LAB HEMETOLOGY METHOD 08/11/2025 2:04 AM [facility] Immature Granulocytes Relative 0.5 % LAB HEMETOLOGY METHOD 08/11/2025 2:04 AM [facility] Neutrophils Absolute 9.73(H) 1.50 - 7.00 K/mcL LAB HEMETOLOGY METHOD 08/11/2025 2:04 AM [facility] Lymphocytes Absolute 3.84 1.00 - 5.00 K/mcL LAB HEMETOLOGY METHOD 08/11/2025 2:04 AM [facility] Monocytes Absolute 0.88 0.20 - 1.00 K/mcL LAB HEMETOLOGY METHOD 08/11/2025 2:04 AM [facility] Eosinophils Absolute 0.15 0.00 - 0.50 K/mcL LAB HEMETOLOGY METHOD 08/11/2025 2:04 AM [facility] Basophils Absolute 0.06 0.00 - 0.20 K/mcL LAB HEMETOLOGY METHOD 08/11/2025 2:04 AM [facility] Immature Granulocytes Absolute 0.07(H) 0.00 - 0.03 K/mcL LAB HEMETOLOGY METHOD 08/11/2025 2:04 AM [facility] Blood Venous blood specimen / Unknown Venipuncture / Unknown 08/11/2025 1:21 AM EDT 08/11/2025 1:58 AM EDT Willie Smith MD LAB BLOOD ORDERABLES Final Resu lt Performing Organization Address City/[facility]/ZIP Co de Phone Number [facility] [address] [place] [address], [place] [phone] * B-type natriuretic peptide (08/11/2025 1:21 AM EDT) BNP 12 <=100 pcg/mL LAB CHEMISTRY METHOD 08/11/2025 2:[address] [facility] Blood Venous blood specimen / Unknown Venipuncture / Unknown 08/11/2025 1:21 AM EDT 08/11/2025 1:58 AM EDT Willie Smith MD LAB BLOOD ORDERABLES Final Resu lt Performing Organization Address [facility]/ZIP Co de Phone Number [facility] [address] [place] [address], [place] [phone] * (ABNORMAL) Magnesium (08/11/2025 1:21 AM EDT) Magnesium 1.8(L) 1.9 - 2.6 mg/dL LAB CHEMISTRY METHOD 08/11/2025 2:[address] [facility] Blood Venous blood specimen / Unknown Venipuncture / Unknown 08/11/2025 1:21 AM EDT 08/11/2025 1:58 AM EDT Willie Smith MD LAB BLOOD ORDERABLES Final Resu lt Performing Organization Address City/[facility]/ZIP Co de Phone Number [facility] [address] [place] [address], [place] [phone] * Lipase (08/11/2025 1:21 AM EDT) Lipase 43 13 - 75 unit/L LAB CHEMISTRY METHOD 08/11/2025 2:[address] [facility] Blood Venous blood specimen / Unknown Venipuncture / Unknown 08/11/2025 1:21 AM EDT 08/11/2025 1:58 AM EDT us Willie Smith MD LAB BLOOD ORDERABLES Final Resu lt [facility] [address] [place] [address], * (ABNORMAL) Comprehensive metabolic panel (08/11/2025 1:21 AM EDT) Sodium 142 133 - 145 mmol/L LAB CHEMISTRY METHOD 08/11/2025 2:31 AM [facility] Potassium 4.0 3.5 - 5.5 mmol/L LAB CHEMISTRY METHOD 08/11/2025 2:31 AM [facility] Chloride 105 96 - 110 mmol/L LAB CHEMISTRY METHOD 08/11/2025 2:31 AM [facility] CO2 30 21 - 32 mmol/L LAB CHEMISTRY METHOD 08/11/2025 2:31 AM [facility] Anion Gap 7 3 - 11 LAB CHEMISTRY METHOD 08/11/2025 2:31 AM [facility] Glucose 126(H) 70 - 100 mg/dL LAB CHEMISTRY METHOD 08/11/2025 2:31 AM [facility] BUN 13 5 - 25 mg/dL LAB CHEMISTRY METHOD 08/11/2025 2:31 AM [facility] Creatinine 0.91 0.50 - 1.10 mg/dL LAB CHEMISTRY METHOD 08/11/2025 2:31 AM [facility] eGFR 76 >=60 mL/min/1. 73m2 LAB CHEMISTRY METHOD 08/11/2025 2:31 AM [facility] Comment:Calculation based on the Chronic Kidney Disease Epidemiology Collaboration (CKD-EPI) equation refit without adjustment for race. BUN/Creatinine Ratio 14.3 LAB CHEMISTRY METHOD 08/11/2025 2:31 AM [facility] Calcium 9.2 8.5 - 10.5 mg/dL LAB CHEMISTRY METHOD 08/11/2025 2:31 AM [facility] AST (SGOT) 18 10 - 42 unit/L LAB CHEMISTRY METHOD 08/11/2025 2:31 AM [facility] ALT (SGPT) 37 10 - 60 unit/L LAB CHEMISTRY METHOD 08/11/2025 2:31 AM [facility] Alkaline Phosphatase 113 42 - 121 unit/L LAB CHEMISTRY METHOD 08/11/2025 2:31 AM [facility] Total Protein 7.5 6.0 - 8.0 g/dL LAB CHEMISTRY METHOD 08/11/2025 2:31 AM [facility] Albumin 3.6 3.2 - 5.0 g/dL LAB CHEMISTRY METHOD 08/11/2025 2:31 AM [facility] Total Bilirubin 0.3 0.0 - 1.4 mg/dL LAB CHEMISTRY METHOD 08/11/2025 2:31 AM [facility] Blood Venous blood specimen / Unknown Venipuncture / Unknown 08/11/2025 1:21 AM EDT 08/11/2025 1:58 AM EDT us Willie Smith MD LAB BLOOD ORDERABLES Final Resu lt [facility] [address] [place] [address], [place] [phone] from Last 3 Months Additional Health Concerns Active Problems Noted Date Diagnosed Date Autogenerated Problem 08/15/2025 Insurance [facility] Care Teams Real Estate Attorney Relationship Specialty Start Date End Date Timur Chance [address] [place] [address] PCP - General Internal Medicine 08/11/25
--- OUTSIDE RECORDS SUMMARY | 2025-09-24 16:26 | XMS_ITS | Encounter Summary ---
Author Organization [employer] Address [address] [facility] 7t [place] [address] Care Team Providers Care Pearl Stringer Name Role Phone Timur Chance MD Primary Care Prov ider Reason for Visit * Reason Onset Date Comments Referral 08/02/2024 Encounter Details Date Type Department Care Team (Late st Contact Info) Description 08/02/2024 Telephone [facility] MEDICINE [address] [place] [address] Timur Chance MD [address] [place] [phone] Referral Social History Tobacco Use Types Packs/Day [...] regarding PT referral. Please contact pt at [phone]. (Ghanaian Speaker) documented in this encounter Plan of Treatment Upcoming Encounters Date Type Department Care Team ([facility] st Contact Info) Description 11/26/2025 10:30 AM EST Office Visit [facility] MED & PEDS [address] [place] [address] Timur Chance MD [address] [place] [address] documented as of this encounter Visit Diagnoses Not on filedocumented in this encounter Additional Health Concerns Assessment Noted Time PHQ-9 Depression Total Score: 0 01/10/20 24 11:02 AM EST documented as of this encounter Care Teams Pearl Stringer Relationship Specialty Start Date End Date Timur Chance MD [address] [place] [address] PCP - General Internal Medicine 10/20/19 documented as of this encounter
--- OUTSIDE RECORDS SUMMARY | 2025-09-24 16:26 | XMS_ITS | Clinical Summary ---
Author Organization [employer] Address [address] [facility] [address] [place] [address] Care Team Providers Care Technical Architect Name Role Phone Timur Chance MD Primary Care Prov ider Allergies No known active allergies Medications Diclofenac Sodium 1 % gelIndications:Ac uyng pain of right knee,Sprain of left wrist, initial encounter To apply to the affected area 3 times a day 100 g 07/27/20 24 Active losartan (Cozaar) 50 MG tablet Take 1 tablet (50 mg) by mouth Once per day. 90 tablet 3 05/21/20 25 026 Active atorvastatin (Lipitor) 20 MG tabletIndications :Mixed hyperlipidemia Take 1 tablet (20 mg) by mouth Once per day. 90 tablet 1 05/21/20 25 026 Active omeprazole (PriLOSEC) [address] capsuleIndication s:Gastroesophagea l reflux disease without esophagitis TAKE ONE CAPSULE EVERY DAY 90 capsule 1 08/09/20 25 Active acetaminophen (Tylenol) 500 MG tablet Take 500 mg by mouth every 6 (six) hours if needed. Active clotrimazole (Lotrimin) 1 % cream APPLY TO AFFECTED AREA(S) AND SURROUNDING AREA(S) TWICE DAILY IN THE MORNING AND EVENING 04/11/20 21 Active cyclobenzaprine (Flexeril) 10 MG tablet TAKE ONE TABLET THREE TIMES DAILY FOR 10 DAYS Active FREESTYLE LITE test strip 1 Lancet by Apheresis route 3 times daily. 04/11/20 21 Active naproxen (Naprosyn) 500 MG tablet Take 500 mg by mouth 2 times daily. 05/21/20 25 Active nitrofurantoin, macrocrystal-mono hydrate, (Macrobid) 100 MG capsule take one capsule by mouth twice daily for five days 04/18/20 25 Active phenazopyridine (Pyridium) 200 MG tablet TAKE ONE TABLET BY MOUTH THREE TIMES DAILY WITH MEALS FOR TWO DAYS 04/18/20 25 Active bisacodyl (Dulcolax) 5 MG EC tablet Take 2 tablets by mouth right before beginning bowel prep. See instructions provided by the office 09/18/20 25 Active polyethylene glycol (GoLYTELY) 236 g solution Take 4L by mouth once for one dose. May substitue any PEG. Starting at 2PM the day before your procedure drink 1 8oz glasses at your own pace until you complete half of the gallon. Finish 2nd half of the gallon at 8PM. 09/18/20 25 Active traMADol (Ultram) 50 MG tablet TAKE ONE TABLET EVERY 6 HOURS NEEDED FOR SEVERE PAIN FOR UP TO THREE DAYS. NO MORE THAN FOUR TABLETS DAILY 08/13/20 25 Active celecoxib (CeleBREX) 200 MG capsuleIndication s:Chronic pain of left ankle Take 1 capsule (200 mg) by mouth 2 times daily. 60 capsule 07/31/20 25 025 metFORMIN (Glucophage) 500 MG tablet TAKE ONE TABLET BY MOUTH TWICE DAILY IN THE MORNING AND IN THE EVENING WITH MEALS. 07/24/20 21 025 Discontinu ed(Therapy completed) Active Problems Problem Noted Date Diagnosed Date History of uterine fibroid 09/17/2025 Chronic foot pain, left 08/27/2025 Assessment & [...] send new xray and will refer to [facility] for joint intection Assessment & [...] Plan (03/09/2023 10:22 AM EDT): Will send ruddyuasina, no warning signs Gastroesophageal reflux disease without [...] apply ice/rest joint, will order voltaren gel Cardiomyopathy 10/21/2021 Diabetes 10/21/2021 Hx of hysterectomy 10/21/2021 Encounters Date Type Department Care Team Description 09/21/2025 9:15 AM EST Office Visit [facility] PEDS [address] [place] [address] Ines Ramirez MD Primary hypertension (Primary Dx); Gastroesophageal reflux disease without esophagitis; Hx of hysterectomy; Encounter for immunization; Preop examination 09/21/2025 Travel 09/17/2025 Telephone [facility] [address] [place] [address] Timur Chance MD chart prep 09/10/2025 Telephone [facility] MEDICINE [address] [place] [address] Timur Chance MD pre op appt 08/13/2025 Telephone [facility] [address] [place] [address] Timur Chance MD ER Follow-up 08/13/2025 Orders Only [facility] MED & PEDS [address] [place] [address] Adilson Branch MD 08/07/2025 Refill [facility] MED & PEDS [address] [place] [address] Timur Chance MD Gastroesophageal reflux disease without esophagitis 07/31/2025 2:15 PM EDT Office Visit [facility] MED & PEDS [address] [place] [address] Belgica Munoz MD Chronic pain of left ankle (Primary Dx); Dietary counseling; Exercise counseling; Class 3 severe obesity due to excess calories with serious comorbidity and body mass index (BMI) of 45.0 to 49.9 in adult 07/31/2025 Travel 07/30/[address] [address] Timur Chance MD Nurse Triage 07/30/[address] [address] Timur Chance MD 07/02/2025 11:15 AM EDT Telemedicine 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 MED & PEDS [address] [place] [address] Timur Chance MD chart prep from Last 3 Months Immunizations Immunization Administration Dates Next Due Influenza injectable quadriv alent IIV4 with preservative 10/20/2019 Influenza injectable quadrivalent preservative f ree 09/03/2022,11/29/2020 Influenza, seasonal, injectable, preservative fr ee 09/21/2025,10/10/2024 Moderna Covid-19 Vaccine 12+ 06/18/2022 Tdap 10/20/2019 [...] 20 09/21/2025 9:37 AM EST Oxygen Saturation 93% 07/31/2025 2:52 PM EDT Inhaled Oxygen Concentration - - Weight 119 kg (263 lb) 09/21/2025 9:37 AM EST Height 155.6 cm (5' 1.25 ) 07/31/2025 2:52 PM ED T Body Mass Index 49.29 07/31/2025 2:52 PM EDT Plan of Treatment Upcoming Encounters Date Type Department Care Team (Late st Contact Info) Description 11/26/2025 10:30 AM EST Office Visit [facility] MED & PEDS [address] [place] [address] Timur Chance MD [address] [place] [address] Health Maintenance Due Date Last Done Comments [...] Vaccine ( season) 2025 06/18/2022, 05/14/2021, 04/16/2021 FOBT 10/18/2025 10/18/2024 Diabetes: Hemoglobin A1C 11/25/2025 025, 10/04/2024, 03/25/2023, Additional history exists Alcohol/Substance Use Screening 02/07/2026 02/07/2025 SDOH Screening 02/07/2026 02/07/2025 Lipid Panel 05/25/2026 05/25/2025, 09/16, 01/12/2024, Additional history exists Depression Screening 07/02/2026 07/02/2025, 07/02/20 Disability Screening 07/02/2026 07/02/2025 Tobacco Screening 09/21/2026 09/21/2025 Mammogram 08/15/2027 08/15/2025, 04/, 02/04/2022, Additional history exists Colorectal Cancer Screening 10/18/2027 FIT DNA/Cologuard 10/18/2027 10/18/2024 DTaP/Tdap/Td Vaccines (2 - Td or Tdap) 10/20/2029 10/20/2019 RSV Patients and Patients Aged 60 years or older (1 - 1-dose 75+ series) 02/25/2048 HIV Screening Completed 10/20/2019 HPV/Cotest Discontinued 12/05/2019 Hepatitis C Screening Completed 09/08/2022 Influenza Vaccine Completed 09/21/2025, , 09/03/2022, Additional history exists Cervical Cancer Screening Discontinued [...] Routine 09/21/2025 12:47 PM EST Preop examination MR ANKLE WO CONTRAST LEFT Routine 09/03/2025 [...] Health Maintenance Results * ECG 12 lead (09/21/2025 12:47 PM EST) Only the most recent of3 resultswithin the time period is included. Narrative Ines Ramirez MD - 09/21/2025 12:47 PM EST HR 72 bpm, sinus rhythm, QT 394 ms us Ines Ramirez MD ECG ORDERABLES Final Result * MR Ankle w/o Contrast Left (09/03/2025 3:15 PM EDT) Anatomical Region Laterality Modality Lower Extremities, Ankle Left Magneti c Resonance 09/03/2025 3:15 PM EDT Narrative 09/04/2025 9:39 AM EDT [address] [address] Magnetic Resonance Report Signed Patient: Delmar Hudson MR#: [id number] 253 : 1975 Acct:[id number] Age/Sex: 50 / F ADM Date: 09/03/25 Loc: HO.MRI Attending Dr: Kelly Dalton PA-C Ordering Physician: Kelly Dalton PA-C Date of Service: 09/03/25 Procedure(s): MR ankle LT wo con Accession Number(s): [id number] cc: Timur Chance MD; Kelly Dalton PA-C Reason for Exam: 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 Patient reports 3 years of symptoms, pain. COMPARISON: X-ray 09/03/2025 TECHNIQUE: MRI of the ankle was performed using routine sequences on a high-field scanner. Large pedxw-ic-buqp study, using the Achilles protocol. 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 Patient reports 3 years of symptoms, pain. COMPARISON: X-ray 09/03/2025 TECHNIQUE: MRI of the ankle was performed using routine sequences on a high-field scanner. Large mlgdl-ue-xjol study, using the Achilles protocol. TECHNIQUE: MRI [...] 09/04/25 0936 DD/ 1515 TD/TT: 09/03/25 1545 Head Sawyer Automatic: TAVARES [facility] External Provider IMG MRI PROCEDURES Edited Result - Final * XR Ankle 3+ Views Left (08/30/2025 10:41 AM EDT) Anatomical Region Laterality Modality Lower Extremities, Ankle Left Radiogr aphic Imaging 08/30/2025 10:4 1 AM EDT Narrative 08/30/2025 11:04 AM EDT [place] [address] XRay Report Signed Patient: Delmar Hudson MR#: [id number] 253 : 1975 Acct:[id number] Age/Sex: 50 / F ADM Date: 08/30/25 Loc: PAOLA Attending Dr: Rylie Bustos DPM Ordering Physician: Rylie Bustos DPM Date of Service: 08/30/25 Procedure(s): XR ankle LT min 3V Accession Number(s): [id number] cc: Timur Chance MD; Rylie Bustos DPM Reason for Exam: M25.572 - Pain in left ankle and joints of left foot EXAMINATION: XR ANKLE, LEFT X-ray tibia fibula, left CLINICAL INFORMATION: S99.913J - Unspecified injury of left ankle, initial [...] 08/30/25 1101 DD/ 1041 TD/TT: 08/30/25 1045 Head Sawyer Automatic: TAVARES Procedure Note Donotuseinterpreter, Image - 08/30/2025 [place] [address] XRay Report Signed Patient: Delmar HudsonMR#: [id number] 253 : 1975Acct:[id number] Age/Sex: 50 / FADM Date: 08/30/25 Loc: PAOLA Attending Dr: Rylie Bustos DPM Ordering Physician: Rylie Bustos DPM Date of Service: 08/30/25 Procedure(s): XR ankle LT min 3V Accession Number(s): [id number] cc: Timur Chance MD; Rylie Bustos DPM [...] 08/30/25 1101 DD/ 1041 TD/TT: 08/30/25 1045 Head Sawyer Automatic: TAVARES [facility] External Provider IMG XR PROCEDURES Edited Result - Final * XR Tibia Fibula 2 Views Left (08/30/2025 10:31 AM EDT) Anatomical Region Laterality Modality Lower Extremities, Lower Leg Left Rad iographic Imaging 08/30/2025 10:3 1 AM EDT Narrative 08/30/2025 11:04 AM EDT [address] [address] XRay Report Signed Patient: Delmar Hudson MR#: [id number] 253 : 1975 Acct:[id number] Age/Sex: 50 / F ADM Date: 08/30/25 Loc: PAOLA Attending Dr: Rylie Bustos DPM Ordering Physician: Rylie Bustos DPM Date of Service: 08/30/25 Procedure(s): XR tibia fibula LT 2V Accession Number(s): [id number] cc: Timur Chance MD; Rylie Bustos DPM [...] 08/30/25 1101 DD/ 1031 TD/TT: 08/30/25 1045 Head Sawyer Automatic: TAVARES Procedure Note Donotuseinterpreter, Image - 08/30/[address] [address] XRay Report Signed Patient: Delmar HudsonMR#: [id number] 253 : 1975Acct:[id number] Age/Sex: 50 / FADM Date: 08/30/25 Loc: PA[facility] Attending Dr: Rylie Bustos DPM Ordering Physician: Rylie Bustos DPM Date of Service: 08/30/25 Procedure(s): XR tibia fibula LT 2V Accession Number(s): [id number] cc: Timur Chance MD; Rylie Bustos DPM [...] 08/30/25 1101 DD/ 1031 TD/TT: 08/30/25 1045 Head Sawyer Automatic: TAVARES [facility] External Provider IMG XR PROCEDURES Edited Result - Final * BI Mammogram Screening Tomosynthesis Bilateral (08/15/2025 9:59 AM EDT) Anatomical Region Laterality Modality Breast Bilateral Mammography 08/15/2025 9:59 AM EDT Narrative 08/21/2025 3:02 PM EDT [address] [place] [address] Mammography Report Signed Patient: Delmar Hudson MR#: [id number] 253 : 1975 Acct:[id number] Age/Sex: 50 / F ADM Date: 08/15/25 Loc: HO.MAMMO Attending Dr: Timur Hernandez MD Ordering Physician: Timur Chance MD Res ults: 1Negative Date of Service: 08/15/25 Follow Up: 1 Year From Orig inal Mammogram Procedure(s): MM tomosynthesis screening BI Accession Number(s): [id number] cc: Timur Chance MD Reason For Exam: [...] 08/21/25 1459 DD/ 0959 TD/TT: 08/15/25 1002 Head Sawyer Automatic: Procedure Note Donotuseinterpreter, Image - 08/21/[address] [place] [address] Mammography Report Signed Patient: Delmar HudsonMR#: [id number] 253 : 1975Acct:[id number] Age/Sex: 50 / FADM Date: 08/15/25 Loc: HO.MAMMO Attending Dr: Timur Hernandez MD Ordering Physician: Timur Chance ults: 1Negative Date of Service: 08/15/25Follow Up: 1 Year From Orig ina Mammogram Procedure(s): MM tomosynthesis screening BI Accession Number(s): [id number] cc: Timur Chance MD Reason For Exam: [...] 08/21/25 1459 DD/ 0959 TD/TT: 08/15/25 1002 Head Sawyer Automatic: us Timur Hernandez MD IMG BI PROCEDURES Final Result * (ABNORMAL) Hemoglobin A1c (05/25/2025 11:17 AM EDT) Hemoglobin A1c 6.3(H) <6.0 % [facility] Comment:Hemoglobin A1C Refer ence Range Adults: 4.8 - 6.0 % Non diabetic: < 6.0 % Goal: < 7.0 %Additional Action Suggested: > 8.0 %Note: Hemoglobin A1c results are invalid for patients with abnormal amounts of HbF. Blood transfusions may impact the HbA1c concentration in the patient sample. Estimated Average Glucose 134 mg/dL [facility] Comment:eAG = Estimated ave rage glucose which is %A1C expressed asaverage glucose, using the formula of the U2U-NozazejNgnzuuw Glucose study (ADAG), Diabetes Care, Vol.31,#8,Jun. 2007 Blood Venous blood specimen / Unknown 05/25/2025 11:17 AM EDT 05/25/2025 2:41 PM EDT Timur Hernandez MD LAB BLOOD ORDERABL ES Final Result [facility] [address] [place] [address] [phone] * Lipid Panel, Standard (05/25/2025 11:17 AM EDT) Triglycerides 96 <150 mg/dL [facility] Comment:Desirable Triglyceri de: less than 150 mg/dLBorderline High Triglyceride 150-199 mg/dLHigh Triglyceride: 200-499 mg/dLVery High Triglyceride: greater than or equal to 5OO mg/dL Cholesterol 147 <200 mg/dL [facility] Comment:Desirable Cholestero l: less than 200 mg/dLBorderline High Cholesterol: 200-239 mg/dLHigh Cholesterol: greater than 239 mg/dL LDL Cholesterol Calculated 85 <100 mg/dL [facility] Comment:Desirable LDL: less than 100 mg/dLNear Optimal/Above Optimal LDL: 110- 129 mg/dLBorderline High LDL: 130-159 mg/dLHigh LDL: 160-189 mg/dLVery High LDL: greater than or equal to 190 mg/dL HDL Cholesterol 43 >40 mg/dL [facility] Comment:Desirable HDL: great er than 40 mg/dL Note: This HDL assay may give artificially low results in patients with liver disease. Blood Venous blood specimen / Unknown 05/25/2025 11:17 AM EDT 05/25/2025 2:41 PM EDT Timur Hernandez MD LAB BLOOD ORDERABL ES Final Result [facility] [address] [place] [address] [phone] * Cologuard?? colon cancer screening (10/18/2024 8:40 AM EST) Cologuard Result Negative Negative 10/26/20 5:02 AM EST [employer] [facility] (CLIA #:[id number]) Comment: NEGATIVE TEST RESULT. A negative Cologuard [...] He et al, N Engl J Med 2014;370(14):0968-9937) The normal value (reference range) for this assay is negative. COLOGUARD RE-SCREENING RECOMMENDATION: Periodic colorectal cancer screening is an important part of preventive healthcare for asymptomatic individuals at average risk for colorectal cancer. Following a negative Cologuard result, the [employer] Society and U.S. Multi-Society Task Force screening guidelines recommend a Cologuard re-screening interval of 3 years. References: [place] [employer] Society Guideline for Colorectal Cancer Screening: https://www.cancer.org/cancer/hxmls-dmcsch-ibftue/ghumzydsv-lkldfubvv-sjdnxws/ac s-rec ommendations.html.; Aki HARGROVE, Fabio RODRIGUES, Oleg BARILLAS, Colorectal Cancer Screening: Recommendations for Physicians and Patients from the U.S. Multi-Society Task Force on Colorectal Cancer Screening , Am J Gastroenterology 2017; 112:7972-1612. TEST DESCRIPTION: Composite algorithmic analysis of stool [...] (Juan Ochoa al, N Engl J Med 2014;370(14):5109-1721.) Cologuard may produce a false negative or false positive result (no colorectal cancer or precancerous polyp present at colonoscopy follow up). A negative Cologuard test result does not guarantee the absence of CRC or advanced adenoma (pre-cancer). The current Cologuard screening interval is every 3 years. ([employer] Society and U.S. Multi-Society Task Force). Cologuard performance data in a 10,000 patient pivotal study using colonoscopy as the reference method can be accessed at the following location: www.JeNaCell/results. Additional description of the Cologuard test process, warnings and precautions can be found at www.GlobalLogicrd.com. Stool specimen (specimen) 10/18/2024 8:40 AM EST 10/19/2024 10:55 AM EST Timru Hernandez MD LAB MOLECULAR DIAG NOSTICS ORDERABLES Final Result [employer] [facility] (CLIA #:[id number]) [address] [place] [address], * HEPATITIS C AB W/REFL TO HCV [...] a test for HCV RNA (test code 32423) is suggested. For additional information please refer to http://education.Aptera/faq/PSZ84l5 (This link is being provided for informational/ educational purposes only.) 09/08/2022 8:52 AM EDT Timur Hernandez MD HISTORICAL/NON ORD ERABLE LABS Final Result [facility] * ALBUMIN, RANDOM URINE [...] HPV mRNA E6/E7 (12/05/2019 1:12 PM EST) Pathologist [facility] HPV mRNA E6/E7 Not Detected NOT DETECTED [facility] Comment: This test was performed using the APTIMA(R) HPV Assay ([employer] This assay detects E6/E7 viral messenger RNA (mRNA) from 14 high-risk HPV types (16,18,31,33,35,39,45,51, 52,56,58,59,66,68). For additional information please refer to: http://education.Aptera/faq/CFE251e3 (This link is being provided for informational/ educational purposes only.) The analytical performance characteristics of this assay have been determined by [facility] [place], [place]. The modifications have not been cleared or approved by the FDA. This assay has been validated pursuant to the CLIA regulations and is used for clinical purposes. Test Performed by [facility], [facility], [address] [place] [address] Nas Dugan M.D., Ph.D., Director of Laboratories , CLIA [id number] Please note: Effective 07/27/2016, HPV testing will be performed using [employer]'s APTIMA test which targets mRNA. Detecting mRNA instead of DNA, as in older methods, offers significant improvements in specificity. 12/05/2019 1:12 PM EST us Aretha Blanco CNM HISTORICAL/NON ORDERABLE LABS Final Result [facility] [address] * HIV AB/AG (10/20/2019 3:01 PM EST) Pathologist [facility] HIV AG/AB NONREACTIVE NR FOUNDATI ON LAB [...] of detection of this assay. The [employer] HIV Ag/Ab Combo assay result and supplemental assay results should be interpreted in conjunction with the patient's clinical presentation, history and other laboratory results. If the results are inconsistent with clinical evidence, additional testing is suggested to confirm the result. 10/20/2019 3:01 PM EST us Timur Hernandez MD HISTORICAL/NON ORD ERABLE LABS Final Result [facility] [address] from Last 3 Months or Most Recently Relevant to Health Maintenance Insurance [facility] 3 Care Teams Technical Architect Relationship Specialty Start Date End Date BassTimur Rosenberg MD [address] [place] [phone] PCP - General Internal Medicine 10/20/19
--- OUTSIDE RECORDS SUMMARY | 2025-09-24 16:26 | XMS_ITS | Encounter Summary ---
Author Organization [employer] Address [address] [facility] 7[address] [place] [address] Care Team Providers Care Director Of Casework Services Name Role Phone Timur Chance MD Primary Care Prov ider Reason for Visit * Reason Onset Date Comments Referral 10/16/2024 Encounter Details Date Type Department Care Team (Late st Contact Info) Description 10/16/2024 Telephone [facility] MEDICINE [address] [place] [address] Timur Chance MD [address] [place] [phone] Referral Social History Tobacco Use Types Packs/Day [...] therapy. If any question contact pt at [phone] documented in this encounter Plan of Treatment Upcoming Encounters Date Type Department Care Team ([facility] st Contact Info) Description 11/26/2025 10:30 AM EST Office Visit [facility] MED & PEDS [address] [place] [address] Timur Chance MD [address] [place] [address] documented as of this encounter Visit Diagnoses Not on filedocumented in this encounter Additional Health Concerns Assessment Noted Time PHQ-9 Depression Total Score: 16 024 12:04 PM EST documented as of this encounter Care Teams Director Of Casework Services Relationship Specialty Start Date End Date Timur Chance MD [address] [place] [address] PCP - General Internal Medicine 10/20/19 documented as of this encounter
== END 2025-09-24 16:04 | disposition home or self-care (01) ==
LOC: HO.HPODS 14:04
PROVIDERS: PCP Internal Medicine; Visit Provider Student in an Organized Health Care Education/Training Program
DX: M77.52 Other enthesopathy of left foot and ankle (principal); M25.572 Pain in left ankle and joints of left foot; G89.29 Other chronic pain; S99.912A Unspecified injury of left ankle, initial encounter; S86.012A Strain of left Achilles tendon, initial encounter; M92.62 Juvenile osteochondrosis of tarsus, left ankle
CPT/HCPCS: 99214

== ENCOUNTER → 2025-09-24 14:04 | Outpatient (BNVA) | payer OTHER, SELFPAY | PROVIDERS: PCP Internal Medicine; Visit Provider Student in an Organized Health Care Education/Training Program | DX: Z01.818 Encounter for other preprocedural examination (principal); S86.012A Strain of left Achilles tendon, initial encounter; S99.912A Unspecified injury of left ankle, initial encounter; M77.52 Other enthesopathy of left foot and ankle; M25.572 Pain in left ankle and joints of left foot; G89.29 Other chronic pain; M92.62 Juvenile osteochondrosis of tarsus, left ankle | CPT/HCPCS: 99212 ==

== ENCOUNTER 2025-09-28 07:01 | Day surgery (SDC) | payer OTHER, SELFPAY ==
--- OUTSIDE RECORDS SUMMARY | 2025-09-11 07:42 | XMS_ITS | Encounter Summary ---
Author Organization [employer] Address [address] [facility] 7 [place] [address] Care Team Providers Care Dry Can Tender Name Role Phone Timur Chance MD Primary Care Prov ider Reason for Visit * Reason Onset Date Comments Nurse Triage 10/18/2024 Encounter Details Date Type Department Care Team (Late st Contact Info) Description 10/18/2024 Telephone [facility] MEDICINE [address] [place] [address] Timur Chance MD [address] [place] [phone] Nurse Triage Social History Tobacco Use Types [...] bone. Ptadvised of disposition, agrees to seek [facility] ED for eval to rule [...] soon Reason: Can't use the shoulder normally Syrian Speaker (Accepted Merchandise Marker) documented in this encounter Plan of Treatment Not on file documented as of this encounter Visit Diagnoses Not on filedocumented in this encounter Additional Health Concerns Assessment Noted Time PHQ-9 Depression Total Score: 16 024 12:04 PM EST documented as of this encounter Care Teams Dry Can Tender Relationship Specialty Start Date End Date Timur Chance MD [address] [place] [phone] PCP - General Internal Medicine 10/20/19 documented as of this encounter
--- OUTSIDE RECORDS SUMMARY | 2025-09-11 07:42 | XMS_ITS | Clinical Summary ---
Author Organization [facility] Address [address] [place] [address] Care Team Providers Care Yarder Engineer Name Role Phone Timur Chance MD Primary [...] Date Job End Date works in a [employer] Not on file Not on file Not [...] 75+ series) 02/25/2048 Procedures * Due to [place] [employer] law, this organization might not be sharing negative HIV tests. Procedure Name Priority Date/Time Associated Diagnosis Comments HEMOGLOBIN A1C Routine 09/24/2021 1:47 PM EST Pre-diabetes from Last 3 Months or Most Recently Relevant to Health Maintenance Results * Due to [place] [employer] law, this organization might not be sharing negative HIV tests. * Hemoglobin A1c (09/24/2021 1:47 PM EST) Hemoglobin A1C 5.6 <5.7 % of total Hgb 09/25/2021 8:15 AM EST [facility] Comment: For the purpose of screening for the presence of diabetes: <5.7% Consistent with the absence of diabetes 5.7-6.4% Consistent with increased risk for diabetes (prediabetes) > or =6.5% Consistent with diabetes This assay result is consistent with a decreased risk of diabetes. Currently, no consensus exists regarding use of hemoglobin A1c for diagnosis of diabetes in children. According to [place] Diabetes [employer] (ADA) guidelines, hemoglobin A1c <7.0% represents optimal control in non- diabetic patients. Different metrics may apply to specific patient populations. Standards of Medical Care in Diabetes(ADA). eAG (MG/DL) 114 (calc) 09/25/2021 8:15 AM EST [facility] eAG (MMOL/L) 6.3 (calc) 09/25/2021 8:15 AM EST [facility] Blood Structure of peripheral vein / Unknown Venipuncture / Unknown 09/24/2021 1:47 PM EST 09/24/2021 2:07 PM EST Narrative [facility] - 09/25/2021 8:15 AM EST [facility] Received Date: Sathish Lopez MD LAB BLOOD ORDERABLES Final Res ult [facility] [address] [facility] 3rd Floor, [place] [address], [facility] [address] [facility] [address] Floor, [place] [address], from Last 3 Months or Most Recently Relevant to Health Maintenance Insurance [facility] HS/FREE CARE Care Teams Yarder Engineer Relationship Specialty Start Date End Date Timur Chance MD [address] [place] [phone] PCP - General 07/16/21
--- OUTSIDE RECORDS SUMMARY | 2025-09-11 07:42 | XMS_ITS | Encounter Summary ---
Author Organization [facility] Address [address] [place] [address] Care Team Providers Care Asphalt Screed Operator Name Role Phone Timur Chance MD Primary Care Prov ider Reason for Visit * Reason Onset Date Comments Colonoscopy 12/26/2021 Encounter Details Date Type Department Care Team (Late st Contact Info) Description 12/26/2021 Telephone [facility] Central Scheduling Department [address] [place] [phone] Telephone Intake, Staff Colonoscopy Social History Tobacco Use Types Packs/Day Years Used Date Smoking Tobacco: Never Smokeless Tobacco: Never Comments Unknown Sex and Gender Information Value Date Recorded Sex Assigned at Not on file Legal Sex Female 9:37 AM EDT Gender Identity Not on file Sexual Orientation Not on file Occupation Industry Job Start Date Job End Date works in a [employer] Not on file Not on file Not on f ile documented as of this encounter Miscellaneous Notes * Telephone Encounter - Clover Ar - 12/26/2021 11:25 AM EST Shira from [facility] scheduling pt for colonoscopy Per DT, transferred to endoscopy clinic ext [phone] opt 2 documented in this encounter Plan of Treatment Not on file documented as of this encounter Visit Diagnoses Not on filedocumented in this encounter Care Teams Asphalt Screed Operator Relationship Specialty Start Date End Date Timur Chance MD [address] [place] [address] PCP - General 07/16/21 documented as of this encounter
--- OUTSIDE RECORDS SUMMARY | 2025-09-11 07:42 | XMS_ITS | Encounter Summary ---
Author Organization [employer] Address [address] [facility] 7t [place] [address] Care Team Providers Care Spring Layer Name Role Phone Timur Chance MD Primary Care Prov ider Reason for Visit * Reason Onset Date Comments Referral 10/16/2024 Encounter Details Date Type Department Care Team (Late st Contact Info) Description 10/16/2024 Telephone [facility] MEDICINE [address] [place] [address] Timur Chance MD [address] [place] [phone] Referral Social History Tobacco Use Types Packs/Day [...] therapy. If any question contact pt at [phone] documented in this encounter Plan of Treatment Not on file documented as of this encounter Visit Diagnoses Not on filedocumented in this encounter Additional Health Concerns Assessment Noted Time PHQ-9 Depression Total Score: 16 024 12:04 PM EST documented as of this encounter Care Teams Spring Layer Relationship Specialty Start Date End Date Timur Chance MD [address] [place] [address] PCP - General Internal Medicine 10/20/19 documented as of this encounter
--- OUTSIDE RECORDS SUMMARY | 2025-09-11 07:43 | XMS_ITS | Encounter Summary ---
Author Organization [employer] Address [address] [facility] 7t [place] [address] Care Team Providers Care Pvc Monitor Name Role Phone Timur Chance MD Primary Care Prov ider Encounter Details Date Type Department Care Team ([facility] st Contact Info) Description 11/05/2023 Abstract [facility] MED & PEDS [address] [place], [place] [phone] Timur Chance MD [address] [place] [address] Social History Tobacco Use Types Packs/Day Years [...] documented as of this encounter Care Teams Pvc Monitor Relationship Specialty Start Date End Date Timur Chance MD [address] [place] [phone] PCP - General Internal Medicine 10/20/19 documented as of this encounter
--- OUTSIDE RECORDS SUMMARY | 2025-09-11 07:43 | XMS_ITS | Encounter Summary ---
Author Organization [employer] Address [address] [facility] 7t [place] [address] Care Team Providers Care Streetcar Starter Name Role Phone Timur Chance MD Primary Care Prov ider Reason for Visit * Reason Onset Date Comments ER Follow-up 11/09/2023 Nurse Triage 11/09/2023 Encounter Details Date Type Department Care Team (Late st Contact Info) Description 11/09/2023 Telephone [facility] MEDICINE [address] [place] [address] iTmur Chance MD [address] [place] [address] ER Follow-up; Nurse Triage Social History Tobacco [...] 10:56 AM EST Records request faxed to [facility] as requested. * Telephone Encounter - Viky Hooks RN - 11/09/2023 10:00 AM EST Called pt. Via [employer] Int historical interpreter [phone] Aleksandar. Pt. States that she got injured her left hand at her job on 10/31/23 and has pain, swelling, Pt. Went to [facility] ED on 11/07/23. Pt. Had X rays done and pt. Was told that her tendon is injured in her hand. Pt. Has been using pain reliever with no relief. Will send request to have clinical coordinators call [facility] for ED notes and Xrays from 11/07/23 to befaxed to [facility] but, cannot guarantee that results will be sent with same day request. I will also send message to [facility] nurses to at least get Xray results from [facility] Protocol Used: Hand and Wrist [...] soon Reason: Getting worse Pt went to [facility] due to a fall. The caller accepted this outcome Kazakh speaker * Telephone Encounter - Carlos Negrete - 11/09/2023 8:26 AM EST Patient calling to report ED visit on : 11/09 Date: 11/03 Hospital: [facility] Seen for: Hand Patient states is still [...] documented as of this encounter Care Teams Streetcar Starter Relationship Specialty Start Date End Date Timur Chance MD [address] [place] [address] PCP - General Internal Medicine 10/20/19 documented as of this encounter
--- OUTSIDE RECORDS SUMMARY | 2025-09-11 07:43 | XMS_ITS | Encounter Summary ---
Author Organization [employer] Address [address] [facility] 7t [place] [address] Care Team Providers Care Hub Bander Name Role Phone Timur Chance MD Primary Care Prov ider Encounter Details Date Type Department Care Team (Late st Contact Info) Description 11/09/2023 Telephone [facility] MEDICINE [address] [place] [address] Timur Chance MD [address] [place] [address] Social History Tobacco Use Types Packs/Day Years [...] the past 12 months, has t he [employer], gas, oil or water company threatened to [...] documented as of this encounter Care Teams Hub Bander Relationship Specialty Start Date End Date Timur Chance MD [address] [place] [address] PCP - General Internal Medicine 10/20/19 documented as of this encounter
--- OUTSIDE RECORDS SUMMARY | 2025-09-11 07:43 | XMS_ITS | Clinical Summary ---
Author Organization [facility] Address [address] [place] [address] Care Team Providers Care Supervisor Instrument Repair Name Role Phone Unavailable Primary Care Provider [...] 01/20/2023 Dental Prophy 06/16/2025 06/14/2024, 07/16, 01/20/2023 [id number] ( season) 2025 021, 04/16/2021 Imm-Influenza (#1) [...]
--- OUTSIDE RECORDS SUMMARY | 2025-09-11 07:43 | XMS_ITS | Clinical Summary ---
Author Organization [facility] Address [address] [place] [address] Phone Care Team Providers Care Senior Web Engineer Name Role Phone Timur Chance Primary Care [...] 08/14/2025 3:00 PM EDT Consult Gastroenterology - [place] [address] [facility] [address] [facility] [address] [place] [address] Shayla Jones NP Epigastric abdominal pain (Primary Dx); Gastroesophageal reflux disease, unspecified whether esophagitis present; Screening for colorectal cancer; Morbid obesity with BMI of 45.0-49.9, adult ([facility]/HCC V24, [facility]/HCC V28) 08/14/2025 Telephone Gastroenterology - [place] [address] [facility] [address] [place] [address] Shayla Jones NP 08/11/2025 12:59 AM EDT - 08/11/2025 6:50 AM EDT Emergency [facility] Emergency [address] [place] [address] RUQ pain (Primary Dx); Hepatomegaly Discharge Disposition: Home or Self Care from Last 3 Months Medical History Medical History Date Comments Diabetes mellitus ([facility] V24, [facility] V28) Social History Tobacco Use Types [...] Info) Description 10/02/2025 3:00 PM EST Appointment [facility] Endoscopy [address] [place] [address] Shravan Andrade DO [address] [place] [phone] Health Maintenance Due Date Last Done Comments [...] GEMUSE QTc 450 ms GEMUSE P Wave Powell 69 degrees GEMUSE R Powell 16 degrees GEMUSE T Powell 40 degrees GEMUSE ECG Interpretation Normal sinus rhythm Normal ECG When compared with ECG of 11-AUG-2025 01:03, (unconfirmed) No significant change was found Confirmed by VENTURA SUN ([id number]) on 08/12/2025 1:16:05 PM GEMUSE 08/11/2025 4:20 AM EDT 08/12/2025 1:16 PM EDT Willie Smith MD ECG ORDERABLES Final Result Performing Organization Address [facility] de Phone Number GEMUSE * Troponin I high sensitivity (08/11/2025 3:53 AM EDT) Only the most recent of2 resultswithin the time period is included. [facility] High Sensitivity Troponin I 4 <=54 [...] ORDERABLES Final Resu lt Performing Organization Address [facility]/ZIP Co de Phone Number [facility] [address] [place] [address], [place] [phone] * US Abdomen Limited (08/11/2025 3:46 AM [...] MD on 08/11/2025 04:26:06 us Monica Villavicencio RETAIL OFFICE MANAGER IMG US PROCEDURES Final R esult * [...] % LAB HEMETOLOGY METHOD [facility]2025 [facility] Monocytes Relative 6.0 % [...] lt [facility] [address] [place] [address], [place] [phone] * B-type natriuretic peptide (08/11/2025 1:21 AM EDT) Pathologist [facility] BNP 12 <=100 pcg/mL LAB CHEMISTRY METHOD 08/11/2025 2:38 AM EDT [facility] Blood Venous blood specimen / Unknown Venipuncture / Unknown 08/11/2025 1:21 AM EDT 08/11/2025 1:58 AM EDT us Willie Smith MD LAB BLOOD ORDERABLES Final Resu lt Performing Organization Address [facility] Co de Phone Number [facility] [address] [place] [address], [place] [phone] * (ABNORMAL) Magnesium (08/11/2025 1:21 AM EDT) [facility] Magnesium 1.8(L) 1.9 - 2.6 mg/dL LAB CHEMISTRY METHOD 08/11/2025 2:31 AM EDT [facility] Blood Venous blood specimen / Unknown Venipuncture / Unknown 08/11/2025 1:21 AM EDT 08/11/2025 1:58 AM EDT us Willie Smith MD LAB BLOOD ORDERABLES Final Resu lt Performing Organization Address [facility]/ZIP Co de Phone Number [facility] [address] [place] [address], [place] [phone] * Lipase (08/11/2025 1:21 AM EDT) [facility] Lipase 43 13 - 75 unit/L LAB CHEMISTRY METHOD 08/11/2025 2:31 AM EDT [facility] Blood Venous blood specimen / Unknown Venipuncture / Unknown 08/11/2025 1:21 AM EDT 08/11/2025 1:58 AM EDT us Willie Smith MD LAB BLOOD ORDERABLES Final Resu lt [facility] [address] [place] [address], [place] [phone] * (ABNORMAL) Comprehensive metabolic panel (08/11/2025 1:21 [...] lt [facility] [address] [place] [address], from Last 3 Months Additional Health Concerns Active Problems Noted Date Diagnosed Date Autogenerated Problem 08/15/2025 Insurance [employer] Care Teams Senior Web Engineer Relationship Specialty Start Date End Date Timur Chance [address] [place] [address] PCP - General Internal Medicine 08/11/25
--- OUTSIDE RECORDS SUMMARY | 2025-09-11 07:43 | XMS_ITS | Clinical Summary ---
Author Organization [employer] Address [address] [facility] 7t [place] [address] Care Team Providers Care Hyperbaric Technician Name Role Phone Timur Chance MD Primary Care Prov ider Allergies No known active allergies Medications Diclofenac Sodium 1 % gelIndications:Acu te pain of right knee,Sprain of left wrist, initial encounter To apply to the affected area 3 times a day 100 g 4 Active losartan (Cozaar) 50 MG tablet Take 1 tablet (50 mg) by mouth Once per day. 90 tablet 3 5 05/21/20 26 Active atorvastatin (Lipitor) 20 MG tabletIndications: Mixed hyperlipidemia Take 1 tablet (20 mg) by mouth Once per day. 90 tablet 1 5 11/17/19 26 Active omeprazole (PriLOSEC) [address] capsuleIndications :Gastroesophageal reflux disease without esophagitis TAKE ONE CAPSULE EVERY DAY 90 capsule 1 5 Active oxybutynin XL (Ditropan XL) 5 MG 24 hr tablet Take 1 tablet (5 mg) by mouth Once per day. Do not crush, chew, or split. 30 tablet 2 5 08/19/20 25 celecoxib (CeleBREX) 200 MG capsuleIndications :Chronic pain of left ankle Take 1 capsule (200 mg) by mouth 2 times daily. 60 capsule 5 08/30/20 25 Active Problems Problem Noted Date Diagnosed Date [...] send new xray and will refer to [facility] for joint intection Assessment & Plan (10/30/2024 [...] Encounters Date Type Department Care Team Description 09/10/2025 Telephone [facility] MEDICINE [address] [place] [address] Timur Chance MD pre op appt 08/13/2025 Telephone [facility] MED & PEDS [address] [place] [address] Timur Chance MD ER Follow-up 08/13/2025 Orders Only [facility] MED & PEDS [address] [place] [address] Adilson Branch MD 08/07/2025 Refill [facility] MED & PEDS [address] [place] [address] Timur Chance MD Gastroesophageal reflux disease without esophagitis 07/31/2025 2:15 PM EDT Office Visit [facility] MED & PEDS [address] [place] [address] Belgica Munoz MD Chronic pain of left ankle (Primary Dx); Dietary counseling; Exercise counseling; Class 3 severe obesity due to excess calories with serious comorbidity and body mass index (BMI) of 45.0 to 49.9 in adult 07/31/2025 Travel 07/30/[address] [address] Timur Chance MD Nurse Triage 07/30/2025 Telephone [facility] MEDICINE [address] [place] [phone] Timur Chance MD 07/02/2025 11:15 AM EDT Telemedicine [facility] MED & PEDS [address] [place] [address] Timur Chance MD Encounter for screening mammogram for malignant neoplasm of breast (Primary Dx); Cardiomyopathy, unspecified type (CMS/HCC); Type 2 diabetes mellitus without complication in remission; Primary hypertension; Mixed hyperlipidemia; Chronic foot pain, left 07/02/2025 Travel 06/29/2025 Telephone [facility] MED & PEDS [address] [place] [address] Timur Chance MD chart prep from Last [...] URINE W/CREATININE Routine 09/08/2022 8:52 AM EDT [facility] HISTORICAL HPV MRNA E6/E7 Routine 12/05/2019 1:12 PM EST [facility] HISTORICAL HIV AB/AG Routine 10/20/2019 3:01 PM EST from Last 3 Months or Most Recently Relevant to Health Maintenance Results * MR Ankle w/o Contrast Left (09/03/2025 3:15 PM EDT) Anatomical Region Laterality Modality Lower Extremities, Ankle Left Magneti c Resonance 09/03/2025 3:15 PM EDT Narrative 09/04/2025 9:39 AM EDT [place] [address] Magnetic Resonance Report Signed Patient: Delmar Hudson MR#: [id number] 253 : 1975 Acct:[id number] Age/Sex: 50 / F ADM Date: 09/03/25 Loc: HO.MRI Attending Dr: Kelly Dalton PA-C Ordering Physician: Kelly [place] PA-C Date of Service: 09/03/25 Procedure(s): MR ankle LT wo con Accession Number(s): [id number] cc: Timur Chance MD; Kelly Dalton PA-C Reason for Exam: 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 Patient reports 3 years of symptoms, pain. COMPARISON: X-ray 09/03/2025 TECHNIQUE: MRI of the ankle was performed using routine sequences on a high-field scanner. Large zugmc-qq-gezd study, using the Achilles protocol. 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 Patient reports 3 years of symptoms, pain. COMPARISON: X-ray 09/03/2025 TECHNIQUE: MRI of the ankle was performed using routine sequences on a high-field scanner. Large anqak-dj-nfit study, using the Achilles protocol. TECHNIQUE: MRI [...] 09/04/25 0936 DD/ 1515 TD/TT: 09/03/25 1545 Customer Marketing Assistant: TAVARES [facility] External Provider IMG MRI PROCEDURES Edited Result - Final * XR Ankle 3+ Views Left (08/30/2025 10:41 AM EDT) Anatomical Region Laterality Modality Lower Extremities, Ankle Left Radiogr aphic Imaging 08/30/2025 10:4 1 AM EDT Narrative 08/30/2025 11:04 AM EDT [address] [address] XRay Report Signed Patient: Delmar Hudson MR#: [id number] 253 : 1975 Acct:[id number] Age/Sex: 50 / F ADM Date: 08/30/25 Loc: PAOLA Attending Dr: Rylie Bustos DPM Ordering Physician: Rylie Bustos DPM Date of Service: 08/30/25 Procedure(s): XR ankle LT min 3V Accession Number(s): [id number] cc: Timur Chance MD; Rylie Bustos DPM [...] 08/30/25 1101 DD/ 1041 TD/TT: 08/30/25 1045 Customer Marketing Assistant: TAVARES Procedure Note Donotuseinterpreter, Image - 08/30/[address] [address] XRay Report Signed Patient: Delmar HudsonMR#: [id number] 253 : 1975Acct:[id number] Age/Sex: 50 / FADM Date: 08/30/25 Loc: HO.XRAY Attending Dr: Rylie Bustso DPM Ordering Physician: Rylie Bustos DPM Date of Service: 08/30/25 Procedure(s): XR ankle LT min 3V Accession Number(s): [id number] cc: Timur Chance MD; Rylie Bustos DPM [...] 08/30/25 1101 DD/ 1041 TD/TT: 08/30/25 1045 Customer Marketing Assistant: TAVARES [facility] External Provider IMG XR PROCEDURES Edited Result - Final * XR Tibia Fibula 2 Views Left (08/30/2025 10:31 AM EDT) Anatomical Region Laterality Modality Lower Extremities, Lower Leg Left Rad iographic Imaging 08/30/2025 10:3 1 AM EDT Narrative 08/30/2025 11:04 AM EDT [address] [address] XRay Report Signed Patient: Delmar Hudson MR#: [id number] 253 : 1975 Acct:[id number] Age/Sex: 50 / F ADM Date: 08/30/25 Loc: PAOLA Attending Dr: Rylie Bustos DPM Ordering Physician: Rylie Bustos DPM Date of Service: 08/30/25 Procedure(s): XR tibia fibula LT 2V Accession Number(s): [id number] cc: Timur Chance MD; Rylie Bustos DPM [...] 08/30/25 1101 DD/ 1031 TD/TT: 08/30/25 1045 Customer Marketing Assistant: TAVARES Procedure Note Donotuseinterpreter, Image - 08/30/2025 [place] [address] XRay Report Signed Patient: Delmar HudsonMR#: [id number] 253 : 1975Acct:[id number] Age/Sex: 50 / FADM Date: 08/30/25 Loc: PAOLA Attending Dr: Rylie Bustos DPM Ordering Physician: Rylie Bustos DPM Date of Service: 08/30/25 Procedure(s): XR tibia fibula LT 2V Accession Number(s): [id number] cc: Timur Chance MD; Rylie Bustos DPM [...] 08/30/25 1101 DD/ 1031 TD/TT: 08/30/25 1045 Customer Marketing Assistant: TAVARES [facility] External Provider IMG XR PROCEDURES Edited Result - Final * BI Mammogram Screening Tomosynthesis Bilateral (08/15/2025 9:59 AM EDT) Anatomical Region Laterality Modality Breast Bilateral Mammography 08/15/2025 9:59 AM EDT Narrative 08/21/2025 3:02 PM EDT [facility]'[address] [place] [address] Mammography Report Signed Patient: Delmar Hudson MR#: [id number] 253 : 1975 Acct:[id number] Age/Sex: 50 / F ADM Date: 08/15/25 Loc: HO.MAMMO Attending Dr: Timur Hernandez MD Ordering Physician: Timur Chance MD Res ults: 1Negative Date of Service: 08/15/25 Follow Up: 1 Year From Orig inal Mammogram Procedure(s): MM tomosynthesis screening BI Accession Number(s): [id number] cc: Timur Chance MD Reason For Exam: [...] 08/21/25 1459 DD/ 0959 TD/TT: 08/15/25 1002 Customer Marketing Assistant: Procedure Note Donotuseinterpreter, Image - 08/21/2025 [facility] [address] [place] [address] Mammography Report Signed Patient: Delmar HudsonMR#: [id number] 253 : 1975Acct:[id number] Age/Sex: 50 / FADM Date: 08/15/25 Loc: ANKURO Attending Dr: Timur Hernandez MD Ordering Physician: Timur Chance ults: 1Negative Date of Service: 08/15/25Follow Up: 1 Year From Orig inal Mammogram Procedure(s): MM tomosynthesis screening BI Accession Number(s): [id number] cc: Timur Chance MD Reason For Exam: [...] 08/21/25 1459 DD/ 0959 TD/TT: 08/15/25 1002 Customer Marketing Assistant: Timur Hernandez MD IMG BI PROCEDURES Final Result * ECG 12 lead (08/11/2025 8:57 AM EDT) Only the most recent of2 resultswithin the time period is included. Historical Provider ECG ORDERABLES Final Res ult * (ABNORMAL) Hemoglobin A1c (05/25/2025 11:17 AM EDT) Hemoglobin A1c 6.3(H) <6.0 % [facility] Comment:Hemoglobin A1C Refer ence Range Adults: 4.8 - 6.0 % Non diabetic: < 6.0 % Goal: < 7.0 %Additional Action Suggested: > 8.0 %Note: Hemoglobin A1c results are invalid for patients with abnormal amounts of HbF. Blood transfusions may impact the HbA1c concentration in the patient sample. Estimated Average Glucose 134 mg/dL [facility] Comment:eAG = Estimated ave rage glucose which is %A1C expressed asaverage glucose, using the formula of the J4W-BvewsecSqjjjug Glucose study (ADAG), Diabetes Care, Vol.31,#8,Jun. 2007 Blood Venous blood specimen / Unknown 05/25/2025 11:17 AM EDT 05/25/2025 2:41 PM EDT us Timur Hernandez MD LAB BLOOD ORDERABL ES Final Result Performing Organization Address [facility] Co de Phone Number [facility] [address] [place] [phone] * Lipid Panel, Standard (05/25/2025 11:17 AM EDT) Triglycerides 96 <150 mg/dL [facility] Comment:Desirable Triglyceri de: less than 150 mg/dLBorderline High Triglyceride 150-199 mg/dLHigh Triglyceride: 200-499 mg/dLVery High Triglyceride: greater than or equal to 5OO mg/dL Cholesterol 147 <200 mg/dL [facility] Comment:Desirable Cholestero l: less than 200 mg/dLBorderline High Cholesterol: 200-239 mg/dLHigh Cholesterol: greater than 239 mg/dL LDL Cholesterol Calculated 85 <100 mg/dL [facility] Comment:Desirable LDL: less than 100 mg/dLNear Optimal/Above Optimal LDL: 110- 129 mg/dLBorderline High LDL: 130-159 mg/dLHigh LDL: 160-189 mg/dLVery High LDL: greater than or equal to 190 mg/dL HDL Cholesterol 43 >40 mg/dL [facility] Comment:Desirable HDL: great er than 40 mg/dL Note: This HDL assay may give artificially low results in patients with liver disease. Blood Venous blood specimen / Unknown 05/25/2025 11:17 AM EDT 05/25/2025 2:41 PM EDT us Timur Hernandez MD LAB BLOOD ORDERABL ES Final Result Performing Organization Address City/[facility]/ZIP Co de Phone Number [facility] [address] [place] [phone] * Cologuard?? colon cancer screening (10/18/2024 8:40 AM EST) Cologuard Result Negative Negative 10/26/20 5:02 AM EST [facility] (CLIA #:[id number]) Comment: NEGATIVE TEST RESULT. A negative Cologuard [...] He et al, N Engl J Med 2014;370(14):9544-2845) The normal value (reference range) for this assay is negative. COLOGUARD RE-SCREENING RECOMMENDATION: Periodic colorectal cancer screening is an important part of preventive healthcare for asymptomatic individuals at average risk for colorectal cancer. Following a negative Cologuard result, the [place] Cancer Society and U.S. Multi-Society Task Force screening guidelines recommend a Cologuard re-screening interval of 3 years. References: [place] Cancer Society Guideline for Colorectal Cancer Screening: https://www.cancer.org/cancer/uqgcw-itfgmv-eiaegw/qvsxyagqa-pvuwnzesd-vhsvtbk/ac s-rec ommendations.html.; Aki HARGROVE, Fabio RODRIGUES, Oleg GarciaK, Colorectal Cancer Screening: Recommendations for Physicians and Patients from the U.S. Multi-Society Task Force on Colorectal Cancer Screening , Am J Gastroenterology 2017; 112:7517-5136. TEST DESCRIPTION: Composite algorithmic analysis of stool [...] He et al, N Engl J Med 2014;370(14):5128-3496.) Cologuard may produce a false negative or false positive result (no colorectal cancer or precancerous polyp present at colonoscopy follow up). A negative Cologuard test result does not guarantee the absence of CRC or advanced adenoma (pre-cancer). The current Cologuard screening interval is every 3 years. ([place] Cancer Society and U.S. Multi-Society Task Force). Cologuard performance data in a 10,000 patient pivotal study using colonoscopy as the reference method can be accessed at the following location: www.[employer]/results. Additional description of the Cologuard test process, warnings and precautions can be found at www.[employer].larala.com. Stool specimen (specimen) 10/18/2024 8:40 AM EST 10/19/2024 10:55 AM EST Timur Hernandez MD LAB MOLECULAR DIAG NOSTICS ORDERABLES Final Result [facility] (CLIA #:[id number]) [address] [place] [address] [address], * HEPATITIS C AB W/REFL TO HCV [...] a test for HCV RNA (test code 72327) is suggested. For additional information please refer to http://[employer]/faq/YCT07f6 (This link is being provided for informational/ educational purposes only.) 09/08/2022 8:52 AM EDT Timur Hernandez MD HISTORICAL/NON ORD ERABLE LABS Final Result Performing Organization Address [facility] de Phone Number CONVERTED LEGACY LABS * [...] - 275 mg/dL [facility] 09/08/2022 8:52 AM EDT Timur Hernandez MD LAB URINE ORDERABL ES Final Result Performing Organization Address [facility] de Phone Number CONVERTED LEGACY LABS * HPV mRNA E6/E7 (12/05/2019 1:12 PM EST) HPV mRNA E6/E7 Not Detected NOT DETECTED [facility] [employer] [facility] Comment: This test was performed using the APTIMA(R) HPV Assay ([employer] This assay detects E6/E7 viral messenger RNA (mRNA) from 14 high-risk HPV types (16,18,31,33,35,39,45,51, 52,56,58,59,66,68). For additional information please refer to: http://education.[employer]/faq/HTK299u0 (This link is being provided for informational/ educational purposes only.) The analytical performance characteristics of this assay have been determined by [employer] [place], [place]. The modifications have not been cleared or approved by the FDA. This assay has been validated pursuant to the CLIA regulations and is used for clinical purposes. Test Performed by [facility], [employer] [place], [address] [place], [place] Nas Dugan M.D., Ph.D., Director of Laboratories , CLIA [id number] Please note: Effective 07/27/2016, HPV testing will be performed using [employer]'s APTIMA test which targets mRNA. Detecting mRNA instead of DNA, as in older methods, offers significant improvements in specificity. 12/05/2019 1:12 PM EST Aretha Blanco CNM HISTORICAL/NON ORDERABLE LABS Final Result Performing Organization Address [facility]/ZIP Co de Phone Number [facility] [address] * HIV AB/AG (10/20/2019 3:01 PM [...] of detection of this assay. The [employer] HIV Ag/Ab Combo assay result and supplemental assay results should be interpreted in conjunction with the patient's clinical presentation, history and other laboratory results. If the results are inconsistent with clinical evidence, additional testing is suggested to confirm the result. 10/20/2019 3:01 PM EST Timur Hernandez MD HISTORICAL/NON ORD ERABLE LABS Final Result [facility] [address] from Last 3 Months or Most Recently Relevant to Health Maintenance [place] [address] [place] [address] 3 Care Teams Hyperbaric Technician Relationship Specialty Start Date End Date Timur Chance MD [address] [place] [phone] PCP - General Internal Medicine 10/20/19
--- OUTSIDE RECORDS SUMMARY | 2025-09-11 07:43 | XMS_ITS | Encounter Summary ---
Author Organization [employer] Address [address] [facility] 7t [place] [address] Care Team Providers Care Training Associate Name Role Phone Timur Chance MD Primary Care Prov ider Encounter Details Date Type Department Care Team (Late st Contact Info) Description 07/30/2025 Telephone [facility] MEDICINE [address] [place] [address] Timur Chance MD [address] [place] [address] Social History Tobacco Use Types Packs/Day Years [...] documented as of this encounter Care Teams Training Associate Relationship Specialty Start Date End Date Timur Chance MD [address] [place] [phone] PCP - General Internal Medicine 10/20/19 documented as of this encounter
--- OUTSIDE RECORDS SUMMARY | 2025-09-11 07:43 | XMS_ITS | Encounter Summary ---
Author Organization [employer] Address 75 [facility] 7 [place] [address] Care Team Providers Care Metal Filer Name Role Phone Timur Chance MD Primary Care Prov ider Reason for Visit * Reason Onset Date Comments pre op appt 09/10/2025 Encounter Details Date Type Department Care Team ([facility] st Contact Info) Description 09/10/2025 Telephone [facility] MEDICINE [address] [place] [address] Timur Chance MD [address] [place] [phone] pre op appt Social History Tobacco Use Types Packs/Day Years [...] documented as of this encounter Care Teams Metal Filer Relationship Specialty Start Date End Date Timur Chance MD [address] [place] [phone] PCP - General Internal Medicine 10/20/19 documented as of this encounter
--- OUTSIDE RECORDS SUMMARY | 2025-09-11 07:43 | XMS_ITS | Encounter Summary ---
Author Organization [employer] Address [address] [facility] 7t [place] [address] Care Team Providers Care Pediatric Clinical Nurse Specialist Name Role Phone Timur Chance MD Primary Care Prov ider Reason for Visit * Reason Onset Date Comments Referral 08/02/2024 Encounter Details Date Type Department Care Team (Late st Contact Info) Description 08/02/2024 Telephone [facility] MEDICINE [address] [place] [address] Timur Chance MD [address] [place] [phone] Referral Social History Tobacco Use Types Packs/Day [...] regarding PT referral. Please contact pt at [phone]. (Yakut Speaker) documented in this encounter Plan of Treatment Not on file documented as of this encounter Visit Diagnoses Not on filedocumented in this encounter Additional Health Concerns Assessment Noted Time PHQ-9 Depression Total Score: 0 01/10/20 24 11:02 AM EST documented as of this encounter Care Teams Pediatric Clinical Nurse Specialist Relationship Specialty Start Date End Date Timur Chance MD [address] [place] [phone] PCP - General Internal Medicine 10/20/19 documented as of this encounter
--- OUTSIDE RECORDS SUMMARY | 2025-09-11 07:43 | XMS_ITS | Encounter Summary ---
Author Organization [employer] Address [address] [facility] 7[address] [place] [address] Care Team Providers Care Museum Security Chief Name Role Phone Timur Chance MD Primary Care Prov ider Encounter Details Date Type Department Care Team (Late st Contact Info) Description 08/13/2025 Orders Only [facility] [address] [place] [address] ProviderAidlson MD Social History Tobacco Use Types Packs/Day [...] PM EDT Narrative 09/04/2025 9:39 AM EDT [place] [address] Magnetic Resonance Report Signed Patient: Delmar Hudson MR#: [id number] 253 : 1975 Acct:[id number] Age/Sex: 50 / F ADM Date: 09/03/25 Loc: HO.MRI Attending Dr: Kelly Dalton PA-C Ordering Physician: Kelly Dalton PA-C Date of Service: 09/03/25 Procedure(s): MR ankle LT wo con Accession Number(s): [id number] cc: Timur Chance MD; Kelly Dalton PA-C Reason for Exam: 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 Patient reports 3 years of symptoms, pain. COMPARISON: X-ray 09/03/2025 TECHNIQUE: MRI of the ankle was performed using routine sequences on a high-field scanner. Large kryyl-md-zciv study, using the Achilles protocol. 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 Patient reports 3 years of symptoms, pain. COMPARISON: X-ray 09/03/2025 TECHNIQUE: MRI of the ankle was performed using routine sequences on a high-field scanner. Large bifgc-vm-xlxo study, using the Achilles protocol. TECHNIQUE: MRI [...] 09/04/25 0936 DD/ 1515 TD/TT: 09/03/25 1545 Diesel Trailer Mechanic: TAVARES us [facility] External Provider IMG MRI PROCEDURES Edited Result - Final * XR Ankle 3+ Views Left (08/30/2025 10:41 AM EDT) Anatomical Region Laterality Modality Lower Extremities, Ankle Left Radiogr aphic Imaging 08/30/2025 10:4 1 AM EDT Narrative 08/30/2025 11:04 AM EDT [address] [address] XRay Report Signed Patient: Delmar Hudson MR#: [id number] 253 : 1975 Acct:[id number] Age/Sex: 50 / F ADM Date: 08/30/25 Loc: PAOLA Attending Dr: Rylie Bustos DPM Ordering Physician: Rylie Bustos DPM Date of Service: 08/30/25 Procedure(s): XR ankle LT min 3V Accession Number(s): [id number] cc: Timur Chance MD; Rylie Bustos DPM [...] 08/30/25 1101 DD/ 1041 TD/TT: 08/30/25 1045 Diesel Trailer Mechanic: TAVARES Procedure Note Donotuseinterpreter, Image - 08/30/2025 [place] [address] XRay Report Signed Patient: Delmar HudsonMR#: [id number] : 1975Acct:[id number] Age/Sex: 50 / FADM Date: 08/30/25 Loc: PAOLA Attending Dr: Rylie Bustos DPM Ordering Physician: Rylie Bustos DPM Date of Service: 08/30/25 Procedure(s): XR ankle LT min 3V Accession Number(s): [id number] cc: Timur Chance MD; Rylie Bustos DPM Reason for Exam: M25.572 - Pain in left ankle and joints of left foot EXAMINATION: XR ANKLE, LEFT X-ray tibia fibula, left CLINICAL INFORMATION: S9.839Q - Unspecified injury of left ankle, initial [...] 08/30/25 1101 DD/ 1041 TD/TT: 08/30/25 1045 Diesel Trailer Mechanic: TAVARES [facility] External Provider IMG XR PROCEDURES Edited Result - Final * XR Tibia Fibula 2 Views Left (08/30/2025 10:31 AM EDT) Anatomical Region Laterality Modality Lower Extremities, Lower Leg Left Rad iographic Imaging 08/30/2025 10:3 1 AM EDT Narrative 08/30/2025 11:04 AM EDT [place] [address] XRay Report Signed Patient: Delmar Hudson MR#: [id number] 253 : 1975 Acct:[id number] Age/Sex: 50 / F ADM Date: 08/30/25 Loc: HO.SRINIAY Attending Dr: Rylie Bustos DPM Ordering Physician: Rylie Bustos DPM Date of Service: 08/30/25 Procedure(s): XR tibia fibula LT 2V Accession Number(s): [id number] cc: Timur Chance MD; Rylie Bustos DPM [...] 08/30/25 1101 DD/ 1031 TD/TT: 08/30/25 1045 Diesel Trailer Mechanic: TAVARES Procedure Note Donotuseinterpreter, Image - 08/30/2025 [place] [address] XRay Report Signed Patient: Delmar HudsonMR#: [id number] 253 : 1975Acct:[id number] Age/Sex: 50 / FADM Date: 08/30/25 Loc: PAOLA Attending Dr: Rylie Bustos DPM Ordering Physician: Rylie Bustos DPM Date of Service: 08/30/25 Procedure(s): XR tibia fibula LT 2V Accession Number(s): [id number] cc: Timur Chance MD; Rylie Bustos DPM [...] 08/30/25 1101 DD/ 1031 TD/TT: 08/30/25 1045 Diesel Trailer Mechanic: TAVARES [facility] External Provider IMG XR PROCEDURES Edited [...] documented as of this encounter Care Teams Museum Security Chief Relationship Specialty Start Date End Date Timur Chance MD [address] [place] [id number] PCP - General Internal Medicine 10/20/19 documented as of this encounter
[2025-09-24 08:26] VITALS: BMI 48.6
--- NOTE | 2025-09-25 12:13 | P.CONAN_ITS ---
Documented by User: Sarah Bear NP 09/26/25 10:56 HPI - Anesthesia Eval Consult details Narrative: 50 yr old female for left Excision Bone Spur (Chelsea's defprmity), Achilles Tendon Morbid obesity: BMI 49 Seen at [facility] ED for right upper quadrant pain 08/11/25, had low magnesium (1.8), troponin, EKG were unremarkable; abd US showed hepatomegaly, hepatic steatosis, otherwise normal. Saw PCP 09/21/25 for preop clearance; PCP aware of [facility] ED visit. Cleared pt for foot surgery, stating recent labs & EKG were normal. [facility] Active Problems Active Problems: All Active Problems Preoperative examination (Acute) Rupture of left Achilles tendon (Acute) Chelsea's deformity of left heel (Acute) Left ankle injury (Acute) Other enthesopathy of left foot and ankle (Acute) Left ankle pain (Acute) Past Medical History Medical History (Updated 09/26/25 @ 10:17 by Karol Parry RN) Venous insufficiency (chronic) (peripheral) Lymphedema Obesity, Class III, BMI 40-49.9 (morbid obesity) Type 2 diabetes mellitus GERD (gastroesophageal reflux disease) HTN (hypertension) Preoperative examination Rupture of left Achilles tendon Chelsea's deformity of left heel Left ankle injury Other enthesopathy of left foot and ankle Left ankle pain Surgical History Surgical History (Updated 09/26/25 @ 09:56 by Karol Parry, KIT) Hx of hysterectomy (1999) Social History Social History Patient Tobacco Use Status: Never used Tobacco Use of substances other than those prescribed or required for medical reasons: No Are you DNR?: No Advance Directives: No Advance Directives Information Provided: Yes Patient : No : No Meds Allergies Allergy/AdvReac Type Severity Reaction Status Date / Time No Known Allergies Allergy Verified 09/07/25 10:50 Home Medications ?Medication ?Instructions ?Recorded ?Confirmed ?Last Taken ?Type atorvastatin 20 mg tablet 20 mg PO DAILY 08/29/2509/15 Unknown History losartan 50 mg tablet 50 mg PO DAILY 08/29/2509/15 Unknown History phenazopyridine 200 mg tablet 200 mg PO TID 08/29/25 1 11/26/24 Unknown History acetaminophen 500 mg tablet 500 mg PO Q6H PRN Pain 11/0809/26/25 Unknown History omeprazole 20 mg capsule,delayed 20 mg PO DAILY 09/26/25 Unknown History release Exam Pertinent Lab Results Pertinent Lab Results: Laboratory Tests 05/25/25 11:17 WBC 10.9 H RBC 4.58 Hgb 11.9 L Hct 37.0 Plt Count 293 Sodium 140 Potassium 3.9 BUN 14 Creatinine 0.53 Labs at [facility] 08/11/25 Sodium 142 Potassium 4.0 Glucose 126 BUN 13 Creat 0.91 WBC 14.7 RBC 4.60 Hgb 11.8 Hct 28.4 Platelets 295 Narrative Narrative: EKG 08/11/25 NSR, rate 87 Documented by User: Timur Fatima MD 09/28/25 16:00 [facility] Past Medical History Medical History (Updated 09/26/25 @ 10:17 by Karol Parry RN) Venous insufficiency (chronic) (peripheral) Lymphedema Obesity, Class III, BMI 40-49.9 (morbid obesity) Type 2 diabetes mellitus GERD (gastroesophageal reflux disease) HTN (hypertension) Preoperative examination Rupture of left Achilles tendon Chelsea's deformity of left heel Left ankle injury Other enthesopathy of left foot and ankle Left ankle pain Family History Family history of problems with anesthesia: No Surgical History Surgical History (Updated 09/26/25 @ 09:56 by Karol Parry, KIT) Hx of hysterectomy (1999) History of Problems with Anesthesia: No Social History Social History Patient Tobacco Use Status: Never used Tobacco Use of substances other than those prescribed or required for medical reasons: No Are you DNR?: No Advance Directives: No Advance Directives Information Provided: Yes Patient : No : No Meds Allergies Allergy/AdvReac Type Severity Reaction Status Date / Time No Known Allergies Allergy Verified 09/07/25 10:50 Home Medications ?Medication ?Instructions ?Recorded ?Confirmed ?Last Taken ?Type atorvastatin 20 mg tablet 20 mg PO DAILY 08/29/2509/15 Unknown History losartan 50 mg tablet 50 mg PO DAILY 08/29/2509/15 Unknown History phenazopyridine 200 mg tablet 200 mg PO TID 08/29/25 1 11/26/24 Unknown History acetaminophen 500 mg tablet 500 mg PO Q6H PRN Pain 11/0809/26/25 Unknown History omeprazole 20 mg capsule,delayed 20 mg PO DAILY 09/26/25 Unknown History release Exam Exam Date and Time: 09/28/2025 Airway Mallampati Class: III TM Dist: >3cm Neck ROM: Full Heart: rrr Lungs: tab vesicular Assessment and Plan Assessment Anesthesia Assessment: Anesthesia Plan Discussed and Chart Reviewed Final Anesthetic Review Family History of Problems with Anesthesia: No History of Problems with Anesthesia: No NPO: Yes ASA Class: III Final Preanesthetic Review: No Changes in Pt Med Stat, Meds/Allgs Chart Reviewed, Consent Obtained/Reviewed and Anes Risks/Benef Reviewed Patient Risk: Low Procedure Risk: Low Anesthetic Plan Anesthetic Plan: GA and Regional Block Disposition: Standard PACU
[2025-09-26 10:08] VITALS: BMI 49.6
[2025-09-28] VITALS (14 sets, daily range): BP systolic 115–142; BP diastolic 67–87; PULSE 75–86; RESP 14–32; TEMP 36.1–36.6; O2SAT 94–99
--- NOTE | ~2025-09-28 | XR_ITS ---
EXAMINATION: XR ANKLE, LEFT CLINICAL INFORMATION: S/P left Chelsea's resection COMPARISON: 08/30/2025 TECHNIQUE: AP, lateral, and mortise views of the left ankle. FINDINGS: Ankle mortise is congruent. There is no widening of the syndesmosis. Talar dome is intact. Ossification in the distal Achilles tendon at the calcaneal attachment has been resected. XR/XR ankle LT min 3V IMPRESSION: Resection of distal Achilles enthesophyte. Electronically signed by: Von Lee MD 09/28/2025 05:24 PM EST
--- NOTE | ~2025-09-28 | FL_ITS ---
EXAMINATION: Fluoroscopy ankle CLINICAL INFORMATION: Achilles tendon repair COMPARISON: MRI 09/03/2025 TECHNIQUE: Fluoroscopy the operating room. Dose: 8.8 my Time: 5.1 minutes Images: 4 FINDINGS: Fluoroscopy provided in the operating room. There are postsurgical changes seen along the posterior superior calcaneus. FL/FL guidance in OR IMPRESSION: Fluoroscopy provided in the operating room. See surgical report for details. Electronically signed by: Merlin Zeng MD 09/28/2025 04:34 PM YADY
[2025-09-28] MEDS: Lactated Ringers 1,000 ML 100 ML IVCONT (08:32)
--- NOTE | 2025-09-28 10:23 | PC.NURSE ---
PATIENT CONTINUES TO SLEEP. AWAITING FOR PROCEDURE.
--- NOTE | 2025-09-28 11:28 | PC.NURSE ---
PATIENT ASSISTED TO BATHROOM VIA WHEELCHAIR. [employer] CALLED AND AWARE FO THE DELAY DUE TO A RPIOR SURGERY LIV LONGER THAN EXPECTED. NO COMPLAINTS. ELEVATED LEFT FOOT.
--- NOTE | 2025-09-28 15:59 | P.BOP_ITS ---
Brief Operative Note Date of Service: 09/28/25 Pre-op diagnosis: Left Chelsea's deformity, Insertional Achilles Tendinopathy, and Partial Rupture of Achilles Tendon Post-op diagnosis: same Procedure: Left chelsea's deformity and insertional calcaneal spur resection, Extensive debridement of Achilles tendon, and Secondary repair of Achilles tendon with Platelet rich plasma Implants: Arthrex Speed Bridge system Surgeon: Rylie Bustos DPM Anesthesia: GLMA Was an Analyst Geochemical Prospecting used for this Procedure?: Yes Analyst Geochemical Prospecting: Mahendra Elizondo Estimated blood loss (mL): 10 Pathology: none sent Condition: stable Disposition: PACU Complications (if any): None
--- NOTE | 2025-09-28 16:07 | W.PM.OPN ---
Operative Note Operative Note Date of Service: 09/28/25 Narrative: Procedure: Left foot resection of chelsea's deformity, extensive debridement of Achilles Tendon, secondary repair of Achilles Tendon with hardware, and platelet rich plasma implantation Indications: The patient is a 50-year-old female with the above diagnoses. The patient has exhausted conservative treatment at this time and now requests surgical intervention. The patient signed the consent after careful explanation of risks, benefits, complications, and alternatives for surgical procedure. No guarantees were given nor implied. NPO status was confirmed prior to taking the patient to the OR. Preparation: The patient was brought into the operating room and was placed on the operating room table in a prone position. A thigh pneumatic tourniquet was applied to the left lower extremity in the supra patellar position and was inflated to 375 mmHg prior to the start of the case. Once anesthesia was achieved, time-out was performed, and the right lower extremity was prepped and draped usual sterile manner and the procedure began. Patient received 2 g of IV Ancef. Patient received 10 cc of a 1:1 mix of 1% lidocaine plain and 0.5% Marcaine plain intraoperatively. Patient received 10 cc of 0.5% Marcaine plain postoperatively. Procedure Description: Attention was directed to the posterior aspect of the left heel where a palpable bony prominence was noted. A small approximately 3 mm incision was created to the medial aspect of the Achilles tendon over the area of maximal tendon degeneration under ultrasound guidance. Next a debrider was inserted into the incision where debridement of the Achilles tendon was performed. Pathologic, mucoid, and degenerative tendon fibers were identified and removed using controlled ultrasonic cutting and aspiration until healthy robust tendon fibers were visualized. The surgical site was irrigated and closure was obtained using 4-0 Prolene. Next, intraoperative fluoroscopy was utilized to create two proximal and two distal stab incisions to the left heel at the 2, 5, 7, and 10 o'clock positions. Next the projected plane of resection of the posterior and posterosuperior calcaneal prominences were drawn with the most distal extent starting at the distal portals. Next, a Aberdeen elevator was used to create a plane between the Achilles tendon and calcaneal tuberosity at each portal site in order to free up Achilles tendon from the calcaneus. Next a Sarabjit elevator was used to create a plane between the skin and Achilles tendon through each portal site. Next, the 4.3 mm MAS conical bur was introduced deep to the Achilles tendon through the distal medial portal and resection of the Chelsea's deformity and bony prominences noted to the calcaneus was achieved under fluoroscopic guidance until a smooth contour was achieved. Adequate resection was confirmed through intraoperative fluoroscopy. Next, under fluoroscopic guidance, the 1.35 mm K-wires for the 3.9 mm BioComposite SwiveLock anchor was drilled through the distal portals using fluoroscopic guidance. Next the 3.9 mm SwiveLock drill guide and a 2.6 mm cannulated drill were inserted into the distal portals. The 3.9 mm cannulated tap was used to tap over the K-wires. Next, the 2.6 mm FiberTak guide an obturator was used to guide placement of the 2.6 mm FiberTak anchors in the proximal pilot submersible holes. The 2.6 mm drill was used to drill the proximal pilot submersible holes and the 2.6 mm knotless FiberTak anchors were inserted into the proximal pilot submersible holes. A mallet was used to insert the FiberTak anchors. The FiberTape sutures were then passed through the proximal pilot submersible holes to create a crossed and secured configuration in the Achilles tendon. Next a 3.9 mm BioComposite SwiveLock anchor was utilized to pull 2 ends of the FiberTape suture through the eyelet and was inserted into the distal pilot submersible holes. Using a mallet the anchor was inserted and twisting of the anchor handle continued until the anchor was 2 mm countersunk in the pilot submersible holes. The sutures were tensioned to secure a low-profile speed bridge construct achieving a broad 4 anchor footprint compression of the Achilles tendon onto the calcaneus. Excellent tendon apposition and stability was observed and plantar flexion of the ankle was noted upon Coulter testing. The surgical sites were then copiously irrigated with sterile saline. The surgical incisions were closed using 3-0 Vicryl and 4-0 Prolene. Approximately 50 mL of the patient's venous blood was drawn NSAIDs refused per manufacture guidelines. A total of approximately 3 mL of PRP was obtained. PRP was injected and layered directly over the Achilles tendon repair site and within the debrided Achilles tendon to enhance biologic healing. Next jump start antimicrobial wound dressing was applied to the surgical site. 4 x 4 gauze, an ABD, and Fe was applied to the surgical site. Next cast padding and a six-inch Jose Alberto bandage was applied to the left lower extremity with the ankle in slight plantar flexion in a CAMboot with heel lifts. Post-operative Condition: The patient tolerated the anesthesia and procedure well and was escorted to the recovery room with vital signs stable and neurovascular status intact to the left lower extremity. The patient is to be nonweightbearing to the left lower extremity with the use of an assistive device. The patient is to be discharged when criteria has been met and is to follow-up in my office within 1 week.
[2025-09-28] MEDS: oxyCODONE HCl Immed Release 5 MG TABLET PO (17:44)
== END 2025-09-28 18:28 | disposition home or self-care (01) ==
PROVIDERS: PCP Internal Medicine; Visit Provider Student in an Organized Health Care Education/Training Program
PROC: (CPT 28118; principal; 2025-09-28 09:20)
PROC: (CPT 27650; 2025-09-28 09:20)
DX: S86.012A Strain of left Achilles tendon, initial encounter (principal); S99.912A Unspecified injury of left ankle, initial encounter; M76.62 Achilles tendinitis, left leg; M77.52 Other enthesopathy of left foot and ankle; G89.29 Other chronic pain; M25.572 Pain in left ankle and joints of left foot; M93.872 Other specified osteochondropathies, left ankle and foot; M77.32 Calcaneal spur, left foot; R26.89 Other abnormalities of gait and mobility; X58.XXXA Exposure to other specified factors, initial encounter; Y93.9 Activity, unspecified; Y92.9 Unspecified place or not applicable; Y99.9 Unspecified external cause status; E11.9 Type 2 diabetes mellitus without complications; I10 Essential (primary) hypertension; K21.9 Gastro-esophageal reflux disease without esophagitis; Z79.899 Other long term (current) drug therapy; Z99.89 Dependence on other enabling machines and devices; Z90.710 Acquired absence of both cervix and uterus
CPT/HCPCS: 28118; 27654; 73610; 86850; 86900; 86901; C1713; J0131; J0665; J0690; J1100; J1171; J2003; J2250; J2371; J2405; J2704; J3010

== ENCOUNTER → 2025-09-28 07:01 | Outpatient (BNV) | payer OTHER, SELFPAY | PROVIDERS: PCP Internal Medicine; Visit Provider Student in an Organized Health Care Education/Training Program | DX: S86.012A Strain of left Achilles tendon, initial encounter (principal); M92.62 Juvenile osteochondrosis of tarsus, left ankle | CPT/HCPCS: 27650; 28118 ==

== ENCOUNTER → 2025-09-28 16:23 | Outpatient (BNV) | payer OTHER, SELFPAY | PROVIDERS: PCP Internal Medicine; Visit Provider Radiology Diagnostic Radiology | DX: M76.62 Achilles tendinitis, left leg (principal) | CPT/HCPCS: 73610 ==

== ENCOUNTER 2025-10-08 10:21 | Outpatient (AMB) | payer OTHER, SELFPAY ==
--- OUTSIDE RECORDS SUMMARY | 2025-09-12 05:30 | XMS_ITS | Continuity of Care Document ---
Author Organization [facility] Address [address] [place] [address] Phone Care Team Providers Care Business Performance Advisor Name Role Phone Braulio CASTELLANOS, RVPatience, DELIA, [...] Mins- [place] & [place] [facility], [address] [place] [address] Dr Cotton 1000[facility] Latonya Reyes MD, [id number], tel:[phone] [facility] Type 2 diabetes mellitus without complications Obesity, class 3Obesity, Class 3Essential (primary) hypertensionV enous insufficiency (chronic) (peripheral)L ymphedema, not elsewhere classifiedHer editary lymphedemaChr onic venous hypertension (idiopathic) with other complications of bilateral lower extremityPain in left lower leg Oct-2 5 Braulio CASTELLANOS RVT, RPVI Robert. [address] [place] [address], [place], [place], [id number] , [place]. tel:[phone] Referring Provider: Timur Hernandez[address], [address]. tel:[phone] [facility], [address] [place] [address] Dr Cotton 1000Latonya ta MD, [id number], [place] tel:[phone] [facility] Chronic venous hypertension (idiopathic) with other complications of bilateral lower extremity Oct-2 5 Braulio CASTELLANOS RVT, RPVI Robert. [address] [place] [address], [place], [place], [id number] , [place]. tel:[phone] Referring Provider: Timur Hernandez[address], [address]. tel:[phone] [facility], [address] [place] [address] Dr Cotton 1000SuLatonya ta MD, [id number], [place] tel:[phone] CVR - [place] Encounter for follow-up examination after completed treatment for conditions other than malignant neoplasmChron ic venous hypertension (idiopathic) with other complications of left lower extremity Oct-0 5 Braulio CASTELLANOS RVT, RPVI Robert. [address] [place] [address], [place], [place], [id number] , [place]. tel: [phone] Referring Provider: Timur Hernandez, [address] [place] [address], [address]. tel:[phone] [facility], [address] [place] [address] Dr Cotton 1000[facility] [place]a Reyes [place], [id number], [place] tel:[phone] CVR - [place] Encounter for follow-up examination after completed treatment for conditions other than malignant neVaricose veins of left lower extremity with pain Sep-2 5 Braulio CASTELLANOS RVT, RPVI Robert. [address] [place] [address], [place], [place], [id number] , [place]. tel: [phone] Referring Provider: Timur Hernandez, [address] [place] [address], [address]. tel:[phone] [facility], [address] [place] [address] Dr Cotton 1000SuLatonya ta MD, [id number], [place] tel:[phone] CVR - [place] Varicose veins of left lower extremity with other complications Sep-2 5 Braulio CASTELLANOS RVT, RPVI Robert. [address] [place] [address], [place], [place], [id number] , [place]. tel: [phone] Referring Provider: Timur Hernandez, [address] [place] [address], [address]. tel:[phone] [facility], [address] [place] [address] Dr Cotton 1000SuLatonya ta MD, [id number], [place] tel:[phone] CVR - [place] Varicose veins of left lower extremity with other complications Sep- 5 Braulio CASTELLANOS RVT, RPVI Robert. [address] [place] [address], [place], [place], [id number] , [place]. tel: [phone] Referring Provider: Timur Hernandez, [address] [place] [address], [address]. tel:[phone] [facility], [address] [place] [address] Dr Cotton 1000[facility] 1000[place], [id number], tel:[phone] CVR - [place] - [place] No Information Sep-1 5 Braulio CASTELLANOS RVT, RPVI Robert. [address] [place] [address], [place], [place], [id number] , [place]. tel: [phone] Referring Provider: Timur Hernandez, [address] [place] [address], [address]. tel:[phone] [facility], [address] [place] [address] Dr Cotton 1000[place] [address]Latonya [place], [id number], [place] tel:[phone] CVR - [place] - [place] Encounter for follow-up examination after completed treatment for conditions other than malignant neoplasmPain in right lower leg Sep- 5 Braulio CASTELLANOS RVT, RPVI Robert. [address] [place] [address], [facility], [place], [id number] , [place]. tel: [phone] Referring Provider: Timur Hernandez, [address] [place] [address], [address]. tel:[phone] [place] [facility], [address] [place] [address] [facility] 1000Suite 1000Lat[place]a [place], [id number], [place] tel:[phone] CVR - [place] Encounter for follow-up examination after completed treatment for conditions other than malignant neoplasmChron ic venous hypertension (idiopathic) with other complications of right lower extremity Sep-1 5 Braulio CASTELLANOS RVT, RPVI Robert. [address] [place] [address], [place], [place], [id number] , [place]. tel: [phone] Referring Provider: Timur Hernandez, [address] [place] [address], [address]. tel:[phone] [facility], [address] [place] [address] Dr Cotton 1000SuLatonya ta MD, [id number], [place] tel:[phone] CVR - [place] Varicose veins of right lower extremity with other complications Sep-1 5 Braulio CASTELLANOS RVT, RPVI Robert. [address] [place] [address], [place], [place], [id number] , [place]. tel:[phone] Referring Provider: Timur Hernandez[address], [address]. tel:[phone] [place] [facility], [address] [place] [address] Dr Cotton 1000SuLatonya ta MD, [id number], [place] [phone] CVR - [place] - [place] Varicose veins of right lower extremity with other complications Sep-0 5 Braulio CASTELLANOS RVT, DELIA Ware. [address] [place] [address], [id number] , [place]. tel:[phone] Referring Provider: Timur Hernandez[address], [address]. tel:[phone] [facility], [address] [place] [address] Dr Cotton 1000SuLatonya ta MD, [id number], [place] tel:[phone] CVR - [place] - [place] No Information 5 Braulio CASTELLANOS RVT, RPVI Robert. [address] [place] [address], [place], [place], [id number] , [place]. tel:[phone] Offic/outpt E&m Estab 5 Min Trial- Telemedicine [place] & [place] [facility], [address] [place] [address] Dr Cotton 1000SuLatonya ta MD, [id number], [place] tel:[phone] CVR - [place] Localized edemaCramp and spasmRestless legs syndromeVenou s insufficiency (chronic) (peripheral)T ype 2 diabetes mellitus without complications Essential (primary) hypertensionL ymphedema, not elsewhere classifiedHer editary lymphedema Jun-0 5 Braulio CASTELLANOS RVT, RPVI Robert. [address] [place] [address], [place], [place], [id number] , [place]. [phone] Referring Provider: Timur Hernandez, [address] [place] [address], [address]. tel:[phone] Office/Outpt E&M Established 10 Mins- [place] & [place] [facility], [address] [place] [address] Dr Cotton 1000[address] 1000Lat[place]a MD, [id number], [place] tel:[phone] CV - [facility] Chronic venous hypertension (idiopathic) without complications of bilateral lower extremity Braulio CASTELLANOS RVT, DELIA Ware. [address] [place] [address], [place], [place], [id number] , [place]. [phone] Referring Provider: Timur Hernandez, [address] [place] [address], [address]. tel:[phone] Offic Cons New/estab Mod 40 Mi- CT & [place] [facility], [address] [place] [address] Dr Cotton 1000[address] 1000Lat[place]a MD, [id number], [place] tel:[phone] CVR - [facility] Varicose veins of bilateral lower extremities with other complications Pain in right legPain in left legType 2 diabetes mellitus without complications Restless legs syndromeEssen tial (primary) hypertensionV enous insufficiency (chronic) (peripheral)L ymphedema, not elsewhere classifiedHer editary lymphedemaCra mp and spasmLocalize d edema Feb- 5 Braulio CASTELLANOS RVT, DELIA Ware. [address] [place] [address], [place], [place], [id number] , [place]. [phone] Referring Provider: Timur Hernandez, [address] [place] [address], [address]. tel:[phone] [place] [facility], [address] [place] [address] Dr Cotton 1000[address] 1000Lat[place]a [place], [id number], [place] tel:[phone] CVR [facility] Chronic venous hypertension (idiopathic) with other complications of bilateral lower extremity Apr-3 202 5 Braulio CASTELLANOS, RVT, DELIA Ware. [address] [facility], [address], [place], [place], [id number] , [place]. tel:[phone] Referring Provider: Timur Hernandez, [address] , [place], [address]. tel:[phone] Family History Family Member Type Diagnosis Age At Onset No Information Payers Payer name Insurance type Covered republican ID Dolores sun[facility] [id number] Social History Type Description Quantity Date Captured [...] Information Instructions Date Instruction Additional Infor mation Diet education Related to Body mass index (BMI) 45.0-49.9, adult Giving Encouragement to exercise Related to Body mass index (BMI) 45.0-49.9, adult Lifestyle education Related to B lita mass index (BMI) 45.0-49.9, adult Compression stocking usage as conservative measure Related to Chronic venous hypertension (idiopathic) with other complications of bilateral lower extremity Patient education booklet given Related to Chronic venous hypertension (idiopathic) with other complications of bilateral lower extremity Patient education booklet given Related to Localized edema Pre and post instruc tions reviewed and provided Related to Localized edema Diet education Related to Body mass index [...]
--- NOTE | 2025-10-08 10:44 | A.OFFVIS_ITS ---
Vital Signs 10/08/25 10:45 Height 5 ft 1 in Weight 262 lb BMI 49.5 Intake Visit Reasons: post op Intake Note: Delmar is a 50 year old female who presents today for her post op appointment. Patient reports she is experiencing cramping, pain, and numbness in her feet. Museum Registrar Required: Yes Museum Registrar Services: Museum Registrar Present Museum Registrar Name: [id number] Allergies No Known Allergies Allergy (Verified 10/08/25 10:47) Medication List - Last Reconciled 10/08/25 by Rylie Bustos DPM acetaminophen 500 mg PO Q6H PRN atorvastatin 20 mg PO DAILY ibuprofen 600 mg PO Q6H PRN [knee scoorter As directed - patient will need scooter until 01/13/26. ] losartan 50 mg PO DAILY omeprazole 20 mg PO DAILY oxycodone-acetaminophen 5-325 mg (Percocet) 1 - 2 tabs PO Q4-6H PRN phenazopyridine 200 mg PO TID HPI Comments Details: The patient is a 50-year-old female presenting for a follow up S/P Left chelsea's deformity and insertional calcaneal spur resection, Extensive debridement of Achilles tendon, and Secondary repair of Achilles tendon with Platelet rich plasma (DOS: 09/28/25). Patint was seen in the surgical dressing with her CAMboot and was nonweightbearing to the LLE with the use of a knee scooter. Patient was accompanied by a family member. Patient states she experiences intermittent tingling to the LLE. Patient states she sometimes experiences cramping that is intermittent. She also states pain to the surgical site. She states she has taken the Ibuprofen and Percocet prn for pain with relief. She denies any new pedal concerns. She denies any N/V/F/C. [facility] Medical History (Updated 09/26/25 @ 10:17 by Karol Parry RN) Venous insufficiency (chronic) (peripheral) Lymphedema Obesity, Class III, BMI 40-49.9 (morbid obesity) Type 2 diabetes mellitus GERD (gastroesophageal reflux disease) HTN (hypertension) Preoperative examination Rupture of left Achilles tendon Chelsea's deformity of left heel Left ankle injury Other enthesopathy of left foot and ankle Left ankle pain Surgical History (Updated 09/26/25 @ 09:56 by Karol Parry RN) Hx of hysterectomy (1999) Social History Comment: medicated Patient Tobacco Use Status: Never used Tobacco Review of Systems Const Details: - Musculoskeletal: Reports intermittent cramping to the LLE and pain to the surgical site. - Neurological: Reports tingling to the LLE. , cramping in the foot All systems reviewed & are unremarkable except as noted in HPI and below Physical Exam Vital Signs: BMI result Body Mass Index 49.5 Extrem Other: LLE Focused Physical Exam: Derm: Surgical site noted to be intact with no maceration. Sutures intact. No erythema or discoloration noted. Post surgical edema noted to the posterior aspect of the heel and ankle. Skin supple and turgor WNL. No clinical signs of infection noted. No active bleeding, purulence, or drainage noted. Vasc: DP/PT pulses palpable. CFT < 3 secs. Temp gradient warm to warm. Pedal hair present. Telangectasias noted. Neuro: Protective sensations grossly intact. MSK: Pain on palpation to the surgical aspect of the heel. No crepitus or fluctuance noted. Limited ROM of the hindfoot and ankle due to guarding from pain. Patient is able to wiggle her toes. Patient is NWB with the use of the knee scooter. Office Procedures AMB Podiatry Dressing Details of Procedure: Applied betadine soaked 4x4 gauze, melba, a stockinet, cast padding, and DANIEL bandage to the LLE with the use of the CAMboot. 11831 - Short leg splint Procedure code (CPT) selection complete Results Reviewed Results Reviewed: Post-op left ankle xray (09/28/25): FINDINGS: Ankle mortise is congruent. There is no widening of the syndesmosis. Talar dome is intact. Ossification in the distal Achilles tendon at the calcaneal attachment has been resected. IMPRESSION: Resection of distal Achilles enthesophyte. Intra-op fluoroscopy (09/28/25): FINDINGS: Fluoroscopy provided in the operating room. There are postsurgical changes seen along the posterior superior calcaneus. IMPRESSION: Fluoroscopy provided in the operating room. See surgical report for details. Podiatry read of left ankle MRI (09/03/2025): Partial rupture of Achilles tendon noted with Chelsea's deformity noted. ATFL sprain noted. OCD lesion noted of talus. Left ankle MRI (09/03/2025): FINDINGS: BONE/JOINTS: There is edema in the superior aspect of the posterior calcaneus, could reflect reactive edema or osseous contusion/stress injury. Osseous prominence of the posterior superior calcaneus, suggestive of Chelsea's deformity. No fracture plane is identified. No acute fractures otherwise seen. No talar dome OCD. Degenerative-appearing T2 signal in the navicular. No aggressive marrow replacing lesion.. MUSCLES/TENDONS: Medial flexor, peroneal, extensor tendons are intact. LIGAMENTS: Mild heterogeneous signal in the ATFL may reflect a chronic sprain. Posterior talofibular, tibiofibular, calcaneofibular ligaments are intact. Intact deltoid ligament. ACHILLES TENDON: Heterogeneous increased T2 signal in the Achilles tendon, with the tendon thickening measuring up to approximately 1.1 cm. Findings are consistent with mild-moderate tendinosis. Irregularity of the deep surface of the tendon at the level of the superior calcaneus, suggestive of deep surface fraying/low-grade tear in this region. Longitudinal oriented linear T2 signal distal tendon, could reflects striations oriented longitudinally oriented intrasubstance tearing. No transverse tendon tear or retraction is seen. Mild Achilles peritendinitis. There is small calcaneal bursitis, with soft tissue edema in this region.. Moderate posterior calcaneal insertional enthesopathy. PLANTAR FASCIA: Intact SINUS TARSI: Normal signal. TARSAL TUNNEL : No mass lesion SUBCUTANEOUS SOFT TISSUES: Subcutaneous edema present. IMPRESSION: * Mild-moderate Achilles tendinosis. Associated peritendinitis. Deep surface fraying/low-grade partial tear of the tendon the level of the superior calcaneus. Possible longitudinally oriented linear intrasubstance partial tearing versus striations in the tendon. No transverse tendon tear or retraction. Retrocalcaneal bursitis. 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 Edema in the posterior calcaneus, could reflect reactive edema, contusion/stress injury. * Mild chronic ATFL sprain * Additional findings and details as above. Podiatry Read of Left ankle xray (08/30/25): Joint space narrowing noted to the ankle joint with mild osteophytic changes noted. Osteophytic changes noted to the dorsal midfoot. Bone spur noted to the posterior aspect of the calcaneus and mildly to the plantar aspect of the calcaneus. Left ankle xray (08/30/25): FINDINGS: Ankle: No visible acute fracture, dislocation or suspicious bony lesion. Mild tibiotalar arthritis. Ankle mortise appears maintained. No talar dome OCD. Dorsal degenerative spurring in the midfoot. Prominent posterior calcaneal insertional enthesopathy. Plantar calcaneal spur. No suspicious soft tissue calcifications. Soft tissue swelling. IMPRESSION: Tibia and fibula: No acute osseous findings Podiatry read of left tib-fib x-ray (08/30/2025): No acute fractures or dislocations noted. Osteophytic changes noted to the knee. Left tib-fib x-ray (08/30/2025): FINDINGS: Tibia and fibula: No visible acute fracture, malalignment or suspicious bony lesion. Apparent medial and lateral compartment arthritis of the knee. Superior patellar insertional enthesopathy. No significant knee joint effusion is identified. Soft tissue swelling. No abnormal soft tissue calcification. IMPRESSION: Tibia and fibula: No acute osseous findings Ordered Left ankle and tibfib xrays weightbearing and Left ankle MRI to be performed prior to next visit. Assessment & Plan Assessment & Plan (1) Other enthesopathy of left foot and ankle: Code(s): M77.52 - Other enthesopathy of left foot and ankle Category: Medical (2) Left ankle pain: Code(s): M25.572 - Pain in left ankle and joints of left foot Category: Medical Qualifiers: Chronicity: chronic Qualified Code(s): M25.572 - Pain in left ankle and joints of left foot; G89.29 - Other chronic pain (3) Left ankle injury: Code(s): S99.912A - Unspecified injury of left ankle, initial encounter Category: Medical Qualifiers: Encounter type: initial encounter Qualified Code(s): S99.912A - Unspecified injury of left ankle, initial encounter (4) Rupture of left Achilles tendon: Code(s): S86.012A - Strain of left Achilles tendon, initial encounter Category: Medical Qualifiers: Encounter type: initial encounter Qualified Code(s): S86.012A - Strain of left Achilles tendon, initial encounter (5) Chelsea's deformity of left heel: Code(s): 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 I discussed with the patient the importance of managing post-surgical symptoms and the expected timeline for recovery. We reviewed the pain management plan, including the use of Percocet and ibuprofen, and the need for a refill was addressed. I explained the role of physical therapy in regaining foot mobility and functionality and scheduled a follow-up visit for suture removal and further evaluation. - Applied betadine soaked 4x4 gauze, melba, a stockinet, cast padding, and DANIEL bandage to the LLE with the use of the CAMboot. - Patient is to keep the dressing clean, dry, and intact. - Continue using the knee scooter and remain non-weight bearing on the LLE. - Adhere to RICE protocol. - Continue taking Ibuprofen or Percocet prn for pain. Refilled prescription. RTC in 1 week for suture removal. 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, left ankle, S86.012A - Strain of left Achilles tendon, initial encounter, S99.912A - Unspecified injury of left ankle, initial encounter Medications: Changed From oxycodone-acetaminophen 5-325 mg (Percocet) May take 1 tab q4-6h prn moderate pain (4-6) May take 2 tabs q4-6h prn severe pain (7-10) Patient not to take with Tramadol 1 tab PO Q4-6H PRN 30 tabs 0RF pain (scale score 4-6) To oxycodone-acetaminophen 5-325 mg (Percocet) May take 1 tab q4-6h prn moderate pain (4-6) May take 2 tabs q4-6h prn severe pain (7-10) Patient not to take with Tramadol 1 - 2 tabs PO Q4-6H PRN 30 tabs 0RF pain Coding Level of Care Code Global (19859) Diagnoses Other enthesopathy of left foot and ankle M77.52 Chronic pain of left ankle M25.572; G89.29 Chronicity: chronic Injury of left ankle, initial encounter S99.912A Encounter type: initial encounter Rupture of left Achilles tendon, initial encounter S86.012A Encounter type: initial encounter Chelsea's deformity of left heel M92.62 CPT Codes Podiatry Dressing - CPT: 87773 - Short leg splint ([id number]) Time Spent (min) 45
[2025-10-08 10:45] VITALS: BMI 49.5
--- OUTSIDE RECORDS SUMMARY | 2025-10-08 12:45 | XMS_ITS | Encounter Summary ---
Author Organization [facility] Address [address] [place] [address] Care Team Providers Care Industrial Psychology Professor Name Role Phone Timur Chance MD Primary Care Prov ider Reason for Visit * Reason Onset Date Comments Colonoscopy 12/26/2021 Encounter Details Date Type Department Care Team (Late st Contact Info) Description 12/26/2021 Telephone [facility] Central Scheduling Department [address] [place] [phone] Telephone Intake, Staff Colonoscopy Social History Tobacco Use Types Packs/Day Years Used Date Smoking Tobacco: Never Smokeless Tobacco: Never Comments Unknown Sex and Gender Information Value Date Recorded Sex Assigned at Not on file Legal Sex Female 9:37 AM EDT Gender Identity Not on file Sexual Orientation Not on file Occupation Industry Job Start Date Job End Date works in a [employer] Not on file Not on file Not on f ile documented as of this encounter Miscellaneous Notes * Telephone Encounter - [place] - 12/26/2021 11:25 AM EST Shira from [facility] scheduling pt for colonoscopy Per DT, transferred to endoscopy clinic ext [phone] opt 2 documented in this encounter Plan of Treatment Not on file documented as of this encounter Visit Diagnoses Not on filedocumented in this encounter Care Teams Industrial Psychology Professor Relationship Specialty Start Date End Date Timur Chance MD [address] [place] [address] PCP - General 07/16/21 documented as of this encounter
--- OUTSIDE RECORDS SUMMARY | 2025-10-08 12:45 | XMS_ITS | Clinical Summary ---
Author Organization [facility] Address [address] [place] [address] Care Team Providers Care Electric Lift Truck Driver Name Role Phone Timur Chance MD Primary [...] Date Job End Date works in a [employer] Not on file Not on file Not [...] Social Drivers of Health Annual Screening 11/15/2024 Influenza Vaccine (#1) 2025 10/20/2019 COVID-19 Vaccine (3 season) 2025, 04/16/2021 DTaP,Tdap,and Td Vaccines (2 - Td or Tdap) 10/20/2029 10/20/2019 Procedures * Due to [place] [employer] law, this organization might not be sharing negative HIV tests. Procedure Name Priority Date/Time Associated Diagnosis Comments HEMOGLOBIN A1C Routine 09/24/2021 1:47 PM EST Pre-diabetes from Last 3 Months or Most Recently Relevant to Health Maintenance Results * Due to [facility] law, this organization might not be sharing negative HIV tests. * Hemoglobin A1c (09/24/2021 1:47 PM EST) Hemoglobin A1C 5.6 <5.7 % of total Hgb 09/25/2021 8:15 AM EST [facility] Comment: For the purpose of screening for the presence of diabetes: <5.7% Consistent with the absence of diabetes 5.7-6.4% Consistent with increased risk for diabetes (prediabetes) > or =6.5% Consistent with diabetes This assay result is consistent with a decreased risk of diabetes. Currently, no consensus exists regarding use of hemoglobin A1c for diagnosis of diabetes in children. According to [place] Diabetes Association (ADA) guidelines, hemoglobin A1c <7.0% represents optimal control in non- diabetic patients. Different metrics may apply to specific patient populations. Standards of Medical Care in Diabetes(ADA). eAG (MG/DL) 114 (calc) 09/25/2021 8:15 AM EST [facility] eAG (MMOL/L) 6.3 (calc) 09/25/2021 8:15 AM EST [facility] Blood Structure of peripheral vein / Unknown Venipuncture / Unknown 09/24/2021 1:47 PM EST 09/24/2021 2:07 PM EST Narrative [facility] - 09/25/2021 8:15 AM EST [facility] Received Date: Sathish Lopez MD LAB BLOOD ORDERABLES Final Res ult [facility] [address], [place] [address], [facility] [employer] [facility] [address], [place] [address], from Last 3 Months or Most Recently Relevant to Health Maintenance Insurance [facility]/FREE CARE Care Teams Electric Lift Truck Driver Relationship Specialty Start Date End Date Timur Chance MD [address] [place] [address] PCP - General 07/16/21
== END 2025-10-08 11:14 | disposition home or self-care (01) ==
LOC: HO.HPODS 10:22
PROVIDERS: PCP Internal Medicine; Visit Provider Student in an Organized Health Care Education/Training Program
DX: M77.52 Other enthesopathy of left foot and ankle (principal); M25.572 Pain in left ankle and joints of left foot; G89.29 Other chronic pain; S99.912A Unspecified injury of left ankle, initial encounter; S86.012A Strain of left Achilles tendon, initial encounter; M92.62 Juvenile osteochondrosis of tarsus, left ankle
CPT/HCPCS: 29515; 99024

== ENCOUNTER → 2025-10-08 10:21 | Outpatient (BNVA) | payer OTHER, SELFPAY | PROVIDERS: PCP Internal Medicine; Visit Provider Student in an Organized Health Care Education/Training Program | DX: S86.012A Strain of left Achilles tendon, initial encounter (principal); M77.52 Other enthesopathy of left foot and ankle; M92.62 Juvenile osteochondrosis of tarsus, left ankle; G89.29 Other chronic pain; X58.XXXA Exposure to other specified factors, initial encounter; Y92.9 Unspecified place or not applicable; Y93.9 Activity, unspecified; Y99.9 Unspecified external cause status | CPT/HCPCS: 29515; 99212 ==

== ENCOUNTER 2025-10-15 10:28 | Outpatient (AMB) | payer OTHER, SELFPAY ==
--- OUTSIDE RECORDS SUMMARY | 2025-09-12 05:30 | XMS_ITS | Continuity of Care Document ---
Author Organization [facility] Address [address] [place] [address] Phone Care Team Providers Care Solution Engineer Name Role Phone Braulio CASTELLANOS, RVPatience, DELIA, [...] Mins- [place] & [place] [facility], [address] [place] [address] Dr Cotton 1000[facility] [place]a Reyes [place], [id number], tel:[phone] [facility] Type 2 diabetes mellitus without complications Obesity, class 3Obesity, Class 3Essential (primary) hypertensionV enous insufficiency (chronic) (peripheral)L ymphedema, not elsewhere classifiedHer editary lymphedemaChr onic venous hypertension (idiopathic) with other complications of bilateral lower extremityPain in left lower leg Oct-2 5 Braulio CASTELLANOS RVT, RPVI Robert. [address] [place] [address], [place], [place], [id number] , [place]. tel:[phone] Referring Provider: Timur Hernandez[address], [address]. tel:[phone] [facility], [address] [place] [address] Dr Cotton 1000Latonya ta MD, [id number], [place] tel:[phone] [facility] Chronic venous hypertension (idiopathic) with other complications of bilateral lower extremity Oct-2 5 Braulio CASTELLANOS RVT, RPVI Robert. [address] [place] [address], [place], [place], [id number] , [place]. tel:[phone] Referring Provider: Timur Hernandez[address], [address]. tel:[phone] [facility], [address] [place] [address] Dr Cotton 1000SuLatonya ta MD, [id number], [place] tel:[phone] CVR - [place] - Given Encounter for follow-up examination after completed treatment for conditions other than malignant neoplasmChron ic venous hypertension (idiopathic) with other complications of left lower extremity Oct-0 5 Braulio CASTELLANOS RVT, RPVI Robert. [address] [place] [address], [place], [place], [id number] , [place]. tel: [phone] Referring Provider: Timur Hernandez, [address] [place] [address], [address]. tel:[phone] [facility], [address] [place] [address] Dr Cotton 1000[facility] Latonay Reyes MD, [id number], [place] tel:[phone] CVR - [place] - Given Encounter for follow-up examination after completed treatment for conditions other than malignant neVaricose veins of left lower extremity with pain Sep-2 5 Braulio CASTELLANOS RVT, RPVI Robert. [address] [place] [address], [place], [place], [id number] , [place]. tel: [phone] Referring Provider: Timur Hernandez, [address] [place] [address], [address]. tel:[phone] [facility], [address] [place] [address] Dr Cotton 1000SuLatonya ta MD, [id number], [place] tel:[phone] CVR - [place] - Given Varicose veins of left lower extremity with other complications Sep-2 5 Braulio CASTELLANOS RVT, RPVI Robert. [address] [place] [address], [place], [place], [id number] , [place]. tel: [phone] Referring Provider: Timur Hernandez, [address] [place] [address], [address]. tel:[phone] [facility], [address] [place] [address] Dr Cotton 1000SuLatonya at MD, [id number], [place] tel:[phone] CVR - [place] - Given Varicose veins of left lower extremity with other complications Sep- 5 Braulio CASTELLANOS RVT, RPVI Robert. [address] [place] [address], [place], [place], [id number] , [place]. tel: [phone] Referring Provider: Timur Hernandez, [address] [place] [address], [address]. tel:[phone] [facility], [address] [place] [address] Dr Cotton 1000[facility] 1000[place], [id number], tel:[phone] CVR - [place] - Given No Information Sep-1 5 Braulio CASTELLANOS RVT, RPVI Robert. [address] [place] [address], [place], [place], [id number] , [place]. tel: [phone] Referring Provider: Timur Hernandez, [address] [place] [address], [address]. tel:[phone] [facility], [address] [place] [address] Dr Cotton [address] [address]Lat[place], [id number], [place] tel:[phone] CVR - [place] - Given Encounter for follow-up examination after completed treatment for conditions other than malignant neoplasmPain in right lower leg Sep- 5 Braulio CASTELLANOS RVT, RPVI Robert. [address] [place] [address], [facility], [place], [id number] , [place]. tel: [phone] Referring Provider: Timur Hernandez, [address] [place] [address], [address]. tel:[phone] [place] [facility], [address] [place] [address] [facility] [address] 1000Latonya [place], [id number], [place] tel:[phone] CVR - [place] - Given Encounter for follow-up examination after completed treatment for conditions other than malignant neoplasmChron ic venous hypertension (idiopathic) with other complications of right lower extremity Sep-1 5 Braulio CASTELLANOS RVT, RPVI Robert. [address] [place] [address], [place], [place], [id number] , [place]. tel: [phone] Referring Provider: Timur Hernandez, [address] [place] [address], [address]. tel:[phone] [facility], [address] [place] [address] Dr Cotton 1000SuLatonya ta MD, [id number], [place] tel:[phone] CVR - [place] - Given Varicose veins of right lower extremity with other complications Sep-1 5 Braulio CASTELLANOS RVT, RPVI Robert. [address] [place] [address], [place], [place], [id number] , [place]. tel:[phone] Referring Provider: Timur Hernandez[address], [address]. tel:[phone] [place] [facility], [address] [place] [address] Dr Cotton 1000SuLatonya ta MD, [id number], [place] [phone] CVR - [place] - Given Varicose veins of right lower extremity with other complications Sep-0 5 Braulio CASTELLANOS RVT, DELIA Ware. [address] [place] [address], [id number] , [place]. tel:[phone] Referring Provider: Timur Hernandez[address], [address]. tel:[phone] [facility], [address] [place] [address] Dr Cotton 1000SuLatonya ta MD, [id number], [place] tel:[phone] CVR - [place] - Given No Information 5 Braulio CASTELLANOS RVT, RPVI Robert. [address] [place] [address], [place], [place], [id number] , [place]. tel:[phone] Offic/outpt E&m Estab 5 Min Trial- Telemedicine [place] & [place] [facility], [address] [place] [address] Dr Cotton 1000SuLatonya ta MD, [id number], [place] tel:[phone] CVR - [place] - Given Localized edemaCramp and spasmRestless legs syndromeVenou s insufficiency (chronic) (peripheral)T ype 2 diabetes mellitus without complications Essential (primary) hypertensionL ymphedema, not elsewhere classifiedHer editary lymphedema Jun-0 5 Braulio CASTELLANOS RVT, RPVI Robert. [address] [place] [address], [place], [place], [id number] , [place]. [phone] Referring Provider: Timur Hernandez, [address] [place] [address], [address]. tel:[phone] Office/Outpt E&M Established 10 Mins- [place] & [place] [facility], [address] [place] [address] Dr Cotton 1000[address] 1000Latonya [place], [id number], [place] tel:[phone] CV - [facility] Chronic venous hypertension (idiopathic) without complications of bilateral lower extremity Braulio CASTELLANOS RVT, DELIA Ware. [address] [place] [address], [place], [place], [id number] , [place]. [phone] Referring Provider: Timur Hernandez, [address] [place] [address], [address]. tel:[phone] Offic Cons New/estab Mod 40 Mi- CT & [place] [facility], [address] [place] [address] Dr Cotton 1000Suite 1000Latonya [place], [id number], [place] tel:[phone] CVR - [facility] Varicose veins of bilateral lower extremities with other complications Pain in right legPain in left legType 2 diabetes mellitus without complications Restless legs syndromeEssen tial (primary) hypertensionV enous insufficiency (chronic) (peripheral)L ymphedema, not elsewhere classifiedHer editary lymphedemaCra mp and spasmLocalize d edema Feb- 5 Braulio CASTELLANOS RVT, DELIA Ware. [address] [place] [address], [place], [place], [id number] , [place]. [phone] Referring Provider: Timur Hernandez, [address] [place] [address], [address]. tel:[phone] [place] [facility], [address] [place] [address] Dr Cotton 1000[address] 1000Latonya [place], [id number], [place] tel:[phone] CVR [facility] Chronic venous hypertension (idiopathic) with other complications of bilateral lower extremity Apr-3 202 5 Braulio CASTELLANOS, RVT, DELIA Ware. [address] [facility], [address], [place], [place], [id number] , [place]. tel:[phone] Referring Provider: Timur Hernandez, [address] , [place], [address]. tel:[phone] Family History Family Member Type Diagnosis Age At Onset No Information Payers Payer name Insurance type Covered alliance party ID Dolores [id number] Social History Type Description Quantity Date Captured [...] education booklet given Related to Localized edema Patient education booklet given Related to Chronic venous hypertension (idiopathic) without complications of bilateral lower extremity Pre and post instruc tions reviewed and provided Related to Chronic venous hypertension (idiopathic) without complications of bilateral lower extremity Lifestyle education Related to B lita mass index (BMI) 45.0-49.9, adult Giving Encouragement to exercise Related to Body mass index (BMI) 45.0-49.9, adult Diet education Related to Body mass index (BMI) 45.0-49.9, adult Pre and post instruc tions reviewed and provided Related to Varicose veins of bilateral lower extremities with other complications Patient education booklet given Related to Varicose veins of bilateral lower extremities with other complications Lifestyle education Related to B lita mass index (BMI) 45.0-49.9, adult Giving Encouragement to exercise Related to Body mass index (BMI) 45.0-49.9, adult Diet education Related to Body mass index (BMI) 45.0-49.9, adult Assessments Type Assessment Date No Information Patient Care Teams Name Effective Dates (start - stop) Status Members No Information
--- NOTE | 2025-10-15 10:42 | MHC.OFFVIS ---
Vital Signs 10/15/25 10:44 Height 5 ft 1 in Weight 262 lb BMI 49.5 Intake Visit Reasons: post op for suture removal Intake Note: Delmar is a 50 year old female who presents today for post op follow up appointment to remove her sutures. Patient reports she is doing well and mentions she had fallen on Wednesday in her bathroom and hurt her ankle. Street Flusher Driver Required: Yes Street Flusher Driver Services: Street Flusher Driver Present Street Flusher Driver Name: [id number] Allergies No Known Allergies Allergy (Verified 10/08/25 10:47) HPI Comments Details: The patient is a 50-year-old female presenting for a follow up S/P Left chelsea's deformity and insertional calcaneal spur resection, Extensive debridement of Achilles tendon, and Secondary repair of Achilles tendon with Platelet rich plasma (DOS: 09/28/25). Patient was seen in the surgical dressing with her CAMboot and was nonweightbearing to the LLE with the use of a knee scooter. Patient states she recently fell on Wednesday hitting her left heel on 2 the stairs. Patient was accompanied by a family member. Patient states she experiences intermittent tingling to the LLE. Patient states she experiences pain to the plantar aspect of the heel. Patient states she sometimes experiences cramping that is intermittent. She also states she experiences mild to moderate pain to the surgical site. She states she has taken the Ibuprofen and Percocet prn for pain with relief. She denies any new pedal concerns. She denies any N/V/F/C. [facility] Medical History (Updated 10/15/25 @ 11:00 by Rylie Bustos DPM) Pain of left heel Injury of left foot Left foot pain Venous insufficiency (chronic) (peripheral) Lymphedema Obesity, Class III, BMI 40-49.9 (morbid obesity) Type 2 diabetes mellitus GERD (gastroesophageal reflux disease) HTN (hypertension) Preoperative examination Rupture of left Achilles tendon Chelsea's deformity of left heel Left ankle injury Other enthesopathy of left foot and ankle Left ankle pain Surgical History (Updated 09/26/25 @ 09:56 by Karol Parry RN) Hx of hysterectomy (1999) Social History Comment: medicated Patient Tobacco Use Status: Never used Tobacco Review of Systems Const Details: - Musculoskeletal: Reports new fall on Wednesday. Reports pain to the plantar aspect of the left heel heel Reports intermittent cramping to the LLE and [id number]-ld-[id number] pain to the surgical site. - Neurological: Reports tingling to the LLE. , cramping in the foot All systems reviewed & are unremarkable except as noted in HPI and below Physical Exam Vital Signs: BMI result Body Mass Index 49.5 Extrem Other: LLE Focused Physical Exam: Derm: Surgical site noted to be intact with no maceration. Sutures intact. No maceration or dehiscence noted. No erythema or discoloration noted. Post surgical edema noted to the posterior aspect of the heel and ankle, slightly reduced from last visit. Skin supple and turgor WNL. No clinical signs of infection noted. No active bleeding, purulence, or drainage noted. Vasc: DP/PT pulses palpable. CFT < 3 secs. Temp gradient warm to warm. Pedal hair present. Telangectasias noted. Neuro: Protective sensations grossly intact. MSK: Pain on palpation to the plantar aspect of the heel. Pain on palpation to the surgical site at the posterior aspect of the heel. No crepitus or fluctuance noted. Limited ROM of the hindfoot and ankle due to guarding from pain. Patient is able to wiggle her toes. Patient is NWB with the use of the knee scooter. Office Procedures AMB Podiatry Dressing Details of Procedure: Removed 5 sutures from the posterior aspect of the left heel using a suture removal kit with no incidents. Applied Betadine soaked 4 x 4 gauze, Fe, a stockinette, cast padding, and Jose Alebrto bandage to the left lower extremity with the use of the cam boot. 12275 - Short leg splint Additional procedure code (CPT) needed (60557 (suture removal)) Results Reviewed Results Reviewed: Ordered left foot x-rays to be performed prior to next visit. Post-op left ankle xray (09/28/25): FINDINGS: Ankle mortise is congruent. There is no widening of the syndesmosis. Talar dome is intact. Ossification in the distal Achilles tendon at the calcaneal attachment has been resected. IMPRESSION: Resection of distal Achilles enthesophyte. Intra-op fluoroscopy (09/28/25): FINDINGS: Fluoroscopy provided in the operating room. There are postsurgical changes seen along the posterior superior calcaneus. IMPRESSION: Fluoroscopy provided in the operating room. See surgical report for details. Podiatry read of left ankle MRI (09/03/2025): Partial rupture of Achilles tendon noted with Chelsea's deformity noted. ATFL sprain noted. OCD lesion noted of talus. Left ankle MRI (09/03/2025): FINDINGS: BONE/JOINTS: There is edema in the superior aspect of the posterior calcaneus, could reflect reactive edema or osseous contusion/stress injury. Osseous prominence of the posterior superior calcaneus, suggestive of Chelsea's deformity. No fracture plane is identified. No acute fractures otherwise seen. No talar dome OCD. Degenerative-appearing T2 signal in the navicular. No aggressive marrow replacing lesion.. MUSCLES/TENDONS: Medial flexor, peroneal, extensor tendons are intact. LIGAMENTS: Mild heterogeneous signal in the ATFL may reflect a chronic sprain. Posterior talofibular, tibiofibular, calcaneofibular ligaments are intact. Intact deltoid ligament. ACHILLES TENDON: Heterogeneous increased T2 signal in the Achilles tendon, with the tendon thickening measuring up to approximately 1.1 cm. Findings are consistent with mild-moderate tendinosis. Irregularity of the deep surface of the tendon at the level of the superior calcaneus, suggestive of deep surface fraying/low-grade tear in this region. Longitudinal oriented linear T2 signal distal tendon, could reflects striations oriented longitudinally oriented intrasubstance tearing. No transverse tendon tear or retraction is seen. Mild Achilles peritendinitis. There is small calcaneal bursitis, with soft tissue edema in this region.. Moderate posterior calcaneal insertional enthesopathy. PLANTAR FASCIA: Intact SINUS TARSI: Normal signal. TARSAL TUNNEL : No mass lesion SUBCUTANEOUS SOFT TISSUES: Subcutaneous edema present. IMPRESSION: * Mild-moderate Achilles tendinosis. Associated peritendinitis. Deep surface fraying/low-grade partial tear of the tendon the level of the superior calcaneus. Possible longitudinally oriented linear intrasubstance partial tearing versus striations in the tendon. No transverse tendon tear or retraction. Retrocalcaneal bursitis. 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 Edema in the posterior calcaneus, could reflect reactive edema, contusion/stress injury. * Mild chronic ATFL sprain * Additional findings and details as above. Podiatry Read of Left ankle xray (08/30/25): Joint space narrowing noted to the ankle joint with mild osteophytic changes noted. Osteophytic changes noted to the dorsal midfoot. Bone spur noted to the posterior aspect of the calcaneus and mildly to the plantar aspect of the calcaneus. Left ankle xray (08/30/25): FINDINGS: Ankle: No visible acute fracture, dislocation or suspicious bony lesion. Mild tibiotalar arthritis. Ankle mortise appears maintained. No talar dome OCD. Dorsal degenerative spurring in the midfoot. Prominent posterior calcaneal insertional enthesopathy. Plantar calcaneal spur. No suspicious soft tissue calcifications. Soft tissue swelling. IMPRESSION: Tibia and fibula: No acute osseous findings Podiatry read of left tib-fib x-ray (08/30/2025): No acute fractures or dislocations noted. Osteophytic changes noted to the knee. Left tib-fib x-ray (08/30/2025): FINDINGS: Tibia and fibula: No visible acute fracture, malalignment or suspicious bony lesion. Apparent medial and lateral compartment arthritis of the knee. Superior patellar insertional enthesopathy. No significant knee joint effusion is identified. Soft tissue swelling. No abnormal soft tissue calcification. IMPRESSION: Tibia and fibula: No acute osseous findings Ordered Left ankle and tibfib xrays weightbearing and Left ankle MRI to be performed prior to next visit. Assessment & Plan Assessment & Plan (1) Left foot pain: Code(s): M79.672 - Pain in left foot Category: Medical (2) Injury of left foot: Code(s): S99.922A - Unspecified injury of left foot, initial encounter Category: Medical (3) Pain of left heel: Code(s): M79.672 - Pain in left foot Category: Medical (4) Other enthesopathy of left foot and ankle: Code(s): M77.52 - Other enthesopathy of left foot and ankle Category: Medical (5) Left ankle pain: Code(s): M25.572 - Pain in left ankle and joints of left foot Category: Medical Qualifiers: Chronicity: chronic Qualified Code(s): M25.572 - Pain in left ankle and joints of left foot; G89.29 - Other chronic pain (6) Left ankle injury: Code(s): S99.912A - Unspecified injury of left ankle, initial encounter Category: Medical Qualifiers: Encounter type: initial encounter Qualified Code(s): S99.912A - Unspecified injury of left ankle, initial encounter (7) Rupture of left Achilles tendon: Code(s): S86.012A - Strain of left Achilles tendon, initial encounter Category: Medical Qualifiers: Encounter type: initial encounter Qualified Code(s): S86.012A - Strain of left Achilles tendon, initial encounter (8) Chelsea's deformity of left heel: Code(s): 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 I informed the patient that the surgical site is healing well, and I removed the sutures during today's visit. Due to the patient's report of a fall followed by pain and numbness, I explained the need for an X-ray of the foot to rule out a fracture or adverse effects to the surgical site. I instructed the patient to remain aeb-iwwhte-psfjlxh in the CAMboot and to use a scooter for two more weeks. We discussed that if the follow-up in two weeks shows good healing and the X-ray is negative, we will begin to slowly transition to walking and start physical therapy. I addressed the patient's request for pain medication by refilling her postsurgical medication. - The sutures at the surgical site were removed in the office today. - The surgical site was wrapped and a stockinette, cast padding, Jose Alberto bandage was applied to the left lower extremity with the use of the cam boot. - X-rays of the left foot were ordered due to new injury. - The patient will continue to be ebf-wsoynr-uqbaskv, remain in the boot, and use a knee scooter for the next two weeks. - Refilled prescription for Percocet. - A gradual transition to walking and initiation of physical therapy will be considered at the next visit if progress is satisfactory. RTC in 2 weeks. 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 Percocet to be taken instead for moderate to severe pain (4-10) 600 mg PO Q6H PRN 30 tabs 0RF pain (scale score 1-3) oxycodone-acetaminophen 5-325 mg (Percocet) May take 1 tab q4-6h prn moderate pain (4-6) May take 2 tabs q4-6h prn severe pain (7-10) Patient not to take with Tramadol 1 - 2 tabs PO Q4-6H PRN 30 tabs 0RF pain Coding Level of Care Code Global (88990) Diagnoses Left foot pain M79.672 Injury of left foot S99.922A Pain of left heel M79.672 Other enthesopathy of left foot and ankle M77.52 Chronic pain of left ankle M25.572; G89.29 Chronicity: chronic Injury of left ankle, initial encounter S99.912A Encounter type: initial encounter Rupture of left Achilles tendon, initial encounter S86.012A Encounter type: initial encounter Chelsea's deformity of left heel M92.62 CPT Codes Podiatry Dressing - CPT: 51575 - Short leg splint ([id number]) Podiatry Dressing - All charges added?: Additional procedure code (CPT) needed ([id number]) Time Spent (min) 35 Comment 5 mins for procedure
[2025-10-15 10:44] VITALS: BMI 49.5
--- OUTSIDE RECORDS SUMMARY | 2025-10-15 13:15 | XMS_ITS | Encounter Summary ---
Author Organization [employer] Address [address] [facility] [address] [place] [address] Care Team Providers Care Utility Clerk Name Role Phone Timur Chance MD Primary Care Prov ider Reason for Visit * Reason Onset Date Comments ER Follow-up 11/09/2023 Nurse Triage 11/09/2023 Encounter Details Date Type Department Care Team (Late st Contact Info) Description 11/09/2023 Telephone [facility] [address] [place] [address] Timur Chance MD [address] [place] [id number] ER Follow-up; Nurse Triage Social History Tobacco [...] 10:56 AM EST Records request faxed to [facility] as requested. * Telephone Encounter - Viky Hooks RN - 11/09/2023 10:00 AM EST Called pt. Via [employer] surgical physician assistant [phone] Aleksandar. Pt. States that she got injured her left hand at her job on 10/31/23 and has pain, swelling, Pt. Went to [facility] ED on 11/07/23. Pt. Had X rays done and pt. Was told that her tendon is injured in her hand. Pt. Has been using pain reliever with no relief. Will send request to have clinical coordinators call [facility] for ED notes and Xrays from 11/07/23 to befaxed to [facility] but, cannot guarantee that results will be sent with same day request. I will also send message to [facility] nurses to at least get Xray results from [facility] Protocol Used: Hand and Wrist Injury (Adult) Protocol-Based Disposition: See in Office or Video Visit Today- appt. Today at 2pm [facility] [place]. Video visit not offered Positive Triage Questions: [...] soon Reason: Getting worse Pt went to [facility] due to a fall. The caller accepted this outcome Stateless speaker * Telephone Encounter - Carlos Negrete - 11/09/2023 8:26 AM EST Patient calling to report ED visit on : 11/09 Date: 11/03 Hospital: [facility] Seen for: Hand Patient states is still in aments pain Patient advised will forward to team nurse for follow up documented in this encounter Plan of Treatment Upcoming Encounters Date Type Department Care Team (Late st Contact Info) Description 11/26/2025 10:30 AM EST Office Visit [facility] [address] [place] [address] Timur Chance MD [address] [place] [address] documented as of this encounter Visit Diagnoses Not on filedocumented in this encounter Additional Health Concerns Assessment Noted Time PHQ-9 Depression Total Score: 0 12/04/19 23 9:40 AM EST documented as of this encounter Care Teams Utility Clerk Relationship Specialty Start Date End Date Timur Chance MD [address] [place] [address] PCP - General Internal Medicine 10/20/19 documented as of this encounter
--- OUTSIDE RECORDS SUMMARY | 2025-10-15 13:15 | XMS_ITS | Clinical Summary ---
Author Organization [facility] Address [address] [place] [address] Care Team Providers Care Undergraduate Internship Name Role Phone Timur Chance MD Primary [...] Date Job End Date works in a [employer] Not on file Not on file Not [...] Tdap) 10/20/2029 10/20/2019 Procedures * Due to [place] [employer] law, this organization might not be sharing negative HIV tests. Procedure Name Priority Date/Time Associated Diagnosis Comments HEMOGLOBIN A1C Routine 09/24/2021 1:47 PM EST Pre-diabetes from Last 3 Months or Most Recently Relevant to Health Maintenance Results * Due to [facility] law, this organization might not be sharing negative HIV tests. * Hemoglobin A1c (09/24/2021 1:47 PM EST) Hemoglobin A1C 5.6 <5.7 % of total Hgb 09/25/2021 8:15 AM EST [facility] Comment: For the purpose of screening for the presence of diabetes: <5.7% Consistent with the absence of diabetes 5.7-6.4% Consistent with increased risk for diabetes (prediabetes) > or =6.5% Consistent with diabetes This assay result is consistent with a decreased risk of diabetes. Currently, no consensus exists regarding use of hemoglobin A1c for diagnosis of diabetes in children. According to [place] Diabetes Association (ADA) guidelines, hemoglobin A1c <7.0% represents optimal control in non- diabetic patients. Different metrics may apply to specific patient populations. Standards of Medical Care in Diabetes(ADA). eAG (MG/DL) 114 (calc) 09/25/2021 8:15 AM EST [facility] eAG (MMOL/L) 6.3 (calc) 09/25/2021 8:15 AM EST [facility] Blood Structure of peripheral vein / Unknown Venipuncture / Unknown 09/24/2021 1:47 PM EST 09/24/2021 2:07 PM EST Narrative [facility] - 09/25/2021 8:15 AM EST [facility] Received Date: Sathish Lopez MD LAB BLOOD ORDERABLES Final Res ult [facility] [address], [place] [address], [employer] [facility] [address], [place] [address], from Last 3 Months or Most Recently Relevant to Health Maintenance Insurance [facility]/FREE CARE Care Teams Undergraduate Internship Relationship Specialty Start Date End Date Timur Chance MD [address] [place] [address] PCP - General 07/16/21
--- OUTSIDE RECORDS SUMMARY | 2025-10-15 13:15 | XMS_ITS | Encounter Summary ---
Author Organization [employer] Address [address] [facility] [address] [place] [address] Care Team Providers Care Passenger Service Agent Name Role Phone Timur Chance MD Primary Care Prov ider Reason for Visit * Reason Onset Date Comments Referral 10/16/2024 Encounter Details Date Type Department Care Team (Late st Contact Info) Description 10/16/2024 Telephone [facility] [address] [place] [address] Timur Chance MD [address] [place] [phone] Referral Social History Tobacco Use Types Packs/Day [...] therapy. If any question contact pt at [phone] documented in this encounter Plan of Treatment Upcoming Encounters Date Type Department Care Team ([facility] st Contact Info) Description 11/26/2025 10:30 AM EST Office Visit [facility] [address] [place] [address] Timur Chance MD [address] [place] [address] documented as of this encounter Visit Diagnoses Not on filedocumented in this encounter Additional Health Concerns Assessment Noted Time PHQ-9 Depression Total Score: 16 024 12:04 PM EST documented as of this encounter Care Teams Passenger Service Agent Relationship Specialty Start Date End Date Timur Chance MD [address] [place] [address] PCP - General Internal Medicine 10/20/19 documented as of this encounter
--- OUTSIDE RECORDS SUMMARY | 2025-10-15 13:15 | XMS_ITS | Encounter Summary ---
Author Organization [facility] Address [address] [place] [address] Care Team Providers Care Mold Swabber Name Role Phone Timur Chance MD Primary Care Prov ider Reason for Visit * Reason Onset Date Comments Colonoscopy 12/26/2021 Encounter Details Date Type Department Care Team (Late st Contact Info) Description 12/26/2021 Telephone [facility] Central Scheduling Department [address] [place] [id number] Telephone Intake, Staff Colonoscopy Social History Tobacco Use Types Packs/Day Years Used Date Smoking Tobacco: Never Smokeless Tobacco: Never Comments Unknown Sex and Gender Information Value Date Recorded Sex Assigned at Not on file Legal Sex Female 9:37 AM EDT Gender Identity Not on file Sexual Orientation Not on file Occupation Industry Job Start Date Job End Date works in a [employer] Not on file Not on file Not on f ile documented as of this encounter Miscellaneous Notes * Telephone Encounter - [place] - 12/26/2021 11:25 AM EST Shira from [facility] scheduling pt for colonoscopy Per DT, transferred to endoscopy clinic ext [phone] opt 2 documented in this encounter Plan of Treatment Not on file documented as of this encounter Visit Diagnoses Not on filedocumented in this encounter Care Teams Mold Swabber Relationship Specialty Start Date End Date Timur Chance MD [address] [place] [address] PCP - General 07/16/21 documented as of this encounter
--- OUTSIDE RECORDS SUMMARY | 2025-10-15 13:15 | XMS_ITS | Encounter Summary ---
Author Organization [employer] Address [address] [facility] [address] [place] [address] Care Team Providers Care Out Of Town Collection Clerk Name Role Phone Timur Chance MD Primary Care Prov ider Encounter Details Date Type Department Care Team (Late st Contact Info) Description 11/09/2023 Telephone [facility] MEDICINE [address] [place] [address] Timur Chance MD [address] [place] [address] Social History Tobacco Use Types Packs/Day Years [...] the past 12 months, has t he [email or web address], gas, oil or water [employer] threatened to shut off services in your [...] 11/26/2025 10:30 AM EST Office Visit [facility] [address] [place] [address] Timur Chance MD [address] [place] [address] documented as of this encounter Visit Diagnoses Not on filedocumented in this encounter Additional Health Concerns Assessment Noted Time PHQ-9 Depression Total Score: 0 12/04/19 23 9:40 AM EST documented as of this encounter Care Teams Out Of Town Collection Clerk Relationship Specialty Start Date End Date Timur Chance MD [address] [place] [address] PCP - General Internal Medicine 10/20/19 documented as of this encounter
--- OUTSIDE RECORDS SUMMARY | 2025-10-15 13:15 | XMS_ITS | Clinical Summary ---
Author Organization [employer] Address [address] [facility] 7[address] [place] [address] Care Team Providers Care Talent Acquisition Project Manager Name Role Phone Timur Chance MD [...] 2 times daily. 05/21/20 25 Active nitrofurantoin, macrocrystal-monoh ydrate, (Macrobid) 100 MG capsule take one capsule [...] THAN FOUR TABLETS DAILY 08/13/20 25 Active metFORMIN (Glucophage) 500 MG tablet TAKE ONE TABLET BY MOUTH TWICE DAILY IN THE MORNING AND IN THE EVENING WITH MEALS. 07/24/20 025 Discontin ued(Thera py completed ) Active Problems Problem Noted Date Diagnosed Date [...] send new xray and will refer to [facility] for [place] intection Assessment & [...] Encounters Date Type Department Care Team Description 09/28/2025 Orders Only GENERIC EXTERNAL DATA DEPARTMENT Provider, Generic External Data 09/21/2025 9:15 AM EST Office Visit [facility] [address] [place] [address] Ines Ramirez MD Primary hypertension (Primary Dx); Gastroesophageal reflux disease without esophagitis; Hx of hysterectomy; Encounter for immunization; Preop examination 09/21/2025 Travel 09/17/2025 Telephone [facility] [address] [place], [place] [phone] Timur Chanec MD chart prep 09/10/2025 Telephone [facility] [address] [place], [place] [phone] Timur Chance MD pre op appt 08/13/2025 Telephone [facility] [address] [place], [place] [phone] Timur Chance MD ER Follow-up 08/13/2025 Orders Only [facility] [address] [place] [address] ProviderAdilson MD 08/07/2025 Refill [facility] [address] [place], [place] [phone] Timur Chance MD Gastroesophageal reflux disease without esophagitis 07/31/2025 2:15 PM EDT Office Visit [facility] [address] [place], [place] [phone] Belgica Munoz MD Chronic pain of left ankle (Primary Dx); Dietary counseling; Exercise counseling; Class 3 severe obesity due to excess calories with serious comorbidity and body mass index (BMI) of 45.0 to 49.9 in adult 07/31/2025 Travel 07/30/2025 Telephone [facility] [address] [place] [address] [phone] Timur Chance MD Nurse Triage 07/30/2025 Telephone [facility] [address] [place], [place] [phone] Timur Chance MD from Last 3 Months Immunizations Immunization Administration [...] your housing situation today? I have juvenal niraj 02/07/[address] you li [...] Upcoming Encounters Date Type Department Care Team ([facility] st Contact Info) Description 11/26/2025 10:30 AM EST Office Visit [facility] [address] [place] [address] Timur Chance MD [address] [place] [phone] Health Maintenance Due Date Last Done Comments CT Colonography 1973 Colonoscopy 1973 FIT 1973 Sigmoidoscopy 1973 Diabetes: Foot Exam 1983 Eye Exam 1983 Family Planning (PISQ) 02/25/1988 Hepatitis A Vaccines (1 of 2 - Risk 2-dose series) 02/25/1992 Hepatitis B Vaccines (1 of 3 - 19+ 3-dose series) 02/25/1992 Pneumococcal Vaccine: 50+ Years (1 of 2 - PCV) 02/25/1992 RSV Patients and Patients Aged 60 years or older (1 - Risk 50-74 years 1-dose series) 2023 Zoster Vaccines (1 of 2) 2023 Diabetes: Urine Protein Screening 09/08/2023 09/08/2022, 12/20/2020 COVID-19 Vaccine ( season) 2025 06/18/2022, 05/14/2021, 04/16/2021 FOBT 10/18/2025 10/18/2024 Diabetes: Hemoglobin A1C 11/25/2025 025, 10/04/2024, 03/25/2023, Additional history exists Alcohol/Substance Use Screening 02/07/2026 02/07/2025 SDOH Screening 02/07/2026 02/07/2025 Lipid Panel 05/25/2026 05/25/2025, 09/16, 01/12/2024, Additional history exists Depression Screening 07/02/2026 07/02/2025, 07/02/20 25 Disability Screening 07/02/2026 07/02/2025 Tobacco Screening 09/21/2026 09/21/2025 Mammogram 08/15/2027 08/15/2025, 02/14, 02/04/2022, Additional history exists Colorectal Cancer Screening 10/18/2027 FIT DNA/Cologuard 10/18/2027 10/18/2024 DTaP/Tdap/Td Vaccines (2 - Td or Tdap) 10/20/2029 10/20/2019 HIV Screening Completed 10/20/2019 HPV/Cotest Discontinued 12/05/2019 [...] Comments XR ANKLE 3+ VIEWS LEFT Routine 09/28/2025 4:23 PM EST FL GUIDANCE IN OR Routine 09/28/2025 12: 30 PM EST TYPE AND SCREEN Routine 09/28/2025 7:45 AM EST ECG 12-LEAD Routine 09/21/2025 12:47 PM EST [...] Results * XR Ankle 3+ Views Left (09/28/2025 4:23 PM EST) Only the most recent of2 resultswithin the time period is included. Anatomical Region Laterality Modality Lower Extremities, Ankle Left Radiogr aphic Imaging 09/28/2025 4:23 PM EST Narrative 09/28/2025 5:27 PM EST [place] [address] XRay Report Signed Patient: Delmar Hudson MR#: [id number] 253 : 1975 Acct:[id number] Age/Sex: 50 / F ADM Date: 09/28/25 Loc: HO.SSS Attending Dr: Rylie Bustos DPM Ordering Physician: Rylie Bustos DPM Date of Service: 09/28/25 Procedure(s): XR ankle LT min 3V Accession Number(s): [id number] cc: Timur Chance MD; Rylie Bustos DPM Reason for Exam: S/P left chelsea's resection EXAMINATION: XR ANKLE, LEFT CLINICAL INFORMATION: S/P left Chelsea's resection COMPARISON: 08/30/2025 TECHNIQUE: AP, lateral, and mortise views of the left ankle. FINDINGS: Ankle mortise is congruent. There is no widening of the syndesmosis. Talar dome is intact. Ossification in the distal Achilles tendon at the calcaneal attachment has been resected. XR/XR ankle LT min 3V IMPRESSION: Resection of distal Achilles enthesophyte. Electronically signed by: Von Lee MD 09/28/2025 05:24 PM EST Dictated By: Von Lee MD Signed By: <Electronically signed by Von Lee MD in OV> 09/28/25 1724 DD/ 1623 TD/TT: 09/28/25 1631 Photographic Equipment Inspector: Procedure Note Donotuseinterpreter, Image - 09/28/2025 [place] [address] XRay Report Signed Patient: Delmar HudsonMR#: [id number] 253 : 1975Acct:[id number] Age/Sex: 50 / FADM Date: 09/28/25 Loc: .[facility] Attending Dr: Rylie Bustos DPM Ordering Physician: Rylie Bustos DPM Date of Service: 09/28/25 Procedure(s): XR ankle LT min 3V Accession Number(s): [id number] cc: Timur Chance MD; Rylie Bustos DPM Reason for Exam: S/P left chelsea's resection EXAMINATION: XR ANKLE, LEFT CLINICAL INFORMATION: S/P left Chelsea's resection COMPARISON: 08/30/2025 TECHNIQUE: AP, lateral, and mortise views of the left ankle. FINDINGS: Ankle mortise is congruent. There is no widening of the syndesmosis. Talar dome is intact. Ossification in the distal Achilles tendon at the calcaneal attachment has been resected. XR/XR ankle LT min 3V IMPRESSION: Resection of distal Achilles enthesophyte. Electronically signed by: Von Lee MD 09/28/2025 05:24 PM EST RP Dictated By: Von Lee MD Signed By: <Electronically signed by Von Lee MD in OV> 09/28/25 1724 DD/ 1623 TD/TT: 09/28/25 1631 Photographic Equipment Inspector: [facility] External Provider IMG XR PROCEDURES Final Result * FL Guidance in OR (09/28/2025 12:30 PM EST) Anatomical Region Laterality Modality X-Ray Angiograph y 09/28/2025 12:3 0 PM EST Narrative 09/28/2025 4:37 PM EST [place] [address] Fluoroscopy Report Signed Patient: Delmar Hudson MR#: [id number] 253 : 1975 Acct:[id number] Age/Sex: 50 / F ADM Date: 09/28/25 Loc: HO.[facility] Attending Dr: Rylie Bustos DPM Ordering Physician: Rylie Bustos DPM Date of Service: 09/28/25 Procedure(s): FL guidance in OR Accession Number(s): [id number] cc: Timur Chance MD; Rylie Bustos DPM Reason for Exam: Achilles tendon repair EXAMINATION: Fluoroscopy ankle CLINICAL INFORMATION: Achilles tendon repair COMPARISON: MRI 09/03/2025 TECHNIQUE: Fluoroscopy the operating room. Dose: 8.8 my Time: 5.1 minutes Images: 4 FINDINGS: Fluoroscopy provided in the operating room. There are postsurgical changes seen along the posterior superior calcaneus. FL/FL guidance in OR IMPRESSION: Fluoroscopy provided in the operating room. See surgical report for details. Electronically signed by: Merlin Zeng MD 09/28/2025 04:34 PM EST RP Dictated By: Merlin Zeng MD Signed By: <Electronically signed by Merlin Zeng MD in OV> 09/28/25 163 DD/ 123 TD/TT: 09/28/25 153 Photographic Equipment Inspector: TAVARES Procedure Note Donotuseinterpreter, Image - 09/28/2025 [place] [address] Fluoroscopy Report Signed Patient: Delmar HudsonMR#: [id number] 253 : 1975Acct:[id number] Age/Sex: 50 / FADM Date: 09/28/25 Loc: [facility] Attending Dr: Rylie Bustos DPM Ordering Physician: Rylie Bustos DPM Date of Service: 09/28/25 Procedure(s): FL guidance in OR Accession Number(s): [id number] cc: Timur Chance MD; Rylie Bustos DPM Reason for Exam: Achilles tendon repair EXAMINATION: Fluoroscopy ankle CLINICAL INFORMATION: Achilles tendon repair COMPARISON: MRI 09/03/2025 TECHNIQUE: Fluoroscopy the operating room. Dose: 8.8 my Time: 5.1 minutes Images: 4 FINDINGS: Fluoroscopy provided in the operating room. There are postsurgical changes seen along the posterior superior calcaneus. FL/FL guidance in OR IMPRESSION: Fluoroscopy provided in the operating room. See surgical report for details. Electronically signed by: Merlin Zeng MD 09/28/2025 04:34 PM EST Dictated By: Merlin Zeng MD Signed By: <Electronically signed by Merlin Zeng MD in OV> 09/28/25 163 DD/ 123 TD/TT: 09/28/251529 Photographic Equipment Inspector: TAVARES us [facility] External Provider IMG IR PROCEDURES Final Result * Type and screen (09/28/2025 7:45 AM EST) Blood Type BP [facility] Antibody Screen NEGATIVE [facility] 09/28/2025 7:45 AM EST 09/28/2025 7:52 AM EST us Generic External Data Provider LAB BLOOD BANK TE ST ORDERABLES Final Result [facility] [address] [place] [phone] * ECG 12 lead (09/21/2025 12:47 PM EST) Only the most recent of3 resultswithin the time period is included. Narrative Ines Ramirez MD - 09/21/2025 12:47 PM EST HR 72 bpm, sinus rhythm, QT 394 ms us Ines Ramirez MD ECG ORDERABLES Final Result * Ankle w/o Contrast Left (09/03/2025 3:15 PM EDT) Anatomical Region Laterality Modality Lower Extremities, Ankle Left Magneti c Resonance 09/03/2025 3:15 PM EDT Narrative 09/04/2025 9:39 AM EDT [address] [address] Magnetic Resonance Report Signed Patient: Delmar Hudson MR#: [id number] 253 : 1975 Acct:[id number] Age/Sex: 50 / F ADM Date: 09/03/25 Loc: HO.MRI Attending Dr: Kelly Dalton PA-C Ordering Physician: Kelly Dalton PA-C Date of Service: 09/03/25 Procedure(s): MR ankle LT wo con Accession Number(s): [id number] cc: Timur Chance MD; Kelly Dalton PA-C Reason for Exam: 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 Patient reports 3 years of symptoms, pain. COMPARISON: X-ray 09/03/2025 TECHNIQUE: MRI of the ankle was performed using routine sequences on a high-field scanner. Large llxzk-pr-caer study, using the Achilles protocol. 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 Patient reports 3 years of symptoms, pain. COMPARISON: X-ray 09/03/2025 TECHNIQUE: MRI of the ankle was performed using routine sequences on a high-field scanner. Large kpoqj-gb-gmhr study, using the Achilles protocol. TECHNIQUE: MRI [...] 09/04/25 0936 DD/ 1515 TD/TT: 09/03/25 1545 Photographic Equipment Inspector: TAVARES [facility] External Provider IMG MRI PROCEDURES Edited Result - Final * XR Tibia Fibula 2 Views Left (08/30/2025 10:31 AM EDT) Anatomical Region Laterality Modality Lower Extremities, Lower Leg Left Rad iographic Imaging 08/30/2025 10:3 1 AM EDT Narrative 08/30/2025 11:04 AM EDT [address] [address] XRay Report Signed Patient: Delmar Hudson MR#: [id number] 253 : 1975 Acct:[id number] Age/Sex: 50 / F ADM Date: 08/30/25 Loc: [facility] Attending Dr: Rylie Bustos DPM Ordering Physician: Rylie Bustos DPM Date of Service: 08/30/25 Procedure(s): XR tibia fibula LT 2V Accession Number(s): [id number] cc: Timur Chance MD; Rylie Bustos DPM [...] 08/30/25 1101 DD/ 1031 TD/TT: 08/30/25 1045 Photographic Equipment Inspector: TAVARES Procedure Note Donotuseinterpreter, Image - 08/30/[address] [address] XRay Report Signed Patient: Delmar HudsonMR#: [id number] 253 : 1975Acct:[id number] Age/Sex: 50 / FADM Date: 08/30/25 Loc: HO.XRAY Attending Dr: Rylie Bustos DPM Ordering Physician: Rylie Bustos DPM Date of Service: 08/30/25 Procedure(s): XR tibia fibula LT 2V Accession Number(s): [id number] cc: Timur Chance MD; Rylie Bustos DPM [...] 08/30/25 1101 DD/ 1031 TD/TT: 08/30/25 1045 Photographic Equipment Inspector: TAVARES [facility] External Provider IMG XR PROCEDURES Edited Result - Final * BI Mammogram Screening Tomosynthesis Bilateral (08/15/2025 9:59 AM EDT) Anatomical Region Laterality Modality Breast Bilateral Mammography 08/15/2025 9:59 AM EDT Narrative 08/21/2025 3:02 PM EDT [address] [place] [address] Mammography Report Signed Patient: Delmar Hudson MR#: [id number] 253 : 1975 Acct:[id number] Age/Sex: 50 / F ADM Date: 08/15/25 Loc: HO.MAMMO Attending Dr: Timur Hernandez MD Ordering Physician: Timur Chance MD Res ults: 1Negative Date of Service: 08/15/25 Follow Up: 1 Year From Orig inal Mammogram Procedure(s): MM tomosynthesis screening BI Accession Number(s): [id number] cc: Timur Chance MD Reason For Exam: [...] 08/21/25 1459 DD/ 0959 TD/TT: 08/15/25 1002 Photographic Equipment Inspector: Procedure Note Donotuseinterpreter, Image - 08/21/20[facility] [address] [place] [address] Mammography Report Signed Patient: Delmar HudsonMR#: [id number] 253 : 1975Acct:[id number] Age/Sex: 50 / FADM Date: 08/15/25 Loc: HO.MAMMO Attending Dr: Timur Hernandez MD Ordering Physician: Timur Chance ults: 1Negative Date of Service: 08/15/25Follow Up: 1 Year From Orig inal Mammogram Procedure(s): MM tomosynthesis screening BI Accession Number(s): [id number] cc: Timur Chance MD Reason For Exam: [...] 08/21/25 1459 DD/ 0959 TD/TT: 08/15/25 1002 Photographic Equipment Inspector: Timur Hernandez MD IMG BI PROCEDURES Final Result * (ABNORMAL) Hemoglobin A1c (05/25/2025 11:17 AM EDT) Hemoglobin A1c 6.3(H) <6.0 % [facility] Comment:Hemoglobin A1C Refer ence Range Adults: 4.8 - 6.0 % Non diabetic: < 6.0 % Goal: < 7.0 %Additional Action Suggested: > 8.0 %Note: Hemoglobin A1c results are invalid for patients with abnormal amounts of HbF. Blood transfusions may impact the HbA1c concentration in the patient sample. Estimated Average Glucose 134 mg/dL [facility] Comment:eAG = Estimated ave rage glucose which is %A1C expressed asaverage glucose, using the formula of the Q5C-QqbhmvoUxmmoel Glucose study (ADAG), Diabetes Care, Vol.31,#8,Jun. 2007 Blood Venous blood specimen / Unknown 05/25/2025 11:17 AM EDT 05/25/2025 2:41 PM EDT Timur Hernandez MD LAB BLOOD ORDERABL ES Final Result [facility] [address] [place] [phone] * Lipid Panel, Standard (05/25/2025 11:17 AM EDT) Triglycerides 96 <150 mg/dL [facility] Comment:Desirable Triglyceri de: less than 150 mg/dLBorderline High Triglyceride 150-199 mg/dLHigh Triglyceride: 200-499 mg/dLVery High Triglyceride: greater than or equal to 5OO mg/dL Cholesterol 147 <200 mg/dL [facility] Comment:Desirable Cholestero l: less than 200 mg/dLBorderline High Cholesterol: 200-239 mg/dLHigh Cholesterol: greater than 239 mg/dL LDL Cholesterol Calculated 85 <100 mg/dL [facility] Comment:Desirable LDL: less than 100 mg/dLNear Optimal/Above Optimal LDL: 110- 129 mg/dLBorderline High LDL: 130-159 mg/dLHigh LDL: 160-189 mg/dLVery High LDL: greater than or equal to 190 mg/dL HDL Cholesterol 43 >40 mg/dL [facility] Comment:Desirable HDL: great er than 40 mg/dL Note: This HDL assay may give artificially low results in patients with liver disease. Blood Venous blood specimen / Unknown 05/25/2025 11:17 AM EDT 05/25/2025 2:41 PM EDT Timur Hernandez MD LAB BLOOD ORDERABL ES Final Result [facility] [address] [place] [phone] * Cologuard?? colon cancer screening (10/18/2024 8:40 AM EST) Cologuard Result Negative Negative 10/26/20 5:02 AM EST [employer] (CLIA #:[id number]) Comment: NEGATIVE TEST RESULT. A negative Cologuard [...] (Juan Ochoa al, N Engl J Med 2014;370(14):8795-3075) The normal value (reference range) for this assay is negative. COLOGUARD RE-SCREENING RECOMMENDATION: Periodic colorectal cancer screening is an important part of preventive healthcare for asymptomatic individuals at average risk for colorectal cancer. Following a negative Cologuard result, the [place] [employer] and U.S. Multi-Society Task Force screening guidelines recommend a Cologuard re-screening interval of 3 years. References: [place] [employer] Guideline for Colorectal Cancer Screening: https://www.cancer.org/cancer/mqetm-ghdqlu-qoqrby/hmnqwsyep-dzkycuzou-sqhisfg/ac s-rec ommendations.html.; Aki DK, Fabio RODRIGUES, Oleg GarciaK, Colorectal Cancer Screening: Recommendations for Physicians and Patients from the U.S. Multi-Society Task Force on Colorectal Cancer Screening , Am J Gastroenterology 2017; 112:1410-6374. TEST DESCRIPTION: Composite algorithmic analysis of stool [...] He et al, N Engl J Med 2014;370(14):2592-4250.) Cologuard may produce a false negative or false positive result (no colorectal cancer or precancerous polyp present at colonoscopy follow up). A negative Cologuard test result does not guarantee the absence of CRC or advanced adenoma (pre-cancer). The current Cologuard screening interval is every 3 years. ([place] [employer] Society and U.S. Multi-Society Task Force). Cologuard performance data in a 10,000 patient pivotal study using colonoscopy as the reference method can be accessed at the following location: www.[employer]/results. Additional description of the Cologuard test process, warnings and precautions can be found at www.cologuard.com. Stool specimen (specimen) 10/18/2024 8:40 AM EST 10/19/2024 10:55 AM EST Timur Hernandez MD LAB MOLECULAR DIAG NOSTICS ORDERABLES Final Result Performing Organization Address [facility] Co de Phone Number [employer] (CLIA #:[id number]) [address] [address], * HEPATITIS C AB W/REFL TO HCV [...] a test for HCV RNA (test code 88889) is suggested. For additional information please refer to http://education.[employer].[facility]/faq/LWF19z5 (This link is being provided for informational/ educational purposes only.) 09/08/2022 8:52 AM EDT Timur Hernandez MD HISTORICAL/NON ORD ERABLE LABS Final Result Performing Organization Address [facility] Co de Phone Number [facility] [...] Urine 31 20 - 275 mg/dL [facility] 09/08/2022 8:52 AM EDT Timur Hernandez MD LAB URINE ORDERABL ES Final Result [facility] * HPV mRNA E6/E7 (12/05/2019 1:12 PM EST) HPV mRNA E6/E7 Not Detected NOT DETECTED [facility] Comment: This test was performed using the APTIMA(R) HPV Assay ([employer] This assay detects E6/E7 viral messenger RNA (mRNA) from 14 high-risk HPV types (16,18,31,33,35,39,45,51, 52,56,58,59,66,68). For additional information please refer to: http://education.[employer]/faq/PQQ819q8 (This link is being provided for informational/ educational purposes only.) The analytical performance characteristics of this assay have been determined by [employer] [place], [place]. The modifications have not been cleared or approved by the FDA. This assay has been validated pursuant to the CLIA regulations and is used for clinical purposes. Test Performed by [facility], [place], [address] [place], [place] Nas Dugan M.D., Ph.D., Director of Laboratories , CLIA [id number] Please note: Effective 07/27/2016, HPV testing will be performed using [employer]'s APTIMA test which targets mRNA. Detecting mRNA instead of DNA, as in older methods, offers significant improvements in specificity. 12/05/2019 1:12 PM EST Aretha Blanco CNM HISTORICAL/NON ORDERABLE LABS Final Result Performing Organization Address [facility] Co de Phone Number [facility] [address] * HIV AB/AG (10/20/2019 3:01 PM [...] of detection of this assay. The [employer] Supervisor HIV Ag/Ab Combo assay result and supplemental assay results should be interpreted in conjunction with the patient's clinical presentation, history and other laboratory results. If the results are inconsistent with clinical evidence, additional testing is suggested to confirm the result. 10/20/2019 3:01 PM EST Timur Hernandez MD HISTORICAL/NON ORD ERABLE LABS Final Result Performing Organization Address [facility] [place] Phone Number [facility] [address] from Last 3 Months or Most Recently Relevant to Health Maintenance [place] [place] [address] [address] [facility] Address: [facility] [address] [place] [address] Care Teams Talent Acquisition Project Manager Relationship Specialty Start Date End Date Timur Chance MD [address] [place] [phone] PCP - General Internal Medicine 10/20/19
--- OUTSIDE RECORDS SUMMARY | 2025-10-15 13:15 | XMS_ITS | Encounter Summary ---
Author Organization [employer] Address [address] [facility] 7t [place] [address] Care Team Providers Care Mining Engineer Name Role Phone Timur Chance MD Primary Care Prov ider Encounter Details Date Type Department Care Team ([facility] st Contact Info) Description 11/05/2023 Abstract [facility] [address] [place], [place] [phone] Timur Chance MD [address] [place] [address] Social History Tobacco Use Types Packs/Day Years [...] [facility] [address] [place] [address] Timur Chance MD [address] [place] [address] documented as of this encounter Visit Diagnoses Not on filedocumented in this encounter Additional Health Concerns Assessment Noted Time PHQ-9 Depression Total Score: 0 12/04/19 23 9:40 AM EST documented as of this encounter Care Teams Mining Engineer Relationship Specialty Start Date End Date Timur Chance MD [address] [place] [address] PCP - General Internal Medicine 10/20/19 documented as of this encounter
--- OUTSIDE RECORDS SUMMARY | 2025-10-15 13:15 | XMS_ITS | Encounter Summary ---
Author Organization [employer] Address 75 [facility] 7t [place] [address] Care Team Providers Care Identification And Records Commander Name Role Phone Timur Chance MD Primary Care Prov ider Encounter Details Date Type Department Care Team (Late st Contact Info) Description 07/30/2025 Telephone [facility] MEDICINE [address] [place] [address] Timur Chance MD [address] [place] [address] Social History Tobacco Use Types Packs/Day Years [...] Upcoming Encounters Date Type Department Care Team ([facility] st Contact Info) Description 11/26/2025 10:30 AM EST Office Visit [facility] MED & PEDS [address] [place] [address] Timur Chance MD [address] [place] [address] documented as of this encounter Visit Diagnoses Not on filedocumented in this encounter Additional Health Concerns Assessment Noted Time PHQ-9 Depression Total Score: 2 07/02/20 25 11:03 AM EDT documented as of this encounter Care Teams Identification And Records Commander Relationship Specialty Start Date End Date Timur Chance MD [address] [place] [address] PCP - General Internal Medicine 10/20/19 documented as of this encounter
--- OUTSIDE RECORDS SUMMARY | 2025-10-15 13:15 | XMS_ITS | Encounter Summary ---
Author Organization [employer] Address 75 [facility] 7t [place] [address] Care Team Providers Care Automobile Damage Field Appraiser Name Role Phone Timur Chance MD Primary Care Prov ider Reason for Visit * Reason Onset Date Comments Referral 08/02/2024 Encounter Details Date Type Department Care Team (Late st Contact Info) Description 08/02/2024 Telephone [facility] [address] [place] [address] Timur Chance MD [address] [place] [phone] Referral Social History Tobacco Use Types Packs/Day [...] regarding PT referral. Please contact pt at [phone]. (Romanian Speaker) documented in this encounter Plan of Treatment Upcoming Encounters Date Type Department Care Team ([facility] st Contact Info) Description 11/26/2025 10:30 AM EST Office Visit [facility] MED & PEDS [address] [place] [address] Timur Chance MD [address] [place] [address] documented as of this encounter Visit Diagnoses Not on filedocumented in this encounter Additional Health Concerns Assessment Noted Time PHQ-9 Depression Total Score: 0 01/10/20 24 11:02 AM EST documented as of this encounter Care Teams Automobile Damage Field Appraiser Relationship Specialty Start Date End Date Timur Chance MD [address] [place] [address] PCP - General Internal Medicine 10/20/19 documented as of this encounter
--- OUTSIDE RECORDS SUMMARY | 2025-10-15 13:15 | XMS_ITS | Clinical Summary ---
Author Organization [facility] Address [address] [place] [address] Phone Care Team Providers Care Ornamental Ironworker Helper Name Role Phone Timur Chance Primary Care Provide r Allergies No known active allergies Medications omeprazole (PriLOSEC) [address] capsule Take 1 capsule (20 mg total) by mouth 1 (one) time each day. 05/14/20 25 Active naproxen (NAPROSYN) 500 mg tablet [...] 3 times a day 07/27/20 24 Active clotrimazole (LOTRIMIN) 1 % cream APPLY TO AFFECTED AREA(S) AND SURROUNDING AREA(S) TWICE DAILY IN THE MORNING AND EVENING 04/11/20 21 Active blood sugar diagnostic (FreeStyle Lite Strips) [...] at 8PM. 4000 mL 09/18/20 25 Active aspirin 81 mg EC tablet Take 1 tablet (81 mg total) by mouth 1 (one) time each day. Active phenazopyridin e (PYRIDIUM) 200 mg tablet TAKE ONE TABLET BY MOUTH THREE TIMES DAILY WITH MEALS FOR TWO DAYS 04/18/20 25 025 Discontin ued(Thera py completed ) nitrofurantoin , macrocrystal-m onohydrate, (MACROBID) 100 mg capsule take one capsule by mouth twice daily for five days 04/18/20 25 025 Discontin ued(Thera py completed ) cyclobenzaprin e (FLEXERIL) 10 mg tablet TAKE ONE TABLET THREE TIMES DAILY FOR 10 DAYS 025 Discontin ued(Thera py completed ) Active [...] Encounters Date Type Department Care Team Description 10/02/2025 11:59 PM EST Anesthesia Event [facility] Endoscopy [address] [place] [address] Stefano Saez MD 08/14/2025 3:00 PM EDT Consult Gastroenterology - [place] [address] [address] Shayla Jones NP Epigastric abdominal pain (Primary Dx); Gastroesophageal reflux disease, unspecified whether esophagitis present; Screening for colorectal cancer; Morbid obesity with BMI of 45.0-49.9, adult ([facility] V24, [facility] V28) 08/14/2025 Telephone Gastroenterology - [place] 175 [facility] 175 [facility] [address] [place] [phone] Shayla Jones NP 08/11/2025 12:59 AM EDT - 08/11/2025 6:50 AM EDT Emergency [facility] Emergency [address] [place] [phone] RUQ pain (Primary Dx); Hepatomegaly Discharge Disposition: Home or Self Care from Last 3 Months Medical History Medical History Date Comments Diabetes mellitus ([facility] V24, [facility] V28) Social History Tobacco Use Types Packs/Day [...] EDT Inhaled Oxygen Concentration - - Weight 115 kg (253 lb) 09/25/2025 10:00 AM EST Height 154.9 cm (5' 1 ) 09/25/2025 10:00 AM EST Body Mass Index 47.8 09/25/2025 10:00 AM EST Plan of Treatment Health Maintenance Due Date Last Done Comments Diabetes: Annual Foot Exam 1983 Diabetes: Annual [...] Vaccine ( season) 2025 06/18/2022, 05/14/2021, 04/16/2021 Diabetes: Annual Urine Albumin-Creatinine Ratio (uACR) 08/11/2025 Diabetes: Blood Sugar Control Test (HGBA1C) 11/25/2025 05/25/2025, 10/04/2024, 09/24/2021 Diabetes: Annual GFR (Glomerular Filtration Rate) 08/11/2026 08/11/2025, 05/25/2025, 10/04/2024 Hypertension/CHF/CAD Annual BMP Blood Test 08/11/2026 08/11/2025, 05/25/2025, 10/04/2024 Colorectal Cancer Screening: FIT-DNA (Cologuard) 10/18/2027 10/18/2024 DTaP,Tdap,and Td Vaccines (2 - Td or Tdap) 10/20/2029 10/20/2019 Cholesterol Screening (Lipid Panel) 05/25/2030 05/25/2025, 10/04/2024 Influenza Vaccine Completed 09/21/2025, , 09/03/2022, Additional history exists HIB Vaccines Aged Out No longer eligi [...] GEMUSE QTc 450 ms GEMUSE P Wave [place] 69 degrees GEMUSE R [place] 16 degrees GEMUSE T [place] 40 degrees GEMUSE ECG Interpretation Normal sinus rhythm Normal ECG When compared with ECG of 11-AUG-2025 01:03, (unconfirmed) No significant change was found Confirmed by VENTURA SUN ([id number]) on 08/12/2025 1:16:05 PM GEMUSE 08/11/2025 4:20 AM EDT 08/12/2025 1:16 PM EDT Willie Smith MD ECG ORDERABLES Final Result Performing Organization Address [facility] Co de Phone Number GEMUSE * Troponin I high sensitivity (08/11/2025 3:53 AM EDT) Only the most recent of2 resultswithin the time period is included. [facility] High Sensitivity Troponin I 4 <=54 ng/L LAB CHEMISTRY METHOD 08/11/2025 5:01 AM EDT [facility] Blood Venous blood specimen / Unknown Venipuncture / Unknown 08/11/2025 3:53 AM EDT 08/11/2025 4:33 AM EDT Narrative [facility] - 08/11/2025 5:01 AM EDT High levels of biotin in samples may falsely decrease hsTroponin values. Use caution when interpreting hsTroponin results in patients taking biotin who exhibit renal impairment (eGFR <60) or in patients taking more than 20 mg/day of biotin. Willie Smith MD LAB BLOOD ORDERABLES Final Resu lt Performing Organization Address City/[facility]/ZIP Co de Phone Number [facility] [address] [place] [address], [place] [phone] * US Abdomen Limited (08/11/2025 3:46 AM [...] MD on 08/11/2025 04:26:06 us Monica Villavicencio ARMORED MACHINE OPERATOR IMG US PROCEDURES Final R esult * (ABNORMAL) CBC auto differential (08/11/2025 1:21 AM EDT) WBC 14.7(H) 4.8 - 10.8 K/mcL LAB HEMETOLOGY METHOD 08/11/2025 2:04 AM EDT [facility] RBC 4.60 3.80 - 4.80 M/mcL LAB HEMETOLOGY METHOD 08/11/2025 2:04 AM EDT [facility] Hemoglobin 11.8 11.5 - 16.0 g/dL LAB HEMETOLOGY METHOD 08/11/2025 2:04 AM [facility] Hematocrit 38.4 35.0 - 47.0 % LAB HEMETOLOGY METHOD 08/11/2025 2:04 AM [facility] MCV 83.3 79.0 - 98.0 FL LAB HEMETOLOGY METHOD 08/11/2025 2:04 AM [facility] MCH 25.6(L) 27.0 - 32.0 pcg LAB HEMETOLOGY METHOD 08/11/2025 2:04 AM [facility] MCHC 30.7(L) 32.0 - 37.0 g/dL LAB HEMETOLOGY METHOD 08/11/2025 2:04 AM [facility] RDW 14.7 11.0 - 15.0 % LAB HEMETOLOGY METHOD 08/11/2025 2:04 AM [facility] Platelets 295 130 - 400 K/mcL LAB HEMETOLOGY METHOD 08/11/2025 2:04 AM [facility] MPV 10.6 7.0 - 11.0 FL LAB HEMETOLOGY METHOD 08/11/2025 2:04 AM [facility] NRBC 0.0 <1.0 % LAB HEMETOLOGY METHOD 08/11/2025 2:04 AM [facility] NRBC Absolute 0.00 <0.10 K/mcL LAB HEMETOLOGY METHOD 08/11/2025 2:04 AM [facility] Neutrophils Relative 66.0 % LAB HEMETOLOGY METHOD 08/11/2025 2:04 AM [facility] Lymphocytes Relative 26.1 % LAB HEMETOLOGY METHOD 08/11/2025 2:04 AM [facility] Monocytes Relative 6.0 % LAB HEMETOLOGY METHOD 08/11/2025 2:04 AM EDT [facility] Eosinophils Relative 1.0 % LAB HEMETOLOGY METHOD 08/11/2025 2:04 AM EDT [facility] Basophils Relative 0.4 % LAB HEMETOLOGY METHOD 08/11/2025 2:04 AM EDT [facility] Immature Granulocytes Relative 0.5 % LAB HEMETOLOGY METHOD 08/11/2025 2:04 AM EDT [facility] Neutrophils Absolute 9.73(H) 1.50 - 7.00 K/mcL LAB HEMETOLOGY METHOD 08/11/2025 2:04 AM EDT [facility] Lymphocytes Absolute 3.84 1.00 - 5.00 K/mcL LAB HEMETOLOGY METHOD 08/11/2025 2:04 AM EDT [facility] Monocytes Absolute 0.88 0.20 - 1.00 K/mcL LAB HEMETOLOGY METHOD 08/11/2025 2:04 AM EDT [facility] Eosinophils Absolute 0.15 0.00 - 0.50 K/mcL LAB HEMETOLOGY METHOD 08/11/2025 2:04 AM EDT [facility] Basophils Absolute 0.06 0.00 - 0.20 K/mcL LAB HEMETOLOGY METHOD 08/11/2025 2:04 AM EDT [facility] Immature Granulocytes Absolute 0.07(H) 0.00 - 0.03 K/mcL LAB HEMETOLOGY METHOD 08/11/2025 2:04 AM EDT [facility] Blood Venous blood specimen / Unknown Venipuncture / Unknown 08/11/2025 1:21 AM EDT 08/11/2025 1:58 AM EDT us Willie Smith MD LAB BLOOD ORDERABLES Final Resu lt [facility] [address] [place] [address], [place] [phone] * B-type natriuretic peptide (08/11/2025 1:21 AM EDT) BNP 12 <=100 pcg/mL LAB CHEMISTRY METHOD 08/11/2025 2:38 AM EDT [facility] Blood Venous blood specimen / Unknown Venipuncture / Unknown 08/11/2025 1:21 AM EDT 08/11/2025 1:58 AM EDT us Willie Smith MD LAB BLOOD ORDERABLES Final Resu lt Performing Organization Address [facility]/ZIP Co de Phone Number [facility] [address] [place] [address], [place] [phone] * (ABNORMAL) Magnesium (08/11/2025 1:21 AM EDT) [facility] Magnesium 1.8(L) 1.9 - 2.6 mg/dL LAB CHEMISTRY METHOD 08/11/2025 2:31 AM EDT [facility] Blood Venous blood specimen / Unknown Venipuncture / Unknown 08/11/2025 1:21 AM EDT 08/11/2025 1:58 AM EDT us Willie Smith MD LAB BLOOD ORDERABLES Final Resu lt Performing Organization Address City/[facility]/ZIP Co de Phone Number [facility] [address] [place] [address], [place] [phone] * Lipase (08/11/2025 1:21 AM EDT) Pathologist [facility] Lipase 43 13 - 75 unit/L LAB CHEMISTRY METHOD 08/11/2025 2:31 AM EDT [facility] Blood Venous blood specimen / Unknown Venipuncture / Unknown 08/11/2025 1:21 AM EDT 08/11/2025 1:58 AM EDT us Willie Smith MD LAB BLOOD ORDERABLES Final Resu lt [facility] [address] [place] [address], * (ABNORMAL) Comprehensive metabolic panel (08/11/2025 1:21 AM EDT) Sodium 142 133 - 145 mmol/L LAB CHEMISTRY METHOD 08/11/2025 2:31 AM T [facility] Potassium 4.0 3.5 - 5.5 mmol/L LAB CHEMISTRY METHOD 08/11/2025 2:31 AM [facility] Chloride 105 96 - 110 mmol/L LAB CHEMISTRY METHOD 08/11/2025 2:31 AM [facility] CO2 30 21 - 32 mmol/L LAB CHEMISTRY METHOD 08/11/2025 2:31 AM [facility] Anion Gap 7 3 - 11 LAB CHEMISTRY METHOD 08/11/2025 2:31 AM [facility] Glucose 126(H) 70 - 100 mg/dL LAB CHEMISTRY METHOD 08/11/2025 2:31 AM [facility] BUN 13 5 - 25 mg/dL LAB CHEMISTRY METHOD 08/11/2025 2:31 AM [facility] Creatinine 0.91 0.50 - 1.10 mg/dL LAB CHEMISTRY METHOD 08/11/2025 2:31 AM [facility] eGFR 76 >=60 mL/min/1. 73m2 LAB CHEMISTRY METHOD 08/11/2025 2:31 AM [facility] Comment:Calculation based on the Chronic Kidney Disease Epidemiology Collaboration (CKD-EPI) equation refit without adjustment for race. BUN/Creatinine Ratio 14.3 LAB CHEMISTRY METHOD 08/11/2025 2:31 AM [facility] Calcium 9.2 8.5 - 10.5 mg/dL LAB CHEMISTRY METHOD 08/11/2025 2:31 AM EDT [facility] AST (SGOT) 18 10 - 42 unit/L LAB CHEMISTRY METHOD 08/11/2025 2:31 AM EDT [facility] ALT (SGPT) 37 10 - 60 unit/L LAB CHEMISTRY METHOD 08/11/2025 2:31 AM EDT [facility] Alkaline Phosphatase 113 42 - 121 unit/L LAB CHEMISTRY METHOD 08/11/2025 2:31 AM EDT [facility] Total Protein 7.5 6.0 - 8.0 g/dL LAB CHEMISTRY METHOD 08/11/2025 2:31 AM EDT [facility] Albumin 3.6 3.2 - 5.0 g/dL LAB CHEMISTRY METHOD 08/11/2025 2:31 AM T [facility] Total Bilirubin 0.3 0.0 - 1.4 mg/dL LAB CHEMISTRY METHOD 08/11/2025 2:31 AM EDT [facility] Blood Venous blood specimen / Unknown Venipuncture / Unknown 08/11/2025 1:21 AM EDT 08/11/2025 1:58 AM EDT us Willie Smith MD LAB BLOOD ORDERABLES Final Resu lt [facility] [address] [place] [address], from Last 3 Months Insurance [facility] Care Teams Ornamental Ironworker Helper Relationship Specialty Start Date End Date Timur Chance [address] [place] [phone] PCP - General Internal Medicine 08/11/25
--- OUTSIDE RECORDS SUMMARY | 2025-10-15 13:15 | XMS_ITS | Encounter Summary ---
Author Organization [employer] Address [address] [facility] 7t [place] [address] Care Team Providers Care Overedge Sewer Name Role Phone Timur Chance MD Primary Care Prov ider Reason for Visit * Reason Onset Date Comments Nurse Triage 10/18/2024 Encounter Details Date Type Department Care Team (Late st Contact Info) Description 10/18/2024 Telephone [facility] MEDICINE [address] [place] [address] Timur Chance MD [address] [place] [phone] Nurse Triage Social History Tobacco Use Types [...] bone. Ptadvised of disposition, agrees to seek [facility] ED for eval to rule out fracture. [...] soon Reason: Can't use the shoulder normally Icelandic Speaker (Accepted Hack Saw Operator) documented in this encounter Plan of Treatment Upcoming Encounters Date Type Department Care Team (Late st Contact Info) Description 11/26/2025 10:30 AM EST Office Visit [facility]ED[facility] [address] [place] [address] Timur Chance MD [address] [place] [address] documented as of this encounter Visit Diagnoses Not on filedocumented in this encounter Additional Health Concerns Assessment Noted Time PHQ-9 Depression Total Score: 16 024 12:04 PM EST documented as of this encounter Care Teams Overedge Sewer Relationship Specialty Start Date End Date Timur Chance MD [address] [place] [address] PCP - General Internal Medicine 10/20/19 documented as of this encounter
--- OUTSIDE RECORDS SUMMARY | 2025-10-15 13:15 | XMS_ITS | Encounter Summary ---
Author Organization [employer] Address 75 [facility] 7t [place] [address] Care Team Providers Care Mental Health Aide Name Role Phone Timur Chance MD Primary Care Prov ider Encounter Details Date Type Department Care Team (Late st Contact Info) Description 08/13/2025 Orders Only [facility]EDS [address] [place] [address] ProviderAdilson MD Social History Tobacco Use Types [...] Description 11/26/2025 10:30 AM EST Office Visit [facility]EDS [address] [place], [place] [phone] BassTimur Rosenberg MD [address] [place], [place] [phone] documented as of this encounter Procedures Procedure [...] PM EDT Narrative 09/04/2025 9:39 AM EDT [address] [address] Magnetic Resonance Report Signed Patient: Delmar Hudson MR#: [id number] : 1975 Acct:[id number] Age/Sex: 50 / F ADM Date: 09/03/25 Loc: HO.MRI Attending Dr: Kelly Dalton PA-C Ordering Physician: Kelly Dalton PA-C Date of Service: 09/03/25 Procedure(s): MR ankle LT wo con Accession Number(s): [id number] cc: Timur Chance MD; Kelly Dalton PA-C Reason for Exam: 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 Patient reports 3 years of symptoms, pain. COMPARISON: X-ray 09/03/2025 TECHNIQUE: MRI of the ankle was performed using routine sequences on a high-field scanner. Large [id number] study, using the Achilles protocol. TECHNIQUE: MRI [...] by Merlin Zeng MD in OV> 09/04/[address] [place] [address] XRay Report Signed Patient: Delmar Hudson MR#: [id number] : 1975 Acct:[id number] Age/Sex: 50 / F ADM Date: 08/30/25 Loc: [facility] Attending Dr: Rylie Bustos DPM Ordering Physician: Rylie Bustos DPM Date of Service: 08/30/25 Procedure(s): XR tibia fibula LT 2V Accession Number(s): [id number] cc: Timur Chance MD; Rylie Bustos DPM [...] 08/30/25 1101 DD/ 1031 TD/TT: 08/30/25 1045 Binder Coverstitch: TAVARES Procedure Note Donotuseinterpreter, Image - 08/30/2025 [place] [address] XRay Report Signed Patient: Delmar HudsonMR#: [id number] : 1975Acct:[id number] Age/Sex: 50 / FADM Date: 08/30/25 Loc: [facility] Attending Dr: Rylie Bustos DPM Ordering Physician: Rylie Bustos DPM Date of Service: 08/30/25 Procedure(s): XR tibia fibula LT 2V Accession Number(s): [id number] cc: Timur Chance MD; Rylie Bustos DPM [...] 08/30/25 1101 DD/ 1031 TD/TT: 08/30/25 1045 Binder Coverstitch: TAVARES [facility] External Provider IMG XR PROCEDURES Edited [...] documented as of this encounter Care Teams Mental Health Aide Relationship Specialty Start Date End Date Timur Chance MD [address] [place] [address] PCP - General Internal Medicine 10/20/19 documented as of this encounter DD/ 1515 TD/TT: 09/03/25 1547 Binder Coverstitch: TAVARES Procedure Note Donotuseinterpreter, Image - 09/04/2025 [place] [address] Magnetic Resonance Report Signed Patient: Delmar HudsonMR#: [id number] : 1975Acct:[id number] Age/Sex: 50 / FADM Date: 09/03/25 Loc: HO.MRI Attending Dr: Kelly Dalton PA-C Ordering Physician: Kelly Dalton PA-C Date of Service: 09/03/25 Procedure(s): MR ankle LT wo con Accession Number(s): [id number] cc: Timur Chance MD; Kelly Dalton PA-C Reason for Exam: 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 Patient reports 3 years of symptoms, pain. COMPARISON: X-ray 09/03/2025 TECHNIQUE: MRI of the ankle was performed using routine sequences on a high-field scanner. Large pinsc-cg-slue study, using the Achilles protocol. TECHNIQUE: MRI [...] 09/04/25 0936 DD/ 1515 TD/TT: 09/03/25 1545 Binder Coverstitch: TAVARES us [facility] External Provider IMG MRI PROCEDURES Edited Result - Final * XR Ankle 3+ Views Left (08/30/2025 10:41 AM EDT) Anatomical Region Laterality Modality Lower Extremities, Ankle Left Radiogr aphic Imaging 08/30/2025 10:4 1 AM EDT Narrative 08/30/2025 11:04 AM EDT [address] [address] XRay Report Signed Patient: Delmar Hudson MR#: [id number] : 1975 Acct:[id number] Age/Sex: 50 / F ADM Date: 08/30/25 Loc: [facility] Attending Dr: Rylie Bustos DPM Ordering Physician: Rylie Bustos DPM Date of Service: 08/30/25 Procedure(s): XR ankle LT min 3V Accession Number(s): [id number] cc: Timur Chance MD; Rylie Bustos DPM [...] 08/30/25 1101 DD/ 1041 TD/TT: 08/30/25 1045 Binder Coverstitch: TAVARES Procedure Note Donotuseinterpreter, Image - 10/16/[address] [address] XRay Report Signed Patient: Delmar HudsonMR#: [id number] : 1975Acct:[id number] Age/Sex: 50 / FADM Date: 08/30/25 Loc: HO.XRAY Attending Dr: Rylie Bustos DPM Ordering Physician: Rylie Bustos DPM Date of Service: 08/30/25 Procedure(s): XR ankle LT min 3V Accession Number(s): [id number] cc: Timur Chance MD; Rylie Bustos DPM [...] 08/30/25 1101 DD/ 1041 TD/TT: 08/30/25 1045 Binder Coverstitch: TAVARES [facility] External Provider IMG XR PROCEDURES Edited Result - Final * XR Tibia Fibula 2 Views Left (08/30/2025 10:31 AM EDT) Anatomical Region Laterality Modality Lower Extremities, Lower Leg Left Rad iographic Imaging 08/30/2025 10:3 1 AM EDT Narrative 08/30/2025 11:04 AM EDT
--- OUTSIDE RECORDS SUMMARY | 2025-10-15 13:16 | XMS_ITS | Encounter Summary ---
Author Organization [employer] Address 75 [facility] 7 [place] [address] Care Team Providers Care Turf Keeper Name Role Phone Timur Chance MD Primary Care Prov ider Reason for Visit * Reason Onset Date Comments pre op appt 09/10/2025 Encounter Details Date Type Department Care Team ([facility] st Contact Info) Description 09/10/2025 Telephone [facility] MEDICINE [address] [place] [address] Timur Chance MD [address] [place] [phone] pre op appt Social History Tobacco Use [...] Description 11/26/2025 10:30 AM EST Office Visit [facility] PEDS [address] [place] [address] Timur Chance MD [address] [place] [address] documented as of this encounter Visit Diagnoses Not on filedocumented in this encounter Additional Health Concerns Assessment Noted Time PHQ-9 Depression Total Score: 2 07/02/20 25 11:03 AM EDT documented as of this encounter Care Teams Turf Keeper Relationship Specialty Start Date End Date Timur Chance MD [address] [place] [address] PCP - General Internal Medicine 10/20/19 documented as of this encounter
== END 2025-10-15 10:57 | disposition home or self-care (01) ==
LOC: HO.HPODS 10:29
PROVIDERS: PCP Internal Medicine; Visit Provider Student in an Organized Health Care Education/Training Program
DX: M79.672 Pain in left foot (principal); S99.922A Unspecified injury of left foot, initial encounter; M77.52 Other enthesopathy of left foot and ankle; M25.572 Pain in left ankle and joints of left foot; G89.29 Other chronic pain; S86.012A Strain of left Achilles tendon, initial encounter; M92.62 Juvenile osteochondrosis of tarsus, left ankle
CPT/HCPCS: 29515; 99024

== ENCOUNTER → 2025-10-15 10:28 | Outpatient (BNVA) | payer OTHER, SELFPAY | PROVIDERS: PCP Internal Medicine; Visit Provider Student in an Organized Health Care Education/Training Program | DX: Z47.89 Encounter for other orthopedic aftercare (principal); E11.9 Type 2 diabetes mellitus without complications; S99.922A Unspecified injury of left foot, initial encounter; M77.52 Other enthesopathy of left foot and ankle; S99.912A Unspecified injury of left ankle, initial encounter; W19.XXXA Unspecified fall, initial encounter; Y93.9 Activity, unspecified; Y92.002 Bathroom of unspecified non-institutional (private) residence as the place of occurrence of the external cause; Y99.9 Unspecified external cause status | CPT/HCPCS: 29515; 99212 ==

== ENCOUNTER 2025-10-22 09:53 | Outpatient (REF) | payer OTHER, SELFPAY ==
--- NOTE | ~2025-10-22 | XR_ITS ---
EXAMINATION: XR FOOT, LEFT CLINICAL INFORMATION: M79.672 - Pain in left foot COMPARISON: None available. TECHNIQUE: AP, lateral, and oblique views of the left foot. FINDINGS: There is mild narrowing of DIP and PIP joints of the second and fifth digits, mild narrowing of the IP joint of the great toe, and small marginal osteophytes involving the MTP joint of the great toe. There is subtle lucency through the lateral base of the proximal phalanx of the second digit. There is patchy sclerosis involving the tarsometatarsal joints. There is thickening of the distal Achilles tendon and multifocal calcifications is ossification distal tendon. XR/XR foot LT min 3V IMPRESSION: Possible intra-articular fracture involving the lateral base of the second proximal phalanx. Multifocal degenerative changes. Suspected partial tear/degeneration of inferior aspect of Achilles tendon. Electronically signed by: Von Lee MD 10/22/2025 10:34 AM YADY
== END 2025-10-22 09:54 | disposition home or self-care (01) ==
LOC: HO.XRAY 09:53
PROVIDERS: PCP Internal Medicine; Visit Provider Student in an Organized Health Care Education/Training Program
DX: M79.672 Pain in left foot (principal); S99.922A Unspecified injury of left foot, initial encounter
CPT/HCPCS: 73630

== ENCOUNTER → 2025-10-22 10:00 | Outpatient (BNV) | payer OTHER, SELFPAY | PROVIDERS: PCP Internal Medicine; Visit Provider Radiology Diagnostic Radiology | DX: M19.072 Primary osteoarthritis, left ankle and foot (principal) | CPT/HCPCS: 73630 ==

== ENCOUNTER 2025-11-01 10:13 | Outpatient (AMB) | payer OTHER, SELFPAY ==
[2025-11-01 10:31] VITALS: BMI 49.5
--- NOTE | 2025-11-01 10:31 | A.OFFVIS_ITS ---
Vital Signs 11/01/25 10:31 Height 5 ft 1 in Weight 262 lb BMI 49.5 Intake Visit Reasons: post op appt Intake Note: Delmar is a 50 year old female who presents to the office today for a follow up post-op appt. At last visit the patient was instructed to continue to be [id number], remain in the boot, and use a knee scooter for the next two weeks. New X-rays in chart. Pt states everything is going well and she has no concerns at this time Corrugated Sheet Material Sheeter Required: Yes Corrugated Sheet Material Sheeter Services: Corrugated Sheet Material Sheeter Present Corrugated Sheet Material Sheeter Name: [id number] Allergies No Known Allergies Allergy (Verified 11/01/25 10:32) HPI Comments Details: The patient is a 50-year-old female presenting for a follow up S/P Left chelsea's deformity and insertional calcaneal spur resection, Extensive debridement of Achilles tendon, and Secondary repair of Achilles tendon with Platelet rich plasma (DOS: 09/28/25). She states she has been feeling better since the surgery but reports experiencing some tingling in her left foot and mild pain. She states the pain is located to the lateral aspect and posterior aspect of her heel if pressure is applied to the area. She has been nonweightbearing with the use of her knee scooter and walker. She denies any new pedal injuries. She denies any other pedal concerns. [facility] Medical History (Updated 11/11/25 @ 10:12 by Rylie Bustos DPM) Displaced fracture of proximal phalanx of left lesser toe(s), initial encounter for closed fracture Pain of left heel Injury of left foot Left foot pain Venous insufficiency (chronic) (peripheral) Lymphedema Obesity, Class III, BMI 40-49.9 (morbid obesity) Type 2 diabetes mellitus GERD (gastroesophageal reflux disease) HTN (hypertension) Preoperative examination Rupture of left Achilles tendon Chelsea's deformity of left heel Left ankle injury Other enthesopathy of left foot and ankle Left ankle pain Surgical History (Updated 09/26/25 @ 09:56 by Karol Parry RN) Hx of hysterectomy (1999) Social History Comment: medicated Patient Tobacco Use Status: Never used Tobacco Review of Systems Const Details: - Neurological: Reports tingling in her left foot. - Musculoskeletal: Reports mild pain in the lateral and posterior aspects of the left heel. All systems reviewed & are unremarkable except as noted in HPI and below Physical Exam Vital Signs: BMI result Body Mass Index 49.5 Extrem Other: LLE Focused Physical Exam: Derm: Surgical site noted to be intact with no maceration or signs of dehiscence. No erythema or discoloration noted. Post surgical edema noted to the posterior aspect of the heel and ankle, reduced from last visit. Skin supple and turgor WNL. No clinical signs of infection noted. No active bleeding, purulence, or drainage noted. Vasc: DP/PT pulses palpable. CFT < 3 secs. Temp gradient warm to warm. Pedal hair present. Telangectasias noted. Neuro: Protective sensations grossly intact. MSK: Mild Pain on palpation to the lateral and posterior aspects of the heel. No crepitus or fluctuance noted. Increased range of motion of the ankle without pain. Range of motion of the forefoot and hindfoot within normal limits. Antalgic gait with an assistive device noted. Results Reviewed Results Reviewed: Podiatry read of left foot x-ray (10/22/2025): Avulsion fracture of the base of the 2nd proximal phalanx. Osteophyte changes to the mid foot. Joint space narrowing of IPJs 1 - 5. S/P Chelsea's deformity resection and secondary repair of Achilles tendon. Left foot x-ray (10/22/2025): FINDINGS: There is mild narrowing of DIP and PIP joints of the second and fifth digits, mild narrowing of the IP joint of the great toe, and small marginal osteophytes involving the MTP joint of the great toe. There is subtle lucency through the lateral base of the proximal phalanx of the second digit. There is patchy sclerosis involving the tarsometatarsal joints. There is thickening of the distal Achilles tendon and multifocal calcifications is ossification distal tendon. IMPRESSION: Possible intra-articular fracture involving the lateral base of the second proximal phalanx. Multifocal degenerative changes. Suspected partial tear/degeneration of inferior aspect of Achilles tendon. Post-op left ankle xray (09/28/25): FINDINGS: Ankle mortise is congruent. There is no widening of the syndesmosis. Talar dome is intact. Ossification in the distal Achilles tendon at the calcaneal attachment has been resected. IMPRESSION: Resection of distal Achilles enthesophyte. Intra-op fluoroscopy (09/28/25): FINDINGS: Fluoroscopy provided in the operating room. There are postsurgical changes seen along the posterior superior calcaneus. IMPRESSION: Fluoroscopy provided in the operating room. See surgical report for details. Podiatry read of left ankle MRI (09/03/2025): Partial rupture of Achilles tendon noted with Chelsea's deformity noted. ATFL sprain noted. OCD lesion noted of talus. Left ankle MRI (09/03/2025): FINDINGS: BONE/JOINTS: There is edema in the superior aspect of the posterior calcaneus, could reflect reactive edema or osseous contusion/stress injury. Osseous prominence of the posterior superior calcaneus, suggestive of Chelsea's deformity. No fracture plane is identified. No acute fractures otherwise seen. No talar dome OCD. Degenerative-appearing T2 signal in the navicular. No aggressive marrow replacing lesion.. MUSCLES/TENDONS: Medial flexor, peroneal, extensor tendons are intact. LIGAMENTS: Mild heterogeneous signal in the ATFL may reflect a chronic sprain. Posterior talofibular, tibiofibular, calcaneofibular ligaments are intact. Intact deltoid ligament. ACHILLES TENDON: Heterogeneous increased T2 signal in the Achilles tendon, with the tendon thickening measuring up to approximately 1.1 cm. Findings are consistent with mild-moderate tendinosis. Irregularity of the deep surface of the tendon at the level of the superior calcaneus, suggestive of deep surface fraying/low-grade tear in this region. Longitudinal oriented linear T2 signal distal tendon, could reflects striations oriented longitudinally oriented intrasubstance tearing. No transverse tendon tear or retraction is seen. Mild Achilles peritendinitis. There is small calcaneal bursitis, with soft tissue edema in this region.. Moderate posterior calcaneal insertional enthesopathy. PLANTAR FASCIA: Intact SINUS TARSI: Normal signal. TARSAL TUNNEL : No mass lesion SUBCUTANEOUS SOFT TISSUES: Subcutaneous edema present. IMPRESSION: * Mild-moderate Achilles tendinosis. Associated peritendinitis. Deep surface fraying/low-grade partial tear of the tendon the level of the superior calcaneus. Possible longitudinally oriented linear intrasubstance partial tearing versus striations in the tendon. No transverse tendon tear or retraction. Retrocalcaneal bursitis. 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 Edema in the posterior calcaneus, could reflect reactive edema, contusion/stress injury. * Mild chronic ATFL sprain * Additional findings and details as above. Podiatry Read of Left ankle xray (08/30/25): Joint space narrowing noted to the ankle joint with mild osteophytic changes noted. Osteophytic changes noted to the dorsal midfoot. Bone spur noted to the posterior aspect of the calcaneus and mildly to the plantar aspect of the calcaneus. Left ankle xray (08/30/25): FINDINGS: Ankle: No visible acute fracture, dislocation or suspicious bony lesion. Mild tibiotalar arthritis. Ankle mortise appears maintained. No talar dome OCD. Dorsal degenerative spurring in the midfoot. Prominent posterior calcaneal insertional enthesopathy. Plantar calcaneal spur. No suspicious soft tissue calcifications. Soft tissue swelling. IMPRESSION: Tibia and fibula: No acute osseous findings Podiatry read of left tib-fib x-ray (08/30/2025): No acute fractures or dislocations noted. Osteophytic changes noted to the knee. Left tib-fib x-ray (08/30/2025): FINDINGS: Tibia and fibula: No visible acute fracture, malalignment or suspicious bony lesion. Apparent medial and lateral compartment arthritis of the knee. Superior patellar insertional enthesopathy. No significant knee joint effusion is identified. Soft tissue swelling. No abnormal soft tissue calcification. IMPRESSION: Tibia and fibula: No acute osseous findings Ordered Left ankle and tibfib xrays weightbearing and Left ankle MRI to be performed prior to next visit. 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, left ankle Category: Medical (3) Left foot pain: Code(s): M79.672 - Pain in left foot Category: Medical (4) Injury of left foot: Code(s): S99.922A - Unspecified injury of left foot, initial encounter Category: Medical (5) Pain of left heel: Code(s): M79.672 - Pain in left foot Category: Medical (6) Other enthesopathy of left foot and ankle: Code(s): M77.52 - Other enthesopathy of left foot and ankle Category: Medical (7) Left ankle pain: Code(s): M25.572 - Pain in left ankle and joints of left foot Category: Medical Qualifiers: Chronicity: chronic Qualified Code(s): M25.572 - Pain in left ankle and joints of left foot; G89.29 - Other chronic pain (8) Left ankle injury: Code(s): S99.912A - Unspecified injury of left ankle, initial encounter Category: Medical Qualifiers: Encounter type: initial encounter Qualified Code(s): S99.912A - Unspecified injury of left ankle, initial encounter (9) Displaced fracture of proximal phalanx of left lesser toe(s), initial encounter for closed fracture: Code(s): S92.512A - Displaced fracture of proximal phalanx of left lesser toe(s), initial encounter for closed fracture Category: Medical Plan Patient was informed and verbally consented to the use of an ambient scribe for clinic note documentation during this visit. I informed the patient that she is healing well and is now cleared to start ambulating with an assistive device in a cam boot. I explained that the tingling she is experiencing in her foot is a normal post-surgical finding. We discussed the plan for continued use of the CAM boot for a few more weeks, though it is not necessary for sleeping. Advised patient she may remove the Jose Alberto bandage and may shower without a dressing/covering to the left lower extremity. I placed a referral for physical therapy. I will send a prescription refill for Percocet. We scheduled a follow-up appointment in three weeks. - Transition patient to weight-bearing as tolerated with the use of an assistive device in a cam boot. - Patient may remove cam boot and Jose Alberto bandage when resting. - Patient no longer needs to keep the left lower extremity covered while showering. - Advised patient to continue rice protocol. - Provided patient with a referral for physical therapy. - Refilled Percocet prescription. - Advised patient to avoid barefoot walking. RTC in 3 weeks. 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, left ankle Medications: Changed From oxycodone-acetaminophen 5-325 mg May take 1 tab q4-6h prn moderate pain (4-6) May take 2 tabs q4-6h prn severe pain (7-10) Patient not to take with Tramadol 1 - 2 tabs PO Q4-6H PRN 30 tabs 0RF pain To oxycodone-acetaminophen 5-325 mg (Percocet) 1 tab for moderate pain (4-6) 2 tabs for severe pain (7-10) Patient not to take with Tramadol 1 - 2 tabs PO Q4-6H PRN 30 tabs 0RF pain From oxycodone-acetaminophen 5-325 mg May take 1 tab q4-6h prn moderate pain (4-6) May take 2 tabs q4-6h prn severe pain (7-10) Patient not to take with Tramadol 1 - 2 tabs PO Q4-6H PRN 30 tabs 0RF pain To oxycodone-acetaminophen 5-325 mg (Percocet) May take 1 tab q4-6h prn moderate pain (4-6) May take 2 tabs q4-6h prn severe pain (7-10) Patient not to take with Tramadol 1 - 2 tabs PO Q4-6H PRN 30 tabs 0RF pain Coding Level of Care Code Global (93074) Diagnoses Rupture of left Achilles tendon, initial encounter S86.012A Encounter type: initial encounter Chelsea's deformity of left heel M92.62 Left foot pain M79.672 Injury of left foot S99.922A Pain of left heel M79.672 Other enthesopathy of left foot and ankle M77.52 Chronic pain of left ankle M25.572; G89.29 Chronicity: chronic Injury of left ankle, initial encounter S99.912A Encounter type: initial encounter Displaced fracture of proximal phalanx of left lesser toe(s), initial encounter for closed fracture S92.512A Time Spent (min) 38
--- OUTSIDE RECORDS SUMMARY | 2025-11-01 12:31 | XMS_ITS | Encounter Summary ---
Author Organization [employer] Address [address] [facility] [address] [place] [address] Care Team Providers Care Oral Communication Instructor Name Role Phone Timur Chance MD Primary Care Prov ider Reason for Visit * Reason Onset Date Comments ER Follow-up 11/09/2023 Nurse Triage 11/09/2023 Encounter Details Date Type Department Care Team (Late st Contact Info) Description 11/09/2023 Telephone [facility] MEDICINE [address] [place] [address] Timur Chance MD [address] [place] [id number] ER Follow-up; Nurse Triage Social History Tobacco [...] 10:56 AM EST Records request faxed to [facility] as requested. * Telephone Encounter - Viky Hooks RN - 11/09/2023 10:00 AM EST Called pt. Via [employer] japanese interpreter [phone] Aleksandar. Pt. States that she got injured her left hand at her job on 10/31/23 and has pain, swelling, Pt. Went to [facility] ED on 11/07/23. Pt. Had X rays done and pt. Was told that her tendon is injured in her hand. Pt. Has been using pain reliever with no relief. Will send request to have clinical coordinators call [facility] for ED notes and Xrays from 11/07/23 to befaxed to [facility] but, cannot guarantee that results will be sent with same day request. I will also send message to [facility] nurses to at least get Xray results from [facility] Protocol Used: Hand and Wrist Injury (Adult) Protocol-Based Disposition: See in Office or Video Visit Today- appt. Today at 2pm [facility]. Video visit not offered Positive Triage Questions: [...] soon Reason: Getting worse Pt went to [facility] due to a fall. The caller accepted this outcome St Helenian speaker * Telephone Encounter - Carlos Negrete - 11/09/2023 8:26 AM EST Patient calling to report ED visit on : 11/09 Date: 11/03 Hospital: [facility] Seen for: Hand Patient states is still in aments pain Patient advised will forward to team nurse for follow up documented in this encounter Plan of Treatment Upcoming Encounters Date Type Department Care Team (Late st Contact Info) Description 11/26/2025 10:30 AM EST Office Visit [facility] MED & PEDS [address] [place] [address] Timur Chance MD [address] [place] [address] documented as of this encounter Visit Diagnoses Not on filedocumented in this encounter Additional Health Concerns Assessment Noted Time PHQ-9 Depression Total Score: 0 12/04/19 23 9:40 AM EST documented as of this encounter Care Teams Oral Communication Instructor Relationship Specialty Start Date End Date Timur Chance MD [address] [place] [address] PCP - General Internal Medicine 10/20/19 documented as of this encounter
--- OUTSIDE RECORDS SUMMARY | 2025-11-01 12:31 | XMS_ITS | Encounter Summary ---
Author Organization [employer] Address [address] [facility] 7[address] [place] [address] Care Team Providers Care Automotive Porter Name Role Phone Timur Chance MD Primary Care Prov ider Reason for Visit * Reason Onset Date Comments Referral 08/02/2024 Encounter Details Date Type Department Care Team (Late st Contact Info) Description 08/02/2024 Telephone [facility] MEDICINE [address] [place] [address] Timur Chance MD [address] [place] [phone] Referral Social History Tobacco Use Types Packs/Day [...] regarding PT referral. Please contact pt at [phone]. (Norwegian Speaker) documented in this encounter Plan of Treatment Upcoming Encounters Date Type Department Care Team ([facility] st Contact Info) Description 11/26/2025 10:30 AM EST Office Visit [facility] MED & PEDS [address] [place] [address] Timur Chance MD [address] [place] [address] documented as of this encounter Visit Diagnoses Not on filedocumented in this encounter Additional Health Concerns Assessment Noted Time PHQ-9 Depression Total Score: 0 01/10/20 24 11:02 AM EST documented as of this encounter Care Teams Automotive Porter Relationship Specialty Start Date End Date Timur Chance MD [address] [place] [address] PCP - General Internal Medicine 10/20/19 documented as of this encounter
--- OUTSIDE RECORDS SUMMARY | 2025-11-01 12:31 | XMS_ITS | Encounter Summary ---
Author Organization [employer] Address [address] [facility] [facility] [address] [place] [address] Care Team Providers Care Dry Cleaning Supervisor Name Role Phone Timur Chance MD Primary Care Prov ider Encounter Details Date Type Department Care Team (Late st Contact Info) Description 11/09/2023 Telephone [facility] MEDICINE [address] [place] [address] Timur Chance MD [address] [place] [address] Social History Tobacco Use Types Packs/Day Years [...] the past 12 months, has t he [employer], gas, oil or water [employer] threatened to shut off services in your [...] 11/26/2025 10:30 AM EST Office Visit [facility] MED & PEDS [address] [place] [address] Timur Chance MD [address] [place] [address] documented as of this encounter Visit Diagnoses Not on filedocumented in this encounter Additional Health Concerns Assessment Noted Time PHQ-9 Depression Total Score: 0 12/04/19 23 9:40 AM EST documented as of this encounter Care Teams Dry Cleaning Supervisor Relationship Specialty Start Date End Date Timur Chance MD [address] [place] [address] PCP - General Internal Medicine 10/20/19 documented as of this encounter
--- OUTSIDE RECORDS SUMMARY | 2025-11-01 12:31 | XMS_ITS | Encounter Summary ---
Author Organization [employer] Address [address] [facility] [address] [place] [address] Care Team Providers Care Manager [place] Name Role Phone Timur Chance MD Primary Care Prov ider Reason for Visit * Reason Onset Date Comments Nurse Triage 10/18/2024 Encounter Details Date Type Department Care Team (Late st Contact Info) Description 10/18/2024 Telephone [facility] MEDICINE [address] [place] [address] Timur Chance MD [address] [place] [phone] Nurse Triage Social History Tobacco Use Types [...] bone. Ptadvised of disposition, agrees to seek [facility] ED for eval to rule [...] soon Reason: Can't use the shoulder normally Peruvian Speaker (Accepted Color Worker) documented in this encounter Plan of Treatment Upcoming Encounters Date Type Department Care Team (Late st Contact Info) Description 11/26/2025 10:30 AM EST Office Visit [facility] PED[facility] [address] [place] [address] Timur Chance MD [address] [place] [address] documented as of this encounter Visit Diagnoses Not on filedocumented in this encounter Additional Health Concerns Assessment Noted Time PHQ-9 Depression Total Score: 16 024 12:04 PM EST documented as of this encounter Care Teams Manager China Relationship Specialty Start Date End Date Timur Chance MD [address] [place] [address] PCP - General Internal Medicine 10/20/19 documented as of this encounter
--- OUTSIDE RECORDS SUMMARY | 2025-11-01 12:31 | XMS_ITS | Encounter Summary ---
Author Organization [employer] Address [address] [facility] [address] [place] [address] Care Team Providers Care Packing Tractor Machine Operator Name Role Phone Timur Chance MD Primary Care Prov ider Encounter Details Date Type Department Care Team ([facility] st Contact Info) Description 11/05/2023 Abstract [facility] MED & PEDS [address] [place], [place] [phone] Timur Chance MD [address] [place] [address] Social History Tobacco Use Types Packs/Day Years [...] 10:30 AM EST Office Visit [facility] MED & PEDS [address] [place] [address] Timur Chance MD [address] [place] [address] documented as of this encounter Visit Diagnoses Not on filedocumented in this encounter Additional Health Concerns Assessment Noted Time PHQ-9 Depression Total Score: 0 12/04/19 23 9:40 AM EST documented as of this encounter Care Teams Packing Tractor Machine Operator Relationship Specialty Start Date End Date Timur Chance MD [address] [place] [address] PCP - General Internal Medicine 10/20/19 documented as of this encounter
--- OUTSIDE RECORDS SUMMARY | 2025-11-01 12:31 | XMS_ITS | Clinical Summary ---
Author Organization [employer] Address [address] [place] [address] Care Team Providers Care Strategic Client Executive Name Role Phone Timur Chance MD Primary [...] THAN FOUR TABLETS DAILY 08/13/20 25 Active Active Problems Problem Noted Date Diagnosed [...] send new xray and will refer to [facility] for joint intection Assessment & Plan (10/30/2024 [...] Data 09/21/2025 9:15 AM EST Office Visit [facility] [address] [place] [address] Ines Ramirez MD Primary hypertension (Primary Dx); Gastroesophageal reflux disease without esophagitis; Hx of hysterectomy; Encounter for immunization; Preop examination 09/21/2025 Travel 09/17/2025 Telephone [facility] [address] [place] [address] Timur Chance MD chart prep 09/10/[address] [facility] [address] [place] [address] Timur Chance MD pre op appt 08/13/2025 Telephone [facility] [address] [place] [address] Timur Chance MD ER Follow-up 08/13/[address] [facility] [address] [place] [address] ProviderAdilson MD 08/07/2025 Refill [facility] [address] [place] [address] Timur Chance MD Gastroesophageal reflux disease without esophagitis from Last 3 Months Immunizations Immunization Administration [...] 10:30 AM EST Office Visit [facility] [address] [place] [address] BassTimur Rosenberg MD [address] [place] [address] Health Maintenance Due Date Last Done Comments [...] Name Priority Date/Time Associated Diagnosis Comments XR FOOT 3+ VIEWS LEFT Routine 10/22/2025 10:18 AM EST XR ANKLE 3+ VIEWS LEFT Routine 09/28/2025 [...] Relevant to Health Maintenance Results * XR Foot 3+ Views Left (10/22/2025 10:18 AM EST) Anatomical Region Laterality Modality Lower Extremities, Foot Left Radiogra phic Imaging 10/22/2025 10:1 8 AM EST Narrative 10/22/2025 10:37 AM EST [address] [address] XRay Report Signed Patient: Delmar Hudson MR#: [id number] 253 : 1975 Acct:[id number] Age/Sex: 50 / F ADM Date: 10/22/25 Loc: [facility] Attending Dr: Rylie Bustos DPM Ordering Physician: Rylie Bustos DPM Date of Service: 10/22/25 Procedure(s): XR foot LT min 3V Accession Number(s): [id number] cc: Timur Chance MD; Rylie Bustos DPM Reason for Exam: M79.672 - Pain in left foot EXAMINATION: XR FOOT, LEFT CLINICAL INFORMATION: M79.672 - Pain in left foot COMPARISON: None available. TECHNIQUE: AP, lateral, and oblique views of the left foot. FINDINGS: There is mild narrowing of DIP and PIP joints of the second and fifth digits, mild narrowing of the IP joint of the great toe, and small marginal osteophytes involving the MTP joint of the great toe. There is subtle lucency through the lateral base of the proximal phalanx of the second digit. There is patchy sclerosis involving the tarsometatarsal joints. There is thickening of the distal Achilles tendon and multifocal calcifications is ossification distal tendon. XR/XR foot LT min 3V IMPRESSION: Possible intra-articular fracture involving the lateral base of the second proximal phalanx. Multifocal degenerative changes. Suspected partial tear/degeneration of inferior aspect of Achilles tendon. Electronically signed by: Von Lee MD 10/22/2025 10:34 AM EST RP Dictated By: Von Lee MD Signed By: <Electronically signed by Von Lee MD in OV> 10/22/25 1034 DD/ 1018 TD/TT: 10/22/25 1025 Business Asst: Procedure Note Donottariqinterpreter, Image - 10/22/[address] [address] XRay Report Signed Patient: Delmar HudsonMR#: [id number] 253 : 1975Acct:[id number] Age/Sex: 50 / FADM Date: 10/22/25 Loc: [facility] Attending Dr: Rylie Bustos DPM Ordering Physician: Rylie Bustos DPM Date of Service: 10/22/25 Procedure(s): XR foot LT min 3V Accession Number(s): [id number] cc: Timur Chance MD; Rylie Bustos DPM Reason for Exam: M79.672 - Pain in left foot EXAMINATION: XR FOOT, LEFT CLINICAL INFORMATION: M79.672 - Pain in left foot COMPARISON: None available. TECHNIQUE: AP, lateral, and oblique views of the left foot. FINDINGS: There is mild narrowing of DIP and PIP joints of the second and fifth digits, mild narrowing of the IP joint of the great toe, and small marginal osteophytes involving the MTP joint of the great toe. There is subtle lucency through the lateral base of the proximal phalanx of the second digit. There is patchy sclerosis involving the tarsometatarsal joints. There is thickening of the distal Achilles tendon and multifocal calcifications is ossification distal tendon. XR/XR foot LT min 3V IMPRESSION: Possible intra-articular fracture involving the lateral base of the second proximal phalanx. Multifocal degenerative changes. Suspected partial tear/degeneration of inferior aspect of Achilles tendon. Electronically signed by: Von Lee MD 10/22/2025 10:34 AM EST RP Dictated By: Von Lee MD Signed By: <Electronically signed by Von Lee MD in OV> 10/22/25 1034 DD/ 1018 TD/TT: 10/22/25 1025 Business Asst: [facility] External Provider IMG XR PROCEDURES Final Result * XR Ankle 3+ Views Left (09/28/2025 4:23 PM EST) Only the most recent of2 resultswithin the time period is included. Anatomical Region Laterality Modality Lower Extremities, Ankle Left Radiogr aphic Imaging 09/28/2025 4:23 PM EST Narrative 09/28/2025 5:27 PM EST [place] [address] XRay Report Signed Patient: Delmar Hudson MR#: [id number] 253 : 1975 Acct:[id number] Age/Sex: 50 / F ADM Date: 09/28/25 Loc: HO.[facility] Attending Dr: Rylie Bustos DPM Ordering Physician: Rylie Bustos DPM Date of Service: 09/28/25 Procedure(s): XR ankle LT min 3V Accession Number(s): [id number] cc: Timur Chance MD; Rylie Bustos DPM [...] 09/28/25 1724 DD/ 1623 TD/TT: 09/28/25 1631 Business Asst: Procedure Note Nnekater, Image - 09/28/[address] [address] XRay Report Signed Patient: Delmar HudsonMR#: [id number] 253 : 1975Acct:[id number] Age/Sex: 50 / FADM Date: 09/28/25 Loc: HO.[facility] Attending Dr: Rylie Bustos DPM Ordering Physician: Rylie Bustos DPM Date of Service: 09/28/25 Procedure(s): XR ankle LT min 3V Accession Number(s): [id number] cc: Timur Chance MD; Rylie Bustos DPM [...] 09/28/25 1724 DD/ 1623 TD/TT: 09/28/25 1631 Business Asst: us [facility] External Provider IMG XR PROCEDURES Final Result * FL Guidance in OR (09/28/2025 12:30 PM EST) Anatomical Region Laterality Modality X-Ray Angiograph y 09/28/2025 12:3 0 PM EST Narrative 09/28/2025 4:37 PM EST [address] [address] Fluoroscopy Report Signed Patient: Delmar Hudson MR#: [id number] 253 : 1975 Acct:[id number] Age/Sex: 50 / F ADM Date: 09/28/25 Loc: HO.[facility] Attending Dr: Rylie Bustos DPM Ordering Physician: Rylie Bustos DPM Date of Service: 09/28/25 Procedure(s): FL guidance in OR Accession Number(s): [id number] cc: Timur Chance MD; Rylie Bustos DPM [...] by Merlin Zeng MD in OV> 09/28/25 1634 DD/ 1230 TD/TT: 09/28/25 1530 Business Asst: TAVARES Procedure Note Donrupauseinterpreter, Image - 09/28/[address] [address] Fluoroscopy Report Signed Patient: Delmar HudsonMR#: [id number] 253 : 1975Acct:[id number] Age/Sex: 50 / FADM Date: 09/28/25 Loc: HO.[facility] Attending Dr: Rylie Bustos DPM Ordering Physician: Rylie Bustos DPM Date of Service: 09/28/25 Procedure(s): FL guidance in OR Accession Number(s): [id number] cc: Timur Chance MD; Rylie Bustos DPM [...] by Merlin Zeng MD in OV> 09/28/25 1634 DD/ 1230 TD/TT: 09/28/25 1530 Business Asst: TAVARES us [facility] External Provider IMG IR PROCEDURES Final Result * Type and screen (09/28/2025 7:45 AM EST) Blood Type BP [facility] Antibody Screen NEGATIVE [facility] 09/28/2025 7:45 AM EST 09/28/2025 7:52 AM EST us Generic External Data Provider LAB BLOOD BANK TE ST ORDERABLES Final Result [facility] [address] [place] [phone] * ECG 12 lead (09/21/2025 12:47 [...] PM EDT Narrative 09/04/2025 9:39 AM EDT [address] [address] Magnetic Resonance Report Signed Patient: Delmar Hudson MR#: [id number] 253 : 1975 Acct:[id number] Age/Sex: 50 / F ADM Date: 09/03/25 Loc: HO.MRI Attending Dr: Kelly Dalton PA-C Ordering Physician: Kelly Dalton PA-C Date of Service: 09/03/25 Procedure(s): MR ankle LT wo con Accession Number(s): [id number] cc: Timur Chance MD; Kelly Dalton PA-C Reason for Exam: 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 Patient reports 3 years of symptoms, pain. COMPARISON: X-ray 09/03/2025 TECHNIQUE: MRI of the ankle was performed using routine sequences on a high-field scanner. Large toqoi-hx-zwbw study, using the Achilles protocol. 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 Patient reports 3 years of symptoms, pain. COMPARISON: X-ray 09/03/2025 TECHNIQUE: MRI of the ankle was performed using routine sequences on a high-field scanner. Large neyxj-wj-zsle study, using the Achilles protocol. TECHNIQUE: MRI [...] 09/04/25 0936 DD/ 1515 TD/TT: 09/03/25 1545 Business Asst: TAVARES [facility] External Provider IMG MRI PROCEDURES Edited Result - Final * XR Tibia Fibula 2 Views Left (08/30/2025 10:31 AM EDT) Anatomical Region Laterality Modality Lower Extremities, Lower Leg Left Rad iographic Imaging 08/30/2025 10:3 1 AM EDT Narrative 08/30/2025 11:04 AM EDT [address] [address] XRay Report Signed Patient: Delmar Hudson MR#: [id number] 253 : 1975 Acct:[id number] Age/Sex: 50 / F ADM Date: 08/30/25 Loc: [facility] Attending Dr: Rylie Bustos DPM Ordering Physician: Rylie Bustos DPM Date of Service: 08/30/25 Procedure(s): XR tibia fibula LT 2V Accession Number(s): [id number] cc: Timur Chance MD; Rylie Bustos DPM [...] 08/30/25 1101 DD/ 1031 TD/TT: 08/30/25 1045 Business Asst: TAVARES Procedure Note Donotuseinterpreter, Image - 08/30/[address] [address] XRay Report Signed Patient: Delmar HudsonMR#: [id number] 253 : 1975Acct:[id number] Age/Sex: 50 / FADM Date: 08/30/25 Loc: [facility] Attending Dr: Rylie Bustos DPM Ordering Physician: Rylie Bustos DPM Date of Service: 08/30/25 Procedure(s): XR tibia fibula LT 2V Accession Number(s): [id number] cc: Timur Chance MD; Rylie Bustos DPM [...] 08/30/25 1101 DD/ 1031 TD/TT: 08/30/25 1045 Business Asst: TAVARES [facility] External Provider IMG XR PROCEDURES Edited Result - Final * BI Mammogram Screening Tomosynthesis Bilateral (08/15/2025 9:59 AM EDT) Anatomical Region Laterality Modality Breast Bilateral Mammography 08/15/2025 9:59 AM EDT Narrative 08/21/2025 3:02 PM EDT [address] [place] [address] Mammography Report Signed Patient: Delmar Hudson MR#: [id number] 253 : 1975 Acct:[id number] Age/Sex: 50 / F ADM Date: 08/15/25 Loc: HO.MAMMO Attending Dr: Timur Hernandez MD Ordering Physician: Timur Chance MD Res ults: 1Negative Date of Service: 08/15/25 Follow Up: 1 Year From Orig ina Mammogram Procedure(s): MM tomosynthesis screening BI Accession Number(s): [id number] cc: Timur Chance MD Reason For Exam: [...] 08/21/25 1459 DD/ 0959 TD/TT: 08/15/25 1002 Business Asst: Procedure Note Donotuseinterpreter, Image - 08/21/[address] [place] [address] Mammography Report Signed Patient: Delmar HudsonMR#: [id number] 253 : 1975Acct:[id number] Age/Sex: 50 / FADM Date: 08/15/25 Loc: HO.MAMMO Attending Dr: Timur Hernandez MD Ordering Physician: Timur Chance ults: 1Negative Date of Service: 08/15/25Follow Up: 1 Year From Orig ina Mammogram Procedure(s): MM tomosynthesis screening BI Accession Number(s): [id number] cc: Timur Chance MD Reason For Exam: [...] 08/21/25 1459 DD/ 0959 TD/TT: 08/15/25 1002 Business Asst: us Timur Hernandez MD IMG BI PROCEDURES Final Result * (ABNORMAL) Hemoglobin A1c (05/25/2025 11:17 AM EDT) Hemoglobin A1c 6.3(H) <6.0 % [facility] Comment:Hemoglobin A1C Refer ence Range Adults: 4.8 - 6.0 % Non diabetic: < 6.0 % Goal: < 7.0 %Additional Action Suggested: > 8.0 %Note: Hemoglobin A1c results are invalid for patients with abnormal amounts of HbF. Blood transfusions may impact the HbA1c concentration in the patient sample. Estimated Average Glucose 134 mg/dL [facility] Comment:eAG = Estimated ave rage glucose which is %A1C expressed asaverage glucose, using the formula of the Y2G-YveejtgPclrxmx Glucose study (ADAG), Diabetes Care, Vol.31,#8,Jun. 2007 Blood Venous blood specimen / Unknown 05/25/2025 11:17 AM EDT 05/25/2025 2:41 PM EDT Timur Hernandez MD LAB BLOOD ORDERABL ES Final Result [facility] [address] [place] [phone] * Lipid Panel, Standard (05/25/2025 11:17 AM EDT) Triglycerides 96 <150 mg/dL [facility] Comment:Desirable Triglyceri de: less than 150 mg/dLBorderline High Triglyceride 150-199 mg/dLHigh Triglyceride: 200-499 mg/dLVery High Triglyceride: greater than or equal to 5OO mg/dL Cholesterol 147 <200 mg/dL [facility] Comment:Desirable Cholestero l: less than 200 mg/dLBorderline High Cholesterol: 200-239 mg/dLHigh Cholesterol: greater than 239 mg/dL LDL Cholesterol Calculated 85 <100 mg/dL [facility] Comment:Desirable LDL: less than 100 mg/dLNear Optimal/Above Optimal LDL: 110- 129 mg/dLBorderline High LDL: 130-159 mg/dLHigh LDL: 160-189 mg/dLVery High LDL: greater than or equal to 190 mg/dL HDL Cholesterol 43 >40 mg/dL [facility] Comment:Desirable HDL: great er than 40 mg/dL Note: This HDL assay may give artificially low results in patients with liver disease. Blood Venous blood specimen / Unknown 05/25/2025 11:17 AM EDT 05/25/2025 2:41 PM EDT Timur Hernandez MD LAB BLOOD ORDERABL ES Final Result [facility] [address] [place] [address] [phone] * Cologuard?? colon cancer screening (10/18/2024 8:40 AM EST) Cologuard Result Negative Negative 10/26/20 5:02 AM EST [facility] (CLIA #:[id number]) Comment: NEGATIVE TEST RESULT. A negative Cologuard [...] (Juan Ochoa al, N Engl J Med 2014;370(14):7492-8827) The normal value (reference range) for this assay is negative. COLOGUARD RE-SCREENING RECOMMENDATION: Periodic colorectal cancer screening is an important part of preventive healthcare for asymptomatic individuals at average risk for colorectal cancer. Following a negative Cologuard result, the [employer] and U.S. Multi-Society Task Force screening guidelines recommend a Cologuard re-screening interval of 3 years. References: [employer] Guideline for Colorectal Cancer Screening: https://www.cancer.org/cancer/cekxs-cfemju-lerjmp/xldkdpnuh-vxyzgcrsf-gkmzsft/ac s-rec ommendations.html.; Aki HARGROVE, Fabio RODRIGUES, Oleg BARILLAS, Colorectal Cancer Screening: Recommendations for Physicians and Patients from the U.S. Multi-Society Task Force on Colorectal Cancer Screening , Am J Gastroenterology 2017; 112:4514-8958. TEST DESCRIPTION: Composite algorithmic analysis of stool [...] (Juan Ochoa al, N Engl J Med 2014;370(14):8675-6362.) Cologuard may produce a false negative or false positive result (no colorectal cancer or precancerous polyp present at colonoscopy follow up). A negative Cologuard test result does not guarantee the absence of CRC or advanced adenoma (pre-cancer). The current Cologuard screening interval is every 3 years. ([place] [employer] and U.S. Multi-Society Task Force). Cologuard performance data in a 10,000 patient pivotal study using colonoscopy as the reference method can be accessed at the following location: www.[employer].Rebyoo/results. Additional description of the Cologuard test process, warnings and precautions can be found at www.Night Uprd.com. Stool specimen (specimen) 10/18/2024 8:40 AM EST 10/19/2024 10:55 AM EST Timur Hernandez MD LAB MOLECULAR DIAG NOSTICS ORDERABLES Final Result [facility] (CLIA #:[id number]) [address] [place] [address], * HEPATITIS C AB W/REFL TO HCV [...] a test for HCV RNA (test code 23734) is suggested. For additional information please refer to http://education.Supply Vision/faq/UUE91g0 (This link is being provided for informational/ [...] mRNA E6/E7 (12/05/2019 1:12 PM EST) Pathologist [facility] HPV mRNA E6/E7 Not Detected NOT DETECTED [facility] Comment: This test was performed using the APTIMA(R) HPV Assay ([employer] This assay detects E6/E7 viral messenger RNA (mRNA) from 14 high-risk HPV types (16,18,31,33,35,39,45,51, 52,56,58,59,66,68). For additional information please refer to: http://education.Supp[employer] Vision/faq/IBF516r3 (This link is being provided for informational/ educational purposes only.) The analytical performance characteristics of this assay have been determined by [facility] [place], [place]. The modifications have not been cleared or approved by the FDA. This assay has been validated pursuant to the CLIA regulations and is used for clinical purposes. Test Performed by [facility], [facility], [address] [place] [address] Nas Dugan M.D., Ph.D., Director of Laboratories , CLIA [id number] Please note: Effective 07/27/2016, HPV testing will be performed using [employer]'s APTIMA test which targets mRNA. Detecting mRNA instead of DNA, as in older methods, offers significant improvements in specificity. 12/05/2019 1:12 PM EST us Aretha Blanco CNM HISTORICAL/NON ORDERABLE LABS Final Result [facility] [address] * HIV AB/AG (10/20/2019 3:01 PM EST) Pathologist [facility] HIV AG/AB NONREACTIVE NR FOUNDATI ON LAB [...] of detection of this assay. [facility] Teacher HIV Ag/Ab Combo assay result and supplemental assay results should be interpreted in conjunction with the patient's clinical presentation, history and other laboratory results. If the results are inconsistent with clinical evidence, additional testing is suggested to confirm the result. 10/20/2019 3:01 PM EST us Timur Hernandez MD HISTORICAL/NON ORD ERABLE LABS Final Result [facility] [address] from Last 3 Months or Most Recently Relevant to Health Maintenance Insurance [facility] Care Teams Strategic Client Executive Relationship Specialty Start Date End Date BassTimur Rosenberg MD [address] [place] [address] [place] [address] PCP - General Internal Medicine 10/20/19
--- OUTSIDE RECORDS SUMMARY | 2025-11-01 12:31 | XMS_ITS | Encounter Summary ---
Author Organization [employer] Address [address] [facility] 7t [place] [address] Care Team Providers Care Manager Apple Name Role Phone Timur Chance MD Primary Care Prov ider Encounter Details Date Type Department Care Team (Late st Contact Info) Description 08/13/2025 Orders Only [facility] [address] [place] [address] ProviderAdilson MD Social History Tobacco Use Types [...] Description 11/26/2025 10:30 AM EST Office Visit [facility] [address] [place], [place] [phone] BassTimur Rosenberg MD [address] [place], [place] [phone] documented as of this encounter Procedures Procedure [...] PM EDT Narrative 09/04/2025 9:39 AM EDT [address] [address] Magnetic Resonance Report Signed Patient: Delmar Hudson MR#: [id number] 253 : 1975 Acct:[id number] Age/Sex: 50 / F ADM Date: 09/03/25 Loc: HO.MRI Attending Dr: Kelly Dalton PA-C Ordering Physician: Kelly Dalton PA-C Date of Service: 09/03/25 Procedure(s): MR ankle LT wo con Accession Number(s): [id number] cc: Timur Chance MD; Kelly Dalton PA-C Reason for Exam: 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 Patient reports 3 years of symptoms, pain. COMPARISON: X-ray 09/03/2025 TECHNIQUE: MRI of the ankle was performed using routine sequences on a high-field scanner. Large bicpx-gh-ahwq study, using the Achilles protocol. 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 Patient reports 3 years of symptoms, pain. COMPARISON: X-ray 09/03/2025 TECHNIQUE: MRI of the ankle was performed using routine sequences on a high-field scanner. Large gkjzb-kh-aekd study, using the Achilles protocol. TECHNIQUE: MRI [...] 09/04/25 0936 DD/ 1515 TD/TT: 09/03/25 1545 Graphic Design Specialist: TAVARES [facility] External Provider IMG MRI PROCEDURES Edited Result - Final * XR Ankle 3+ Views Left (08/30/2025 10:41 AM EDT) Anatomical Region Laterality Modality Lower Extremities, Ankle Left Radiogr aphic Imaging 08/30/2025 10:4 1 AM EDT Narrative 08/30/2025 11:04 AM EDT [place] [address] XRay Report Signed Patient: Delmar Hudson MR#: [id number] 253 : 1975 Acct:[id number] Age/Sex: 50 / F ADM Date: 08/30/25 Loc: PAOLA Attending Dr: Rylie Bustos DPM Ordering Physician: Rylie Bustos DPM Date of Service: 08/30/25 Procedure(s): XR ankle LT min 3V Accession Number(s): [id number] cc: Timur Chance MD; Rylie Bustos DPM Reason for Exam: M25.572 - Pain in left ankle and joints of left foot EXAMINATION: XR ANKLE, LEFT X-ray tibia fibula, left CLINICAL INFORMATION: S99.109Q - Unspecified injury of left ankle, initial [...] 08/30/25 1101 DD/ 1041 TD/TT: 08/30/25 1045 Graphic Design Specialist: TAVARES Procedure Note Donotuseinterpreter, Image - 08/30/2025 [place] [address] XRay Report Signed Patient: Delmar HudsonMR#: [id number] 253 : 1975Acct:[id number] Age/Sex: 50 / FADM Date: 08/30/25 Loc: PAOLA Attending Dr: Rylie Bustos DPM Ordering Physician: Rylie Bustos DPM Date of Service: 08/30/25 Procedure(s): XR ankle LT min 3V Accession Number(s): [id number] cc: Timur Chance MD; Rylie Bustos DPM Reason for Exam: M25.572 - Pain in left ankle and joints of left foot EXAMINATION: XR ANKLE, LEFT X-ray tibia fibula, left CLINICAL INFORMATION: S99.502A - Unspecified injury of left ankle, initial [...] 08/30/25 1101 DD/ 1041 TD/TT: 08/30/25 1045 Graphic Design Specialist: TAVARES [facility] External Provider IMG XR PROCEDURES Edited Result - Final * XR Tibia Fibula 2 Views Left (08/30/2025 10:31 AM EDT) Anatomical Region Laterality Modality Lower Extremities, Lower Leg Left Rad iographic Imaging 08/30/2025 10:3 1 AM EDT Narrative 08/30/2025 11:04 AM EDT [place] [address] XRay Report Signed Patient: Delmar Hudson MR#: [id number] 253 : 1975 Acct:[id number] Age/Sex: 50 / F ADM Date: 08/30/25 Loc: PAOLA Attending Dr: Rylie Bustos DPM Ordering Physician: Rylie Bustos DPM Date of Service: 08/30/25 Procedure(s): XR tibia fibula LT 2V Accession Number(s): [id number] cc: Timur Chance MD; Rylie Bustos DPM [...] MD Signed By: <Electronically signed by Merlin eZng MD in OV> 08/30/25 1101 DD/ 1031 TD/TT: 08/30/25 1045 Graphic Design Specialist: TAVARES Procedure Note Donotuseinterpreter, Image - 08/30/[address] [address] XRay Report Signed Patient: Delmar HudsonMR#: [id number] 253 : 1975Acct:[id number] Age/Sex: 50 / FADM Date: 08/30/25 Loc: PAOLA Attending Dr: Rylie Bustos DPM Ordering Physician: Rylie Bustos DPM Date of Service: 08/30/25 Procedure(s): XR tibia fibula LT 2V Accession Number(s): [id number] cc: Timur Chance MD; Rylie Bustos DPM [...] 08/30/25 1101 DD/ 1031 TD/TT: 08/30/25 1045 Graphic Design Specialist: TAVARES [facility] External Provider IMG XR PROCEDURES Edited [...] as of this encounter Care Teams Manager Apple Relationship Specialty Start Date End Date Timur Chance MD [address] [place] [address] PCP - General Internal Medicine 10/20/19 documented as of this encounter
--- OUTSIDE RECORDS SUMMARY | 2025-11-01 12:31 | XMS_ITS | Encounter Summary ---
Author Organization [employer] Address 75 [facility] [address]t [place] [address] Care Team Providers Care Funeral Director'S Assistant Name Role Phone Timur Chance MD Primary Care Prov ider Reason for Visit * Reason Onset Date Comments Referral 10/16/2024 Encounter Details Date Type Department Care Team (Late st Contact Info) Description 10/16/2024 Telephone [facility] [address] [place] [address] Timur Chance MD [address] [place] [phone] Referral Social History Tobacco Use Types Packs/Day [...] therapy. If any question contact pt at [phone] documented in this encounter Plan of Treatment Upcoming Encounters Date Type Department Care Team ([facility] st Contact Info) Description 11/26/2025 10:30 AM EST Office Visit [facility] [address] [place] [address] Timur Chance MD [address] [place] [address] documented as of this encounter Visit Diagnoses Not on filedocumented in this encounter Additional Health Concerns Assessment Noted Time PHQ-9 Depression Total Score: 16 024 12:04 PM EST documented as of this encounter Care Teams Funeral Director'S Assistant Relationship Specialty Start Date End Date Timur Chance MD [address] [place] [address] PCP - General Internal Medicine 10/20/19 documented as of this encounter
--- OUTSIDE RECORDS SUMMARY | 2025-11-01 12:32 | XMS_ITS | Encounter Summary ---
Author Organization [employer] Address [address] [facility] 7 [place] [address] Care Team Providers Care Rn Critical Care Name Role Phone Timur Chance MD Primary Care Prov ider Reason for Visit * Reason Onset Date Comments pre op appt 09/10/2025 Encounter Details Date Type Department Care Team ([facility] st Contact Info) Description 09/10/2025 Telephone [facility] [address] [place] [address] Timur Chance MD [address] [place] [phone] pre op appt Social History Tobacco Use [...] Description 11/26/2025 10:30 AM EST Office Visit [facility] [address] [place] [address] Timur Chance MD [address] [place] [address] documented as of this encounter Visit Diagnoses Not on filedocumented in this encounter Additional Health Concerns Assessment Noted Time PHQ-9 Depression Total Score: 2 07/02/20 25 11:03 AM EDT documented as of this encounter Care Teams Rn Critical Care Relationship Specialty Start Date End Date Timur Chance MD [address] [place] [address] PCP - General Internal Medicine 10/20/19 documented as of this encounter
--- OUTSIDE RECORDS SUMMARY | 2025-11-01 12:32 | XMS_ITS | Clinical Summary ---
Author Organization [facility] Address [address] [place] [address] Phone Care Team Providers Care Practice Managers Name Role Phone Timur Chance Primary Care Provide r Allergies No known active allergies Medications omeprazole (PriLOSEC) [address] capsule Take 1 capsule (20 mg total) by mouth 1 (one) time each day. 5 Active naproxen (NAPROSYN) 500 mg tablet Take 1 tablet (500 mg total) by mouth 2 (two) times a day. 5 Active metFORMIN (GLUCOPHAGE) 500 mg tablet TAKE ONE TABLET BY MOUTH TWICE DAILY IN THE MORNING AND IN THE EVENING WITH MEALS. 1 Active losartan (COZAAR) 50 mg tablet Take 1 tablet (50 mg total) by mouth daily. 5 026 Active fluconazole (DIFLUCAN) 150 mg tablet TAKE ONE TABLET ONCE, MAY REPEAT IN THREE DAYS NEEDED 5 Active diclofenac (VOLTAREN) 1 % topical gel To apply to the affected area 3 times a day 4 Active clotrimazole (LOTRIMIN) 1 % cream APPLY TO AFFECTED AREA(S) AND SURROUNDING AREA(S) TWICE DAILY IN THE MORNING AND EVENING 1 Active blood sugar diagnostic (FreeStyle Lite Strips) test strip 1 Lancet by extracorporeal route 3 (three) times a day. 1 Active atorvastatin (LIPITOR) 20 mg tablet Take 1 tablet (20 mg total) by mouth daily. 1 026 Active acetaminophen (TYLENOL) 500 mg tablet Take 1 tablet (500 mg total) by mouth every 6 hours as needed. Active bisacodyL (DULCOLAX) 5 mg EC tablet Take 2 tablets by mouth right before beginning bowel prep. See instructions provided by the office 2 tablet 5 Active polyethylene glycol (Golytely) 236-22.74-6.74 -5.86 gram solution Take 4L by mouth once for one dose. May substitue any PEG. Starting at 2PM the day before your procedure drink 1 8oz glasses at your own pace until you complete half of the gallon. Finish 2nd half of the gallon at 8PM. 4000 mL 5 Active aspirin 81 mg EC tablet Take 1 tablet (81 mg total) by mouth 1 (one) time each day. Active Active Problems Problem Noted Date Diagnosed Date Mixed stress and urge urinary incontinence 05/21 Urinary frequency 05/21/2025 Pre-diabetes 10/30/2024 Chronic pain of right knee 09/27/2024 Primary hypertension 09/27/2024 Carpal tunnel syndrome of right wrist 01/10/2024 Chronic left shoulder pain 12/04/2022 Gastroesophageal reflux disease without esophagi tis 12/04/2022 Mixed hyperlipidemia 12/04/2022 Cardiomyopathy 10/21/2021 Diabetes 10/21/2021 Hx of hysterectomy 10/21/2021 Encounters Date Type Department Care Team Description 08/14/2025 3:00 PM EDT Consult Gastroenterology - [place] [address] [address] Shayla Jones NP Epigastric abdominal pain (Primary Dx); Gastroesophageal reflux disease, unspecified whether esophagitis present; Screening for colorectal cancer; Morbid obesity with BMI of 45.0-49.9, adult ([facility] V24, [facility] V28) 08/14/2025 Telephone Gastroenterology [facility] [address] [address] Shayla Jones NP 08/11/2025 12:59 AM EDT - 08/11/2025 6:50 AM EDT Emergency [facility] Emergency [address] [place] [address] RUQ pain (Primary Dx); Hepatomegaly Discharge Disposition: Home or Self Care from Last 3 Months Medical History Medical History Date Comments Diabetes mellitus ([facility] V24, [facility] V28) Social History Tobacco Use Types Packs/Day Years Used Date Smoking Tobacco: Never Smokeless Tobacco: Never Tobacco Cessation:Counseling Given: Not Answered Comments Unknown Sex and Gender Information Value Date Recorded Sex Assigned at Not on file Legal Sex Female 4:56 PM EST Gender Identity Not on file Sexual Orientation Not on file Last Filed Vital Signs [...] GEMUSE QTc 450 ms GEMUSE P Wave [place] 69 degrees GEMUSE R [place] 16 degrees GEMUSE T [place] 40 degrees GEMUSE ECG Interpretation Normal sinus rhythm Normal ECG When compared with ECG of 11-AUG-2025 01:03, (unconfirmed) No significant change was found Confirmed by VENTURA SUN ([id number]) on 08/12/2025 1:16:05 PM GEMUSE 08/11/2025 4:20 AM EDT 08/12/2025 1:16 PM EDT us Willie Smith MD ECG ORDERABLES Final Result GEMUSE * Troponin I high sensitivity (08/11/2025 3:53 AM EDT) Only the most recent of2 resultswithin the time period is included. High Sensitivity Troponin I 4 <=54 ng/L LAB CHEMISTRY METHOD 08/11/2025 5:01 AM EDT [facility] Blood Venous blood specimen / Unknown Venipuncture / Unknown 08/11/2025 3:53 AM EDT 08/11/2025 4:33 AM EDT Narrative [facility] - 08/11/2025 5:01 AM EDT High levels of biotin in samples may falsely decrease hsTroponin values. Use caution when interpreting hsTroponin results in patients taking biotin who exhibit renal impairment (eGFR <60) or in patients taking more than 20 mg/day of biotin. us Willie Smith MD LAB BLOOD ORDERABLES Final Resu lt [facility] [address] [place] [address], [place] [phone] * US Abdomen Limited (08/11/2025 3:46 AM [...] Isaac Aguero MD on 08/11/2025 04:26:06 us Moniac Villavicencio NP IMG US PROCEDURES Final R esult * (ABNORMAL) CBC auto differential (08/11/2025 1:21 AM EDT) WBC 14.7(H) 4.8 - 10.8 K/mcL LAB HEMETOLOGY METHOD 08/11/2025 2:04 AM [facility] RBC 4.60 3.80 - 4.80 M/mcL LAB HEMETOLOGY METHOD 08/11/2025 2:04 AM [facility] Hemoglobin 11.8 11.5 - 16.0 g/dL LAB HEMETOLOGY METHOD 08/11/2025 2:04 AM [facility] Hematocrit 38.4 35.0 - 47.0 % LAB HEMETOLOGY METHOD 08/11/2025 2:04 AM [facility] MCV 83.3 79.0 - 98.0 FL LAB HEMETOLOGY METHOD 08/11/2025 2:04 AM [facility] MCH 25.6(L) 27.0 - 32.0 pcg LAB HEMETOLOGY METHOD 08/11/2025 2:04 AM [facility] MCHC 30.7(L) 32.0 - 37.0 g/dL LAB HEMETOLOGY METHOD 08/11/2025 2:04 AM [facility] RDW 14.7 11.0 - 15.0 % LAB HEMETOLOGY METHOD 08/11/2025 2:04 AM [facility] Platelets 295 130 - 400 K/mcL LAB HEMETOLOGY METHOD 08/11/2025 2:04 AM [facility] MPV 10.6 7.0 - 11.0 FL LAB HEMETOLOGY METHOD 08/11/2025 2:04 AM [facility] NRBC 0.0 <1.0 % LAB HEMETOLOGY METHOD 08/11/2025 2:04 AM [facility] NRBC Absolute 0.00 <0.10 K/mcL LAB HEMETOLOGY METHOD 08/11/2025 2:04 AM [facility] Neutrophils Relative 66.0 % LAB HEMETOLOGY METHOD 08/11/2025 2:04 AM [facility] Lymphocytes Relative 26.1 % LAB HEMETOLOGY METHOD 08/11/2025 2:04 AM [facility] Monocytes Relative 6.0 % LAB HEMETOLOGY METHOD 08/11/2025 2:04 AM [facility] Eosinophils Relative 1.0 % LAB HEMETOLOGY METHOD 08/11/2025 2:04 AM [facility] Basophils Relative 0.4 % LAB HEMETOLOGY METHOD 08/11/2025 2:04 AM [facility] Immature Granulocytes Relative 0.5 % LAB HEMETOLOGY METHOD 08/11/2025 2:04 AM [facility] Neutrophils Absolute 9.73(H) 1.50 - 7.00 K/mcL LAB HEMETOLOGY METHOD 08/11/2025 2:04 AM [facility] Lymphocytes Absolute 3.84 1.00 - 5.00 K/mcL LAB HEMETOLOGY METHOD 08/11/2025 2:04 AM [facility] Monocytes Absolute 0.88 0.20 - 1.00 K/mcL LAB HEMETOLOGY METHOD 08/11/2025 2:04 AM EDT [facility] Eosinophils Absolute 0.15 0.00 - 0.50 K/[facility] LAB HEMETOLOGY METHOD 08/11/2025 2:04 AM EDT [facility] Basophils Absolute 0.06 0.00 - 0.20 K/[facility] LAB HEMETOLOGY METHOD 08/11/2025 2:04 AM EDT [facility] Immature Granulocytes Absolute 0.07(H) 0.00 - 0.03 K/mcL LAB HEMETOLOGY METHOD 08/11/2025 2:04 AM EDT [facility] Blood Venous blood specimen / Unknown Venipuncture / Unknown 08/11/2025 1:21 AM EDT 08/11/2025 1:58 AM EDT us Willie Smith MD LAB BLOOD ORDERABLES Final Resu lt Performing Organization Address City/[facility]/ZIP Co de Phone Number [facility] [address] [place] [address], [place] [phone] * B-type natriuretic peptide (08/11/2025 1:21 AM EDT) BNP 12 <=100 pcg/mL LAB CHEMISTRY METHOD 08/11/2025 2:38 AM EDT [facility] Blood Venous blood specimen / Unknown Venipuncture / Unknown 08/11/2025 1:21 AM EDT 08/11/2025 1:58 AM EDT us Willie Smith MD LAB BLOOD ORDERABLES Final Resu lt [facility] [address] [place] [address], [place] [phone] * (ABNORMAL) Magnesium (08/11/2025 1:21 AM EDT) [facility] Magnesium 1.8(L) 1.9 - 2.6 mg/dL LAB CHEMISTRY METHOD 08/11/2025 2:31 AM EDT [facility] Blood Venous blood specimen / Unknown Venipuncture / Unknown 08/11/2025 1:21 AM EDT 08/11/2025 1:58 AM EDT Willie Smith MD LAB BLOOD ORDERABLES Final Resu lt Performing Organization Address [facility]/ZIP Co de Phone Number [facility] [address] [place] [address], [place] [phone] * Lipase (08/11/2025 1:21 AM EDT) [facility] Lipase 43 13 - 75 unit/L LAB CHEMISTRY METHOD 08/11/2025 2:31 AM EDT [facility] Blood Venous blood specimen / Unknown Venipuncture / Unknown 08/11/2025 1:21 AM EDT 08/11/2025 1:58 AM EDT Willie Smith MD LAB BLOOD ORDERABLES Final Resu lt Performing Organization Address [facility]/ZIP Co de Phone Number [facility] [address] [place] [address], [place] [phone] * (ABNORMAL) Comprehensive metabolic panel (08/11/2025 1:21 AM EDT) [facility] Sodium 142 133 - 145 mmol/L LAB CHEMISTRY METHOD 08/11/2025 2:31 AM EDT [facility] Potassium 4.0 3.5 - 5.5 mmol/L LAB CHEMISTRY METHOD 08/11/2025 2:31 AM EDT [facility] Chloride 105 96 - 110 mmol/L LAB CHEMISTRY METHOD 08/11/2025 2:31 AM EDT [facility] CO2 30 21 - 32 mmol/L LAB CHEMISTRY METHOD 08/11/2025 2:31 AM [facility] Anion Gap 7 3 - 11 LAB CHEMISTRY METHOD 08/11/2025 2:31 AM [facility] Glucose 126(H) 70 - 100 mg/dL LAB CHEMISTRY METHOD 08/11/2025 2:31 AM [facility] BUN 13 5 - 25 mg/dL LAB CHEMISTRY METHOD 08/11/2025 2:31 AM [facility] Creatinine 0.91 0.50 - 1.10 mg/dL LAB CHEMISTRY METHOD 08/11/2025 2:31 AM [facility] eGFR 76 >=60 mL/min/1. 73m2 LAB CHEMISTRY METHOD 08/11/2025 2:31 AM [facility] Comment:Calculation based on the Chronic Kidney Disease Epidemiology Collaboration (CKD-EPI) equation refit without adjustment for race. BUN/Creatinine Ratio 14.3 LAB CHEMISTRY METHOD 08/11/2025 2:31 AM [facility] Calcium 9.2 8.5 - 10.5 mg/dL LAB CHEMISTRY METHOD 08/11/2025 2:31 AM [facility] AST (SGOT) 18 10 - 42 unit/L LAB CHEMISTRY METHOD 08/11/2025 2:31 AM [facility] ALT (SGPT) 37 10 - 60 unit/L LAB CHEMISTRY METHOD 08/11/2025 2:31 AM [facility] Alkaline Phosphatase 113 42 - 121 unit/L LAB CHEMISTRY METHOD 08/11/2025 2:31 AM [facility] Total Protein 7.5 6.0 - 8.0 g/dL LAB CHEMISTRY METHOD 08/11/2025 2:31 AM [facility] Albumin 3.6 3.2 - 5.0 g/dL LAB CHEMISTRY METHOD 08/11/2025 2:31 AM [facility] Total Bilirubin 0.3 0.0 - 1.4 mg/dL LAB CHEMISTRY METHOD 08/11/2025 2:31 AM EDT [facility] Blood Venous blood specimen / Unknown Venipuncture / Unknown 08/11/2025 1:21 AM EDT 08/11/2025 1:58 AM EDT us Willie Smith MD LAB BLOOD ORDERABLES Final Resu lt [facility] [address] [place] [address], [place] [phone] from Last 3 Months Insurance [facility] [employer] Care Teams Practice Managers Relationship Specialty Start Date End Date Timur Chance [address] [place] [address] PCP - General Internal Medicine 08/11/25
== END 2025-11-01 11:28 | disposition home or self-care (01) ==
LOC: HO.HPODS 10:13
PROVIDERS: PCP Internal Medicine; Visit Provider Student in an Organized Health Care Education/Training Program
DX: S86.012A Strain of left Achilles tendon, initial encounter (principal); M92.62 Juvenile osteochondrosis of tarsus, left ankle; M79.672 Pain in left foot; S99.922A Unspecified injury of left foot, initial encounter; M77.52 Other enthesopathy of left foot and ankle; M25.572 Pain in left ankle and joints of left foot; G89.29 Other chronic pain; S99.912A Unspecified injury of left ankle, initial encounter; S92.512A Displaced fracture of proximal phalanx of left lesser toe(s), initial encounter for closed fracture
CPT/HCPCS: 99024

== ENCOUNTER → 2025-11-01 10:13 | Outpatient (BNVA) | payer OTHER, SELFPAY | PROVIDERS: PCP Internal Medicine; Visit Provider Student in an Organized Health Care Education/Training Program | DX: Z47.89 Encounter for other orthopedic aftercare (principal); E11.9 Type 2 diabetes mellitus without complications; S86.012A Strain of left Achilles tendon, initial encounter; M92.62 Juvenile osteochondrosis of tarsus, left ankle; M77.52 Other enthesopathy of left foot and ankle; S92.512A Displaced fracture of proximal phalanx of left lesser toe(s), initial encounter for closed fracture; X58.XXXA Exposure to other specified factors, initial encounter; Y93.9 Activity, unspecified; Y92.9 Unspecified place or not applicable; Y99.9 Unspecified external cause status | CPT/HCPCS: 99212 ==